=== PATIENT | female | born 1985 | race Caucasian/White ===

== ENCOUNTER → 2017-08-02 08:10 | Outpatient (CLI) | payer OTHER, SELFPAY ==
--- NOTE | 2017-08-02 08:12 | CT_ITS ---
CT abdomen pelvis wo con CLINICAL INDICATION: Abdominal pain with nausea ORDERING PHYSICIAN: AURE Brito PATIENT AGE: 32 years COMPARISON: None TECHNIQUE: Axial images obtained with sagittal and coronal reformats. PROCEDURE: Oral Contrast: None IV Contrast: None . FINDINGS: No acute finding in the lung bases. The liver, gallbladder, spleen, adrenal glands, and pancreas have an unremarkable unenhanced CT appearance. No renal calculi or hydronephrosis. No ureteral calculi. Urinary bladder has an unremarkable appearance. No intestinal obstruction or free air. Unremarkable appendix. There is mild amount retained colonic feces. Bilateral tubal ligation clips are present. No pelvic mass or focal inflammatory change apparent. No acute bony anomalies. There are some scattered small lymph nodes in the inguinal regions. There is some stranding of the subcutaneous fat in the left gluteal area nonspecific but could be due to prior injury. IMPRESSION: 1. No acute abdominal or pelvic findings. 2. Stranding of the subcutaneous fat in the left gluteal region which may be due to prior trauma.
== END ==
PROVIDERS: PCP Physician Assistant; Visit Provider Physician Assistant
DX: R10.11 Right upper quadrant pain (principal)
CPT/HCPCS: 74176

== ENCOUNTER → 2017-09-30 10:35 | Outpatient (CLI) | payer OTHER, SELFPAY ==
--- NOTE | 2017-09-30 10:38 | US_ITS ---
US thyroid HISTORY: ITS.REASON: THROID NODULE ORDERING PHYSICIAN: Edu Hastings MD PATIENT AGE: 32 years COMPARISON: 04/01/2017 FINDINGS: The right lobe is 3.4 x 1.2 x 1.2 cm. There is diffuse heterogeneous echogenicity of the right lobe with an ill-defined area of decreased echogenicity in the upper pole at 7 mm unchanged. The left lobe is 3.1 x 0.9 x 1 cm. There remains an 8 x 5 mm area of slight decreased echogenicity along the upper pole not significant changed. The isthmus is somewhat prominent at 6 mm. IMPRESSION: No change bilateral thyroid nodules
[2017-09-30 12:29] LABS: Free T4 (Free Thyroxine) 1.43 ng/dl (0.76-1.46); Thyroid Stimulating Hormone 2.44 uIU/ml (0.358-3.740)
== END ==
PROVIDERS: PCP Physician Assistant; Visit Provider Otolaryngology
DX: E04.1 Nontoxic single thyroid nodule (principal)
CPT/HCPCS: 36415; 76536; 84439; 84443

== ENCOUNTER → 2018-03-27 15:19 | Outpatient (CLI) | payer OTHER, SELFPAY ==
--- NOTE | 2018-03-27 15:20 | US_ITS ---
US thyroid HISTORY: Follow-up thyroid nodules ITS.REASON: thyroid nodule ORDERING PHYSICIAN: Edu Hastings MD PATIENT AGE: 32 years Comparison: 4 03/11 and 04/01/2017 FINDINGS: Right lobe is 3.8 x 1.4 x 1.3 cm. Solid 6 x 5 mm nodule upper pole best seen on the transverse images not significantly changed Hypoechoic nodule at 11 x 5 mm posterior to the lower pole consistent with parathyroid gland unchanged Left lobe is 2.9 x 1 x 1.1 cm. Heterogeneous echogenicity 8 x 6 mm isoechoic nodule upper pole unchanged The isthmus is slightly thickened at 5 mm. IMPRESSION: Overall no change from 04/01/2017 bilateral thyroid nodule with low level of suspicion for malignancy and no change in the probable parathyroid gland along the lower pole on the right
== END ==
PROVIDERS: PCP Physician Assistant; Visit Provider Otolaryngology
DX: E04.1 Nontoxic single thyroid nodule (principal); E04.9 Nontoxic goiter, unspecified
CPT/HCPCS: 76536

== ENCOUNTER → 2018-03-31 13:51 | Outpatient (CLI) | payer OTHER, SELFPAY ==
[2018-03-31 15:53] LABS: Free T4 (Free Thyroxine) 1.42 ng/dl (0.76-1.46)
[2018-04-01 07:38] LABS: Thyroid Peroxidase Antibodies 20 IU/mL (0-34)
[2018-04-02 07:30] LABS: Thyroid Stimulating Immunoglob <0.10 IU/L (0.00-0.55)
== END ==
PROVIDERS: PCP Physician Assistant; Visit Provider Otolaryngology
DX: E04.1 Nontoxic single thyroid nodule (principal); E04.9 Nontoxic goiter, unspecified
CPT/HCPCS: 36415; 84439; 84443; 84445; 86376

== ENCOUNTER 2018-04-30 13:14 | Outpatient (RCR) | payer OTHER, SELFPAY ==
--- NOTE | 2018-04-30 14:11 | HMH.PTOPEV ---
PT Outpatient Evaluation Rehab PT Outpatient Evaluation Start: 04/30/18 13:55 Freq: Status: Active Protocol: Document 04/30/18 13:56 NATALYTYREE (Rec: 04/30/18 14:10 BECKI [id number]) Electronically Signed By Hardeep Morel, PT 04/30/18 13:56 Outpatient Therapy Subjective History Subjective History This is the initial Physical Therapy evaluation for Kristie Vale. Pt is a 32 y/o female referred to PT for c/o L side hip and LE pain. Pt rpeorts insidious onset of S&S ~ february. Pt reports she began online school and spends several hours a day sitting. Pt reports this is when her pain starts. Pt also reports getting up and moving decreased pain Chief Complaint Pain Spasms Stiff Symptom Type Ache Throb Sharp Dull Numbness Shooting Symptoms Relieved By Activity Symptoms Aggravated By Sitting Prior Functional Limitations None Current Functional Limitations Driving Sitting Symptom Description Intermittent Level of pain today (0-10) 0 Pain scale - at its best (0-10) 0 Pain scale - at its worst (0-10) 7 Lumbopelvic Eval Posture Thoracic Spine Posture Standing Position Neutral Lumbar Spine Posture Standing Position Neutral Assistive device Assistive Devices None / NA Gait Observation General Gait Pattern Observation No Deviations/Normal Palapation tenderness bilateral thoracic spinal tenderness No lumbar spinal tenderness No paraspinal tenderness No buttock tenderness Yes: L piriformis TTP Lumbar/Sacral Palpation Findings Tenderness Lumbar/Sacral Palpation Overall Comment L PSIS, SIJ TTP Range of Motion Lumbar Spine Active Flexion Range of 80+ Motion (degrees) Lumbar Spine Active Extension Range of 25+ Motion (degrees) Left Lumbar Spine Lateral Flexion Active 30+ Range of Motion (degrees) Right Lumbar Spine Lateral Flexion 30+ Active Range of Motion (degrees) DTR Rt Patellar 2+ Lt Patellar 1+ Altered Sensation Left LE Dermatome Level L2 Comment decreased per subjective Special Tests Hip Bowstring
== END 2018-04-30 13:15 | disposition home or self-care (01) ==
LOC: PT 13:14
PROVIDERS: Visit Provider Emergency Medicine
DX: M25.552 Pain in left hip (principal)
CPT/HCPCS: 97163

== ENCOUNTER → 2018-08-27 15:03 | Outpatient (CLI) | payer OTHER, SELFPAY ==
[2018-08-30 10:15] LABS: QuantiFERON-TB Gold Plus Negative (Negative)
== END ==
PROVIDERS: Visit Provider Emergency Medicine
DX: Z11.1 Encounter for screening for respiratory tuberculosis (principal)
CPT/HCPCS: 36415; 86480

== ENCOUNTER → 2019-03-23 14:53 | Outpatient (CLI) | payer OTHER, SELFPAY ==
--- NOTE | 2019-03-23 14:54 | US_ITS ---
PROCEDURE: US THYROID CLINICAL INDICATION: Goiter COMPARISON: THY US thyroid from 03/27/2018 FINDINGS: Right lobe: 1.2 x 3.8 x 1.4 centimeters. Parenchyma is moderately heterogeneous. The previously described upper pole right lobe nodule is stable at 6.3 millimeters. The solid nodular focus posterior to the lower pole is stable measuring 1.1 centimeters. Left lobe: 1.0 x 2.8 x 1.0 centimeters and moderately heterogeneous. There is a left lobe lower pole hypoechoic solid nodule measuring 4.8 millimeters in with and 1.7 millimeters in height. Isthmus: 3.7 millimeters. Additional findings: IMPRESSION: Stable bilateral thyroid lobe nodules with heterogeneous thyroid tissue. The lower pole left thyroid lobe hypoechoic nodule was not described on the prior report. This would be a TR category 4 lesion and since under 1 centimeter would require 12 month follow-up. No suspicious nodule on this study. The posterior lower pole right thyroid lobe nodule is nonspecific and could be a pedunculated thyroid nodule versus parathyroid adenoma or lymph node. Dictated by: Fantasma Ruiz 03/23/2019 15:57 Electronically signed by Fantasma Ruiz in [place] 03/23/2019 15:57
[2019-03-23 17:46] LABS: Free T4 (Free Thyroxine) 1.33 ng/dl (0.76-1.46); Thyroid Stimulating Hormone 2.48 uIU/ml (0.358-3.740)
== END ==
PROVIDERS: PCP Physician Assistant; Visit Provider Otolaryngology
DX: E04.9 Nontoxic goiter, unspecified (principal); E06.9 Thyroiditis, unspecified; E03.9 Hypothyroidism, unspecified
CPT/HCPCS: 36415; 76536; 84439; 84443

== ENCOUNTER → 2019-08-13 11:33 | Outpatient (CLI) | payer MEDICAID, SELFPAY ==
[2019-08-13 12:22] LABS: Basophils # 0.1 K/mm3 (0-0.2); Basophils % 0.7 % (0.1-2.0); Eosinophils # 0.6 K/mm3 (0.0-0.4); Eosinophils % 6.2 % (0.1-12.0); Hemoglobin 14.9 g/dL (12.2-16.2); Lymphocytes # 2.6 K/mm3 (0.7-4.5); Lymphocytes % 26.8 % (10-50); Mean Corpuscular HGB Conc 32.4 g/dL (31.8-35.4); Mean Corpuscular Hemoglobin 28.5 pg (27.0-31.2); Mean Corpuscular Volume 87.9 fl (81-99); Mean Platelet Volume 9.9 fl (7.4-10.4); Monocytes # 0.3 K/mm3 (0.1-1.0); Monocytes % 3.1 % (1.7-9.3); Neutrophils # 6.2 K/mm3 (1.8-7.8); Neutrophils % 63.2 % (37.0-80.0); Platelet Count 257 K/mm3 (142-424); Red Blood Count 5.23 M/mm3 (4.20-5.40); Red Cell Distribution Width 13.9 % (11.5-17.5); White Blood Count 9.8 K/mm3 (4.8-10.8)
[2019-08-13 12:56] LABS: Chloride 100 mmol/L (98-107); Sodium 139 mmol/L (136-145)
[2019-08-13 12:57] LABS: Potassium 4.6 mmoL/L (3.5-5.1)
[2019-08-13 12:59] LABS: Alanine Aminotransferase 32 U/L (12-78); Alkaline Phosphatase 62 U/L (38-126); Amylase 35 U/L (30-110); Anion Gap 13.6 mEq/L (5-15); Aspartate Amino Transferase 35 U/L (14-36); Bilirubin,Total 0.9 mg/dl (0.2-1.3); Blood Urea Nitrogen 8 mg/dl (7-17); Calcium 10.2 mg/dl (8.4-10.2); Carbon Dioxide 30 mmol/L (22.0-30.0); Estimated Glomerular Filt Rate 95 ml/min (>60); GFR (African American) 115 ML/MIN (>60); Glucose 96 mg/dl (74-100); HDL Cholesterol 35 mg/dl (40-60); Lipase 63 U/L (23-300)
[2019-08-13 13:00] LABS: Albumin Level 4.5 g/dl (3.5-5.0); Albumin/Globulin Ratio 1.4 (1.1-1.8); Chol/HDL Ratio 7.1 (1-3.5); Cholesterol 248 mg/dl (140-200); Globulin 3.3 g/dL (1.3-3.2); Total Protein,Serum 7.8 g/dl (6.3-8.2); Triglycerides 335 mg/dl (30-150); VLDL Cholesterol 67 mg/dL (0-40)
[2019-08-13 13:11] LABS: Direct LDL Cholesterol 154.51 mg/dL (100-129)
[2019-08-13 13:17] LABS: T4 (Thyroxine) 14.8 ug/dl (5.53-11.0)
[2019-08-14 10:37] LABS: Vitamin D 25 Hydroxy 23.7 ng/mL (30.0-100.0)
[2019-08-14 23:43] LABS: H. pylori Breath Test Negative (Negative)
== END ==
PROVIDERS: Visit Provider Physician Assistant
DX: R10.11 Right upper quadrant pain (principal); E55.9 Vitamin D deficiency, unspecified
CPT/HCPCS: 36415; 80053; 80061; 82150; 82652; 83013; 83690; 84436; 84443; 85025

== ENCOUNTER → 2019-08-20 09:30 | Outpatient (CLI) | payer MEDICAID, SELFPAY ==
--- NOTE | 2019-08-20 09:30 | US_ITS ---
PROCEDURE: US ABDOMEN LIMITED CLINICAL INDICATION: ruq pain Right upper quadrant pain with nausea and bloating COMPARISON: RUQ US RUQ-(ABD LTD)1ORGAN/QUAD/FU from 03/28/2017 FINDINGS: PANCREAS: Unremarkable. No obvious mass or abnormal fluid collection. No ductal dilatation LIVER: No focal liver lesions demonstrated. Homogeneous echogenicity. No intrahepatic biliary ductal dilatation evident. There is appropriate direction of blood flow within a non dilated portal vein. There is some nonspecific increased echogenicity within the liver consistent with hepatic steatosis. RIGHT KIDNEY: Unremarkable. Normal size and echogenicity. No hydronephrosis GALLBLADDER: No gallstones, gallbladder wall thickening, pericholecystic fluid, or biliary dilatation. IMPRESSION: Fatty liver otherwise negative Dictated by: Darek Lane MD 08/20/2019 17:05 Electronically signed by Darek Lane MD in [place] 08/20/2019 17:05
== END ==
PROVIDERS: PCP Physician Assistant; Visit Provider Physician Assistant
DX: R10.11 Right upper quadrant pain (principal)
CPT/HCPCS: 76705

== ENCOUNTER → 2019-09-10 10:14 | Outpatient (CLI) | payer MEDICAID, SELFPAY ==
--- NOTE | 2019-09-10 10:15 | NM_ITS ---
PROCEDURE: NM HEPATOBILIARY W PHARM CLINICAL INDICATION: RUQ pain, nausea COMPARISON: No exams were available for comparison TECHNIQUE: DOSE: 8.68 mCi technetium Choletec and 2 mcg of CCK FINDINGS: Homogeneous activity is present within the hepatic parenchyma. Activity is present in the gallbladder by 10 minutes. Activity is present in the small bowel by 45 minutes. The gallbladder ejection fraction is calculated to be 28 percent. CCK-The patient did not report pain or other symptoms during CCK infusion. IMPRESSION: 1. No evidence of common or cystic duct obstruction. 2. Slightly low gallbladder ejection fraction at 28 percent with lower limits of normal being 35 percent Dictated by: Darek Lane MD 09/10/2019 14:38 Electronically signed by Darek Lane MD in [place] 09/10/2019 14:38
--- NOTE | 2019-09-10 10:38 | HMH.ITSHM ---
Current Home Medications as stated by this patient Kristie Perez or field representative/health education. []SABOXEN PROPRANOLOL LEVOTHYROXINE ATORVASTATIN ZOLOFT VITAMIN D
== END ==
PROVIDERS: PCP Physician Assistant; Visit Provider Physician Assistant
DX: R10.11 Right upper quadrant pain (principal)
CPT/HCPCS: 78227; A9537; J2805

== ENCOUNTER → 2019-10-26 10:19 | Outpatient (CLI) | payer MEDICAID, SELFPAY ==
[2019-10-26 10:40] LABS: Basophils # 0.1 K/mm3 (0-0.2); Basophils % 0.8 % (0.1-2.0); Eosinophils # 0.7 K/mm3 (0.0-0.4); Eosinophils % 7.3 % (0.1-12.0); Hemoglobin 13.8 g/dL (12.2-16.2); Lymphocytes # 2.8 K/mm3 (0.7-4.5); Lymphocytes % 28.6 % (10-50); Mean Corpuscular HGB Conc 33.8 g/dL (31.8-35.4); Mean Corpuscular Hemoglobin 28.8 pg (27.0-31.2); Mean Corpuscular Volume 85.2 fl (81-99); Mean Platelet Volume 9.9 fl (7.4-10.4); Monocytes # 0.3 K/mm3 (0.1-1.0); Monocytes % 3.5 % (1.7-9.3); Neutrophils # 5.9 K/mm3 (1.8-7.8); Neutrophils % 59.8 % (37.0-80.0); Platelet Count 227 K/mm3 (142-424); Red Blood Count 4.81 M/mm3 (4.20-5.40); Red Cell Distribution Width 13.4 % (11.5-17.5); White Blood Count 9.9 K/mm3 (4.8-10.8)
[2019-10-26 11:36] LABS: Alanine Aminotransferase 36 U/L (12-78); Albumin Level 4.3 g/dl (3.5-5.0); Albumin/Globulin Ratio 1.5 (1.1-1.8); Alkaline Phosphatase 59 U/L (38-126); Anion Gap 9.1 mEq/L (5-15); Aspartate Amino Transferase 36 U/L (14-36); Bilirubin,Total 0.9 mg/dl (0.2-1.3); Blood Urea Nitrogen 10 mg/dl (7-17); Calcium 9.4 mg/dl (8.4-10.2); Carbon Dioxide 29 mmol/L (22.0-30.0); Chloride 103 mmol/L (98-107); Estimated Glomerular Filt Rate 95 ml/min (>60); GFR (African American) 115 ML/MIN (>60); Globulin 2.8 g/dL (1.3-3.2); Glucose 106 mg/dl (74-100); Potassium 4.1 mmoL/L (3.5-5.1); Sodium 137 mmol/L (136-145); Total Protein,Serum 7.1 g/dl (6.3-8.2)
[2019-10-27 08:54] LABS: Covid-19 Nasal PCR Sendout Lex NOT DETECTED
--- NOTE | 2019-10-27 10:15 | PC.NURSE ---
0937-pt & S.Nimo ARITA notified of negative COVID 19 results.
== END ==
PROVIDERS: Visit Provider Surgery
DX: Z01.818 Encounter for other preprocedural examination (principal); K82.9 Disease of gallbladder, unspecified
CPT/HCPCS: 36415; 80053; 85025; U0003

== ENCOUNTER → 2019-10-27 13:21 | Outpatient (CLI) | payer MEDICAID, SELFPAY | PROVIDERS: Visit Provider Physician Assistant | DX: R30.9 Painful micturition, unspecified (principal) | CPT/HCPCS: 87086; 87088; 87186 ==

== ENCOUNTER 2019-10-28 10:24 | Day surgery (SDC) | payer MEDICAID, SELFPAY ==
--- NOTE | 2019-10-23 13:30 | SUR.PREOP ---
10/23/19 @ 7440--PHONE CALL MADE TO PATIENT. PATIENT UNDERSTANDS THAT LAB WORK AND COVID-19 TESTING NEEDS TO BE COMPLETED @ 0930 ON 10/26/19. PATIENT UNDERSTANDS IF LAB WORK AND COVID-19 TESTS ARE NOT COMPLETED BY 12PM ON THAT DATE, THE SURGERY SCHEDULED WILL BE CANCELLED AND RESCHEDULED FOR ANOTHER TIME.
[2019-10-27 09:31] VITALS: BMI 37.0
[2019-10-27 09:47] LABS: HCG Qualitative, Serum Negative (Negative)
[2019-10-28] VITALS (10 sets, daily range): BP systolic 110–139; BP diastolic 58–93; PULSE 57–81; RESP 12–18; TEMP 36.2–43; O2SAT 92–98
--- NOTE | 2019-10-28 10:03 | HMH.GSHP ---
HPI HPI: Patient is a 34-year-old female referred by Flores Coronel for gallbladder. 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 She has had some right upper quadrant pain for about 2 years. This has become progressively more severe and frequent. She has pain from the epigastrium through the right subcostal area into the back and shoulder region. She does have some constant right upper quadrant discomfort. She has had 2 instances where she has had very severe excruciating sharp shooting pain. She has some associated bloating, belching, and nausea as well as gassiness. She has had occasional exacerbations occurring about 30 minutes postprandially such as when she had eaten hamburger. She did undergo gallbladder ultrasound which was negative for gallstones. She had a HIDA scan which reveals an ejection fraction of 28%. She does state that she has a history of fatty liver . Of note, she is on Suboxone. [facility] History I have reviewed the patient's past medical history: Yes Medical History: Reports:: Depression, Hyperlipidemia, Hypertension *Have you ever received a pneumonia vaccine?: No *Have you received a flu vaccine this season?: No Other Medical History: Reports: Hypothyroidism Laterality Cases: Bilateral: Tonsillectomy Other Surgeries: Yes: 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 Amputation: No Fractures: No - *Social History Smoking Status: Current every day smoker Tobacco Type: cigarettes # Packs/Day (cigarettes): 1 #Yrs smoked (if former smoker): 15 Alcohol Intake: never Substance Use Type: denies use, opiates, crack/cocaine, heroin *Occupational Status:: unemployed, student *Travel in the last 8 weeks: None - Psychiatric History Pschychiatric History:: Reports:: Depression Family Hx:: Coronary Artery Disease, Hyperlipidemia, Hypertension 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 , 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 Review of Systems - Review of Systems Review of systems:: pertinent systems reviewed and negative unless documented below Meds Home Medications Medication Instructions Recorded Confirmed Type albuterol sulfate 90 mcg/actuation 2 puff INHALATION Q6H 07/02/17 10/28/19 History aerosol inhaler buprenorphine 8 mg-naloxone 2 mg 1.75 tab SUBLINGUAL QDAY each 07/02/17 10/28/19 History sublingual film triamcinolone acetonide 0.1 % 1 applic TOPICAL BID 07/02/17 10/28/19 History topical cream Atorvastatin Calcium [Atorvastatin 10 mg PO QHS 10/27/19 10/28/19 History 10mg Tab] Cholecalciferol (Vitamin D3) 1,000 unit PO DAILY 10/27/19 10/28/19 History [Vitamin D3 1,000 Unit Cap] Ergocalciferol (Vitamin D2) 50,000 unit PO QWEEK 10/27/19 10/28/19 History [Drisdol] Levothyroxine Sodium 125 mcg PO DAILY 10/27/19 10/28/19 History [Levothyroxine 125mcg (0.125mg) Tab] Propranolol HCl [Innopran Xl] 80 mg PO DAILY 10/27/19 10/28/19 History bupropion HCl 150 mg 24 hr tablet, 150 mg PO DAILY 10/27/19 10/27/19 History extended release cephalexin 500 mg capsule 500 mg PO TID 10 Days #30 cap 10/27/19 10/27/19 Rx Allergies Allergy/AdvReac Type Severity Reaction Status Date / Time No Known Allergies Allergy Verified 10/28/19 10:34 Exam I & O for Last 24 hours: Intake & Output 10/25/19 10/26/19 10/27/19 10/28/19 11:59 11:59 11:59 11:59 Weight 216 lb - *Routine HEENT Exam Head: Present: normocephalic Eye: Present: EOMI, PERRL ENT: Present: mucous membranes moist - *Routine Neck Exam Present: supple. Absent: lymphadenopathy - *Routine Respiratory Exam Present: CTA bilaterally - *Routine Cardiovascular Exam Present: RRR - *Routine Abdominal Exam Present: soft, normoactive bowel sounds, tenderness Comments: Mild RUQ tenderness. - *Routine Extremities Exam Absent: cyanosis, clubbing, edema - *Routine Skin Exam Present: warm. Absent: rash - *Routine Neurological Exam Present: alert, oriented X3 Assessment and Plan - Assessment and plan all Dx Assessment and Plan for all problems:: Certain
[2019-10-28 10:39] LABS: Urine Pregnancy, HCG Qual. Negative (Negative)
--- NOTE | 2019-10-28 12:16 | HMH.OPNOTE ---
Date of procedure: 10/28/19 Pre-op Diagnosis:: Gallbladder disease Post-op Diagnosis:: Same Procedure performed:: Laparoscopic cholecystectomy Surgeon:: Aris Nice MD INSPECTOR REPAIRER:: Pieter Douglas Anesthesia: GETA Estimated blood loss (mL): 20 Clinical Note:: Patient is a 34-year-old female referred by Flores Coronel for gallbladder. 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 She has had some right upper quadrant pain for about 2 years. This has become progressively more severe and frequent. She has pain from the epigastrium through the right subcostal area into the back and shoulder region. She does have some constant right upper quadrant discomfort. She has had 2 instances where she has had very severe excruciating sharp shooting pain. She has some associated bloating, belching, and nausea as well as gassiness. She has had occasional exacerbations occurring about 30 minutes postprandially such as when she had eaten hamburger. She did undergo gallbladder ultrasound which was negative for gallstones. She had a HIDA scan which reveals an ejection fraction of 28%. She does state that she has a history of fatty liver . Of note, she is on Suboxone. Operative findings:: He did have appreciable fatty infiltration of the liver diffusely. He had a distended gallbladder which, due to its distention, created somewhat of a corkscrew configuration near the infundibulum and neck of the gallbladder. Operative note:: Patient was taken to the operating room. She was given preoperative intravenous antibiotics. In the operating room she was placed in a supine position. General anesthesia was induced via endotracheal tube. Abdomen was prepped and draped in the standard surgical fashion. Subumbilical skin incision was made and dissection was carried down to the fascia. While performing abdominal wall lift Veress needle was inserted and CO2 pneumoperitoneum was achieved to 15 mmHg. 11 mm optical trocar was inserted at the umbilicus. Intraperitoneal contents were visualized. She was positioned in reverse Trendelenburg and left side down. A couple of 5 mm trochars were inserted in the right upper abdomen. 11 mm trocar was inserted in the epigastrium. She was noted to have some appreciable fatty infiltration of the liver. Gallbladder was identified and grasped and retracted anteriorly. Infundibulum/Mtz's pouch of the gallbladder was grasped and retracted anterior laterally. Blunt dissection was carried out at the neck of the gallbladder. The apparent cystic duct appeared to be displaced rather laterally. This was likely due to chronic distention of the gallbladder creating somewhat of a twisting-like corkscrew fashion near the neck and infundibulum of the gallbladder. Ultimately dissection was carried out clearly identifying the cystic duct and cystic artery. Cystic duct was multiply clipped and then divided. Cystic artery was coagulated with MANAV ultrasonic robotic alla and divided. Gallbladder was dissected free from the liver in a retrograde fashion using MANAV ultrasonic harmonic alla. Gallbladder was placed within an Endo Catch retrieval device and removed from the peritoneal cavity via the umbilical trocar site. Gallbladder fossa was inspected for hemostasis which was assured. Limited irrigation was carried out of the gallbladder fossa and perihepatic space. Trochars were removed as CO2 pneumoperitoneum was evacuated. Fascia at the umbilicus was closed with a couple of 0 Vicryl sutures. Local anesthetic was infiltrated. Skin incisions were closed with 4-0 Monocryl in a subcuticular fashion. Steri-Strips and dressings were applied. Condition: stable Disposition: PACU Specimens:: Gallbladder and contents Complications:: None immediately apparent
--- NOTE | 2019-10-28 12:24 | P.PN_ITS ---
[facility] Anesthesia Checklist - Structural Data Admitted From: Home Planned Operative Procedure/s: gary jyothi Consent for Planned Operative Procedure(s) Verified: Yes - Additional verifications Anesthesia Reactions: No Hx Blood Transfusions: No Blood Transfusion Reaction: No - Airway Assessment C-Spine Mobility Assessed: Yes TMJ Mobility Assessed: Yes Dentition: Good Dentition - Neurological Assessment Level of Consciousness: Awake, Alert, Appropriate - Anesthesia Plan Anesthesia Risk discussed: Yes Anesthesia Plan: Verified ASA Class: III Anesthesia Type: General [facility] History I have reviewed the patient's past medical history: Yes Medical History: Reports:: Depression, Hyperlipidemia, Hypertension Denies:: Cancer, Diabetes Mellitus Type 1, Diabetes Mellitus Type 2, Internal Pacemaker, MRSA, Seizures *Have you ever received a pneumonia vaccine?: No *Have you received a flu vaccine this season?: No Other Medical History: Reports: Hypothyroidism. Denies: Blood Transfusion Reaction Anesthesia experience/problems:: none Laterality Cases: Bilateral: Tonsillectomy Other Surgeries: Yes: 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. 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
--- NOTE | 2019-10-28 12:26 | HMH.ANESI ---
[facility] Anesthesia Record Part I Intake, IV Amount: 1,500 Estimated blood loss (mL): 0 Urine output (mL): 0 Blood Pressure: 127/93 SaO2: 92 Pulse Rate: 71 Respiratory Rate: 12 Temperature: 98.3 F Patient is:: Awake, Stable Stable to PACU at:: 12:20
--- NOTE | 2019-10-28 12:54 | PC.NURSE ---
1241-detailed report called to JUAN J England 3317-pt transported to post op via stretcher with vanesa rails up and left in care of JUAN J England with bed locked in lowest position, vss, pt stable
[2019-10-29 10:36] VITALS: BP 110/58; PULSE 70; TEMP 36.8
--- NOTE | 2019-10-29 10:36 | HMH.ANESII ---
[facility] Anesthesia Record Part II Discharge Time: 12:50 Destination: [facility] PACU nurse assessment reviewed?: Yes Patient Condition:: Good Anesthesia Complications:: None Swallowing reflex intact?: Yes Cyanosis?: No Blood Pressure: 110/58 Pulse Rate: 70 Temperature: 98.2 F Mental Status: Alert & Oriented Pain level:: 5 Nausea and/or vomitting:: None Intake, IV Amount: 1,500
== END 2019-10-28 13:21 | disposition home or self-care (01) ==
LOC: OR 10:25
PROVIDERS: PCP Physician Assistant; Visit Provider Surgery
PROC: 0FT44ZZ Resection of Gallbladder, Percutaneous Endoscopic Approach (ICD-10-PCS; CPT 47562; principal; 2019-10-28 11:30)
DX: K82.9 Disease of gallbladder, unspecified (principal); Z72.0 Tobacco use; I10 Essential (primary) hypertension; E03.9 Hypothyroidism, unspecified
CPT/HCPCS: 47562; 81025; 84703; 96374; J2405; J2710

== ENCOUNTER → 2019-11-04 16:09 | Outpatient (CLI) | payer MEDICAID, SELFPAY ==
[2019-11-04 16:33] LABS: Basophils # 0.1 K/mm3 (0-0.2); Basophils % 0.8 % (0.1-2.0); Eosinophils # 0.8 K/mm3 (0.0-0.4); Hematocrit 46.1 % (37.0-47.0); Hemoglobin 15.2 g/dL (12.2-16.2); Lymphocytes # 2.3 K/mm3 (0.7-4.5); Lymphocytes % 14.6 % (10-50); Mean Corpuscular Hemoglobin 28.5 pg (27.0-31.2); Mean Corpuscular Volume 86.4 fl (81-99); Mean Platelet Volume 9.4 fl (7.4-10.4); Monocytes # 0.4 K/mm3 (0.1-1.0); Monocytes % 2.4 % (1.7-9.3); Neutrophils # 12.3 K/mm3 (1.8-7.8); Neutrophils % 77.2 % (37.0-80.0); Platelet Count 305 K/mm3 (142-424); Red Blood Count 5.33 M/mm3 (4.20-5.40); White Blood Count 15.9 K/mm3 (4.8-10.8)
[2019-11-04 16:41] LABS: Hemoglobin A1C 5.3 % (4.0-6.0)
[2019-11-04 16:45] LABS: MANUAL DIFFERENTIAL MANUAL DIFFERENTIAL (MANUAL DIFF)
[2019-11-04 16:57] LABS: Monoscreen (Rapid) Negative (Negative)
[2019-11-04 18:06] LABS: Alanine Aminotransferase 57 U/L (12-78); Albumin Level 4.9 g/dl (3.5-5.0); Albumin/Globulin Ratio 1.5 (1.1-1.8); Alkaline Phosphatase 75 U/L (38-126); Aspartate Amino Transferase 47 U/L (14-36); Bilirubin,Total 1.5 mg/dl (0.2-1.3); Blood Urea Nitrogen 13 mg/dl (7-17); Calcium 10.5 mg/dl (8.4-10.2); Carbon Dioxide 31 mmol/L (22.0-30.0); Chloride 97 mmol/L (98-107); Cholesterol 205 mg/dl (140-200); Estimated Glomerular Filt Rate 71 ml/min (>60); GFR (African American) 86 ML/MIN (>60); Globulin 3.2 g/dL (1.3-3.2); Glucose 110 mg/dl (74-100); Sodium 135 mmol/L (136-145); Total Protein,Serum 8.1 g/dl (6.3-8.2); Triglycerides 279 mg/dl (30-150); VLDL Cholesterol 56 mg/dL (0-40)
[2019-11-04 18:07] LABS: Anion Gap 11.2 mEq/L (5-15); Chol/HDL Ratio 3.7 (1-3.5); HDL Cholesterol 55 mg/dl (40-60); Potassium 4.2 mmoL/L (3.5-5.1)
[2019-11-04 18:18] LABS: Direct LDL Cholesterol 124.23 mg/dL (100-129)
[2019-11-04 19:13] LABS: T4 (Thyroxine) 14.9 ug/dl (5.53-11.0)
[2019-11-04 19:27] LABS: Thyroid Stimulating Hormone 2.97 uIU/mL (0.465-4.68)
[2019-11-04 19:54] LABS: Lymphocytes % 19 % (10-50); Monocytes % 3 % (2-9); Neutrophils % 77 % (42-76); Total Cells Counted 100
[2019-11-04 19:55] LABS: Platelet Estimate Normal; RBC Morphology Normal
[2019-11-06 07:16] LABS: Iron 43 ug/dL (27-159); UIBC 330 ug/dL (131-425)
[2019-11-06 07:38] LABS: Iron Saturation 12 % (15-55); Vitamin D 25 Hydroxy 43.5 ng/mL (30.0-100.0)
== END ==
PROVIDERS: Visit Provider Nurse Practitioner Family
DX: R53.83 Other fatigue (principal); N39.0 Urinary tract infection, site not specified; R73.09 Other abnormal glucose; E66.9 Obesity, unspecified
CPT/HCPCS: 36415; 80053; 80061; 82652; 83036; 83540; 83550; 84436; 84443; 85007; 85025; 86318; 87086

== ENCOUNTER → 2020-01-14 14:36 | Outpatient (CLI) | payer MEDICAID, SELFPAY ==
--- NOTE | 2020-01-14 14:37 | US_ITS ---
PROCEDURE: US TRANSVAGINAL CLINICAL INDICATION: Polycystic ovaries/irregular periods COMPARISON: No exams were available for comparison FINDINGS: UTERUS: 7cm x 4cmx 4cm with a combined endometrial thickness of 6.1mm LEFT OVARY: [id number] with a volume of 12.1ml. RIGHT OVARY: [id number] with a volume of 9.8ml. There are multiple bilateral ovarian follicles with slightly prominent ovarian volumes consistent with polycystic ovaries. Tubular structure is also noted in the left adnexa and may be related to dilated fallopian tube. IMPRESSION: 1. Polycystic ovaries. 2. Tubular structure left adnexa consistent with hydrosalpinx Dictated by: Darek Lane MD 01/14/2020 16:51 Electronically signed by Darek Lane MD in [place] 01/14/2020 16:51
[2020-02-24 12:26] LABS: Estradiol 37.9; FSH 6.4; LH 6.5
== END ==
PROVIDERS: PCP Physician Assistant; Visit Provider Nurse Practitioner Obstetrics & Gynecology
DX: E28.2 Polycystic ovarian syndrome (principal); N92.6 Irregular menstruation, unspecified
CPT/HCPCS: 36415; 76830; 82670; 83001; 83002

== ENCOUNTER → 2020-01-14 15:11 | Outpatient (CLI) | payer MEDICAID, SELFPAY | PROVIDERS: Visit Provider Nurse Practitioner Obstetrics & Gynecology | DX: E28.2 Polycystic ovarian syndrome (principal) | CPT/HCPCS: 36415; 82670; 83001; 83002 ==

== ENCOUNTER → 2020-01-21 14:01 | Outpatient (CLI) | payer MEDICAID, SELFPAY ==
[2020-01-23 19:23] LABS: Measles Antibodies, IgG >300.0 AU/mL (Immune >16.4); Rubella Antibodies, IgG 3.68 index (Immune >0.99); Varicella Zoster IgG 3439 index (Immune >165)
[2020-01-25 14:39] LABS: Varicella-Zoster Ab, IgM <0.91 index (0.00-0.90)
[2020-01-26 09:16] LABS: QuantiFERON-TB Gold Plus Negative (Negative)
== END ==
PROVIDERS: Visit Provider Physician Assistant
DX: Z01.84 Encounter for antibody response examination (principal)
CPT/HCPCS: 36415; 86480; 86735; 86762; 86765; 86787

== ENCOUNTER → 2020-03-30 14:44 | Outpatient (CLI) | payer MEDICAID, SELFPAY ==
--- NOTE | 2020-03-30 14:53 | US_ITS ---
PROCEDURE: US THYROID CLINICAL INDICATION: goiter Fu thyroid nodules COMPARISON: US US THYROID from 03/23/2019 FINDINGS: Right lobe: 1.5cm x 3.8cm x 1.2cm Left lobe: 0.8cm x 3.0cm x 1.0cm Isthmus: Prominent at 5 mm. Additional findings: There is heterogeneous echogenicity of the right lobe of the thyroid gland with questionable nodule in the upper pole at 8 mm not significantly changed. In the lower pole there is a hypoechoic nodule along the posterior aspect of the thyroid gland at 9 mm and may be due to a prominent parathyroid gland unchanged. There is heterogeneous echogenicity the left lobe of the thyroid gland. IMPRESSION: Overall no significant change in the bilateral thyroid heterogeneous echogenicity with stable possible enlarged parathyroid gland on the right and stable 8 mm nodule in the upper pole on the right Dictated by: Darek Lane MD 03/31/2020 12:[address] MD in [place] 03/31/2020 12:06
[2020-03-30 16:25] LABS: Free T4 (Free Thyroxine) 1.63 ng/dl (0.78-2.19)
[2020-03-30 16:40] LABS: Thyroid Stimulating Hormone 2.54 uIU/mL (0.465-4.68)
== END ==
PROVIDERS: PCP Physician Assistant; Visit Provider Otolaryngology
DX: E03.9 Hypothyroidism, unspecified (principal); E04.9 Nontoxic goiter, unspecified; E06.9 Thyroiditis, unspecified
CPT/HCPCS: 36415; 76536; 84439; 84443

== ENCOUNTER → 2020-04-05 16:33 | Outpatient (CLI) | payer MEDICAID, SELFPAY ==
[2020-04-05 18:26] LABS: Intact Parathyroid Hormone 51.2 pg/mL (7.5-53.5)
[2020-04-07 17:58] LABS: Calcium, Ionized 5.4 mg/dL (4.5-5.6)
== END ==
PROVIDERS: Visit Provider Otolaryngology
DX: E03.9 Hypothyroidism, unspecified (principal); E04.9 Nontoxic goiter, unspecified
CPT/HCPCS: 36415; 82330; 83970

== ENCOUNTER → 2020-04-15 09:00 | Outpatient (CLI) | payer MEDICAID, SELFPAY ==
--- NOTE | 2020-04-15 09:00 | FL_ITS ---
PROCEDURE: FL BARIUM SWALLOW CLINICAL INDICATION: diff swallowing COMPARISON: No exams were available for comparison TECHNIQUE: In the upright position the patient was observed to swallow barium in both the AP and lateral view. The cervical esophagus was examined under fluoroscopy with images obtained. The patient was then placed prone in the right anterior oblique position and was observed to swallow barium with Valsalva technique . FLUOROSCOPY TIME: 55 seconds FINDINGS: There was no evidence of aspiration. There was normal peristalsis. No filling defects or mucosal abnormalities. No masses or strictures. No hiatal hernia. IMPRESSION: Negative barium swallow. Dictated by: Darek Lane MD 04/15/2020 17:[address] MD in [place] 04/15/2020 17:15
== END ==
PROVIDERS: PCP Physician Assistant; Visit Provider Otolaryngology
DX: R13.10 Dysphagia, unspecified (principal)
CPT/HCPCS: 74220

== ENCOUNTER → 2020-09-21 08:01 | Outpatient (CLI) | payer MEDICAID, SELFPAY ==
--- NOTE | 2020-09-21 08:01 | US_ITS ---
PROCEDURE: US LIVER CLINICAL INDICATION: RUQ Pain COMPARISON: No exams were available for comparison FINDINGS: Slightly limited study due to patient's body habitus. PANCREAS: The visualized pancreas is unremarkable. The tail is partially obscured. LIVER: There is diffuse fatty infiltration of the liver. No focal liver lesions are noted. The portal vein demonstrates appropriate directional flow. RIGHT KIDNEY: Unremarkable. Normal size and echogenicity. No hydronephrosis GALLBLADDER: The gallbladder is surgically or absent. The common bile duct measures 0.3 centimeters. No intrahepatic ductal dilation. IMPRESSION: Hepatic steatosis. No other acute abnormality is noted within the limitations of the study. Dictated by: Lyndsay De León 09/21/2020 10:44 Lyndsay De León in [place] 09/21/2020 10:44
== END ==
PROVIDERS: PCP Physician Assistant; Visit Provider Physician Assistant
DX: R10.11 Right upper quadrant pain (principal)
CPT/HCPCS: 76705

== ENCOUNTER → 2021-01-26 11:56 | Outpatient (CLI) | payer MEDICAID, SELFPAY ==
[2021-01-26 12:23] LABS: Basophils # 0.1 K/mm3 (0-0.2); Basophils % 0.9 % (0.1-2.0); Eosinophils # 0.9 K/mm3 (0.0-0.4); Eosinophils % 7.3 % (0.1-12.0); Hematocrit 43.9 % (37.0-47.0); Hemoglobin 13.9 g/dL (12.2-16.2); Lymphocytes # 2.6 K/mm3 (0.7-4.5); Lymphocytes % 22.2 % (10-50); Mean Corpuscular HGB Conc 31.7 g/dL (31.8-35.4); Mean Corpuscular Hemoglobin 27.4 pg (27.0-31.2); Mean Corpuscular Volume 86.4 fl (81-99); Mean Platelet Volume 9.9 fl (7.4-10.4); Monocytes # 0.4 K/mm3 (0.1-1.0); Monocytes % 3.5 % (1.7-9.3); Neutrophils # 7.9 K/mm3 (1.8-7.8); Neutrophils % 66.3 % (37.0-80.0); Platelet Count 254 K/mm3 (142-424); Red Blood Count 5.08 M/mm3 (4.20-5.40); Red Cell Distribution Width 13.8 % (11.5-17.5); White Blood Count 11.9 K/mm3 (4.8-10.8)
[2021-01-26 13:08] LABS: Chloride 101 mmol/L (98-107); Potassium 4.3 mmoL/L (3.5-5.1); Sodium 139 mmol/L (136-145)
[2021-01-26 13:11] LABS: Alanine Aminotransferase 53 U/L (12-78); Albumin Level 4.6 g/dl (3.5-5.0); Albumin/Globulin Ratio 1.5 (1.1-1.8); Alkaline Phosphatase 77 U/L (38-126); Anion Gap 14.3 mEq/L (5-15); Aspartate Amino Transferase 42 U/L (14-36); Bilirubin,Total 1.3 mg/dl (0.2-1.3); Blood Urea Nitrogen 9 mg/dl (7-17); Calcium 9.6 mg/dl (8.4-10.2); Carbon Dioxide 28 mmol/L (22.0-30.0); Cholesterol 160 mg/dl (140-200); Estimated Glomerular Filt Rate 95 ml/min (>60); GFR (African American) 115 ML/MIN (>60); Glucose 112 mg/dl (74-100); Total Protein,Serum 7.6 g/dl (6.3-8.2); Triglycerides 292 mg/dl (30-150); VLDL Cholesterol 58 mg/dL (0-40)
[2021-01-26 13:12] LABS: Chol/HDL Ratio 4.4 (1-3.5); HDL Cholesterol 36 mg/dl (40-60)
[2021-01-26 13:23] LABS: Direct LDL Cholesterol 84.02 mg/dL (100-129)
[2021-01-26 13:42] LABS: Thyroid Stimulating Hormone 3.91 uIU/mL (0.465-4.68)
[2021-01-26 15:05] LABS: 25-OH Vitamin D, Total 39.8 ng/mL (30-100)
[2021-01-29 07:41] LABS: QuantiFERON-TB Gold Plus Negative (Negative)
== END ==
PROVIDERS: Visit Provider Physician Assistant
DX: E03.9 Hypothyroidism, unspecified (principal); Z11.1 Encounter for screening for respiratory tuberculosis
CPT/HCPCS: 80053; 80061; 82306; 84443; 85025; 86480

== ENCOUNTER 2021-04-07 16:48 | Emergency (ER) | payer MEDICAID, SELFPAY ==
[2021-04-07 16:50] VITALS: BP 164/89; PULSE 83; RESP 18; TEMP 37.5; O2SAT 98; BMI 39.4
--- NOTE | 2021-04-07 17:06 | ECG_ITS ---
APPROVED REPORT Exam: Resting ECG HR:88 bpm ECG Measurements Heart Rate 88 AXES NC 140 P 43 QRSd 80 QRS 68 QT 372 T 20 QTc 450 Conclusion Normal sinus rhythm Normal ECG Electronically signed by : Jhony Hager MD 04/08/2021 08:56:47
--- NOTE | 2021-04-07 17:14 | XR_ITS ---
PROCEDURE INFORMATION: Exam: XR Chest Exam date and time: 04/07/21 05:14 PM Age: 35 years old Clinical indication: Cough TECHNIQUE: Imaging protocol: XR of the chest. Views: 1 view. COMPARISON: CR CXR CHEST(2 VIEWS-NOT PORTABLE) 05/16/16 12:08 AM FINDINGS: Lungs: Unremarkable. No consolidation. Pleural spaces: Unremarkable. No pleural effusion. No pneumothorax. Heart/Mediastinum: Unremarkable. No cardiomegaly. Bones/joints: Unremarkable. IMPRESSION: No acute findings.
[2021-04-07 17:26] LABS: Basophils # 0.2 K/mm3 (0-0.2); Basophils % 1.3 % (0.1-2.0); Eosinophils # 0.7 K/mm3 (0.0-0.4); Hematocrit 45.8 % (37.0-47.0); Hemoglobin 15.3 g/dL (12.2-16.2); Lymphocytes # 2.9 K/mm3 (0.7-4.5); Lymphocytes % 23.4 % (10-50); Mean Corpuscular HGB Conc 33.4 g/dL (31.8-35.4); Mean Corpuscular Hemoglobin 28.7 pg (27.0-31.2); Mean Corpuscular Volume 85.9 fl (81-99); Mean Platelet Volume 10.1 fl (7.4-10.4); Monocytes # 0.4 K/mm3 (0.1-1.0); Monocytes % 2.9 % (1.7-9.3); Neutrophils # 8.1 K/mm3 (1.8-7.8); Neutrophils % 66.3 % (37.0-80.0); Platelet Count 312 K/mm3 (142-424); Red Blood Count 5.33 M/mm3 (4.20-5.40); White Blood Count 12.2 K/mm3 (4.8-10.8)
[2021-04-07 17:32] LABS: Alanine Aminotransferase 48 U/L (12-78); Albumin Level 4.4 g/dl (3.5-5.0); Albumin/Globulin Ratio 1.3 (1.1-1.8); Alkaline Phosphatase 78 U/L (38-126); Anion Gap 12.2 mEq/L (5-15); Aspartate Amino Transferase 41 U/L (14-36); Bilirubin,Total 1.2 mg/dl (0.2-1.3); Blood Urea Nitrogen 5 mg/dl (7-17); Calcium 9.7 mg/dl (8.4-10.2); Carbon Dioxide 30 mmol/L (22.0-30.0); Chloride 103 mmol/L (98-107); Estimated Glomerular Filt Rate 95 ml/min (>60); GFR (African American) 115 ML/MIN (>60); Globulin 3.5 g/dL (1.3-3.2); Glucose 106 mg/dl (74-100); Lipase 44 U/L (23-300); Potassium 4.2 mmoL/L (3.5-5.1); Sodium 141 mmol/L (136-145); Total Protein,Serum 7.9 g/dl (6.3-8.2)
--- NOTE | 2021-04-07 17:40 | [facility]H.EDCP ---
ED Disposition Clinical Impression: Anxiety Chest pain Qualifiers: Chest pain type: unspecified Qualified Code(s): R07.9 - Chest pain, unspecified Disposition: Home, Self-Care Condition on Discharge: Good Instructions: DI for Atypical Chest Pain Referrals: Flores Coronel PA [Primary Care Provider] - - Critical Care Critical Care Time: No Attestation: On 04/07/21, the high probability of a clinically significant, sudden or life threatening deterioration of the following system(s) required my full and direct attention, intervention and personal management. The time I documented below is in addition to time spent performing reported procedures but includes the following listed in this critical care notation. Medical Decision Making - Medical Records Medical records reviewed: Yes: I reviewed the patient's medical records. - Chavo Inquiry Pt receiving controlled substance: No Vital Signs: 04/07/21 16:50 Temperature 99.5 F Temperature Source Oral Pulse Rate [Radial] 83 Respiratory Rate 18 Blood Pressure [Right Arm] 164/89 H Blood Pressure Mean [Right Arm] 114 Blood Pressure Position [Right Arm] Sitting 02 Sat by Pulse Oximetry 98 Oxygen Delivery Method Room Air - Lab Data Lab Results 04/07/21 17:09: WBC 12.2 H, RBC 5.33, Hgb 15.3, Hct 45.8, MCV 85.9, MCH 28.7, MCHC 33.4, RDW 14.0, Plt Count 312, MPV 10.1, Neut % (Auto) 66.3, Lymph % (Auto) 23.4, Swisher % (Auto) 2.9, Eos % (Auto) 6.0, Baso % (Auto) 1.3, Neut # (Auto) 8.1 H, Lymph # (Auto) 2.9, Swisher # (Auto) 0.4, Eos # (Auto) 0.7 H, Baso # (Auto) 0.2 04/07/21 17:09: Sodium 141, Potassium 4.2, Chloride 103, Carbon Dioxide 30, Anion Gap 12.2, BUN 5 L, Creatinine 0.70, Estimated GFR 95, Est GFR ( Amer) 115, Glucose 106 H, Calcium 9.7, Total Bilirubin 1.2, AST 41 H, ALT 48, Alkaline Phosphatase 78, Troponin I < 0.01, NT-Pro-B Natriuret Pep 63.8, Total Protein 7.9, Albumin 4.4, Globulin 3.5 H, Albumin/Globulin Ratio 1.3, Lipase 44 04/07/21 17:40: Urine Color Straw, Urine Appearance Clear, Urine pH 7.0, Ur Specific Sutton 1.010, Urine Protein Negative, Urine Glucose (UA) Negative, Urine Ketones Negative, Urine Blood Trace-i, Urine Nitrate Negative, Urine Bilirubin Negative, Urine Urobilinogen 0.2, Ur Leukocyte Esterase Negative, Urine RBC Occasional, Urine WBC None, Ur Squamous Epith Cells 5-10, Urine Bacteria None 04/07/21 17:40: Urine HCG, Qual Negative Result diagrams: 04/07/21 17:09 04/07/21 17:09 Orders (Tests/Meds): ORDERS Category Date Time Status Troponin I Q3H Lab 04/07/21 20:15 Ordered Troponin I Q3H Lab 04/07/21 23:15 Ordered - Radiology Data #1 Image(s): Chest Image Reviewed: Yes I reviewed the patient's radiology results, Yes I reviewed the patient's radiology image, Yes I have reviewed radiologist's interpretation - ECG Data Tracing #1 I reviewed this ECG and interpreted as documented below: ECG initial impression date: 04/07/21 ECG initial impression time: 17:43 ECG normal with no acute: arrhythmias, ischemia, conduction abnormalities, chamber hypertrophy Normal Sinus Rhythm: Yes - Reevaluation(s) Time: 18:41 Reevaluation #1: On reevaluation, the patient is feeling much better. Pain-free. Negative troponin. No significant EKG changes. Patient will follow up with PCP in 48 hours. Given strict return precautions. Verbalized understanding. - ADRIÁN Score for Non-Stemi Age of Patient: 30-39 years old Heart Rate: 70-89 bpm Systolic Blood Pressure: 160-199 mmHg Serum Creatinine: <0.40 mg/dl CHF Killip Class: I-No CHF Other Risk Factors: None Non-Stemi Risk Score: 28 Risk Stratification: 1-108 = Low Risk Medical Decision Narrative: 35-year-old female presenting with some subacute chest discomfort for the last 3 weeks. There is to be triggered by the patient's stress and anxiety. There is low risk for acute coronary syndrome based on heart score. Work-up initiated. Chest Pain HPI - General Ch
[2021-04-07 17:44] LABS: NT Pro Brain Natriuretic Pep. 63.8 pg/mL (0-125)
[2021-04-07 17:44] LABS: Microscopic, Urine URINE MICROSCOPIC (MICROSCOPIC)
[2021-04-07 17:49] LABS: Appearance,Urine CLEAR (Clear); Bilirubin,Urine Negative (Negative); Blood, Urine TRACE-I (Negative); Color,Urine STRAW (Yellow); Glucose,Urine (UA) Negative (Negative); Ketones,Urine Negative (Negative); Leukocyte Esterase,Urine Negative (Negative); Nitrate,Urine Negative (Negative); Protein,Urine Negative (Negative); Urobilinogen,Urine 0.2 EU/dl (0.2)
[2021-04-07 17:50] LABS: Urine Pregnancy, HCG Qual. Negative (Negative)
[2021-04-07 17:55] LABS: Troponin I < 0.01 ng/ml (0.00-0.034)
[2021-04-07 17:57] LABS: RBC,Urine Occasional #/hpf (0-3)
[2021-04-07 18:30] VITALS: BP 150/83; PULSE 82; RESP 18; O2SAT 95
[2021-04-07 19:11] VITALS: BP 125/74; PULSE 78; RESP 16; TEMP 36.6; O2SAT 98
== END 2021-04-07 19:13 | disposition home or self-care (01) ==
PROVIDERS: Emergency Provider Emergency Medicine; PCP Physician Assistant
DX: R07.9 Chest pain, unspecified (principal); F41.9 Anxiety disorder, unspecified; E78.5 Hyperlipidemia, unspecified; F17.210 Nicotine dependence, cigarettes, uncomplicated
CPT/HCPCS: 71045; 80053; 81001; 81025; 83690; 83880; 84484; 85025; 93005; 99283

== ENCOUNTER 2021-06-29 02:09 | Emergency (ER) | payer MEDICAID, SELFPAY ==
[2021-06-29 02:10] VITALS: BP 142/80; PULSE 83; RESP 20; TEMP 36.8; O2SAT 99; BMI 38.6
--- NOTE | 2021-06-29 03:35 | CT_ITS ---
PROCEDURE INFORMATION: Exam: CT Head Without Contrast Exam date and time: 06/29/2021 3:35 AM Age: 35 years old Clinical indication: Pain; Headache; Migraine; Additional info: New onset migraine TECHNIQUE: Imaging protocol: Computed tomography of the head without contrast. Radiation optimization: All CT scans at this facility use at least one of these dose optimization techniques: automated exposure control; mA and/or kV adjustment per patient size (includes targeted exams where dose is matched to clinical indication); or iterative reconstruction. COMPARISON: SINUS CT SINUS (MAX-FACIAL W/O CONT) 05/14/2016 2:27 PM FINDINGS: Brain: No loss of jefferson-white differentiation or evidence of acute ischemia. No mass effect or midline shift. No intracranial hemorrhage. Note is made of a partially empty sella. Cerebral ventricles: Within expected limits for age and brain volume status. No ventricular outflow obstruction. Paranasal sinuses: Mild mucosal thickening in the paranasal sinuses. Left maxillary sinus mucosal retention cyst or polyp. Chronic nasal septal deviation. Mastoid air cells: Visualized mastoid air cells are well aerated. Bones/joints: No depressed or calvarial fracture. Soft tissues: Unremarkable. IMPRESSION: 1. No evidence of acute intracranial abnormality. 2. Nonspecific partially empty appearance of the sella. Correlate for clinical evidence of idiopathic intracranial hypertension.
[2021-06-29 04:00] LABS: Basophils # 0.4 K/mm3 (0-0.2); Basophils % 2.9 % (0.1-2.0); Eosinophils # 0.9 K/mm3 (0.0-0.4); Hematocrit 43.8 % (37.0-47.0); Hemoglobin 13.9 g/dL (12.2-16.2); Lymphocytes # 3.1 K/mm3 (0.7-4.5); Lymphocytes % 25.9 % (10-50); Mean Corpuscular HGB Conc 31.8 g/dL (31.8-35.4); Mean Corpuscular Hemoglobin 28.4 pg (27.0-31.2); Mean Corpuscular Volume 89.2 fl (81-99); Mean Platelet Volume 10.4 fl (7.4-10.4); Monocytes # 0.4 K/mm3 (0.1-1.0); Monocytes % 2.9 % (1.7-9.3); Neutrophils # 7.4 K/mm3 (1.8-7.8); Neutrophils % 61.3 % (37.0-80.0); Platelet Count 241 K/mm3 (142-424); Red Blood Count 4.91 M/mm3 (4.20-5.40); Red Cell Distribution Width 14.2 % (11.5-17.5); White Blood Count 12.1 K/mm3 (4.8-10.8)
[2021-06-29 04:05] LABS: Chloride 100 mmol/L (98-107); Potassium 3.8 mmoL/L (3.5-5.1); Sodium 138 mmol/L (136-145)
[2021-06-29 04:08] LABS: Anion Gap 8.8 mEq/L (5-15); Blood Urea Nitrogen 9 mg/dl (7-17); Calcium 9.3 mg/dl (8.4-10.2); Carbon Dioxide 33 mmol/L (22.0-30.0); Creatinine Clearance Estimated 157 mL/min (50-200); Estimated Glomerular Filt Rate 81 ml/min (>60); GFR (African American) 98 ML/MIN (>60); Glucose 105 mg/dl (74-100)
--- NOTE | 2021-06-29 04:28 | HMH.EDHA ---
ED Disposition Clinical Impression: Headache Qualifiers: Headache type: unspecified Headache chronicity pattern: acute headache Intractability: not intractable Qualified Code(s): R51.9 - Headache, unspecified Disposition: Home, Self-Care Condition on Discharge: Good Instructions: DI for Headache Additional Instructions: see pcp and neuro for follow up Referrals: Flores Coronel PA [Primary Care Provider] - Diya Craig MD [Staff Physician] - - Critical Care Critical Care Time: No Attestation: On 06/29/21, the high probability of a clinically significant, sudden or life threatening deterioration of the following system(s) required my full and direct attention, intervention and personal management. The time I documented below is in addition to time spent performing reported procedures but includes the following listed in this critical care notation. Medical Decision Making - Medical Records Medical records reviewed: Yes: I reviewed the patient's medical records. - Chavo Inquiry Pt receiving controlled substance: No Vital Signs: 06/29/21 02:10 Temperature 98.2 F Temperature Source Oral Pulse Rate [Apical] 83 Respiratory Rate 20 Blood Pressure [Right Arm] 142/80 H Blood Pressure Mean [Right Arm] 100 Blood Pressure Source [Right Arm] Automatic Cuff Blood Pressure Position [Right Arm] Sitting 02 Sat by Pulse Oximetry 99 Oxygen Delivery Method Room Air - Lab Data Lab results reviewed: Yes: I reviewed the patient's lab results. Lab Results 06/29/21 03:20: WBC 12.1 H, RBC 4.91, Hgb 13.9, Hct 43.8, MCV 89.2, MCH 28.4, MCHC 31.8, RDW 14.2, Plt Count 241, MPV 10.4, Neut % (Auto) 61.3, Lymph % (Auto) 25.9, Fillmore % (Auto) 2.9, Eos % (Auto) 7.0, Baso % (Auto) 2.9 H, Neut # (Auto) 7.4, Lymph # (Auto) 3.1, Fillmore # (Auto) 0.4, Eos # (Auto) 0.9 H, Baso # (Auto) 0.4 H 06/29/21 03:20: Sodium 138, Potassium 3.8, Chloride 100, Carbon Dioxide 33 H, Anion Gap 8.8, BUN 9, Creatinine 0.80, Estimated Creat Clear 157, Estimated GFR 81, Est GFR ( Amer) 98, Glucose 105 H, Calcium 9.3 06/29/21 03:20: C-Reactive Protein 13.0 H Result diagrams: 06/29/21 03:20 06/29/21 03:20 Orders (Tests/Meds): ED MEDICATIONS Generic Name Dose Route Start Last Admin Trade Name Swati PRN Reason Stop Dose Admin Sodium Chloride 1,000 mls @ 999 mls/hr 06/29/21 03:45 06/29/21 03:38 Sod Chlor 0.9% 1000ml Bag IV 06/29/21 04:45 999 mls/hr .Q1H1M MANDI Administration ORDERS Category Date Time Status C-Reactive Protein Stat Lab 06/29/21 03:20 Results Erythrocyte Sedimentation Rate Stat Lab 06/29/21 03:20 Received HCG,Quantitative Stat Lab 06/29/21 03:20 Results Procalcitonin Stat Lab 06/29/21 03:20 Received - CT Data CT Scan: Head Time Received: 04:[address] Reviewed: Yes: I have viewed the radiologist's interpretation Preliminary Findings: Abnormal Medical Decision Narrative: acute headache - nonspecific etiology - stable xray and labs- will need to see neurology Headache HPI - General Chief Complaint: Headache Stated Complaint: Headache, ? High Blood pressure Time Seen by Provider: 06/29/21 03:00 Mode of Arrival: Ambulatory Source of Information: Patient, Medical Record Limitations: No Limitations Description of Symptoms (Recalled from ER Triage Doc. by RN): Patient states that for the prior three days she has had a headache that gets worse with movement and light . States that the pain became so severe tonight that she could not sleep. Denies dizziness or injury. Denies significant history of migraines. Does report occassional chills but denies fever, sore throat, cough or other symptoms - History of Present Illness HPI Narrative: has atraumatic gutierrez with nausea but no fever/rash - had recently stopped viibryd- no neuro sx MD Complaint: headache Onset (ago): day(s) Onset description: gradual Location: diffuse Severity: moderate Quality: different than previous headaches Context: occurre
[2021-06-29 04:32] LABS: Procalcitonin 0.078 ng/mL (0.0-2.0)
[2021-06-29 04:38] LABS: Erythrocyte Sedimentation Rate 83 mm/hr (0-20)
[2021-06-29 04:40] VITALS: BP 142/80; PULSE 83; RESP 20; TEMP 36.8; O2SAT 99
[2021-06-29 04:42] LABS: HCG,Quantitative < 2 mIU/ml (0-5.42)
[2021-06-29 04:50] LABS: Coronavirus 19, PCR Not Detected (NotDetected); Influenza A, PCR Not Detected (NotDetected); Influenza B, PCR Not Detected (NotDetected)
== END 2021-06-29 04:49 | disposition home or self-care (01) ==
PROVIDERS: Emergency Provider Emergency Medicine; PCP Physician Assistant
DX: R51.9 Headache, unspecified (principal); I10 Essential (primary) hypertension; E78.5 Hyperlipidemia, unspecified; F17.210 Nicotine dependence, cigarettes, uncomplicated
CPT/HCPCS: 70450; 80048; 84145; 84702; 85025; 85651; 86140; 96365; 96375; 99283; C9803; U0003; U0005

== ENCOUNTER → 2021-07-21 09:18 | Outpatient (CLI) | payer MEDICAID, SELFPAY ==
--- NOTE | 2021-07-21 09:18 | CA_ITS ---
APPROVED REPORT EXAM: Comprehensive 2D, Doppler, and color-flow Echocardiogram Bar Turner: Lizy Jennings CRT Ht: 5 ft 4 in Wt: 236lbs BSA: 2.10 BP: 164/96 mmHg Indications: Chest Pain, Syncope, Hypertension/HDD, smoker 2D Dimensions LVOT 1.99 cm (M/F) 1.5-2.5 LA Volume 40.80 mL LA Volume Index 19.43 mL/m2 (M/F) 16-34 M-Mode Dimensions RVDd 2.56 cm (0.9-2.6) LA Diam 2.94 cm (1.9-4.0) LVDd 4.37 cm (3.5-5.7) Ao Diam 3.26 cm (2.0-3.7) LVDs 2.44 cm (3.5-5.7) IVSd 1.25 cm (0.6-1.1) PWd 1.04 cm (0.6-1.1) EF (Teich) 75.70% FS 44.20% EDV (Teich) 86.30 mL TAPSE 2.09 (<1.7) ESV (Teich) 21.00 mL LV Diastology E Decel Time 167.00 (160-240 msec) E/A Ratio 0.8 MED E' 4.40 (< 7 cm/sec) MED A' 6.80 cm/s E'/MED E' Ratio 10.89 (>14) LAT E' 11.40 (<10 cm/sec) LAT A' 8.90 cm/s E/LAT E' Ratio 4.20 (>14) Aortic Valve AO Peak GR. 10.00 mmHg Mitral Valve MV E Max Chaka. 48.00 (40-130 cm/s) MV A Velocity 64.00 (40-130 cm/s) E/A Ratio 0.75 MV Decel. Time 167.00 (160-240 ms) MV PHT 49.00 ms Pulmonary Valve PV Peak Velocity 100.00 (50-150 cm/s) Tricuspid Valve TR P. Velocity 231.00 cm/s RAP Estimate 10.00 mmHg RVSP 31.40 mmHg Left Ventricle Left atrium is mildly enlarged, left ventricle is normal size, mild concentric left ventricular hypertrophy, visually estimated ejection fraction 55% with no regional wall motion abnormality, Doppler evidence of impaired LV relaxation, tissue Doppler is inconclusive for evaluation of the left atrial pressure. Right Ventricle Right atrium and right ventricle qualitatively mildly enlarged with normal contractility. Aortic Valve Aortic valve is grossly normal, there is no aortic stenosis or aortic insufficiency. Mitral Valve Mitral valve grossly normal, there is trace mitral regurgitation. Tricuspid Valve Tricuspid grossly normal, there is trace tricuspid regurgitation, tricuspid regurgitation jet velocity is inadequate for calculation of the right ventricular systolic pressure. Pulmonic Valve Pulmonic valve is poorly visualized. Great Vessels Aortic root is normal size. Inferior vena cava is poorly visualized. Pericardium No significant pericardial effusion noted. Conclusion 1. Mild biatrial alignment, normal left ventricular size, mild concentric left ventricular hypertrophy, visually estimated ejection fraction 55% with no regional wall motion abnormality, Doppler evidence of impaired LV relaxation seen. 2. Mildly enlarged right ventricle with normal contractility. 3. Trace mitral and tricuspid regurgitation. 4. No significant pericardial effusion noted 5. Inferior vena cava is poorly visualized. Electronically signed by : Jose Taylor MD 07/21/2021 13:28:51
--- NOTE | 2021-07-21 09:18 | CA_ITS ---
APPROVED REPORT Exam: Exercise Treadmill Technologist: Siri Beavers, Ht: 5 ft 4 in Wt: 235 lbs BSA: 2.10 m2 HR: 82 bpm BP: 137/64 mmHg Medical History Medical History: HTN, Hyperlipidemia, Smoking Medications: Levothyroxine,,,,, Vit D3,,,,, Suboxone,,,,, Ventolin,,,,, AtorvaASTATIN,,,,, LiNACLOTIDE,,,,, Vit D2,,,,, Vilazodone,,,,, Cardiac Risk Factors: HTN, Hyperlipidemia, FHX of CAD, Smoking Stress Test Details Test: Gurinder HR Resting HR: 98 bpm Max Heart Rate (APMHR): 184 bpm Max HR Achieved: 165 bpm Target HR (85% APMHR): 156 bpm % of APMHR: 90 Recovery HR: 112 bpm BP Resting BP: 114/64 mmHg Max BP: 178/70 mmHg Recovery BP: 178.0/70.0 mmHg ECG Resting ECG: Sinus rhythm nonspecific ST-T changes Clinical Exercise duration: 06:08 min Highest Stage Achieved: Exercise capacity: 7.0 METs Stress ECG Conclusion During gurinder protocol pt experinced SOA. Less than 1.[address] segment depression noted from the baseline EKG. The EKG portion of the exercise treadmill stress test is nondiagnostic due to baseline abnormal EKG. Electronically signed by : Jose Taylor MD 07/21/2021 13:14:20
== END ==
PROVIDERS: PCP Physician Assistant; Visit Provider Urology
DX: R07.9 Chest pain, unspecified (principal); R00.2 Palpitations; I10 Essential (primary) hypertension; E78.5 Hyperlipidemia, unspecified; F41.9 Anxiety disorder, unspecified
CPT/HCPCS: 93017; 93306

== ENCOUNTER → 2021-07-24 08:35 | Outpatient (CLI) | payer MEDICAID, SELFPAY ==
[2021-07-25 06:41] LABS: Covid-19 Nasal PCR Sendout Lex POSITIVE
== END ==
PROVIDERS: Visit Provider Nurse Practitioner
DX: U07.1 COVID-19 (principal)
CPT/HCPCS: C9803; U0004; U0005

== ENCOUNTER → 2021-07-31 15:25 | Outpatient (CLI) | payer MEDICAID, SELFPAY ==
[2021-07-31 17:17] LABS: Chloride 96 mmol/L (98-107); Potassium 3.9 mmoL/L (3.5-5.1); Sodium 136 mmol/L (136-145)
[2021-07-31 17:20] LABS: Anion Gap 11.9 mEq/L (5-15); Blood Urea Nitrogen 8 mg/dl (7-17); Calcium 9.9 mg/dl (8.4-10.2); Carbon Dioxide 32 mmol/L (22.0-30.0); Estimated Glomerular Filt Rate 81 ml/min (>60); GFR (African American) 98 ML/MIN (>60); Glucose 88 mg/dl (74-100)
== END ==
PROVIDERS: PCP Physician Assistant; Visit Provider Urology
DX: R07.9 Chest pain, unspecified (principal); I10 Essential (primary) hypertension; E78.5 Hyperlipidemia, unspecified; F41.9 Anxiety disorder, unspecified
CPT/HCPCS: 80048

== ENCOUNTER → 2021-08-10 13:54 | Outpatient (CLI) | payer MEDICAID, SELFPAY ==
--- NOTE | 2021-08-10 13:55 | MR_ITS ---
FINAL REPORT CLINICAL HISTORY: abnormal CT, severe headache, tinnutis, abn eye ex. eye exam that stated increase eye pressure. headache. prior ct 06-29-21 COMPARISON: CT dated June 29, 2021 FINDINGS: Multi planar MR imaging was obtained through the brain without contrast. The midline structures appear intact. There is no evidence of Chiari malformation. On T2 and flair axial images the brain parenchyma is homogeneous. On diffusion-weighted images there is no evidence of restricted diffusion. There is mucosal thickening in the left maxillary sinus. The seventh and eighth nerve root complexes are intact. IMPRESSION: No acute intracranial abnormality. Reviewed, Interpreted and Dictated by Keith Jean-Baptiste MD Transcribed by Pj Bueno Authenticated by Keith Jean-Baptiste MD on 08/17/2021 03:58:46 PM [facility]
--- NOTE | 2021-08-10 14:46 | CT_ITS ---
FINAL REPORT TECHNIQUE: Thin section axial CT with IV contrast supplemented with multiplanar reconstruction under CT angiogram protocol. 3-D reconstructions were performed. This study was performed with techniques to keep radiation doses as low as reasonably achievable (ALARA). Individualized dose reduction techniques using automated exposure control or adjustment of mA and/or kV according to the patient''s size were employed. CLINICAL HISTORY: eval for aneurysm, abn exam smoker FINDINGS: The distal vertebral, basilar and distal internal carotid arteries have an unremarkable appearance. No aneurysm is seen. Major intracranial vessels are patent without significant stenosis. IMPRESSION: No evidence of aneurysm or significant stenosis. Reviewed, Interpreted and Dictated by Aris Limon III, MD Transcribed by Pj Bueno Authenticated by Aris Limon III, MD on 08/10/2021 04:17:[address] [facility]
--- NOTE | 2021-08-10 15:16 | CT_ITS ---
FINAL REPORT CLINICAL HISTORY: evaluate for aneurysm FINDINGS: Axial images of the head were obtained without contrast. Coronal reformatted images were also obtained.This study was performed with techniques to keep radiation doses as low as reasonably achievable (ALARA). Individualized dose reduction techniques using automated exposure control or adjustment of mA and/or kV according to the patient's size were employed. There is no evidence of intracranial hemorrhage or mass. The ventricular size is within normal limits. There is no evidence of shift of the midline structures. No abnormal extra axial fluid collection is identified. No skull abnormality is seen on the bone window images. There is moderate mucosal thickening in the left maxillary sinus. IMPRESSION: No acute intracranial abnormality. Reviewed, Interpreted and Dictated by Aris Limon III, MD Transcribed by Pj Bueno Authenticated by Aris Limon III, MD on 08/10/2021 04:17:[address] [facility]
== END ==
PROVIDERS: PCP Physician Assistant; Visit Provider Nurse Practitioner Family
DX: G43.009 Migraine without aura, not intractable, without status migrainosus (principal); F19.11 Other psychoactive substance abuse, in remission; H93.13 Tinnitus, bilateral; Q14.2 Congenital malformation of optic disc; R93.0 Abnormal findings on diagnostic imaging of skull and head, not elsewhere classified; Z82.49 Family history of ischemic heart disease and other diseases of the circulatory system
CPT/HCPCS: 70450; 70496; 70551; Q9967

== ENCOUNTER → 2021-08-11 07:43 | Outpatient (CLI) | payer MEDICAID, SELFPAY ==
--- NOTE | 2021-08-11 07:43 | NM_ITS ---
APPROVED REPORT Exam: Nuclear Stress Test Indication: HTN, HYPERLIPIDEMIA, TOB USE, FM HX, C.P., PALPITATIONS, FATIGUE, ABN EKG Patient Location: Outpatient Stress Tech: Monse Chavez [place] Tech:Dayna Brown, ARRT RT (R)(N)(M) Ht: 5 ft 4 in Wt: 230 lbs Bra Size: 42C HR: 91 bpm BP: 127/74 mmHg BSA: 2.08 m2 BMI: 39.4 History: HTN, HYPERLIPIDEMIA, TOB USE, FM HX, C.P., PALPITATIONS, FATIGUE, ABN EKG Procedure: Patient exercised on Yordan protocol 7:11 minutes and sec, resting heart rate 91 bpm, resting blood pressure 127/74 mmHg, with exercise maximum heart rate achived was 158 bpm which is 90 % of the maximum predicted heart rate and blood pressure was 136/78 mmHg. Test was stopped due to FATIGUE. Patient denied any complaint of chest pain. Patient has Adequate exercise capacity, achieved 9.0 METs of workload on treadmill, the blood pressure response to exercise was Adequate. Electrocardiogram Resting electrocardiogram shows sinus rhythm, with exercise there is less than 1.[address] segment depression noted from the baseline EKG. The EKG portion of the exercise Myoview is negative for ischemia. Cardiac Stress and Resting SPECT Images: Cardiac Stress and Resting SPECT images were obtained using technetium 99m Myoview 31.8 mCi stress and 10.28 mCi at rest. Gated SPECT for analysis of segmental wall motion and calculation of the ejection fraction also done. Prone images were also obtained. Cardiac stress and rest SPECT images show uniform myocardial activity without segmental perfusion abnormality, computer derived ejection fraction is 65% with no regional wall motion abnormality, right ventricle is normal size and contractility. Conclusion: 1. The EKG portion of the exercise Myoview is negative for ischemia, patient has adequate exercise capacity achieved 9 METS of workload on treadmill, the blood pressure response to exercise was adequate, there was no exercise-induced chest discomfort. 2. No scintigraphic evidence of reversible ischemia seen, compared right ejection fraction is 65% with no regional wall motion abnormality, right ventricle is normal size and contractility. 3. Normal exercise Myoview study. Electronically signed by : Jose Taylor MD 08/11/2021 14:59:23
--- NOTE | 2021-08-11 10:03 | CA_ITS ---
APPROVED REPORT Exam: Exercise Treadmill Technologist: Monse Elena, Ht: 5 ft 4 in Wt: 231 lbs BSA: 2.08 m2 HR: 78 bpm BP: 111/56 mmHg Medical History Medications: Levothyroxine,,,,, Atorvastatin,,,,, HCTZ,,,,, Albuterol,,,,, Suboxone,,,,, LiNACLOTIDE,,,,, Viibryd,,,,, Vitamin D2, D3,,,,, Propranol ER,,,,, Stress Test Details Test: Manual Treadmill HR Resting HR: 91 bpm Max Heart Rate (APMHR): 183.094086 bpm Max HR Achieved: 165 bpm Target HR (85% APMHR): 155.929574 bpm % of APMHR: 90.16 Recovery HR: 96 bpm BP Resting BP: 127/74 mmHg Max BP: 142/51 mmHg Recovery BP: 128.0/51.0 mmHg ECG Resting ECG: NSR, NSSTTW Abnormalaties Inferiorly Clinical Reason for Termination: Dyspnea Exercise duration: 07:11 min Highest Stage Achieved: Exercise capacity: 9.0 METs Stress ECG Conclusion 7:11 Min Max HR: 165 %of PM: 90 Max BP: 142/51 METs: 9.0 Test stopped due to: SOA, Leg fatigue Symptoms: No CP Arrhythmias/Ectopy: No ST-T Changes: <1.5mm ST Segment changes Conclusion: Negative stress Test Summary RECOVERY 01:00 0.0 0.0 123 . . . Stop exercise at 07:11 Stage 1 01:00 10.0 1.7 116 . . . . Stage 1 02:00 10.0 1.7 122 . . . . Stage 1 03:00 10.0 1.7 121 . 122/ 88 . . Stage 2 01:00 12.0 2.5 132 . . . . Stage 2 02:00 12.0 2.5 142 . . . . Stage 2 03:00 12.0 2.5 144 . 136/ 78 . . Stage 3 . . . . . . . Protocol changed to Manual Treadmill Stage 3 01:00 7.5 3.0 158 . . . . Stage 3 01:11 6.5 2.4 155 . . . Stop exercise at 07:11 RECOVERY 01:00 0.0 0.0 123 . . . . RECOVERY 02:00 0.0 0.0 100 . . . . RECOVERY 03:00 0.0 0.0 93 . 142/ 51 . . RECOVERY 04:00 0.0 0.0 93 . 142/ 51 . . RECOVERY 05:00 0.0 0.0 100 . 128/ 51 . . RECOVERY 05:01 0.0 0.0 100 . 128/ 51 . . Electronically signed by : Jose Taylor MD 08/11/2021 14:56:38
== END ==
PROVIDERS: PCP Nurse Practitioner Family; Visit Provider Urology
DX: R07.9 Chest pain, unspecified (principal); I10 Essential (primary) hypertension; E78.5 Hyperlipidemia, unspecified
CPT/HCPCS: 78452; 93017; A9502

== ENCOUNTER → 2021-08-17 12:09 | Outpatient (CLI) | payer MEDICAID, SELFPAY ==
[2021-08-17 13:29] LABS: Alanine Aminotransferase 71 U/L (12-78); Albumin Level 4.4 g/dl (3.5-5.0); Albumin/Globulin Ratio 1.6 (1.1-1.8); Alkaline Phosphatase 72 U/L (38-126); Anion Gap 11.9 mEq/L (5-15); Aspartate Amino Transferase 65 U/L (14-36); Bilirubin,Total 1.4 mg/dl (0.2-1.3); Blood Urea Nitrogen 9 mg/dl (7-17); Calcium 9.3 mg/dl (8.4-10.2); Carbon Dioxide 30 mmol/L (22.0-30.0); Chloride 102 mmol/L (98-107); Estimated Glomerular Filt Rate 94 ml/min (>60); GFR (African American) 114 ML/MIN (>60); Globulin 2.8 g/dL (1.3-3.2); Glucose 108 mg/dl (74-100); Potassium 3.9 mmoL/L (3.5-5.1); Sodium 140 mmol/L (136-145); Total Protein,Serum 7.2 g/dl (6.3-8.2)
[2021-08-17 14:00] LABS: Thyroid Stimulating Hormone 2.84 uIU/mL (0.465-4.68)
[2021-08-17 14:35] LABS: Vitamin B12 520 pg/mL (239-931)
[2021-08-17 15:15] LABS: Folate > 20.00 ng/mL
== END ==
PROVIDERS: PCP Physician Assistant; Visit Provider Nurse Practitioner Family
DX: G43.009 Migraine without aura, not intractable, without status migrainosus (principal); Q14.2 Congenital malformation of optic disc; F19.11 Other psychoactive substance abuse, in remission; H93.13 Tinnitus, bilateral; R93.0 Abnormal findings on diagnostic imaging of skull and head, not elsewhere classified; Z82.49 Family history of ischemic heart disease and other diseases of the circulatory system; G47.30 Sleep apnea, unspecified; G47.00 Insomnia, unspecified; R53.83 Other fatigue; R06.83 Snoring
CPT/HCPCS: 36415; 80053; 82607; 82746; 84443; 95806

== ENCOUNTER → 2021-10-12 10:20 | Outpatient (CLI) | payer MEDICAID, SELFPAY ==
[2021-10-12 11:02] LABS: Basophils # 0.3 K/mm3 (0-0.2); Basophils % 3.4 % (0.1-2.0); Eosinophils # 0.6 K/mm3 (0.0-0.4); Hematocrit 46.6 % (37.0-47.0); Hemoglobin 14.9 g/dL (12.2-16.2); Lymphocytes # 2.3 K/mm3 (0.7-4.5); Lymphocytes % 25.2 % (10-50); Mean Corpuscular HGB Conc 31.9 g/dL (31.8-35.4); Mean Corpuscular Hemoglobin 29.3 pg (27.0-31.2); Mean Corpuscular Volume 91.8 fl (81-99); Mean Platelet Volume 10.8 fl (7.4-10.4); Monocytes # 0.3 K/mm3 (0.1-1.0); Monocytes % 3.3 % (1.7-9.3); Neutrophils # 5.5 K/mm3 (1.8-7.8); Neutrophils % 61.1 % (37.0-80.0); Platelet Count 250 K/mm3 (142-424); Red Blood Count 5.08 M/mm3 (4.20-5.40); Red Cell Distribution Width 14.7 % (11.5-17.5)
[2021-10-12 11:52] LABS: Chloride 109 mmol/L (98-107)
[2021-10-12 11:53] LABS: Potassium 4.2 mmoL/L (3.5-5.1); Sodium 140 mmol/L (136-145)
[2021-10-12 11:55] LABS: Blood Urea Nitrogen 7 mg/dl (7-17); Estimated Glomerular Filt Rate 81 ml/min (>60); GFR (African American) 98 ML/MIN (>60)
[2021-10-12 11:56] LABS: Alanine Aminotransferase 85 U/L (12-78); Albumin/Globulin Ratio 1.4 (1.1-1.8); Alkaline Phosphatase 79 U/L (38-126); Anion Gap 11.2 mEq/L (5-15); Aspartate Amino Transferase 79 U/L (14-36); Bilirubin,Total 1.2 mg/dl (0.2-1.3); Calcium 8.9 mg/dl (8.4-10.2); Carbon Dioxide 24 mmol/L (22.0-30.0); Globulin 2.9 g/dL (1.3-3.2); Glucose 106 mg/dl (74-100); Total Protein,Serum 6.9 g/dl (6.3-8.2)
[2021-10-12 12:03] LABS: C-Reactive Protein 16.6 mg/L (0-4)
[2021-10-12 12:24] LABS: Erythrocyte Sedimentation Rate 54 mm/hr (0-20)
[2021-10-12 12:41] LABS: Hemoglobin A1C 5.7 % (4.0-6.0)
== END ==
PROVIDERS: Visit Provider Nurse Practitioner Family
DX: D72.9 Disorder of white blood cells, unspecified (principal); R89.9 Unspecified abnormal finding in specimens from other organs, systems and tissues; R73.9 Hyperglycemia, unspecified
CPT/HCPCS: 36415; 80053; 83036; 85025; 85651; 86140

== ENCOUNTER → 2021-12-26 10:44 | Outpatient (CLI) | payer MEDICAID, SELFPAY ==
--- NOTE | 2021-12-26 10:49 | CT_ITS ---
FINAL REPORT TECHNIQUE: Axial images through the abdomen and pelvis were performed without contrast. This study was performed with techniques to keep radiation doses as low as reasonably achievable, (ALARA). Individualized dose reduction techniques using automated exposure control or adjustment of mA and/or kV according to the patient's size were employed. CLINICAL HISTORY: RUQ pain. FINDINGS: ABDOMEN: The lung bases are clear. The heart size is normal. There is fatty infiltration of the liver. The patient is status post cholecystectomy. The spleen is normal. No adrenal mass is identified. The aorta is normal in caliber. There is no significant free fluid or adenopathy. There is no nephrolithiasis. There is no hydronephrosis. PELVIS: The appendix is unremarkable. The urinary bladder is unremarkable. There is a small amount of pelvic free fluid, may be physiologic or reactive. There is no adenopathy. IMPRESSION: Fatty liver. Reviewed, Interpreted and Dictated by Aris Limon III, MD Transcribed by Judy Major Authenticated and . [facility]
== END ==
PROVIDERS: PCP Physician Assistant; Visit Provider Physician Assistant
DX: R10.11 Right upper quadrant pain (principal)
CPT/HCPCS: 74176

== ENCOUNTER → 2022-01-04 20:13 | Outpatient (CLI) | payer MEDICAID, SELFPAY | PROVIDERS: PCP Physician Assistant; Visit Provider Nurse Practitioner Family | DX: G47.33 Obstructive sleep apnea (adult) (pediatric) (principal); I10 Essential (primary) hypertension; R40.0 Somnolence; R06.83 Snoring | CPT/HCPCS: 95810 ==

== ENCOUNTER → 2022-08-10 21:34 | Outpatient (CLI) | payer MEDICAID, SELFPAY ==
[2022-08-10 17:38] LABS: Basophils # 0.1 K/mm3 (0-0.2); Basophils % 1.1 % (0.1-2.0); Eosinophils # 0.6 K/mm3 (0.0-0.4); Eosinophils % 5.2 % (0.1-12.0); Hematocrit 42.9 % (37.0-47.0); Hemoglobin 14.5 g/dL (12.2-16.2); Lymphocytes % 34.7 % (10-50); Mean Corpuscular HGB Conc 33.9 g/dL (31.8-35.4); Mean Corpuscular Hemoglobin 28.5 pg (27.0-31.2); Mean Platelet Volume 10.8 fl (7.4-10.4); Monocytes # 0.3 K/mm3 (0.1-1.0); Monocytes % 2.9 % (1.7-9.3); Neutrophils # 6.5 K/mm3 (1.8-7.8); Platelet Count 319 K/mm3 (142-424); Red Cell Distribution Width 14.6 % (11.5-17.5); White Blood Count 11.6 K/mm3 (4.8-10.8)
[2022-08-10 18:01] LABS: Alanine Aminotransferase 33 U/L (12-78); Albumin Level 4.5 g/dl (3.5-5.0); Albumin/Globulin Ratio 1.5 (1.1-1.8); Alkaline Phosphatase 75 U/L (38-126); Anion Gap 9.5 mEq/L (5-15); Aspartate Amino Transferase 33 U/L (14-36); Blood Urea Nitrogen 11 mg/dl (7-17); Calcium 9.5 mg/dl (8.4-10.2); Carbon Dioxide 32 mmol/L (22.0-30.0); Chloride 103 mmol/L (98-107); Chol/HDL Ratio 5.7 (1-3.5); Cholesterol 204 mg/dl (140-200); Estimated Glomerular Filt Rate 80 ml/min (>60); GFR (African American) 97 ML/MIN (>60); Globulin 3.1 g/dL (1.3-3.2); Glucose 97 mg/dl (74-100); HDL Cholesterol 36 mg/dl (40-60); Potassium 3.5 mmoL/L (3.5-5.1); Sodium 141 mmol/L (136-145); Total Protein,Serum 7.6 g/dl (6.3-8.2); Triglycerides 339 mg/dl (30-150); VLDL Cholesterol 68 mg/dL (0-40)
[2022-08-10 18:12] LABS: Direct LDL Cholesterol 111.79 mg/dL (100-129)
[2022-08-10 18:18] LABS: Free Thyroxine Index 3.7 ug/dL (5.93-13.13); T4 (Thyroxine) 14.1 ug/dl (5.53-11.0); Triiodothryronine (T3) Uptake 26 % (23.5-40.5)
[2022-08-10 18:19] LABS: 25-OH Vitamin D, Total 23.1 ng/mL (30-100)
[2022-08-10 18:32] LABS: Thyroid Stimulating Hormone 7.24 uIU/mL (0.465-4.68)
== END ==
PROVIDERS: PCP Student in an Organized Health Care Education/Training Program; Visit Provider Student in an Organized Health Care Education/Training Program
DX: R59.9 Enlarged lymph nodes, unspecified (principal); E55.9 Vitamin D deficiency, unspecified; E78.5 Hyperlipidemia, unspecified; E03.9 Hypothyroidism, unspecified; I10 Essential (primary) hypertension
CPT/HCPCS: 80053; 80061; 82306; 84436; 84443; 84479; 85025

== ENCOUNTER → 2022-09-12 13:19 | Outpatient (CLI) | payer MEDICAID, SELFPAY ==
--- NOTE | 2022-09-12 13:20 | US_ITS ---
FINAL REPORT CLINICAL HISTORY: lymphadenopathy FINDINGS: Sonographic images of the bilateral neck were obtained. There are multiple bilateral cervical nodules all favored to represent lymph nodes. Some have an obvious fatty maira. There is a bilobed nodule on the right measuring 2.7 x 0.5 cm. IMPRESSION: Mild to moderate bilateral cervical adenopathy. An infuse neck CT could better characterize if clinically desired. Reviewed, Interpreted and Dictated by Keith Jean-Bpatiste MD Transcribed by Judy Major Authenticated and [facility]
== END ==
PROVIDERS: PCP Student in an Organized Health Care Education/Training Program; Visit Provider Student in an Organized Health Care Education/Training Program
DX: R59.1 Generalized enlarged lymph nodes (principal)
CPT/HCPCS: 76536

== ENCOUNTER 2022-10-20 10:17 | Emergency (ER) | payer MEDICAID, SELFPAY ==
[2022-10-20 10:30] VITALS: BP 149/72; PULSE 101; RESP 18; TEMP 36.8; O2SAT 99; BMI 37.4
--- NOTE | 2022-10-20 10:51 | EXP.UTC ---
Discharge Plan Disposition Patient Disposition: Home, Self-Care Condition: Good Prescriptions Prescriptions: New aopanfcw-dojdyypkb-PT 3.5-10,000-1 mg/mL-unit/mL-% drops,suspension 4 drp otic (ear) TID 10 Days Qty: 10 0RF methylprednisolone [Medrol ([place])] 4 mg tablets,dose pack 4 mg PO DAILY Qty: 21 0RF Rx Instructions: as directed No Action multivitamin Tablet 1 tab PO DAILY atorvastatin 10 mg tablet 10 mg PO HS Qty: 90 3RF buprenorphine-naloxone 4-1 mg film 1 film sublingual DAILY omeprazole 20 mg capsule,delayed release(DR/EC) 20 mg PO DAILY levothyroxine 137 mcg tablet 137 mcg PO DAILY Qty: 30 2RF hydrochlorothiazide 12.5 mg tablet See Rx Instructions .ROUTE .COMPLEX Qty: 30 5RF Dose Instruction: TAKE ONE TABLET BY MOUTH ONCE A DAY Rx Instructions: TAKE ONE TABLET BY MOUTH ONCE A DAY propranolol 80 mg capsule,extended release 24hr See Rx Instructions .ROUTE .COMPLEX Qty: 30 0RF Dose Instruction: TAKE ONE CAPSULE BY MOUTH ONCE A DAY Rx Instructions: TAKE ONE CAPSULE BY MOUTH ONCE A DAY ergocalciferol (vitamin D2) 1,250 mcg (50,000 unit) capsule See Rx Instructions .ROUTE .COMPLEX Qty: 14 3RF Dose Instruction: TAKE ONE CAPSULE BY MOUTH EVERY WEEK Rx Instructions: TAKE ONE CAPSULE BY MOUTH EVERY WEEK cholecalciferol (vitamin D3) 25 mcg (1,000 unit) tablet See Rx Instructions .ROUTE .COMPLEX Qty: 90 3RF Dose Instruction: TAKE ONE TABLET BY MOUTH ONCE A DAY WITH FOOD Rx Instructions: TAKE ONE TABLET BY MOUTH ONCE A DAY WITH FOOD Referrals Follow up/Referrals: Flores Coronel PA [Primary Care Provider] - See instructions Activity Restrictions/Add. Instructions Additional Instructions/Restrictions: Start antibiotic as soon as possible and be sure to take as ordered for full length of time even though he should start feeling better in 24-48 hours. Tylenol or Motrin as needed for pain or fever Encourage fluids, water, Gatorade, Powerade, Pedialyte if /toddler/child Warm compresses often helps when placed over ear Return immediately for new or worsening symptoms no noticeable improvement in 48-72 hours and in 10-14 days to ensure the ears are return to baseline. Follow-up with primary care Clinical Impressions Clinical Impression: Otitis externa Instructions Patient Instructions: DI for Otitis Externa [facility] [place] General Stated complaint: right ear pain Mode of Arrival: Ambulatory Source of Information: Patient Limitations: No Limitations Time Seen by Provider: 10/20/22 10:51 Description of Symptoms (Recalled from Triage Doc. by RN): pt c/o R ear pain x4 days. HEENT Symptoms (Recalled from RN notes): Yes Resp Symptoms (Recalled from RN notes): No Skin Symptoms (Recalled from RN notes): No MS Symptoms (Recalled from RN notes): No Functional Status (Recalled from RN notes): wnl History of Present Illness Provider Complaint: 37 yr old female presents for rt ear pain for 4 days Related Data Home Medications Medication Instructions Recorded Confirmed multivitamin 1 tab PO DAILY 08/02/21 10/17/22 buprenorphine 4 mg-naloxone 1 mg 1 film sublingual DAILY 10/17/22 10/17/22 sublingual film omeprazole 20 mg capsule,delayed 20 mg PO DAILY 10/17/22 10/17/22 release Previous Rx's Medication Instructions Recorded atorvastatin 10 mg tablet 10 mg PO HS hld #90 tabs 12/06/21 hydrochlorothiazide 12.5 mg tablet See Rx Instructions .Route 05/22/22 .COMPLEX #30 tabs propranolol 80 mg capsule,24 See Rx Instructions .Route 09/24/22 hr,extended release .COMPLEX #30 caps cholecalciferol (vitamin D3) 25 See Rx Instructions .Route 10/12/22 mcg (1,000 unit) tablet .COMPLEX #90 tabs ergocalciferol (vitamin D2) 1,250 See Rx Instructions .Route 10/12/22 mcg (50,000 unit) capsule .COMPLEX #14 caps levothyroxine 137 mcg tablet 137 mcg PO D
[2022-10-20 11:04] VITALS: BP 149/72; PULSE 101; RESP 18; TEMP 36.8
== END 2022-10-20 11:05 | disposition home or self-care (01) ==
PROVIDERS: Emergency Provider Nurse Practitioner Family; PCP Physician Assistant
DX: H60.91 Unspecified otitis externa, right ear (principal); E03.9 Hypothyroidism, unspecified; I10 Essential (primary) hypertension; E78.5 Hyperlipidemia, unspecified; F17.210 Nicotine dependence, cigarettes, uncomplicated
CPT/HCPCS: 99212; 99214; G0463

== ENCOUNTER → 2022-11-01 14:52 | Outpatient (CLI) | payer MEDICAID, SELFPAY ==
--- NOTE | 2022-11-01 14:52 | US_ITS ---
FINAL REPORT TECHNIQUE: Real-time grayscale and color ultrasound of the thyroid was performed. CLINICAL HISTORY: lymph node COMPARISON: 09/12/2022 FINDINGS: Severely atrophic and heterogeneous thyroid. Extrathyroidal nodule posterior to the right thyroid gland measures 11 x 4 x 8 mm. When correlated with recent CT scan this is considered to represent exophytic thyroid nodule. IMPRESSION: Severe thyroid atrophy probably due to chronic thyroiditis. 11 mm nodule posterior right thyroid favor exophytic thyroid nodule, TR 4. Twelve month ultrasound follow-up recommended. Reviewed, Interpreted and Dictated by Vernell Sanchez MD Transcribed by Pretty Gannon Authenticated and [facility]
--- NOTE | 2022-11-01 15:31 | CT_ITS ---
FINAL REPORT TECHNIQUE: Thin section axial CT images with coronal and sagittal reformats were performed through the neck. This study was performed with techniques to keep radiation doses as low as reasonably achievable (ALARA). Individualized dose reduction techniques using automated exposure control or adjustment of mA and/or kV according to the patient''s size were employed. CLINICAL HISTORY: enlarged lymph node COMPARISON: None FINDINGS: Multiple nodules in the bilateral parotid glands. The largest is on the right measures up to 8 mm. Multiplicity favors lymph nodes. There are numerous scattered lymph nodes in the bilateral neck along the jugular chains. Largest on the right is a submandibular lymph node measuring 17 x 7 mm. The thyroid is atrophic. The larynx is normal. IMPRESSION: Mild scattered adenopathy is likely reactive. No dominant mass. Bilateral parotid nodules are likely intraparotid lymph nodes. Reviewed, Interpreted and Dictated by Vernell Sanchez MD Transcribed by Pretty Gannon Authenticated and [facility]
[2022-11-01 15:56] LABS: Intact Parathyroid Hormone 109.5 pg/mL (7.5-53.5)
[2022-11-01 16:15] LABS: Thyroid Stimulating Hormone 3.35 uIU/mL (0.465-4.68)
[2022-11-05 14:08] LABS: Calcium, Ionized 4.9 mg/dL (4.5-5.6)
== END ==
PROVIDERS: Nurse Practitioner; PCP Physician Assistant; Visit Provider Otolaryngology
DX: R59.0 Localized enlarged lymph nodes (principal)
CPT/HCPCS: 36415; 70490; 76536; 82330; 83970; 84439; 84443

== ENCOUNTER → 2023-01-16 15:47 | Outpatient (CLI) | payer MEDICAID, SELFPAY ==
[2023-01-16 16:43] LABS: Basophils # 0.1 K/mm3 (0-0.2); Basophils % 0.5 % (0.1-2.0); Eosinophils # 0.6 K/mm3 (0.0-0.4); Eosinophils % 6.1 % (0.1-12.0); Hematocrit 43.6 % (37.0-47.0); Hemoglobin 13.8 g/dL (12.2-16.2); Lymphocytes # 2.9 K/mm3 (0.7-4.5); Lymphocytes % 28.5 % (10-50); Mean Corpuscular HGB Conc 31.8 g/dL (31.8-35.4); Mean Corpuscular Hemoglobin 26.2 pg (27.0-31.2); Mean Corpuscular Volume 82.3 fl (81-99); Mean Platelet Volume 10.5 fl (7.4-10.4); Monocytes # 0.3 K/mm3 (0.1-1.0); Monocytes % 3.3 % (1.7-9.3); Neutrophils # 6.4 K/mm3 (1.8-7.8); Neutrophils % 61.6 % (37.0-80.0); Platelet Count 241 K/mm3 (142-424); Red Blood Count 5.29 M/mm3 (4.20-5.40); Red Cell Distribution Width 14.8 % (11.5-17.5); White Blood Count 10.4 K/mm3 (4.8-10.8)
[2023-01-16 17:05] LABS: Chloride 103 mmol/L (98-107); Potassium 4.4 mmoL/L (3.5-5.1); Sodium 138 mmol/L (136-145)
[2023-01-16 17:07] LABS: Blood Urea Nitrogen 10 mg/dl (7-17); Estimated Glomerular Filt Rate 94 ml/min (>60); GFR (African American) 113 ML/MIN (>60)
[2023-01-16 17:08] LABS: Alanine Aminotransferase 49 U/L (12-78); Albumin Level 4.1 g/dl (3.5-5.0); Alkaline Phosphatase 54 U/L (38-126); Anion Gap 13.4 mEq/L (5-15); Aspartate Amino Transferase 58 U/L (14-36); Bilirubin,Direct 0.5 mg/dl (0.0-0.4); Bilirubin,Total 1.5 mg/dl (0.2-1.3); Calcium 9.7 mg/dl (8.4-10.2); Carbon Dioxide 26 mmol/L (22.0-30.0); Cholesterol 171 mg/dl (140-200); Glucose 97 mg/dl (74-100); Total Protein,Serum 7.3 g/dl (6.3-8.2); Triglycerides 224 mg/dl (30-150); VLDL Cholesterol 45 mg/dL (0-40)
[2023-01-16 17:09] LABS: Chol/HDL Ratio 4.8 (1-3.5); HDL Cholesterol 36 mg/dl (40-60)
[2023-01-16 17:20] LABS: Direct LDL Cholesterol 97.82 mg/dL (100-129)
[2023-01-16 17:39] LABS: Thyroid Stimulating Hormone 2.91 uIU/mL (0.465-4.68)
== END ==
PROVIDERS: PCP Physician Assistant; Visit Provider Nurse Practitioner
DX: R06.00 Dyspnea, unspecified (principal); I11.9 Hypertensive heart disease without heart failure; E78.5 Hyperlipidemia, unspecified; I63.9 Cerebral infarction, unspecified; G47.33 Obstructive sleep apnea (adult) (pediatric); E11.9 Type 2 diabetes mellitus without complications
CPT/HCPCS: 36415; 80048; 80061; 80076; 84439; 84443; 85025

== ENCOUNTER 2023-05-10 03:00 | Emergency (ER) | payer MEDICAID, SELFPAY ==
[2023-05-10 03:02] VITALS: BP 154/82; PULSE 69; RESP 18; TEMP 36.9; O2SAT 97; BMI 37.8
--- NOTE | 2023-05-10 03:02 | PC.NURSE ---
Provider at bedside during triage.
[2023-05-10 03:07] VITALS: BP 154/82; PULSE 64; RESP 20; O2SAT 97
--- NOTE | 2023-05-10 03:15 | CT_ITS ---
PROCEDURE INFORMATION: Exam: CTA Neck With Contrast Exam date and time: 05/10/2023 3:27 AM Age: 37 years old Clinical indication: Stroke-like symptoms; Dizziness/giddiness; Right upper extremity numbness/paresthesia; Additional info: R numbness/tingling, lkn 0300 TECHNIQUE: Imaging protocol: Computed tomographic angiography of the neck with contrast. Exam focused on the cervical segments of the vasculature. 3D rendering (Not supervised by radiologist): MIP and/or 3D reconstructed images were created by the technologist. Radiation optimization: All CT scans at this facility use at least one of these dose optimization techniques: automated exposure control; mA and/or kV adjustment per patient size (includes targeted exams where dose is matched to clinical indication); or iterative reconstruction. Contrast material: ISOVUE; Contrast volume: 100 ml; Contrast route: INTRAVENOUS (IV); REPORTING DATA: Count of CT and Cardiac NM exams in prior 12 months: This patient has received [address] and 0 known cardiac nuclear medicine studies in the 12 months prior to the current study. COMPARISON: CT SOFT TISSUE NECK WO CON 11/01/2022 3:29 PM FINDINGS: Right common carotid artery: No significant stenosis. No dissection or occlusion. Right internal carotid artery: The extracranial segment is patent with no significant stenosis. No dissection or occlusion. Right external carotid artery: No occlusion or significant stenosis. Left common carotid artery: No significant stenosis. No dissection or occlusion. Left internal carotid artery: The extracranial segment is patent with no significant stenosis. No dissection or occlusion. Left external carotid artery: No occlusion or significant stenosis. Right vertebral artery: No significant stenosis. No dissection or occlusion. Left vertebral artery: No significant stenosis. No dissection or occlusion. Soft tissues: No significant soft tissue swelling. Bones/joints: No acute process. IMPRESSION: Negative neck CTA. No evidence of great vessel stenosis or occlusion. No evidence of dissection. REFERENCES: NASCET CRITERIA. The degree of stenosis in the cervical segment of the internal carotid artery is based on NASCET criteria. Normal is no stenosis. Mild is less than 50% stenosis. Moderate is 50-69% stenosis. Severe is 70% to 99% stenosis. Total occlusion is no detectable patent lumen.
--- NOTE | 2023-05-10 03:15 | CT_ITS ---
PROCEDURE INFORMATION: Exam: CTA Head With Contrast, Arteriography Exam date and time: 05/10/2023 3:27 AM Age: 37 years old Clinical indication: Stroke-like symptoms; Dizziness/giddiness; Right upper extremity numbness/paresthesia; Additional info: R numbness/tingling, lkn 0300 TECHNIQUE: Imaging protocol: Computed tomographic angiography of the head with contrast. Exam focused on the arteries. 3D rendering (Not supervised by radiologist): MIP and/or 3D reconstructed images were created by the technologist. Radiation optimization: All CT scans at this facility use at least one of these dose optimization techniques: automated exposure control; mA and/or kV adjustment per patient size (includes targeted exams where dose is matched to clinical indication); or iterative reconstruction. Contrast material: ISOVUE; Contrast volume: 100 ml; Contrast route: INTRAVENOUS (IV); REPORTING DATA: Count of CT and Cardiac NM exams in prior 12 months: This patient has received [address] and 0 known cardiac nuclear medicine studies in the 12 months prior to the current study. COMPARISON: CT ANGIO HEAD 08/10/2021 3:16 PM FINDINGS: ANTERIOR CIRCULATION: Right internal carotid artery: Intracranial segment is patent with no significant stenosis. No aneurysm. Right middle cerebral artery: No occlusion or significant stenosis. No aneurysm. Right anterior cerebral artery: No occlusion or significant stenosis. No aneurysm. Left internal carotid artery: Intracranial segment is patent with no significant stenosis. No aneurysm. Left middle cerebral artery: No occlusion or significant stenosis. No aneurysm. Left anterior cerebral artery: No occlusion or significant stenosis. No aneurysm. POSTERIOR CIRCULATION: Right vertebral artery: No occlusion or significant stenosis. No aneurysm. Left vertebral artery: No occlusion or significant stenosis. No aneurysm. Basilar artery: No occlusion or significant stenosis. No aneurysm. Right posterior cerebral artery: No occlusion or significant stenosis. No aneurysm. Left posterior cerebral artery: No occlusion or significant stenosis. No aneurysm. Brain: No hemorrhage. Unremarkable white matter. No mass effect. Cerebral ventricles: No ventriculomegaly. Bones/joints: Unremarkable. No acute fracture. Soft tissues: Unremarkable. IMPRESSION: Negative CTA Head. No evidence of intracranial large vessel stenosis or occlusion. No evidence of aneurysm or AVM.
--- NOTE | 2023-05-10 03:15 | CT_ITS ---
PROCEDURE INFORMATION: Exam: CT Head Without Contrast Exam date and time: 05/10/2023 3:27 AM Age: 37 years old Clinical indication: Stroke-like symptoms; Dizziness/giddiness; Right upper extremity numbness/paresthesia; Additional info: R numbness/tingling, lkn 0300 TECHNIQUE: Imaging protocol: Computed tomography of the head without contrast. Radiation optimization: All CT scans at this facility use at least one of these dose optimization techniques: automated exposure control; mA and/or kV adjustment per patient size (includes targeted exams where dose is matched to clinical indication); or iterative reconstruction. Other technique: STROKE PROTOCOL was implemented. REPORTING DATA: Count of CT and Cardiac NM exams in prior 12 months: This patient has received [address] and 0 known cardiac nuclear medicine studies in the 12 months prior to the current study. COMPARISON: CT ANGIO HEAD 05/10/2023 3:27 AM FINDINGS: Brain: No evidence of acute intracranial hemorrhage. No acute parenchymal edema. No mass or shift. Cerebral ventricles: No ventriculomegaly. Paranasal sinuses: Visualized sinuses are unremarkable. No fluid levels. Mastoid air cells: Unremarkable as visualized. No mastoid effusion. Bones/joints: No acute fracture. Soft tissues: Unremarkable. IMPRESSION: No acute intracranial process. ASSESSMENT: ASPECTS ([facility] Stroke Program Early CT Score) is 10.
--- NOTE | 2023-05-10 03:17 | HMH.EDGENADL ---
Discharge Plan Disposition Patient Disposition: Home, Self-Care Condition: Good Prescriptions Prescriptions: No Action atorvastatin 10 mg tablet 10 mg PO HS Qty: 90 3RF omeprazole 20 mg capsule,delayed release(DR/EC) 20 mg PO DAILY Qty: 30 5RF amoxicillin-pot clavulanate 875-125 mg tablet 1 tab PO BID 10 Days Qty: 20 0RF fmybhqiq-kojcochjc-CH 3.5-10,000-1 mg/mL-unit/mL-% drops,suspension 4 drp otic (ear) Q8H 10 Days Qty: 10 0RF buprenorphine-naloxone 4-1 mg film 1 film sublingual DAILY levothyroxine 137 mcg tablet 137 mcg PO DAILY Qty: 30 2RF ergocalciferol (vitamin D2) 1,250 mcg (50,000 unit) capsule See Rx Instructions .ROUTE .COMPLEX Qty: 14 3RF Dose Instruction: TAKE ONE CAPSULE BY MOUTH EVERY WEEK Rx Instructions: TAKE ONE CAPSULE BY MOUTH EVERY WEEK cholecalciferol (vitamin D3) 25 mcg (1,000 unit) tablet See Rx Instructions .ROUTE .COMPLEX Qty: 90 3RF Dose Instruction: TAKE ONE TABLET BY MOUTH ONCE A DAY WITH FOOD Rx Instructions: TAKE ONE TABLET BY MOUTH ONCE A DAY WITH FOOD hydrochlorothiazide 12.5 mg tablet See Rx Instructions .ROUTE .COMPLEX Qty: 90 1RF Dose Instruction: TAKE ONE TABLET BY MOUTH ONCE A DAY Rx Instructions: TAKE ONE TABLET BY MOUTH ONCE A DAY propranolol 80 mg capsule,extended release 24 hr 80 mg PO DAILY Qty: 30 5RF propranolol 80 mg tablet 80 mg PO ONCE Qty: 30 2RF Referrals Follow up/Referrals: Flores Coronel PA [Primary Care Provider] - See instructions Activity Restrictions/Add. Instructions Additional Instructions/Restrictions: You were evaluated in the emergency department today. At this time, you have slightly low potassium. Your thyroid hormone is also slightly elevated. I recommend following up with your primary care provider this week for reassessment, as your thyroid medication may need to be adjusted. Make sure that you are staying hydrated at home. Eat a well-balanced diet. Return to the emergency department for new or worsening symptoms. Clinical Impressions Clinical Impression: Elevated serum free T4 level, Anxiety, Headache, Paresthesias, Hypokalemia Instructions Patient Instructions: DI for Anxiety -- Adult, DI for Hypokalemia, DI for Headache, DI for Dizziness-Nonvertigo Discharge ED Provider: Michelle Chin General Adult HPI General Chief complaint: Dizziness Stated complaint: dizziness, numbness, back pain Time Seen by Provider: 05/10/23 03:15 History of Present Illness HPI narrative: This patient is a 37-year-old female with a history of paranoia, generalized anxiety disorder, depression, ARNULFO, obesity, hypertension, hyperlipidemia, hypothyroidism, currently on Suboxone, presenting to the emergency department for evaluation with concern for multiple complaints. Patient states that she is just feeling not right in her head. She admits that her anxiety is very high right now, and she states that she has not been to sleep tonight. Around 2:00 in the morning, she states that she noticed that she had a subjective decrease in sensation on the right side and felt funny in her head. She is not sure if it came on suddenly or gradually, she just states that she noticed that it was there. She also notes that she is having headache on the posterior aspect of her head and feels lightheaded. She denies history of headaches in the past. On review of systems, she notes that she is now having some right flank pain, and notes that it did burn a little bit when she went to the bathroom. She also notes that she is having some tightness in her chest and feels like it is hard to breathe. She denies any head trauma, fevers, chest pain, abdominal pain, nausea, vomiting, changes in bowel movements, unilateral weakness, difficulty walking, or other concerns. She was ambulatory into the emergency department. She denies any SI/HI/AVH. She also states that she feels safe at home. Tod
--- NOTE | 2023-05-10 03:19 | XR_ITS ---
PROCEDURE INFORMATION: Exam: XR Chest Exam date and time: 05/10/2023 3:40 AM Age: 37 years old Clinical indication: Shortness of breath; Additional info: SOA TECHNIQUE: Imaging protocol: Radiologic exam of the chest. Views: 1 view. COMPARISON: CR XR CHEST PORTABLE 04/07/2021 5:25 PM FINDINGS: Lungs: Unremarkable. No consolidation. Pleural spaces: Unremarkable. No pleural effusion. No pneumothorax. Heart/Mediastinum: Unremarkable. No cardiomegaly. Bones/joints: Unremarkable. IMPRESSION: No acute cardiopulmonary process.
[2023-05-10 03:32] LABS: Microscopic, Urine URINE MICROSCOPIC (MICROSCOPIC)
--- NOTE | 2023-05-10 03:40 | ECG_ITS ---
APPROVED REPORT Exam: Resting ECG HR:63 bpm ECG Measurements Heart Rate 63 AXES [place] 149 P 41 QRSd 94 QRS 73 QT 397 T 12 QTc 404 Conclusion SINUS RHYTHM NONSPECIFIC T-WAVE ABNORMALITY BORDERLINE ECG UNCONFIRMED REPORT Electronically signed by : Jhony Hager MD 05/10/2023 16:08:28
[2023-05-10 03:41] LABS: Chloride 98 mmol/L (98-107)
[2023-05-10 03:42] LABS: Basophils # 0.1 K/mm3 (0-0.2); Basophils % 0.8 % (0.1-2.0); Eosinophils # 0.3 K/mm3 (0.0-0.4); Eosinophils % 2.2 % (0.1-12.0); Hematocrit 42.9 % (37.0-47.0); Lymphocytes # 3.8 K/mm3 (0.7-4.5); Lymphocytes % 26.9 % (10-50); Mean Corpuscular HGB Conc 35.1 g/dL (31.8-35.4); Mean Corpuscular Hemoglobin 28.1 pg (27.0-31.2); Mean Corpuscular Volume 80.2 fl (81-99); Mean Platelet Volume 10.5 fl (7.4-10.4); Monocytes # 0.5 K/mm3 (0.1-1.0); Monocytes % 3.8 % (1.7-9.3); Neutrophils # 9.3 K/mm3 (1.8-7.8); Neutrophils % 66.2 % (37.0-80.0); Platelet Count 261 K/mm3 (142-424); Potassium 3.3 mmoL/L (3.5-5.1); Red Blood Count 5.34 M/mm3 (4.20-5.40); Red Cell Distribution Width 14.9 % (11.5-17.5); Sodium 141 mmol/L (136-145)
[2023-05-10 03:42] LABS: VBG Base Excess 4.1 mmol/L (-2.4-2.3); VBG HCO3 29.2 mmol/L (23-30); VBG PH 7.38 mmol/L (7.31-7.41); VBG PO2 39.4 mmol/L (28-40); VBG Total CO2 30.7 mmol/L (23-27)
[2023-05-10 03:44] LABS: Alanine Aminotransferase 46 U/L (12-78); Aspartate Amino Transferase 42 U/L (14-36); Blood Urea Nitrogen 10 mg/dl (7-17); Creatinine Clearance Estimated 134 mL/min (50-200); Estimated Glomerular Filt Rate 70 ml/min (>60); GFR (African American) 85 ML/MIN (>60)
[2023-05-10 03:45] LABS: VBG PCO2 50.6 mmol/L (35-51)
[2023-05-10 03:45] LABS: Albumin Level 4.9 g/dl (3.5-5.0); Albumin/Globulin Ratio 1.3 (1.1-1.8); Alkaline Phosphatase 69 U/L (38-126); Anion Gap 12.3 mEq/L (5-15); Bilirubin,Total 1.2 mg/dl (0.2-1.3); Calcium 9.4 mg/dl (8.4-10.2); Carbon Dioxide 34 mmol/L (22.0-30.0); Globulin 3.9 g/dL (1.3-3.2); Glucose 107 mg/dl (74-100); HCG Qualitative, Serum Negative (Negative); Total Protein,Serum 8.8 g/dl (6.3-8.2)
--- NOTE | 2023-05-10 03:45 | PC.NURSE ---
Reported VBG results to ER provider.
[2023-05-10 03:46] LABS: Appearance,Urine CLEAR (Clear); Bilirubin,Urine Negative (Negative); Blood, Urine TRACE-I (Negative); Color,Urine YELLOW (Yellow); Glucose,Urine (UA) Negative (Negative); Ketones,Urine Negative (Negative); Leukocyte Esterase,Urine Negative (Negative); Nitrate,Urine Negative (Negative); Protein,Urine Negative (Negative); Specific Gravity, Urine <= 1.005 (1.005-1.030); Urobilinogen,Urine 0.2 EU/dl (0.2)
[2023-05-10 03:47] LABS: Activated Partial Thrombo Time 29.6 seconds (22.8-30.6); INR 1.06 (0.9-1.1); Prothrombin Time 11.4 seconds (10.1-12.5)
--- NOTE | 2023-05-10 03:53 | PC.NURSE ---
call received from [facility]. negative ct results given to dr galloway.
[2023-05-10 03:57] LABS: Bacteria,Urine 1+ /lpf; RBC,Urine Occasional #/hpf (0-3); WBC,Urine Occasional #/hpf (0-3)
[2023-05-10 04:02] LABS: T4 (Thyroxine) 18.8 ug/dl (5.53-11.0)
[2023-05-10 04:16] LABS: Thyroid Stimulating Hormone 3.85 uIU/mL (0.465-4.68)
[2023-05-10 04:35] LABS: Troponin I < 0.01 ng/ml (0.00-0.034)
--- NOTE | 2023-05-10 04:48 | PC.NURSE ---
Patient disconnected from LR bolus at this time. Patient reports that it's increasing her anxiety being connected to the bolus. Notified provider.
[2023-05-10 05:15] LABS: NT Pro Brain Natriuretic Pep. 138 pg/mL (0-125)
[2023-05-10 06:07] VITALS: BP 136/74; PULSE 60; RESP 20; TEMP 36.6; O2SAT 97
--- NOTE | 2023-05-13 09:29 | PC.NURSE ---
urine culture results show less than 10,000 colony forming units of bacteria per milliliter of urine. MD Chin notified, contaminated and no further action needed at this time.
== END 2023-05-10 06:12 | disposition home or self-care (01) ==
PROVIDERS: Emergency Provider Emergency Medicine; PCP Physician Assistant
DX: R51.9 Headache, unspecified (principal); E87.6 Hypokalemia; R20.2 Paresthesia of skin; R79.89 Other specified abnormal findings of blood chemistry; F41.1 Generalized anxiety disorder; F32.A Depression, unspecified; E03.9 Hypothyroidism, unspecified; E78.5 Hyperlipidemia, unspecified; I10 Essential (primary) hypertension; E66.9 Obesity, unspecified; F17.210 Nicotine dependence, cigarettes, uncomplicated; F22 Delusional disorders
CPT/HCPCS: 70450; 70496; 70498; 71045; 80053; 81001; 82803; 83735; 83880; 84436; 84443; 84484; 84703; 85025; 85610; 85730; 87086; 93005; 96360; 99285; Q9967

== ENCOUNTER → 2023-05-14 15:04 | Outpatient (CLI) | payer MEDICAID, SELFPAY ==
--- NOTE | 2023-05-14 15:04 | US_ITS ---
FINAL REPORT CLINICAL HISTORY: hypothyroidism COMPARISON: 11/01/2022 FINDINGS: THYROID ULTRASOUND: The right lobe of the thyroid gland measures 3.6 x 1.4 x 0.9 cm in size. There is a 6 x 5 x 4 mm focus contiguous with the posterior aspect of the right thyroid gland, seen on the prior ultrasound of October 2022. At that time this mass measured 11 x 9 x 4 mm in size. No new masses or nodules are noted in the right lobe of the thyroid. The left lobe of the thyroid measures 3.4 x 1 x 1 cm in size. There is a nodule present in the left lobe, new since the prior ultrasound, which measures 8 x 5 x 4 mm in size, is hypoechoic and solid, a TI-RADS 4 category nodule. The isthmus measures 4 mm in thickness. IMPRESSION: The mass contiguous with the posterior aspect of the right lobe of the thyroid, felt to represent a posterior exophytic thyroid nodule, has decreased in size since the prior ultrasound of October 2022. On this examination it measures 6 x 5 x 4 mm in size, a TI-RADS category 4 nodule. At this size, no follow-up is recommended at this time. There is a new nodule in the left lobe of the thyroid gland as described, a TI-RADS category 4 nodule. Would consider follow-up ultrasound in 6 to 12 months. Reviewed, Interpreted and Dictated by Aris Limon III, MD Transcribed by Pati Riley Authenticated and [facility]
[2023-05-14 17:26] LABS: Free T4 (Free Thyroxine) 1.77 ng/dl (0.78-2.19)
== END ==
PROVIDERS: PCP Physician Assistant; Visit Provider Nurse Practitioner
DX: E03.9 Hypothyroidism, unspecified (principal)
CPT/HCPCS: 36415; 76536; 84439; 84443

== ENCOUNTER 2023-07-09 11:46 | Outpatient (CLI) | payer MEDICAID, SELFPAY ==
[2023-07-09 12:01] LABS: Basophils # 0.1 K/mm3 (0-0.2); Basophils % 0.6 % (0.1-2.0); Eosinophils # 0.7 K/mm3 (0.0-0.4); Hematocrit 44.8 % (37.0-47.0); Hemoglobin 14.1 g/dL (12.2-16.2); Lymphocytes # 3.3 K/mm3 (0.7-4.5); Lymphocytes % 30.4 % (10-50); Mean Corpuscular HGB Conc 31.6 g/dL (31.8-35.4); Mean Corpuscular Hemoglobin 26.2 pg (27.0-31.2); Mean Corpuscular Volume 82.9 fl (81-99); Mean Platelet Volume 10.2 fl (7.4-10.4); Monocytes # 0.4 K/mm3 (0.1-1.0); Monocytes % 3.6 % (1.7-9.3); Neutrophils # 6.4 K/mm3 (1.8-7.8); Neutrophils % 59.3 % (37.0-80.0); Platelet Count 247 K/mm3 (142-424); Red Cell Distribution Width 14.9 % (11.5-17.5); White Blood Count 10.9 K/mm3 (4.8-10.8)
[2023-07-09 12:17] LABS: Alanine Aminotransferase 28 U/L (12-78); Albumin Level 4.3 g/dl (3.5-5.0); Albumin/Globulin Ratio 1.4 (1.1-1.8); Alkaline Phosphatase 73 U/L (38-126); Aspartate Amino Transferase 26 U/L (14-36); Bilirubin,Total 0.7 mg/dl (0.2-1.3); Blood Urea Nitrogen 5 mg/dl (7-17); Calcium 9.3 mg/dl (8.4-10.2); Carbon Dioxide 27 mmol/L (22.0-30.0); Chloride 103 mmol/L (98-107); Chol/HDL Ratio 6.7 (1-3.5); Cholesterol 227 mg/dl (140-200); Estimated Glomerular Filt Rate 70 ml/min (>60); GFR (African American) 85 ML/MIN (>60); Glucose 96 mg/dl (74-100); HDL Cholesterol 34 mg/dl (40-60); Sodium 137 mmol/L (136-145); Total Protein,Serum 7.3 g/dl (6.3-8.2); Triglycerides 287 mg/dl (30-150); VLDL Cholesterol 57 mg/dL (0-40)
[2023-07-09 12:28] LABS: Direct LDL Cholesterol 134.41 mg/dL (100-129)
[2023-07-09 14:04] LABS: Thyroid Stimulating Hormone 3.27 uIU/mL (0.465-4.68)
[2023-07-09 14:54] LABS: Free Thyroxine Index 4.1 ug/dL (5.93-13.13); Triiodothryronine (T3) Uptake 29 % (23.5-40.5)
[2023-07-10 10:34] LABS: Thyroid Peroxidase Antibodies 13 IU/mL (0-34)
[2023-07-11 07:34] LABS: Thyroid Stimulating Immunoglob <0.10 IU/L (0.00-0.55)
== END 2023-07-09 23:59 ==
LOC: LAB.DROPOF 11:46
PROVIDERS: PCP Physician Assistant; Visit Provider Physician Assistant
DX: E03.9 Hypothyroidism, unspecified (principal); E66.9 Obesity, unspecified; Z68.36 Body mass index [BMI] 36.0-36.9, adult
CPT/HCPCS: 80053; 80061; 82306; 84436; 84443; 84445; 84479; 85025; 86376

== ENCOUNTER 2023-11-06 16:01 | Outpatient (CLI) | payer MEDICAID, SELFPAY ==
--- NOTE | 2023-11-06 16:02 | US_ITS ---
FINAL REPORT CLINICAL HISTORY: elevated t4 serum level and hypothyroidism COMPARISON: 05/14/2023 FINDINGS: Sonographic images of the thyroid gland were obtained. The right thyroid lobe measures 3.3 cm. in length. The left thyroid lobe measures 2.9 cm. in length. The thyroid isthmus measures 0.3 cm. The echogenicity is normal. There is a solid hypoechoic nodule in the right lobe of the thyroid which is either exophytic arising from the posterior aspect of the thyroid gland or may represent a parathyroid gland. On today's examination this nodule is larger than noted on the prior exam, measuring 13 x 6 x 9 mm in size (was previously 6 x 5 x 4 mm in size), a TI-RADS category 4 nodule. There is a nodule present in the isthmus of the thyroid which was not well-seen on the prior examination, which measures 11 x 10 x 5 mm in size, solid, hypoechoic, a TI-RADS category 4 nodule. The left thyroid nodule seen on the previous exam of April 2023 is not seen on today's exam. IMPRESSION: Unremarkable thyroid ultrasound. Reviewed, Interpreted and Dictated by Aris Limon III, MD Transcribed by Pati Riley Authenticated and [facility]
== END 2023-11-06 23:59 | disposition home or self-care (01) ==
LOC: RAD 16:02
PROVIDERS: PCP Physician Assistant; Visit Provider Nurse Practitioner
DX: E03.9 Hypothyroidism, unspecified (principal); R79.89 Other specified abnormal findings of blood chemistry
CPT/HCPCS: 76536

== ENCOUNTER 2023-11-21 15:47 | Outpatient (CLI) | payer MEDICAID, SELFPAY ==
[2023-11-21 18:17] LABS: Free T4 (Free Thyroxine) 1.52 ng/dl (0.78-2.19)
[2023-11-21 18:26] LABS: Thyroid Stimulating Hormone 3.13 uIU/mL (0.465-4.68)
== END 2023-11-21 23:59 | disposition home or self-care (01) ==
LOC: LAB 15:48
PROVIDERS: PCP Physician Assistant; Visit Provider Nurse Practitioner
DX: E03.9 Hypothyroidism, unspecified (principal)
CPT/HCPCS: 36415; 84439; 84443

== ENCOUNTER 2023-12-04 11:06 | Outpatient (CLI) | payer MEDICAID, SELFPAY ==
[2023-12-04 19:38] LABS: Basophils # 0.1 K/mm3 (0-0.2); Eosinophils # 0.2 K/mm3 (0.0-0.4); Eosinophils % 1.7 % (0.1-12.0); Hemoglobin 14.5 g/dL (12.2-16.2); Lymphocytes # 2.6 K/mm3 (0.7-4.5); Lymphocytes % 22.6 % (10-50); Mean Corpuscular HGB Conc 32.1 g/dL (31.8-35.4); Mean Corpuscular Hemoglobin 26.8 pg (27.0-31.2); Mean Corpuscular Volume 83.5 fl (81-99); Mean Platelet Volume 11.1 fl (7.4-10.4); Monocytes # 0.3 K/mm3 (0.1-1.0); Monocytes % 2.3 % (1.7-9.3); Neutrophils # 8.2 K/mm3 (1.8-7.8); Neutrophils % 72.5 % (37.0-80.0); Platelet Count 252 K/mm3 (142-424); Red Blood Count 5.39 M/mm3 (4.20-5.40); Red Cell Distribution Width 15.5 % (11.5-17.5); White Blood Count 11.3 K/mm3 (4.8-10.8)
[2023-12-04 19:58] LABS: Alanine Aminotransferase 32 U/L (12-78); Albumin Level 4.7 g/dl (3.5-5.0); Albumin/Globulin Ratio 1.4 (1.1-1.8); Alkaline Phosphatase 78 U/L (38-126); Anion Gap 16.3 mEq/L (5-15); Aspartate Amino Transferase 36 U/L (14-36); Bilirubin,Total 1.7 mg/dl (0.2-1.3); Blood Urea Nitrogen 9 mg/dl (7-17); Calcium 10.3 mg/dl (8.4-10.2); Carbon Dioxide 28 mmol/L (22.0-30.0); Chloride 101 mmol/L (98-107); Chol/HDL Ratio 4.4 (1-3.5); Cholesterol 182 mg/dl (140-200); Estimated Glomerular Filt Rate 70 ml/min (>60); GFR (African American) 84 ML/MIN (>60); Globulin 3.3 g/dL (1.3-3.2); Glucose 93 mg/dl (74-100); HDL Cholesterol 41 mg/dl (40-60); Potassium 4.3 mmoL/L (3.5-5.1); Sodium 141 mmol/L (136-145); Triglycerides 185 mg/dl (30-150); VLDL Cholesterol 37 mg/dL (0-40)
[2023-12-04 20:09] LABS: Direct LDL Cholesterol 102.24 mg/dL (100-129)
[2023-12-04 20:48] LABS: Vitamin B12 516 pg/mL (239-931)
== END 2023-12-04 23:59 | disposition home or self-care (01) ==
LOC: LAB.DROPOF 12-05 11:06
PROVIDERS: PCP Physician Assistant; Visit Provider Physician Assistant
DX: R53.83 Other fatigue (principal); R10.9 Unspecified abdominal pain; Z68.36 Body mass index [BMI] 36.0-36.9, adult; E66.9 Obesity, unspecified
CPT/HCPCS: 80050; 80053; 80061; 82607; 84443; 85025

== ENCOUNTER 2023-12-06 14:45 | Outpatient (CLI) | payer MEDICAID, SELFPAY ==
[2023-12-16 17:14] LABS: Dopamine, Ur, 24hr 300 ug/24 hr (0-510); Dopamine, Urine 125 ug/L (Undefined); Epinephrine, U, 24hr <7 ug/24 hr (0-20); Epinephrine, Urine <3 ug/L (Undefined); Norepinephrine, Ur 28 ug/L (Undefined); Norepinephrine,U,24h 67 ug/24 hr (0-135); VMA, Urine 1.9 mg/L (Undefined); VMA, Urine, 24hr 4.6 mg/24 hr (0.0-7.5)
== END 2023-12-06 23:59 | disposition home or self-care (01) ==
LOC: LAB.DROPOF 14:46
PROVIDERS: PCP Physician Assistant; Visit Provider Physician Assistant
DX: R61 Generalized hyperhidrosis (principal); R19.7 Diarrhea, unspecified
CPT/HCPCS: 82384; 84585

== ENCOUNTER 2023-12-12 13:27 | Outpatient (CLI) | payer MEDICAID, SELFPAY ==
[2023-12-12 14:43] LABS: Bilirubin,Indirect 1.3 mg/dL (0.0-0.9); Bilirubin,Total 1.3 mg/dl (0.2-1.3); Bilirubin,Unconjugated 1.5 mg/dL (0.0-1.1)
== END 2023-12-12 23:59 | disposition home or self-care (01) ==
LOC: LAB 13:28
PROVIDERS: PCP Physician Assistant; Visit Provider Physician Assistant
DX: R17 Unspecified jaundice (principal)
CPT/HCPCS: 36415; 82247; 82248

== ENCOUNTER 2023-12-17 08:19 | Outpatient (CLI) | payer MEDICAID, SELFPAY ==
--- NOTE | 2023-12-17 08:20 | US_ITS ---
FINAL REPORT CLINICAL HISTORY: elevated bilirubin COMPARISON: None FINDINGS: Sonographic images of the right upper quadrant were obtained. The pancreas is partially obscured. Fatty liver. Status post cholecystectomy. There is no evidence of biliary ductal dilatation.The common duct measures 5 mm. Limited images of the right kidney are unremarkable. IMPRESSION: Fatty liver. Reviewed, Interpreted and Dictated by Vernell Sanchez MD Transcribed by Pretty Gannon Authenticated and [facility]
== END 2023-12-17 23:59 | disposition home or self-care (01) ==
LOC: RAD 08:20
PROVIDERS: PCP Physician Assistant; Visit Provider Physician Assistant
DX: K76.0 Fatty (change of) liver, not elsewhere classified
CPT/HCPCS: 76705

== ENCOUNTER 2023-12-18 06:44 | Outpatient (CLI) | payer MEDICAID, SELFPAY ==
--- NOTE | 2023-12-18 06:48 | CT_ITS ---
FINAL REPORT TECHNIQUE: Noncontrast exam CLINICAL HISTORY: left flank pain COMPARISON: 12/26/2021 FINDINGS: Abdomen: Lung bases are clear. Liver, spleen, pancreas and adrenal glands have a normal CT appearance in their limited unenhanced state. The gallbladder is surgically absent. The kidneys show no stone disease or obstruction. No obvious renal mass is present. No ureteral stones are present. Pelvis: No distal ureteral stones are seen. Bladder is unremarkable. No fluid collection or adenopathy is seen. The appendix is normal in appearance. Tubal ligation clips are identified. IMPRESSION: No evidence of upper urinary tract stone disease or obstruction Reviewed, Interpreted and Dictated by Vernell Sanchez MD Transcribed by Pati Riley Authenticated and [facility]
[2023-12-19 13:02] LABS: HBsAg Screen Negative (Negative); HCV Ab Non Reactive (Non Reactive); Hep A Ab, IGM Negative (Negative); Hep B Core Ab, IgM Negative (Negative)
[2023-12-19 14:33] LABS: Ceruloplasmin 28.5 mg/dL (19.0-39.0)
== END 2023-12-18 23:59 | disposition home or self-care (01) ==
PROVIDERS: PCP Physician Assistant; Visit Provider Physician Assistant
DX: R10.9 Unspecified abdominal pain (principal); K76.0 Fatty (change of) liver, not elsewhere classified
CPT/HCPCS: 36415; 74176; 80074; 82390

== ENCOUNTER 2024-01-16 15:56 | Outpatient (CLI) | payer MEDICAID, SELFPAY | END 2024-01-16 23:59 | disposition home or self-care (01) | LOC: RT 15:57 | PROVIDERS: PCP Physician Assistant; Visit Provider Physician Assistant | DX: R00.2 Palpitations (principal) | CPT/HCPCS: 93225; 93227 ==

== ENCOUNTER 2024-01-20 15:09 | Outpatient (CLI) | payer MEDICAID, SELFPAY | END 2024-01-20 23:59 | disposition home or self-care (01) | PROVIDERS: PCP Physician Assistant; Visit Provider Physician Assistant | DX: R00.2 Palpitations (principal) | CPT/HCPCS: 93270 ==

== ENCOUNTER 2024-02-06 14:00 | Outpatient (CLI) | payer MEDICAID, SELFPAY ==
[2024-02-06 18:18] LABS: Adenovirus,PCR Not Detected (NotDetected); Bordetella Pertussis Not Detected (NotDetected); Chlamydophila Pneumoniae, PCR Not Detected (NotDetected); Coronavirus 19, PCR Not Detected (NotDetected); Coronavirus 229E Not Detected (NotDetected); Coronavirus NL63 Not Detected (NotDetected); Coronavirus OC43 Not Detected (NotDetected); Coronovirus HKU1,PCR Not Detected (NotDetected); Human Metapneumovirus Not Detected (NotDetected); Influenza A, PCR Not Detected (NotDetected); Influenza AH1, 2009 Not Detected (NotDetected); Influenza AH1, PCR Not Detected (NotDetected); Influenza AH3,PCR Not Detected (NotDetected); Influenza B, PCR Not Detected (NotDetected); Mycoplasma Pneumoniae, PCR Not Detected (NotDetected); Parainfluenza 1, PCR Not Detected (NotDetected); Parainfluenza 2, PCR Not Detected (NotDetected); Parainfluenza 3, PCR Not Detected (NotDetected); Parainfluenza 4, PCR Not Detected (NotDetected); Respiratory Syncytial Virus Not Detected (NotDetected)
[2024-02-07 01:11] LABS: Rhinovirus/Enterovirus Detected (NotDetected)
== END 2024-02-06 23:59 | disposition home or self-care (01) ==
LOC: LAB.DROPOF 02-08 18:46
PROVIDERS: PCP Family Medicine; Visit Provider Family Medicine
DX: J02.9 Acute pharyngitis, unspecified (principal)
CPT/HCPCS: 87070; 87581; 87632; 87635; 87798

== ENCOUNTER 2024-03-11 01:10 | Emergency (ER) | payer MEDICAID, SELFPAY ==
[2024-03-11 01:13] VITALS: BP 178/98; PULSE 117; RESP 20; TEMP 37.3; O2SAT 97; BMI 37.8
--- NOTE | 2024-03-11 01:18 | ED_ITS ---
Discharge Plan Disposition Patient Disposition: Home, Self-Care Prescriptions Prescriptions: No Action buprenorphine-naloxone 2-0.5 mg film sublingual DAILY dorzolamide-timolol 22.3-6.8 mg/mL drops 1 drp Eye-Both BID omeprazole 20 mg capsule,delayed release(DR/EC) 20 mg PO DAILY Qty: 30 5RF benzonatate 200 mg capsule 200 mg PO BID PRN (Reason: cough) Qty: 20 0RF levothyroxine 137 mcg tablet 137 mcg PO DAILY Qty: 90 2RF Rx Instructions: 137 mcg orally daily; atorvastatin 10 mg tablet 10 mg PO DAILY Qty: 90 3RF Referrals Follow up/Referrals: Vanna Alvarenga APRN [Primary Care Provider] - See instructions Activity Restrictions/Add. Instructions Additional Instructions/Restrictions: Please follow-up with your primary care provider. Please return to the emergency department if you develop any new or worsening symptoms or become concerned for your health. Clinical Impressions Clinical Impression: COVID-19, Fever Stand Alone Forms Stand Alone Forms: Work/School Release Print Language Print Language: [place] Discharge ED Provider: Mauricio Hoyos General Adult HPI General Chief complaint: PAIN Stated complaint: fever,soa,gutierrez,egd,dilated esophagus,colonoscopy03/10 Time Seen by Provider: 03/11/24 01:18 History of Present Illness HPI narrative: 38-year-old female presents for chest pain, fever, throat pain. She had a EGD with dilation and colonoscopy yesterday. Reports no abdominal pain. She reports that her chest pain is mild and has not changed significantly since the procedure. She reports some generalized aches as well. She reports that she had a temperature of 100.3 at home. Related Data Home Medications ?Medication ?Instructions ?Recorded ?Confirmed buprenorphine 2 mg-naloxone 0.5 mg sublingual DAILY 11/21/23 02/18/24 sublingual film dorzolamide 22.3 mg-timolol 6.8 1 drp Eye-Both BID 01/16/24 02/18/24 mg/mL eye drops Previous Rx's ?Medication ?Instructions ?Recorded levothyroxine 137 mcg tablet 137 mcg PO DAILY hypothyroidism 06/19/23 #90 tabs omeprazole 20 mg capsule,delayed 20 mg PO DAILY #30 caps 07/09/23 release atorvastatin 10 mg tablet 10 mg PO DAILY #90 tabs 07/12/23 benzonatate 200 mg capsule 200 mg PO BID PRN cough #20 caps 02/06/24 Allergies Allergy/AdvReac Type Severity Reaction Status Date / Time vybrid AdvReac Intermediate Uncoded 02/18/24 13:09 [facility] Disclaimer: The information contained in this section may have been updated after the patient was seen, as this information can be updated by other users. Medical History Eustachian tube obstruction Acute fungal otitis externa Enlarged lymph node in neck Vitamin D deficiency Hyperlipidemia Hypothyroidism Hypertension Right upper quadrant abdominal pain Anxiety Depression Surgical History Hx of cholecystectomy H/O tubal ligation Hx of tonsillectomy Family History Other Alcoholism Asthma Coronary artery disease Diabetes FHx: mental illness Heart attack Hyperlipidemia Hypertension Thyroid disorder Social History Smoking Status: Current every day smoker tobacco type: cigarettes packs per day: 1 second hand exposure: Yes alcohol intake: never substance use type: former substance user and opiates current occupational status: unemployed and student Travel in the last 8 weeks: None household members: spouse and children housing: other number of children: 2 caffeine: Yes ROS Obtained: Yes All systems reviewed & no additional complaints except as documented Physical Exam General General appearance: alert and in no apparent distress Head Head exam: atraumatic and normocephalic Eye Eye exam: Present normal appearance, PERRL and EOMI ENT ENT exam: Present normal oropharynx and normal external ear exam Neck Neck exam: Present normal inspection, full ROM and other (No crepitus) Chest Chest inspection: Present normal inspection and symmetric chest wall rise; Absent tenderness Respiratory Respiratory exam: Present normal lung sounds bilaterally; Absent respiratory di stress Cardiovascular Cardiovascular exam: Present regular rate and normal rhythm Abdominal Exam Abdominal exam: Present soft; Absent distention, tenderness or guarding Extremities Exam Extremities exam: Present normal inspection; Absent edema or joint swelling Back Exam Back exam: Present normal inspection; Absent tenderness Neurological Exam Neurological exam: Present alert and oriented X3; Absent motor sensory deficit Psychiatric Psychiatric exam: Present normal affect and normal mood Skin Skin exam: Present warm, dry and normal color Lymphatic Lymphatic Findings: no adenopathy Medical Decision Making Medical Records Medical records reviewed: Yes I reviewed the patient's medical records. Screening: Per USPSTF and CDC recommendations, given the prevalence of disease in our region, it is our hospital?s policy to screen for HIV and viral Hepatitis for all patients aged 18 and over and those with ongoing risk factors. Chavo Inquiry Pt receiving controlled substance: No Chavo was queried for this patient: No Vital Signs: 03/11/24 01:13 03/11/24 03:04 Temperature 99.1 F 98.7 F Temperature Source Oral Oral Pulse Rate 99 H Pulse Rate [Right Brachial] 117 H Respiratory Rate 20 20 Blood Pressure 139/77 Blood Pressure [Right Arm] 178/98 H Blood Pressure Mean [Right Arm] 124 Blood Pressure Source Automatic Cuff Blood Pressure Source [Right Arm] Automatic Cuff Blood Pressure Position Sitting Blood Pressure Position [Right Arm] Supine 02 Sat by Pulse Oximetry 97 Oxygen Delivery Method Room Air Room Air Lab Data Lab results reviewed: Yes I reviewed the patient's lab results. Lab Results 03/11/24 01:35: SARS-CoV-2 (PCR) Detected A, Influenza A Untype (PCR) Not detected, Influenza Type B (PCR) Not detected 03/11/24 02:49: Urine Color Yellow, Urine Appearance Clear, Urine pH 6.5, Ur Specific [place] 1.010, Urine Protein Negative, Urine Glucose (UA) Negative, Urine Ketones Negative, Urine Blood Trace-i, Urine Nitrate Negative, Urine Bilirubin Negative, Urine Urobilinogen 0.2, Ur Leukocyte Esterase Negative, Urine RBC 3-5, Urine WBC Occasional, Ur Squamous Epith Cells 3-5, Urine Bacteria Trace Orders (Tests/Meds): ED MEDICATIONS Discontinued Medications Generic Name Dose Route Start Last Admin Trade Name Freq PRN Reason Stop Dose Admin Acetaminophen 1,000 mg 03/11/24 01:19 03/11/24 01:25 Acetaminophen 1,000mg/100ml Vial IV 03/11/24 01:20 1,000 mg ONCE ONE Administration Iopamidol 75 ml 03/11/24 02:08 03/11/24 02:08 Iopamidol-370 (76%);100ml Bottle IV 03/11/24 02:09 75 ml ONCE ONE Administration Sodium Chloride 10 ml 03/11/24 02:08 03/11/24 02:08 Sodium Chloride 0.9% 10ml Syr (Rad Only) IV 04/10/24 02:07 10 ml NEEDED PRN Administration Maintain IV Site ORDERS Category Date Time Status CT chest w con Stat Cat Scan 03/11/24 01:19 Completed Rapid PCR Covid and Flu A/B Stat Lab 03/11/24 01:35 Completed UA [Urinalysis and Microscopic] Stat Lab 03/11/24 02:49 Completed Medical Decision Narrative: 8-year-old female with history of obesity, hypothyroidism, mood disorder presents with borderline fever and mild tachycardia and persistent chest aching after EGD yesterday. History was obtained via interactive discussion with patient. On arrival, patient is afebrile, mildly tachycardic, generally well- appearing., moving all extremities spontaneously. Full physical exam performed and significant for no significant physical exam abnormalities Differential includes but is not limited to viral syndrome, esophageal perforation, postoperative complication. Patient was given Tylenol and Toradol for symptomatic management and correction of underlying abnormalities. Workup initiated including CT chest with contrast and COVID swab. We attempted to obtain labs but were unsuccessful after multiple sticks despite working IVs. We elected to proceed with CT regardless. On re-evaluation, patient [remains afebrile, HD stable.] Reports improvement in symptoms. Laboratory workup independently interpreted by me and significant for positive COVID swab. Imaging independently interpreted by me and significant for CT scan without evidence of acute pathology, specifically shows no evidence of esophageal rupture hematoma etc.. See radiology read for full review of final results. Given patient history, exam and workup, patient's presentation most likely represents acute COVID infection. No evidence of postoperative complication from EGD. These findings were communicated with patient she was discharged in stable condition. Procedures Risk/Benefits of Procedure(s) Were Explained: Yes Critical Care Critical Care Time Critical Care Time: No
--- NOTE | 2024-03-11 01:19 | CT_ITS ---
PROCEDURE INFORMATION: Exam: CT Chest With Contrast; Diagnostic Exam date and time: 03/11/2024 2:05 AM Age: 38 years old Clinical indication: Fever; Additional info: Fever, cp, egd w/ dilation today TECHNIQUE: Imaging protocol: Diagnostic computed tomography of the chest with contrast. Radiation optimization: All CT scans at this facility use at least one of these dose optimization techniques: automated exposure control; mA and/or kV adjustment per patient size (includes targeted exams where dose is matched to clinical indication); or iterative reconstruction. Contrast material: ISOVUE; Contrast volume: 75 ml; Contrast route: IV; COMPARISON: CR XR CHEST PORTABLE 05/10/2023 3:40 AM FINDINGS: Lungs: Calcified granuloma left lower lobe. No consolidation. No mass. Pleural spaces: Unremarkable. No pneumothorax. No pleural effusion. Heart: Unremarkable. No cardiomegaly. No pericardial effusion. Lymph nodes: Unremarkable. No enlarged lymph nodes. Vasculature: Unremarkable. No aortic aneurysm. Liver: Hepatic steatosis is noted. Gallbladder and biliary ducts: The gallbladder is absent. There is no biliary ductal dilation. Bones/joints: Mild degenerative changes of the spine. No acute fracture. Soft tissues: Unremarkable. IMPRESSION: No acute findings.
[2024-03-11] MEDS: ACETAMINOPHEN 1,000MG/100ML VIAL 1000 MG IV (01:25)
[2024-03-11 01:44] LABS: Influenza A, PCR Not Detected (NotDetected); Influenza B, PCR Not Detected (NotDetected)
[2024-03-11] MEDS: SODIUM CHLORIDE 0.9% 10ML SYR (RAD ONLY) 10 ML IV (02:08)
[2024-03-11] MEDS: IOPAMIDOL-370 (76%);100ML BOTTLE 75 ML IV (02:08)
[2024-03-11 02:54] LABS: Coronavirus 19, PCR Detected (NotDetected)
[2024-03-11 02:56] LABS: Microscopic, Urine URINE MICROSCOPIC (MICROSCOPIC)
[2024-03-11 02:57] LABS: Appearance,Urine CLEAR (Clear); Bilirubin,Urine Negative (Negative); Blood, Urine TRACE-I (Negative); Color,Urine YELLOW (Yellow); Glucose,Urine (UA) Negative (Negative); Ketones,Urine Negative (Negative); Leukocyte Esterase,Urine Negative (Negative); Nitrate,Urine Negative (Negative); PH,Urine 6.5 (5.0-8.5); Protein,Urine Negative (Negative); Urobilinogen,Urine 0.2 EU/dl (0.2)
[2024-03-11 03:04] VITALS: BP 139/77; PULSE 99; RESP 20; TEMP 37.1; O2SAT 97
[2024-03-11 03:09] LABS: Bacteria,Urine Trace /lpf; WBC,Urine Occasional #/hpf (0-3)
== END 2024-03-11 03:12 | disposition home or self-care (01) ==
PROVIDERS: Emergency Provider Emergency Medicine; PCP Family Medicine
DX: U07.1 COVID-19 (principal); R50.9 Fever, unspecified; R07.0 Pain in throat
CPT/HCPCS: 71260; 81001; 87636; 96374; 99284; J0131; Q9967

== ENCOUNTER 2024-08-13 11:39 | Outpatient (CLI) | payer MEDICAID, SELFPAY ==
[2024-08-13 12:22] LABS: Albumin Level 4.5 g/dl (3.5-5.0); Chloride 102 mmol/L (98-107); Potassium 4.1 mmoL/L (3.5-5.1); Sodium 140 mmol/L (136-145)
[2024-08-13 12:24] LABS: Alanine Aminotransferase 26 U/L (12-78); Amylase 44 U/L (30-110); Anion Gap 11.1 mEq/L (5-15); Aspartate Amino Transferase 28 U/L (14-36); Blood Urea Nitrogen 11 mg/dl (7-17); Carbon Dioxide 31 mmol/L (22.0-30.0); Estimated Glomerular Filt Rate 69 ml/min (>60); GFR (African American) 84 ML/MIN (>60)
[2024-08-13 12:25] LABS: Albumin/Globulin Ratio 1.4 (1.1-1.8); Alkaline Phosphatase 68 U/L (38-126); Bilirubin,Total 1.7 mg/dl (0.2-1.3); Calcium 9.4 mg/dl (8.4-10.2); Globulin 3.2 g/dL (1.3-3.2); Glucose 98 mg/dl (74-100); Total Protein,Serum 7.7 g/dl (6.3-8.2)
[2024-08-13 12:30] LABS: C-Reactive Protein 10.3 mg/L (0-4)
[2024-08-13 12:44] LABS: Triiodothryronine (T3) Uptake 30 % (23.5-40.5)
[2024-08-13 12:45] LABS: Free Thyroxine Index 4.4 ug/dL (5.93-13.13); T4 (Thyroxine) 14.5 ug/dl (5.53-11.0)
[2024-08-13 12:58] LABS: Thyroid Stimulating Hormone 2.88 uIU/mL (0.465-4.68)
[2024-08-13 13:00] LABS: Hemoglobin A1C 5.3 % (4.0-6.0)
[2024-08-13 14:12] LABS: Basophils # 0.1 K/mm3 (0-0.2); Basophils % 0.9 % (0.1-2.0); Eosinophils # 0.6 K/mm3 (0.0-0.4); Eosinophils % 6.1 % (0.1-12.0); Hematocrit 42.6 % (37.0-47.0); Hemoglobin 13.6 g/dL (12.2-16.2); Lymphocytes # 2.6 K/mm3 (0.7-4.5); Lymphocytes % 27.1 % (10-50); Mean Corpuscular HGB Conc 31.9 g/dL (31.8-35.4); Mean Corpuscular Hemoglobin 25.5 pg (27.0-31.2); Mean Corpuscular Volume 79.9 fl (81-99); Mean Platelet Volume 12.9 fl (7.4-10.4); Monocytes # 0.3 K/mm3 (0.1-1.0); Monocytes % 3.4 % (1.7-9.3); Neutrophils % 62.2 % (37.0-80.0); Platelet Count 292 K/mm3 (142-424); Red Blood Count 5.33 M/mm3 (4.20-5.40); Red Cell Distribution Width 14.6 % (11.5-17.5); White Blood Count 9.7 K/mm3 (4.8-10.8)
[2024-08-13 14:40] LABS: Erythrocyte Sedimentation Rate 22 mm/hr (0-20)
[2024-08-13 20:14] LABS: Iron 66 ug/dL (37-170)
[2024-08-13 20:24] LABS: Total Iron Binding Capacity 495 ug/dL (265-497)
[2024-08-14 08:14] LABS: Estradiol 50.3 pg/mL (.); Progesterone 0.1 ng/mL (.); RA Latex Turbid. 10.7 IU/mL (<14.0)
[2024-08-14 13:14] LABS: Anti-Centromere B Antibodies <0.2 AI (0.0-0.9); Anti-DNA (DS) Ab Qn <1 IU/mL (0-9); Anti-Jo-1 <0.2 AI (0.0-0.9); Anti-Smith Antibody <0.2 AI (0.0-0.9); Antichromatin Antibodies <0.2 AI (0.0-0.9); Antiscleroderma-70 Antibodies <0.2 AI (0.0-0.9); RNP Antibodies 1.1 AI (0.0-0.9); Sjogren's Anti-SS-A <0.2 AI (0.0-0.9); Sjogren's Anti-SS-B <0.2 AI (0.0-0.9)
[2024-08-14 13:14] LABS: Anti-DNA (DS) Ab Qn <1 IU/mL (0-9)
[2024-08-17 17:31] LABS: Lupus Reflex Interpretation Comment: (.); PTT-LA 44.5 sec (0.0-43.5); PTT-LA Incub Mix 38.9 sec (0.0-40.5); PTT-LA Mix 39.8 sec (0.0-40.5); dRVVT 39.8 sec (0.0-47.0)
[2024-08-18 01:07] LABS: Estrogen 222 pg/mL (.)
[2024-08-18 14:27] LABS: F001-IgE Egg White <0.10 kU/L (Class 0); F002-IgE Milk 0.11 kU/L (Class 0/I); F003-IgE Codfish <0.10 kU/L (Class 0); F004-IgE Wheat <0.10 kU/L (Class 0); F010-IgE Sesame Seed <0.10 kU/L (Class 0); F013-IgE Peanut <0.10 kU/L (Class 0); F014-IgE Soybean <0.10 kU/L (Class 0); F024-IgE Shrimp <0.10 kU/L (Class 0); F256-IgE Walnut <0.10 kU/L (Class 0); F338-IgE Scallop <0.10 kU/L (Class 0)
== END 2024-08-13 23:59 | disposition home or self-care (01) ==
PROVIDERS: PCP Family Medicine; Visit Provider Family Medicine
DX: R45.86 Emotional lability (principal); N92.6 Irregular menstruation, unspecified; E03.9 Hypothyroidism, unspecified; R10.32 Left lower quadrant pain; R10.12 Left upper quadrant pain; R79.89 Other specified abnormal findings of blood chemistry; T78.1XXA Other adverse food reactions, not elsewhere classified, initial encounter; E78.5 Hyperlipidemia, unspecified; I10 Essential (primary) hypertension; R10.11 Right upper quadrant pain; F41.9 Anxiety disorder, unspecified; F33.1 Major depressive disorder, recurrent, moderate; R00.2 Palpitations; R71.8 Other abnormality of red blood cells; M25.50 Pain in unspecified joint
CPT/HCPCS: 36415; 80053; 82150; 82670; 82672; 83036; 83540; 83550; 84144; 84436; 84443; 84479; 85025; 85598; 85613; 85651; 85732; 86003; 86008; 86140; 86225; 86235; 86431

== ENCOUNTER 2024-08-19 12:16 | Outpatient (CLI) | payer MEDICAID, SELFPAY ==
--- NOTE | 2024-08-19 12:46 | ECG_ITS ---
APPROVED REPORT Exam: Resting ECG HR:67 bpm ECG Measurements Heart Rate 67 AXES VA 129 P 63 QRSd 93 QRS 90 QT 390 T 11 QTc 406 Conclusion SINUS RHYTHM NORMAL ECG UNCONFIRMED REPORT Electronically signed by : Jhony Hager MD 08/20/2024 08:48:51
== END 2024-08-19 23:59 | disposition home or self-care (01) ==
PROVIDERS: PCP Family Medicine; Visit Provider Family Medicine
DX: I49.3 Ventricular premature depolarization (principal)
CPT/HCPCS: 93005; 93225; 93227

== ENCOUNTER 2024-08-21 14:40 | Outpatient (CLI) | payer MEDICAID, SELFPAY | END 2024-08-21 23:59 | disposition home or self-care (01) | LOC: RT 14:41 | PROVIDERS: PCP Family Medicine; Visit Provider Family Medicine | DX: I49.3 Ventricular premature depolarization (principal) | CPT/HCPCS: 93270 ==

== ENCOUNTER 2024-09-02 11:20 | Outpatient (CLI) | payer MEDICAID, SELFPAY ==
[2024-09-02 12:17] LABS: INR 0.98 (0.9-1.1)
[2024-09-02 12:43] LABS: Albumin Level 4.4 g/dl (3.5-5.0)
[2024-09-02 12:46] LABS: Alanine Aminotransferase 23 U/L (12-78); Alkaline Phosphatase 65 U/L (38-126); Aspartate Amino Transferase 24 U/L (14-36); Bilirubin,Unconjugated 0.9 mg/dL (0.0-1.1)
[2024-09-02 13:04] LABS: Free T4 (Free Thyroxine) 0.96 ng/dl (0.78-2.19)
[2024-09-02 14:24] LABS: Thyroid Stimulating Hormone 7.36 uIU/mL (0.465-4.68)
[2024-09-03 08:48] LABS: Triiodothyronine (T3) Total 115 ng/dL (71-180)
[2024-09-05 00:08] LABS: ALT (SGPT) P5P 17 IU/L (0-40); AST (SGOT) P5P 18 IU/L (0-40); Alpha 2-Macroglobulins, Qn 226 mg/dL (110-276); Apolipoprotein A-1 142 mg/dL (116-209); Bilirubin, Total 0.3 mg/dL (0.0-1.2); Cholesterol, Total 184 mg/dL (100-199); Fibrosis Score 0.07 (0.00-0.21); GGT 12 IU/L (0-60); Glucose 109 mg/dL (70-99); Haptoglobin 211 mg/dL (33-278); Steatosis Score 0.38 (0.00-0.40); Triglycerides 224 mg/dL (0-149)
== END 2024-09-02 23:59 | disposition home or self-care (01) ==
LOC: LAB 11:22
PROVIDERS: Nurse Practitioner; Nurse Practitioner Acute Care; PCP Family Medicine; Visit Provider Family Medicine
DX: F33.1 Major depressive disorder, recurrent, moderate (principal)
CPT/HCPCS: 36415; 80076; 82172; 82247; 82465; 82947; 82977; 83010; 83883; 84439; 84443; 84450; 84460; 84478; 84480; 85610

== ENCOUNTER 2024-09-14 14:34 | Outpatient (CLI) | payer MEDICAID, SELFPAY ==
[2024-09-14 21:04] LABS: Free Thyroxine Index 3.4 ug/dL (5.93-13.13); T4 (Thyroxine) 12.2 ug/dl (5.53-11.0); Triiodothryronine (T3) Uptake 28 % (23.5-40.5)
== END 2024-09-14 23:59 | disposition home or self-care (01) ==
LOC: LAB.DROPOF 09-15 14:26
PROVIDERS: PCP Family Medicine; Visit Provider Family Medicine
DX: I10 Essential (primary) hypertension (principal); E03.9 Hypothyroidism, unspecified
CPT/HCPCS: 84436; 84443; 84479

== ENCOUNTER 2024-09-16 01:24 | Emergency (ER) | payer MEDICAID, SELFPAY ==
[2024-09-16 01:35] VITALS: BP 196/95; PULSE 104; RESP 18; TEMP 36.7; O2SAT 100; BMI 35.9
--- NOTE | 2024-09-16 01:36 | CT_ITS ---
PROCEDURE INFORMATION: Exam: CT Head Without And With Contrast Exam date and time: 09/16/2024 2:05 AM Age: 39 years old Clinical indication: Pain; Headache; Additional info: Headache in the back, fam HX aneurysm TECHNIQUE: Imaging protocol: Computed tomography of the head without and with contrast. Radiation optimization: All CT scans at this facility use at least one of these dose optimization techniques: automated exposure control; mA and/or kV adjustment per patient size (includes targeted exams where dose is matched to clinical indication); or iterative reconstruction. Contrast material: ISOVUE 300; Contrast volume: 100 ml; Contrast route: IV; COMPARISON: CT ANGIO HEAD 05/10/2023 3:27 AM FINDINGS: Brain: No hemorrhage. Unremarkable white matter. No mass effect. Cerebral ventricles: No ventriculomegaly. Paranasal sinuses: Visualized sinuses are unremarkable. No fluid levels. Mastoid air cells: Visualized mastoid air cells are well aerated. Bones: Unremarkable. No acute fracture. Soft tissues: Unremarkable. IMPRESSION: No acute intracranial findings identified.
--- NOTE | 2024-09-16 02:03 | HMH.EDGENADL ---
Discharge Plan Disposition Patient Disposition: Home, Self-Care Condition: Good Prescriptions Prescriptions: No Action buprenorphine-naloxone 2-0.5 mg film sublingual DAILY Ubrelvy 100 mg tablet 100 mg PO ONCE PRN (Reason: migraine headache) Qty: 10 11RF bisoprolol fumarate 5 mg tablet 5 mg PO DAILY Qty: 30 3RF Vyzulta 0.024 % drops 0.024 drp Eye-Both buspirone 5 mg tablet 5 mg PO BID Qty: 60 2RF omeprazole 20 mg capsule,delayed release(DR/EC) 20 mg PO DAILY Qty: 30 5RF magnesium glycinate 100 mg magnesium capsule 200 mg PO QHS hydroxyzine HCl 25 mg tablet 25 mg PO HS Qty: 30 0RF Rx Instructions: take 1-2 tabs for anxiety lisinopril 5 mg tablet 5 mg PO DAILY Qty: 30 2RF ferrous sulfate [FeroSul] 325 mg (65 mg iron) tablet 325 mg PO DAILY Qty: 30 5RF quetiapine [Seroquel] 25 mg tablet 25 mg PO DAILY Qty: 30 2RF levothyroxine [Synthroid] 137 mcg tablet 137 mcg PO DAILY Qty: 30 3RF Referrals Follow up/Referrals: Vanna Alvarenga APRN [Primary Care Provider] - See instructions Activity Restrictions/Add. Instructions Additional Instructions/Restrictions: You were evaluated in the ER and are believed to be appropriate for discharge at this time. Continue taking all home medications as previously prescribed. Follow-up closely with your primary care doctor. Also go to the scheduled MRI as directed. Drink plenty of fluids to stay hydrated and rest. Return to the ER with any new, worsening, or otherwise concerning symptoms. Clinical Impressions Clinical Impression: Anxiety, Headache, Panic attack Print Language Print Language: [place] Discharge ED Provider: Jorge Mark General Adult HPI General Chief complaint: Headache Stated complaint: presssure back of head, shakiness Time Seen by Provider: 09/16/24 01:36 Mode of Arrival: Ambulatory Source of Information: Patient Description of Symptoms (Recalled from ER Triage Doc. by RN): Pt complains of severe pressure in back of head and neck. Uncontrollable shaking. BP has been high at home. Feels pulsating in side of neck. History of Present Illness HPI narrative: 39-year-old female presents to the ER with complaints of posterior headache. The headache has been going on for over a week and she had intermittent headaches before that. She states she is also shaking and feeling pulsating in the back of her head and neck. She reports her brother of a brain bleed and he had had headaches before it happened so she is very anxious. She states that she thinks she got herself very worked up which has made everything worse. She states she has not taken any medications for her headache. She is not having nausea, vomiting, vision changes, numbness, tingling, weakness, or any other associated symptoms at this time. No other complaints or concerns. No recent illness. Review of records demonstrates patient saw her PCP 2 days ago for anxiety and headaches. She has taken Qulipta and Ubrelvy. Patient was started on hydroxyzine and PCP added lisinopril in the morning for patient reporting elevated blood pressures. PCP was going to order MRI/A for further evaluation. Related Data Home Medications ?Medication ?Instructions ?Recorded ?Confirmed buprenorphine 2 mg-naloxone 0.5 mg sublingual DAILY 11/21/23 09/14/24 sublingual film latanoprostene bunod 0.024 % eye 0.024 drp Eye-Both 08/19/24 09/14/24 drops (Vyzulta) magnesium glycinate 200 mg PO QHS 09/14/24 09/14/24 Previous Rx's ?Medication ?Instructions ?Recorded omeprazole 20 mg capsule,delayed 20 mg PO DAILY #30 caps 07/09/23 release bisoprolol fumarate 5 mg tablet 5 mg PO DAILY #30 tabs 08/13/24 buspirone 5 mg tablet 5 mg PO BID #60 tabs 08/19/24 ferrous sulfate 325 mg (65 mg 325 mg PO DAILY #30 tabs 08/19/24 iron) tablet (FeroSul) quetiapine 25 mg tablet (Seroquel) 25 mg PO DAILY #30 tabs 09/03/24 ubrogepant 100 mg tablet (Ubrelvy) 100 mg PO ONCE PRN migraine 09/07/24 headache #10 tabs Synthroid 137 mcg tablet 137 mcg PO DAILY #30 tabs 09/14/24 (levothyroxine) hydroxyzine HCl 25 mg tablet 25 mg PO HS anxiety #30 tabs 09/14/24 lisinopril 5 mg tablet 5 mg PO DAILY #30 tabs 09/14/24 Allergies Allergy/AdvReac Type Severity Reaction Status Date / Time vilazodone (From Viibryd) Allergy Mild Rash Verified 09/14/24 13:50 [facility] Disclaimer: The information contained in this section may have been updated after the patient was seen, as this information can be updated by other users. Medical History Right upper quadrant abdominal pain COVID-19 Fever Left upper quadrant abdominal pain Left lower quadrant abdominal pain Eustachian tube obstruction Acute fungal otitis externa Enlarged lymph node in neck Vitamin D deficiency Hyperlipidemia Hypothyroidism Hypertension Anxiety Depression Surgical History Hx of cholecystectomy H/O tubal ligation Hx of tonsillectomy Family History Other Alcoholism Asthma Coronary artery disease Diabetes FHx: mental illness Heart attack Hyperlipidemia Hypertension Thyroid disorder Social History Smoking Status: Never smoker second hand exposure: Yes alcohol intake: never substance use type: former substance user and opiates current occupational status: unemployed and student Travel in the last 8 weeks: None household members: spouse and children housing: other number of children: 2 caffeine: Yes Have you lived/traveled outside [place] in past 30 days?: No Contact w/someone who lives/traveled outside [place] past 30 days?: No Exposure to someone with infectious disease in past 14 days?: No Do you have a fever (greater than 100.4 F or 38 C)?: No Have you tested positive for COVID-19: No Exposed to someone with COVID-19 in past 14 days?: No Do you have a sore throat?: No Do you have a cough?: No Do you have any weakness?: No Do you have any diarrhea?: No Are you experiencing any unusual bleeding?: No Do you have any muscle aches/pain?: No Do you have any abdominal pain?: No Are you experiencing loss of taste or smell?: No Other Medical History Have you received the Flu Vaccine for this season: Yes Have you received the Pneumonia Vaccine: No ROS Obtained: Yes Systems reviewed as appropriate & no additional complaints except as documented Per HPI Physical Exam General General appearance: alert and anxious Comment: Tearful and anxious but not in extremis, nontoxic appearing Head Head exam: atraumatic and normocephalic Eye Eye exam: Present PERRL and EOMI ENT ENT exam: Present mucous membranes moist Neck Neck exam: Present normal inspection and full ROM Chest Chest inspection: Present symmetric chest wall rise Respiratory Respiratory exam: Present normal lung sounds bilaterally; Absent respiratory distress, wheezes or stridor Cardiovascular Cardiovascular exam: Present normal rhythm and tachycardia (Tachycardic and anxious on arrival but her heart rate spontaneously improved as she relaxed) Abdominal Exam Abdominal exam: Present soft; Absent distention or tenderness Extremities Exam Extremities exam: Present full ROM; Absent edema Neurological Exam Neurological exam: Present alert, oriented X3 and normal gait; Absent motor sensory deficit (NIH 0, full strength in all extremities, no sensory deficits) Psychiatric Psychiatric exam: Present anxious (And tearful); Absent homicidal ideation or suicidal ideation Skin Skin exam: Present warm and dry Medical Decision Making Medical Records Medical records reviewed: Yes I reviewed the patient's medical records. Screening: Per USPSTF and CDC recommendations, given the prevalence of disease in our region, it is our hospital?s policy to screen for HIV and viral Hepatitis for all patients aged 18 and over and those with ongoing risk factors. MR Comment: Per HPI Chavo Inquiry Pt receiving controlled substance: No Vital Signs: 09/16/24 01:35 09/16/24 02:19 09/16/24 02:27 Temperature 98.1 F 98.2 F Temperature Source Oral Oral Pulse Rate 71 70 Pulse Rate [Right Radial] 104 H Respiratory Rate 18 96 H 16 Blood Pressure 127/74 127/74 Blood Pressure [Right Arm] 196/95 H Blood Pressure Mean [Right Arm] 128 Blood Pressure Source [Right Arm] Automatic Cuff 02 Sat by Pulse Oximetry 100 98 Oxygen Delivery Method Room Air Room Air Room Air Lab Data Lab Results 09/16/24 01:59: WBC 10.9 H, RBC 5.41 H, Hgb 13.6, Hct 43.0, MCV 79.5 L, MCH 25.1 L, MCHC 31.6 L, RDW 15.7, Plt Count 295, MPV 12.2 H, Neut % (Auto) 48.2, Lymph % (Auto) 41.3, Alexander % (Auto) 4.0, Eos % (Auto) 5.3, Baso % (Auto) 0.9, Neut # (Auto) 5.3, Lymph # (Auto) 4.5, Alexander # (Auto) 0.4, Eos # (Auto) 0.6 H, Baso # (Auto) 0.1, Sodium 138, Potassium 3.8, Chloride 103, Carbon Dioxide 31 H, Anion Gap 7.8, BUN 11, Creatinine 0.90, Estimated Creat Clear 124, Estimated GFR 69, Est GFR ( Amer) 84, Glucose 116 H, Calcium 9.7, Total Bilirubin 1.1, AST 29, ALT 24, Alkaline Phosphatase 62, Total Protein 8.1, Albumin 4.8, Globulin 3.3 H, Albumin/Globulin Ratio 1.5, Serum HCG, Qual Negative 09/16/24 01:59 09/16/24 01:59 Orders (Tests/Meds): ORDERS Category Date Time Status CT head/brain wo/w con Stat Cat Scan 09/16/24 01:36 Completed CBC w/Auto Diff [Complete Blood Count Auto Diff] Stat Lab 09/16/24 01:59 Completed CMP [Comprehensive Metabolic Panel] Stat Lab 09/16/24 01:59 Completed HCG Qualitative, Serum Stat Lab 09/16/24 01:59 Completed Medical Decision Narrative: In summary, this 39-year-old female with comorbidities discussed in the HPI which may not be at goal therapy presents to the emergency department today with headache. On initial evaluation patient is anxious on arrival and was initially tachycardic but this spontaneously resolved as she relaxed and was reassured. She is hypertensive, afebrile, she reports discomfort in the posterior part of the head and has some discomfort to palpation of the trapezius muscles and paraspinal cervical muscles, atraumatic head, GCS 15, no neurologic deficits, remainder of exam benign. Differential diagnosis includes but is not limited to tension headache, migraine, other headache, viral syndrome, I considered the possibility of intracranial bleed though I have extremely low suspicion for this given patient does not describe her symptoms as thunderclap in onset and has no neurologic deficits associated. Based on these concerns, I ordered CT head, basic serum labs. Patient was taken immediately for head CT. I intended to order head CT without contrast only, however I unintentionally ordered head CT with and without contrast. This is still a valuable study for me as the contrast would enhance any intracranial lesions that could be causing mass effect such as mass, abscess. CT head personally interpreted does not demonstrate intracranial bleed, mass, midline shift, or other acute intracranial abnormality. See radiology read for final interpretation. Labs reviewed by me demonstrate mild leukocytosis with WBC 10.9, no anemia, normal platelets, CMP nonactionable, test negative. Upon returning from CT, patient reports she feels significantly better and her headache has almost resolved. She believes she had gotten herself so worked up that everything was worse and that she was having panic attack type symptoms. She is very relieved by my interpretation of the head CT. She would like to be discharged at this time. I had offered her treatment for her headache but she states she has Ubrelvy at home if her headache worsens. She is relieved to know if she does not have a brain bleed. At this time I believe she is appropriate for discharge and does not require further workup. She has close follow-up with her PCP as well as upcoming MRI for further intracranial evaluation. Patient was given instructions on symptomatic management, follow up instructions, and return precautions for the emergency department. Patient indicated understanding and was discharged in stable condition. Critical Care Critical Care Time Critical Care Time: No
[2024-09-16 02:06] LABS: Basophils # 0.1 K/mm3 (0-0.2); Basophils % 0.9 % (0.1-2.0); Eosinophils # 0.6 K/mm3 (0.0-0.4); Eosinophils % 5.3 % (0.1-12.0); Hemoglobin 13.6 g/dL (12.2-16.2); Lymphocytes # 4.5 K/mm3 (0.7-4.5); Lymphocytes % 41.3 % (10-50); Mean Corpuscular HGB Conc 31.6 g/dL (31.8-35.4); Mean Corpuscular Hemoglobin 25.1 pg (27.0-31.2); Mean Corpuscular Volume 79.5 fl (81-99); Mean Platelet Volume 12.2 fl (7.4-10.4); Monocytes # 0.4 K/mm3 (0.1-1.0); Neutrophils # 5.3 K/mm3 (1.8-7.8); Neutrophils % 48.2 % (37.0-80.0); Platelet Count 295 K/mm3 (142-424); Red Blood Count 5.41 M/mm3 (4.20-5.40); Red Cell Distribution Width 15.7 % (11.5-17.5); White Blood Count 10.9 K/mm3 (4.8-10.8)
[2024-09-16 02:19] VITALS: BP 127/74; PULSE 71; RESP 96; O2SAT 98
[2024-09-16 02:19] LABS: Albumin Level 4.8 g/dl (3.5-5.0); Chloride 103 mmol/L (98-107)
[2024-09-16 02:20] LABS: Potassium 3.8 mmoL/L (3.5-5.1); Sodium 138 mmol/L (136-145)
[2024-09-16 02:22] LABS: Alanine Aminotransferase 24 U/L (12-78); Anion Gap 7.8 mEq/L (5-15); Aspartate Amino Transferase 29 U/L (14-36); Blood Urea Nitrogen 11 mg/dl (7-17); Carbon Dioxide 31 mmol/L (22.0-30.0); Creatinine Clearance Estimated 124 mL/min (50-200); Estimated Glomerular Filt Rate 69 ml/min (>60); GFR (African American) 84 ML/MIN (>60); HCG Qualitative, Serum Negative (Negative)
[2024-09-16 02:23] LABS: Albumin/Globulin Ratio 1.5 (1.1-1.8); Alkaline Phosphatase 62 U/L (38-126); Bilirubin,Total 1.1 mg/dl (0.2-1.3); Calcium 9.7 mg/dl (8.4-10.2); Globulin 3.3 g/dL (1.3-3.2); Glucose 116 mg/dl (74-100); Total Protein,Serum 8.1 g/dl (6.3-8.2)
[2024-09-16 02:27] VITALS: BP 127/74; PULSE 70; RESP 16; TEMP 36.8; O2SAT 98
[2024-09-16] MEDS: SODIUM CHLORIDE 0.9% 10ML SYR (RAD ONLY) 10 ML IV (06:39)
[2024-09-16] MEDS: IOPAMIDOL-300 (61%) 100ML VIAL 100 ML IV (06:39)
== END 2024-09-16 02:34 | disposition home or self-care (01) ==
PROVIDERS: Emergency Provider Emergency Medicine; PCP Family Medicine
DX: F41.0 Panic disorder [episodic paroxysmal anxiety] (principal); R51.9 Headache, unspecified; R25.9 Unspecified abnormal involuntary movements; M54.2 Cervicalgia
CPT/HCPCS: 70470; 80053; 84703; 85025; 99285; Q9967

== ENCOUNTER 2024-09-24 12:50 | Outpatient (CLI) | payer MEDICAID, SELFPAY ==
[2024-09-24 13:32] LABS: Blood Urea Nitrogen 11 mg/dl (7-17); Estimated Glomerular Filt Rate 79 ml/min (>60); GFR (African American) 96 ML/MIN (>60)
[2024-09-24 13:47] LABS: Iron 56 ug/dL (37-170)
[2024-09-24 13:56] LABS: Total Iron Binding Capacity 480 ug/dL (265-497)
[2024-09-24 14:19] LABS: Thyroid Stimulating Hormone 3.27 uIU/mL (0.465-4.68)
[2024-09-24 14:23] LABS: Ferritin 6.17 ng/ml (6.24-137)
== END 2024-09-24 23:59 | disposition home or self-care (01) ==
LOC: LAB 12:51
PROVIDERS: PCP Family Medicine; Visit Provider Family Medicine
DX: R71.8 Other abnormality of red blood cells (principal); E61.1 Iron deficiency; E03.9 Hypothyroidism, unspecified
CPT/HCPCS: 36415; 82565; 82728; 83540; 83550; 84443; 84520

== ENCOUNTER 2024-09-25 07:51 | Outpatient (CLI) | payer MEDICAID, SELFPAY ==
--- NOTE | 2024-09-25 08:00 | MR_ITS ---
FINAL REPORT TECHNIQUE: Multiplanar MR without contrast CLINICAL HISTORY: worsening headache. occipital head pain. COMPARISON: 08/10/2019 FINDINGS: Diffusion sequences show no signal abnormality to indicate acute infarct. No mass, hemorrhage or edema is seen. Ventricles are normal. Major vascular flow voids are intact. IMPRESSION: Unremarkable MR of the brain without contrast Reviewed, Interpreted and Dictated by Vernell Sanchez MD Transcribed by Adriana Henriquez Authenticated and [facility]
--- NOTE | 2024-09-25 08:45 | MR_ITS ---
FINAL REPORT CLINICAL HISTORY: worsening headaches. occipital head pain. FINDINGS: MRA/MRV HEAD WITHOUT AND WITH CONTRAST Multiple projection images of the brain arterial vasculature were obtained without contrast. Raw data images were also reviewed. The internal carotid arteries are patent. The middle cerebral arteries and visualized proximal branches are patent. The anterior cerebral arteries are patent. The intracranial vertebral arteries are patent. The basilar artery is patent. The posterior cerebral arteries are patent. MRV was also performed. The superior sagittal, transverse, and sigmoid sinuses are patent. However, the right transverse and sigmoid sinuses are hypoplastic. IMPRESSION: Unremarkable. No aneurysm identified. Reviewed, Interpreted and Dictated by Vernell Sanchez MD Transcribed by Adriana Henriquez Authenticated and . [facility]
[2024-09-25] MEDS: SODIUM CHLORIDE 0.9% 10ML SYR (RAD ONLY) 10 ML IV (08:56)
[2024-09-25] MEDS: SODIUM CHLORIDE 0.9% 50ML BAG 20 ML IV (08:56)
[2024-09-25] MEDS: GADOTERIDOL INJ 20ML SYRINGE 19 ML IV (08:56)
== END 2024-09-25 23:59 | disposition home or self-care (01) ==
LOC: RAD 07:51
PROVIDERS: Visit Provider Family Medicine
DX: G43.009 Migraine without aura, not intractable, without status migrainosus (principal); R53.83 Other fatigue; Z82.49 Family history of ischemic heart disease and other diseases of the circulatory system
CPT/HCPCS: 70546; 70551; A9576

== ENCOUNTER 2024-11-02 13:07 | Emergency (ER) | payer MEDICAID, SELFPAY ==
[2024-11-02 13:34] VITALS: BP 0/0; PULSE 0; RESP 0; TEMP -17.7; TEMP 0
[2024-11-02 13:35] VITALS: BP 170/95; PULSE 100; RESP 0; O2SAT 0; O2SAT 98
--- OUTSIDE RECORDS SUMMARY | 2024-11-02 13:39 | XMS_ITS | Continuity of Care Document ---
Author Organization [facility] [place], [facility] the Address [address] [place] [address] Care Team Providers Care Acoustical Carpenter Name Role Phone JOVANNI SAMUEL Primary Care Provider [phone] Assessment Encounter Date Assessment Date Assessment LastModified by Organization Details LastModified Time 09/28/2024 09/28/2024 Follow up in 2 months. Not available 09/28/2024 20:56:07 Plan of Treatment Reminders Order Date Submit Date Provider Last Modified By Organization Details Last Modified Time Details Appointments Establish ed Visit 15 min 2024 01:00P Karen SPENCE NP Not available Not available Not available Lab alpha-1-a ntitrypsi n (aat), QN, serum 2024 025 [facility], [address], [address], [place], [address], 09/29/2024 16:25:57 hepatitis panel (A+B+C), acute, serum 2024 025 [facility], [address], [address], [place], [address], 09/29/2024 16:25:50 celiac disease serology panel, serum 2024 025 [place] [facility], [address], [address], [place], [address], 09/29/2024 16:25:54 autoimmun e hepatitis diagnosti c panel, serum 2024 025 [facility], [address], [address], [place], [address], 09/29/2024 16:25:52 iron + TIBC + ferritin, serum 2024 025 [facility], [address], [address], [place], [address], 09/29/2024 16:25:51 CBC 2024 025 [facility], [address], [address], [place], [address], 09/29/2024 16:25:55 cerulopla smin, serum 2024 025 [facility], [address], [address], [place], [address], 09/29/2024 16:25:56 Referral None recorded. Procedures None recorded. Surgeries None recorded. Imaging None recorded. Medication Orders Linzess 72 mcg capsule 2024 025 [facility], [address] [place] [address], [id number], 09/28/2024 14:21:53 Patient TargetsNo targets recorded. Patient InstructionsNo instructions recorded. Reason for Referral None Reported. Results Created Date Observation Date Name Description Value Unit Range Abnormal Flag Note LastModifiedBy Organization Detail LastModifiedTime 09/29/19 25 09/04/2024 CT, angio gram, chest , w/ contr ast No observ ation record ed. [email or web address] [facility] (Radiology) [address] , [place], [address], 10/02/2024 13:35:35 Result Notes None recorded. Procedures Surgical History Date Name Laterality Status Provider Name and Address Organization Details Recorded Time 10/27/19 22 Date of Last Pap Smear [facility] [place] 09/28/2024 14:36:04 06/24/19 20 Cholecystectomy completed Susan KNIGHT - [facility] [place] 09/28/2024 14:36:17 06/24/19 18 Tonsillectomy/Adeno idectomy completed Susan KNIGHT - [facility] [place] 09/28/2024 14:36:17 04/19/20 14 completed Susan KNIGHT - [facility] [place] 09/28/2024 14:36:04 06/24/19 12 Mass Spec Surgery completed Susan KNIGHT - [facility] [place] 09/28/2024 14:36:17 Imaging Results None recorded. Procedure Notes None recorded. Medical Equipment None Reported. Allergies Allergen ID Allergen Name Allergen Category Reaction Reaction Severity Criticality Documentation Date Start Date Code Code System Note Provider Name and Address Organization Details Recorded Time 580331 Viibryd medicatio n other moderate Not available 09/28/2024 98630 73 RxNorm Susan mcgraw, [place] [facility] [place] 14:35:17 Medications Name Sig Start Date Stop Date Status Note LastModified by Organization Details LastModified Time latanoprost 0.005 % eye drops 02/06 completed Not Available Not Available Not Available buspirone 5 mg tablet TAKE ONE TABLET BY MOUTH 2 TIMES A DAY active Not Available Not Available No t Available neomycin-po lymyxin-hyd rocort 3.5 mg/mL-10,00 0 unit/mL-1 % ear solution 02/06 completed Not Available Not Available Not Available oxcarbazepi ne 150 mg tablet TAKE 1 TABLET BY MOUTH EVERY DAY FOR 3 DAYS THEN INCREASE TO 1 TABLET TWICE DAILY active Not Available Not Available No t Available propranolol 80 mg tablet 02/06 completed Not Available Not Available Not Available cetirizine 10 mg tablet TAKE ONE TABLET BY MOUTH DAILY NEEDED FOR ALLERGYS active Not Available Not Available No t Available atorvastati n 10 mg tablet active Not Available Not Available Not Available azithromyci n 250 mg tablet 02/09 completed Not Available Not Available Not Available tizanidine 4 mg tablet 02/06 completed Not Available Not Available Not Available fluconazole 150 mg tablet active Not Available Not Available Not Available benzonatate 200 mg capsule 02/06 completed Not Available Not Available Not Available phenazopyri dine 200 mg tablet active Not Available Not Available Not Available ciprofloxac in 500 mg tablet active Not Available Not Available Not Available doxycycline monohydrate 100 mg tablet active Not Available Not Available Not Available lamotrigine 25 mg tablet active Not Available Not Available Not Available bisoprolol fumarate 5 mg tablet TAKE ONE TABLET BY MOUTH ONCE A DAY active Not Available Not Available No t Available propranolol ER 80 mg capsule,24 hr,extended release active Not Available Not Available Not Available clotrimazol e 1 % topical solution 02/06 completed Not Available Not Available Not Available omeprazole 20 mg capsule,del ayed release Take 1 capsule every day by oral route in the morning for 90 days. active Not Available Not Available No t Available dorzolamide 22.3 mg-timolol 6.8 mg/mL eye drops active Not Available Not Available No t Available furosemide 20 mg tablet 02/06 completed Not Available Not Available Not Available ergocalcife rol (vitamin D2) 1,250 mcg (50,000 unit) capsule 02/06 completed Not Available Not Available Not Available methylpredn isolone 4 mg tablets in a dose pack 02/06 completed Not Available Not Available Not Available fluticasone propionate 50 mcg/actuati on nasal spray,suspe nsion INSTILL 1 SPRAY INTO EACH NOSTRIL ONCE A DAY NEEDED FOR ALLERGY SYMPTOMS active Not Available Not Available No t Available amoxicillin 875 mg-potassiu m clavulanate 125 mg tablet 02/09 completed Not Available Not Available Not Available escitalopra m 10 mg tablet active Not Available Not Available Not Available escitalopra m 20 mg tablet 02/06 completed Not Available Not Available Not Available Synthroid 137 mcg tablet TAKE ONE TABLET BY MOUTH ONCE A DAY active Not Available Not Available No t Available bupropion HCl XL 150 mg 24 hr tablet, extended release 02/06 completed Not Available Not Available Not Available cholecalcif spencer (vitamin D3) 25 mcg (1,000 unit) tablet 02/06 completed Not Available Not Available Not Available hydrochloro thiazide 12.5 mg tablet 02/06 completed Not Available Not Available Not Available FeroSul 325 mg (65 mg iron) tablet active Not Available Not Available Not Available nebivolol 5 mg tablet 02/06 completed Not Available Not Available Not Available desvenlafax ine succinate ER 50 mg tablet,exte nded release 24 hr active Not Available Not Available Not Available GaviLyte-G 236 gram-22.74 gram-6.74 gram-5.86 gram oral solution 03/31 completed Not Available Not Available Not Available buprenorphi ne 2 mg-naloxone 0.5 mg sublingual film DISSOLVE 3/4 film UNDER THE TONGUE ONCE A DAY active Not Available Not Available No t Available Suprep Bowel Prep Kit 17.5 gram-3.13 gram-1.6 gram oral solution Take 6 ounces twice a day by oral route as directed for 1 day, for colonosco py prep. 03/31 completed Not Available Not Available Not Available Linzess 145 mcg capsule Take 1 capsule every day by oral route in the morning for 30 days. active Not Available Not Available No t Available buprenorphi ne 4 mg-naloxone 1 mg sublingual film DISSOLVE 1/4 FILM UNDER THE TONGUE EVERY DAY 02/06 completed Not Available Not Available Not Available Linzess 72 mcg capsule TAKE 1 CAPSULE BY MOUTH EVERY MORNING FOR CONSTIPAT ION active Not Available Not Available No t Available Vyzulta 0.024 % eye drops active Not Available Not Available Not Available Rocklatan 0.02 %-0.005 % eye drops active Not Available Not Available No t Available Ubrelvy 100 mg tablet active Not Available Not Available No t Available Vitals Date Recorded Body height Body mass index (BMI) Body weight Heart rate Heart rate Body temperature Oxygen saturation Oxygen saturation in Arterial blood by Pulse oximetry Systolic blood pressure Diastolic blood pressure Provider Name and Address Organization Details Last Updated DateTime 5 162.56 cm 36.3 kg/m2 49619.4 3 g 80 /min 74 /min 98.1 [degF] 97 % 97 % 147 mm[Hg] 62 mm[Hg] Olga Hammond [place] - [facility] [place] 5 13:50:09 Social History Question Answer Notes LastModified by Organizat ion Details LastModified Time Tobacco Smoking Status Current Every Day Smoker Susan Pires [facility], [place] - [facility] [place] 09/28/2024 14:36:14 Do You Have An Advance Directive? No Information not available 09/28/2024 Are You Blind Or Do You Have Difficulty Seeing? No Information not available 09/28/2024 What Was The Date Of Your Most Recent Tobacco Screening? 01/07/2024 Information not available 09/28/2024 Are You Passively Exposed To Smoke? Yes Information not available 09/28/2024 How Much Tobacco Do You Smoke? 1 PPD Information not available 09/28/2024 How Many Years Have You Smoked Tobacco? 20 Information not available 09/28/2024 Sex: Unknown Functional Status Question Answer Note LastModified by Organizat ion Details LastModified Time Do you use any illicit or recreational drugs? No Information not available 09/28/2024 What is your level of alcohol consumption? None Information not available 09/28/2024 Do you or have you ever used smokeless tobacco? Never used smokeless tobacco Information not available 09/28/2024 What is your exercise level? Occasional Information not available 09/28/2024 Mental Status Question Answer Note LastModified by Organizat ion Details LastModified Time Do you feel stressed (tense, restless, nervous, or anxious, or unable to sleep at night)? [id number] Information not available 09/28/2024 Family History Relationship Description Onset Age of this Age Resolved Age Notes LastModified by Organization Details LastModified Time Mother Chronic obstructive pulmonary disease pt. added direct ly (02/06) API-13 Not available 02/07/2024 13:42:39 Mother Disease of liver pt. added direct ly (02/06) API-13 Not available 02/07/2024 13:42:46 Mother Hypercholest erolemia pt. added direct ly (02/06) API-13 Not available 02/07/2024 13:43:31 Mother Hypertensive disorder pt. added direct ly (02/06) API-13 Not available 02/07/2024 13:43:42 Mother Disorder of thyroid gland pt. added direct ly (02/06) API-13 Not available 02/07/2024 13:44:29 Mother Substance abuse pt. added direct ly (02/06) API-13 Not available 02/07/2024 13:44:43 Father Disease of liver pt. added direct ly (02/06) API-13 Not available 02/07/2024 13:42:46 Father Myocardial infarction pt. added direct ly (02/06) API-13 Not available 02/07/2024 13:43:21 Father Hypercholest erolemia pt. added direct ly (02/06) API-13 Not available 02/07/2024 13:43:31 Father Hypertensive disorder pt. added direct ly (02/06) API-13 Not available 02/07/2024 13:43:42 Maternal Grandmother Disease of liver pt. added direct ly (02/06) API-13 Not available 02/07/2024 13:43:07 Maternal Grandmother Obesity pt. added direct ly (02/06) API-13 Not available 02/07/2024 13:44:03 Maternal Grandmother Disorder of thyroid gland pt. added direct ly (02/06) API-13 Not available 02/07/2024 13:44:29 Maternal Aunt Disease of liver pt. added direct ly (02/06) API-13 Not available 02/07/2024 13:43:07 Brother Hypertensive disorder pt. added direct ly (02/06) API-13 Not available 02/07/2024 13:43:42 Brother Cerebrovascu lar accident pt. added direct ly (02/06) API-13 Not available 02/07/2024 13:44:15 Brother Substance abuse pt. added direct ly (02/06) API-13 Not available 02/07/2024 13:44:43 Sister Substance abuse pt. added direct ly (02/06) API-13 Not available 02/07/2024 13:44:43 Medical History Condition Response Anxiety Disorder Y Obesity Y Vision or Eye Problems Y Eczema Y Thyroid Problems Y GI Problems Y Substance Abuse Y High Cholesterol Y Liver Disease Y Headaches Y Obstructive Sleep Apnea Y Hypertension Y Gynecological History Statement/Question Response Abnormal Pap N 04/19/2014 Flow Heavy Date of LMP 09/29/2023 Sexually Active? Y Menses Monthly N Duration of Flow (days) 5 Date of Last Pap Smear 10/26/2021 Current Control Method None Age at Menarche 11 Obstetrics History GPAL:G 0 P 0 0 0 0 Immunizations Vaccine Type Date Status Note Provider Nam e and Address Organization Details Recorded Time Influenza, MDCK, quadrivalent, PF 03/31/2021 completed Susan Ellington null, [place] - [facility] [place] 09/28/2024 14:35:28 MMR 01/21/1996 completed Susan Ellington null, [place] - [facility] [place] [facility] [place] 09/28/2024 14:35:28 COVID-19, mRNA, LNP-S, PF, 30 mcg/0.3 mL dose, delroy-sucrose 08/17/2021 completed Susan Ell[place] null, [place] - [facility] [place] 09/28/2024 14:35:28 COVID-19, mRNA, LNP-S, PF, 30 mcg/0.3 mL dose, delroy-sucrose 09/11/2021 completed Susan Ellington null, [place] - [facility] [place] 09/28/2024 14:35:28 Tdap 09/06/2005 completed Susan Ellington null, [place] - [facility] [place] [facility] [place] 09/28/2024 14:35:28 Tdap 12/18/2015 completed Susan Ellington null, [place] - [facility] [place] [facility] [place] 09/28/2024 14:35:28 Tdap 01/21/2020 completed Susan Ellington null, [place] - [facility] [place] 09/28/2024 14:35:28 polio, unspecified formulation 01/16/1990 completed Susan Ellington null, [facility] [place] 09/28/2024 14:35:28 Hep B, adult 09/08/2020 completed Susan Koromammsylvia Ellington null, [place] - [facility] [place] [facility] [place] 09/28/2024 14:35:28 Hep B, adult 01/21/2020 completed Susan Ellington null, [place] - [facility] [place] [facility] [place] 09/28/2024 14:35:28 Hep B, adult 03/07/2020 completed Susan Sellersett Chandana null, [place] - [facility] [place] [facility] [place] 09/28/2024 14:35:28 DTaP, unspecified formulation 01/16/1990 completed Susan Ellington null, [place] - [facility] [place] [facility] [place] 09/28/2024 14:35:28 Influenza, split virus, quadrivalent, PF 03/19/2020 completed Susan Ellington null, [place] - [facility] [place] [facility] [place] 09/28/2024 14:35:28 Influenza, split virus, quadrivalent, PF 05/15/2023 completed Susan Ellington null, [place] - [facility] [place] [facility] [place] 09/28/2024 14:35:28 Past Encounters Encounter ID Performer Location Encounter Start Date Encounter Closed Date Diagnosis/Indication Diagnosis SNOMED-CT Code Diagnosis ICD10 Code Diagnosis Note [id number] JOYA SPENCE NP [facility] [address] [address] 09/28/2024 13:41:26 09/28/2024 14:49:11 Chronic idiopathic constipation 63376870 K59.04 Decrease Linzess dose to 72 mcg. Advised to take this daily as prescribed . In addition to oral iron she can use a stool softener or Miralax PRN. Hepatosplenomegaly 77167 000 R16.2 Patient reported this finding on imaging at [facility].N YUNIOR fibrosure estimates FO, <5% steatosis, and no WEST. LFT, PT/INR normal.Amando l obtain additional labs for work up. [facility]. Gastroesop hageal reflux disease without esophagitis 941273442 K21.9 Continue PPI daily.Avoi d NSAIDs and alcohol. Gilbert's syndrome 37612 000 E80.4 Evidence of Gilbert's syndrome based on fractionat ed bilirubin findings and normal LFT.No specific therapy is required. Steatotic liver disease 649669004 K76.0 Denies alcohol use.FIB 4 estimated F0-F1.Weig ht loss with a hypocalori c diet alone or in conjunctio n with physical activity has been shown to improve steatosis. Total cholestero l is elevated. She is not currently taking the statin due to muscle cramps. Advised she discuss this with her PCP. Health Concerns Section Related Observation LastModified by Organization Detai ls LastModified Time None Recorded Concern Status LastModified by Organization Details LastModified Time None Recorded Payers Encounter Date Sequence Insurance Name Policy Number Policy Stephens Covered Member ID Stepehns Member ID Guarantor Name 09/28/2024 1 [facility] (MEDICAID REPLACEMENT - HMO) Kristie Perez [id number] Kristie Perez Notes Date Note Type Note Provider Name and Address Organization Details Recorded Time 09/28/2024 text/html PREVIOUS: Nikole Perez is a 38-year-old female here today for follow-up after procedures.An EGD and colonoscopy were performed on 03/10/[address] Pride for evaluation of dysphagia, chronic constipation, and abdominal pain. EGD findings were unremarkable, two polyps were found and removed in the colon. Biopsies revealed mild chronic gastritis and that the polyp was a tubular adenoma. Repeat colonoscopy recommended in 5 years. Today she reports improvement in constipation with Linzess 145 mcg. It does occasionally cause urgency, therefore she has been taking it every 2 days. Bloating has also improved. She has been watching her diet, avoiding sugar. Esophageal dilation was performed, dysphagia is improving. Food does still occasionally catch in her esophagus, but it is less frequent. We discussed further workup with barium swallow or manometry, she would like to wait on this. At times it does feels if she is having an esophageal spasm, often with hot or cold liquid. Carbonation also contributes. PREVIOUS: Kristie Perez is a 39-year-old female here today for follow-up.After our last visit in March 2024, she was seen at [facility] ED in April for dehydration. She reports CT scan was obtained which showed hepatosplenomegaly . I do not have access to the report, but will request records. She has a history of Gilbert's syndrome and this was concerning to her. She says there was an abnormality with her kidneys as well. She followed up with urology and says they cleared her. She states her ESR and CRP are elevated and her PCP has referred her to rheumatology. She sees them in January. She has continued Linzess 145 mcg, uses it as needed for constipation. Dysphagia symptoms still occur occasionally. Generalized abdominal pain has improved. CURRENT: Kristie Perez is a 39 yr old female here today for follow up.Today we discussed lab findings in depth. I did not receive her most recent CT from [facility]. I will request records again today. Most recent LFT normal. No exposure to hepatitis. No alcohol use. In regard to constipation, she is using Linzess 145 mcg as needed. She states she recently was prescribed oral iron which exacerbated constipation. She recently restarted Omeprazole for GERD. JOYA SPENCE, ASAF [id number] [facility], [place], [address], [facility] [place] [facility] [place] 09/28/2024 20:58:28 OBGyn Episode No OBEpisode recorded.
--- OUTSIDE RECORDS SUMMARY | 2024-11-02 13:40 | XMS_ITS | Data Portability ---
Author Organization [facility] Address [address] [address] [place] [address] Care Team Providers Care Staff Toxicologist Name Role Phone JOVANNI SAMUEL Primary Care Provider [phone] Assessment Encounter Date Assessment Date Assessment LastModified by Organization Details LastModified Time 05/20/2024 05/20/2024 I am going to treat this patient empirically for urinary tract infection, I will follow-up with her in 2 months, sooner if needed. At this time we will discuss whether additional diagnostics are clinically appropriate. Not available 05/20/2024 16:47:25 06/05/2024 06/05/2024 Given that the patient states her symptoms have worsened dramatically since our last visit, I am going to proceed with ordering a renal ultrasound of both kidneys. I told her to go to the emergency department for additional workup if her pain worsens or she has development of new symptoms. I prescribed her ciprofloxacin at her last visit, I chose this antibiotic because it is good coverage for a broad-spectrum of organisms that could be causing infection. Her UA is not suggestive of UTI today. I want to reassess her lab work to reassess for leukocytosis and to also see if her metabolic function has changed. She understands and is amenable to the plan. She is to see me back in 2 months, sooner if needed. [email or web address] Not available 06/05/2024 11:20:02 09/17/2024 09/17/2024 Continue current conservative measures of properly hydrating and regularly having bowel movements. No additional medical or procedural therapy indicated at this time. We will follow up in 6 months to reassess her symptom burden, sooner if needed. [email or web address] Not available 09/17/2024 15:36:06 Plan of Treatment Reminders Order Date Submit Date Provider Last Modified By Organization Details Last Modified Time Details Appointments NEW PATIENT 2024 01:00P M DINA BURGER MD Not available Not available Not available RECHECK 2024 01:30P M MARIELY BROWN MD Not available Not available Not available Lab urinalysi s panel, auto 2024 025 [email or web address] 4 [facility], [address] [place] [address] [address], [place], [address], 09/17/2024 15:36:14 urinalysi s panel, auto 2023 024 [email or web address] 4 [facility], [address], [address], [place], [address], 06/06/2024 00:04:18 BMP, serum or plasma 2023 024 [email or web address] 4 [facility], [address] [place] [address], [address], 06/06/2024 00:04:18 CBC w/ auto diff 2023 024 [email or web address] 4 [facility], [address] [place] [address], [address], 06/06/2024 00:04:18 urinalysi s panel, auto 2023 024 [email or web address] 4 [facility], [address], [address], [place], [address], 05/27/2024 13:16:43 culture, urine 2023 024 [email or web address] 4 [facility], [address] [place] [address], [phone], 05/27/2024 13:16:43 Referral None recorded. Procedures None recorded. Surgeries None recorded. Imaging US, retroperi toneum, limited 2023 024 [email or web address] 4 [facility], [address] [place], [address], 06/06/2024 00:04:18 Medication Orders Pyridium 200 mg tablet [address] [facility], [address] [place] [address], [id number], 09/17/2024 15:11:36 ciproflox acin 500 mg tablet [address] [facility], [address] [place] [address], [id number], 09/17/2024 15:11:38 fluconazo le 150 mg tablet [address] [facility], [address] [place] [address], [id number], 09/17/2024 15:11:37 Patient TargetsNo targets recorded. Patient InstructionsNo instructions recorded. Reason for Referral None Reported. Results Created Date Observation Date Name Description Value Unit Range Abnormal Flag Note LastModifiedBy Organization Detail LastModifiedTime 05/20/2005/22/2024 URINE CULTU RE urine culture COLON Y COUNT : 10,00 0 - 100,0 00 CFU/M L Three or more isola chuck; mixed uroge nital christiano . Not Available [facility] [address] [place], [address], 05/22/2024 10:59:15 05/20/2005/20/2024 urina lysis panel , auto Unknown Analyte Clean Catch Not Available [facility] [address] [facility] [address], [place], [address], 05/20/2024 13:22:23 05/20/20 24 05/20/2024 urina lysis panel , auto Unknown Analyte Yellow Not Available [facility] [address], [place], [address], 05/20/2024 13:22:23 05/20/20 24 05/20/2024 urina lysis panel , auto Unknown Analyte Clear Not Available [facility] [address], [place], [address], 05/20/2024 13:22:23 05/20/20 24 05/20/2024 urina lysis panel , auto Unknown Analyte 1.005 Not Available [facility] [address], [place], [address], 05/20/2024 13:22:23 05/20/20 24 05/20/2024 urina lysis panel , auto Unknown Analyte 1.003- 1.035 Not Available [facility] [address], [place], [address], 05/20/2024 13:22:23 05/20/20 24 05/20/2024 urina lysis panel , auto Unknown Analyte 6.0 Not Available [facility] [address], [place], [address], 05/20/2024 13:22:23 05/20/20 24 05/20/2024 urina lysis panel , auto Unknown Analyte 5.0-8. 0 Not Available [facility] [address], [place], [address], 05/20/2024 13:22:23 05/20/20 24 05/20/2024 urina lysis panel , auto Unknown Analyte Negati ve Not Available [facility] [address], [place], [address], 05/20/2024 13:22:23 05/20/20 24 05/20/2024 urina lysis panel , auto Unknown Analyte Negati ve Not Available [facility] [address], [place], [address], 05/20/2024 13:22:23 05/20/20 24 05/20/2024 urina lysis panel , auto Unknown Analyte Negati ve Not Available [facility] [address], [place], [address], 05/20/2024 13:22:23 05/20/20 24 05/20/2024 urina lysis panel , auto Unknown Analyte Negati ve Not Available [facility] [address], [place], [address], 05/20/2024 13:22:23 05/20/20 24 05/20/2024 urina lysis panel , auto Unknown Analyte Negati ve Not Available [facility] [address], [place], [address], 05/20/2024 13:22:23 05/20/2005/20/2024 urina lysis panel , auto Unknown Analyte Negati ve Not Available [facility] [address], [place], [address], 05/20/2024 13:22:23 05/20/20 24 05/20/2024 urina lysis panel , auto Unknown Analyte Normal Not Available [facility] [address], [place], [address], 05/20/2024 13:22:23 05/20/20 24 05/20/2024 urina lysis panel , auto Unknown Analyte Normal Not Available [facility] [address], [place], [address], 05/20/2024 13:22:23 05/20/20 24 05/20/2024 urina lysis panel , auto Unknown Analyte Negati ve Not Available [facility] [address], [place], [address], 05/20/2024 13:22:23 05/20/20 24 05/20/2024 urina lysis panel , auto Unknown Analyte Negati ve Not Available [facility] [address], [place], [address], 05/20/2024 13:22:23 05/20/20 24 05/20/2024 urina lysis panel , auto Unknown Analyte Normal Not Available [facility] [address], [place], [address], 05/20/2024 13:22:23 05/20/20 24 05/20/2024 urina lysis panel , auto Unknown Analyte Normal 1 mg/dl Not Available [facility] [address], [place], [address], 05/20/2024 13:22:23 05/20/20 24 05/20/2024 urina lysis panel , auto Unknown Analyte Negati ve Not Available [facility] [address], [place], [address], 05/20/2024 13:22:23 05/20/20 24 05/20/2024 urina lysis panel , auto Unknown Analyte Negati ve Not Available [facility] [address], [place], [address], 05/20/2024 13:22:23 05/20/20 24 05/20/2024 urina lysis panel , auto Unknown Analyte Trace Not Available [facility] [address], [place], [address], 05/20/2024 13:22:23 05/20/20 24 05/20/2024 urina lysis panel , auto Unknown Analyte Negati ve Not Available [facility] [address], [place], [address], 05/20/2024 13:22:23 06/05/20 24 06/05/2024 COMPL ETE BLOOD COUNT white blood cells 9.3 10*3/ uL 3.8-10 .8 normal Not Available [facility] [address] [place] [address], [address], 06/05/2024 14:41:56 06/05/20 24 06/05/2024 COMPL ETE BLOOD COUNT red blood cells 5.22 10*6/ uL 3.80-5 .20 high Not Available [facility] [address] [place] [address], [address], 06/05/2024 14:41:56 06/05/20 24 06/05/2024 COMPL ETE BLOOD COUNT hemoglobin 14.1 g/dL 12.0-1 6.0 normal Not Available [facility] [address] [place] [address], [address], 06/05/2024 14:41:56 06/05/20 24 06/05/2024 COMPL ETE BLOOD COUNT hematocrit 42.2 % 35.0-4 7.0 normal Not Available [facility] [address] [place] [address], [address], 06/05/2024 14:41:56 06/05/20 24 06/05/2024 COMPL ETE BLOOD COUNT MCV 81 fL 80-100 normal Not Available [facility] [address] [place] [address], [address], 06/05/2024 14:41:56 06/05/20 24 06/05/2024 COMPL ETE BLOOD COUNT MCH 27 pg 26-35 normal Not Available [facility] [address] [place] [address], [address], 06/05/2024 14:41:56 06/05/20 24 06/05/2024 COMPL ETE BLOOD COUNT MCHC 34 g/dL 32-36 normal Not Available [facility] [address] [place] [address], [address], 06/05/2024 14:41:56 06/05/20 24 06/05/2024 COMPL ETE BLOOD COUNT RDW 14.5 % 11.0-1 5.0 normal Not Available [facility] [address] [place] [address], [address], 06/05/2024 14:41:56 06/05/20 24 06/05/2024 COMPL ETE BLOOD COUNT MPV 10.8 fL 6.2-10 .5 high Not Available [facility] [address] [place] [address], [address], 06/05/2024 14:41:56 06/05/20 24 06/05/2024 COMPL ETE BLOOD COUNT platelet count 273 10*3/ uL 150-40 0 normal Not Available [facility] [address] [place] [address], [address], 06/05/2024 14:41:56 06/05/20 24 06/05/2024 COMPL ETE BLOOD COUNT neutrophil,a bsolute 6.1 10*3/ uL 1.6-8. 4 normal Not Available [facility] [address] [place] [address], [address], 06/05/2024 14:41:56 06/05/20 24 06/05/2024 COMPL ETE BLOOD COUNT lymphocyte,a bsolute 2.2 10*3/ uL 0.4-5. 1 normal Not Available [facility] [address] [place] [address], [address], 06/05/2024 14:41:56 06/05/20 24 06/05/2024 COMPL ETE BLOOD COUNT monocyte,abs olute 0.3 10*3/ uL 0.0-1. 2 normal Not Available [facility] [address] [place] [address], [address], 06/05/2024 14:41:56 06/05/20 24 06/05/2024 COMPL ETE BLOOD COUNT eosinophil,a bsolute 0.6 10*3/ uL 0.0-0. 8 normal Not Available [facility] [address] [place] [address], [address], 06/05/2024 14:41:56 06/05/20 24 06/05/2024 COMPL ETE BLOOD COUNT basophil,abs olute 0.1 10*3/ uL 0.0-0. 3 normal Not Available [facility] [address] [place] [address], [address], 06/05/2024 14:41:56 06/05/20 24 06/05/2024 COMPL ETE BLOOD COUNT % neutrophils 65.4 % 42.0-7 8.0 normal Not Available [facility] [address] [place] [address], [address], 06/05/2024 14:41:56 06/05/20 24 06/05/2024 COMPL ETE BLOOD COUNT % lymphocytes 24.2 % 11.0-4 7.0 normal Not Available [facility] [address] [place] [address], [address], 06/05/2024 14:41:56 06/05/20 24 06/05/2024 COMPL ETE BLOOD COUNT % monocytes 3.6 % 0.0-11 .0 normal Not Available [facility] [address] [place] [address], [address], 06/05/2024 14:41:56 06/05/20 24 06/05/2024 COMPL ETE BLOOD COUNT % eosinophils 6.0 % 0.0-7. 0 normal Not Available [facility] [address] [place] [address], [address], 06/05/2024 14:41:56 06/05/20 24 06/05/2024 COMPL ETE BLOOD COUNT % basophils 0.8 % 0.0-3. 0 normal Not Available [facility] [address] [place] [address], [address], 06/05/2024 14:41:56 06/05/20 24 06/05/2024 COMPL ETE BLOOD COUNT nucleated red cells 0.2 % 0.0-0. 9 normal Not Available [facility] [address] [place] [address], [address], 06/05/2024 14:41:56 06/05/20 24 06/05/2024 COMPL ETE BLOOD COUNT nucleated RBCs, absolute 0.02 10*3/ uL not estab. normal Not Available [facility] [address] [place] [address], [address], 06/05/2024 14:41:56 06/05/20 24 06/05/2024 BASIC METAB OLIC PANEL glucose 107 mg/dL 74-100 high Not Available [facility] [address] [place] [address], [address], 06/05/2024 16:06:22 06/05/20 24 06/05/2024 BASIC METAB OLIC PANEL blood urea nitrogen 13 mg/dL 6-20 normal Not Available [facility] [address] [place] [address], [address], 06/05/2024 16:06:22 06/05/20 24 06/05/2024 BASIC METAB OLIC PANEL creatinine 0.78 mg/dL 0.50-0 .95 normal Not Available [facility] [address] [place] [address], [address], 06/05/2024 16:06:22 06/05/20 24 06/05/2024 BASIC METAB OLIC PANEL BUN/creatini ne ratio 17 (calc ) 10-20 normal Not Available [facility] [address] [place] [address], [address], 06/05/2024 16:06:22 06/05/20 24 06/05/2024 BASIC METAB OLIC PANEL sodium 140 mmol/ L 136-14 5 normal Not Available [facility] [address] [place] [address], [address], 06/05/2024 16:06:22 06/05/20 24 06/05/2024 BASIC METAB OLIC PANEL potassium 4.2 mmol/ L 3.4-5. 0 normal Not Available [facility] [address] [place] [address], [address], 06/05/2024 16:06:22 06/05/20 24 06/05/2024 BASIC METAB OLIC PANEL chloride 102 mmol/ L 98-107 normal Not Available [facility] [address] [place] [address], [address], 06/05/2024 16:06:22 06/05/20 24 06/05/2024 BASIC METAB OLIC PANEL carbon dioxide 26 mmol/ L 22-31 normal Not Available [facility] [address] [place] [address], [address], 06/05/2024 16:06:22 06/05/20 24 06/05/2024 BASIC METAB OLIC PANEL anion gap 12 (calc ) 7-25 normal Not Available [facility] [address] [place] [address], [address], 06/05/2024 16:06:22 06/05/20 24 06/05/2024 BASIC METAB OLIC PANEL calcium 10.0 mg/dL 8.6-10 .2 normal Not Available [facility] [address] [place], [address], 06/05/2024 16:06:22 06/05/20 24 06/05/2024 BASIC METAB OLIC PANEL GFR 98 >= 60 normal NOT E New calcu latio n for GFR (CKD- EPI 2020) is formu lated witho ut race adjus tment facto rs at the [facility] menda tion of the Ronnie chowdhury [facility] . This calcu latio n has not been valid ated in pregn ant women . For pedia tric patie nts refer to https ://kaleigh quiles.dionicio russell/tommy caballero s/JORY QI/gf r_cal culat orPed Not Available [facility] [address] [place] [address], [address], 06/05/2024 16:06:22 06/05/20 24 06/05/2024 urina lysis panel , auto Unknown Analyte Clean Catch Not Available [facility] [address], [place], [address], 06/05/2024 10:33:26 06/05/20 24 06/05/2024 urina lysis panel , auto Unknown Analyte Yellow Not Available [facility] [address], [place], [address], 06/05/2024 10:33:26 06/05/20 24 06/05/2024 urina lysis panel , auto Unknown Analyte Clear Not Available [facility] [address], [place], [address], 06/05/2024 10:33:26 06/05/20 24 06/05/2024 urina lysis panel , auto Unknown Analyte 1.000 Not Available [facility] [address], [place], [address], 06/05/2024 10:33:26 06/05/20 24 06/05/2024 urina lysis panel , auto Unknown Analyte 1.003- 1.035 Not Available [facility] [address], [place], [address], 06/05/2024 10:33:26 06/05/20 24 06/05/2024 urina lysis panel , auto Unknown Analyte 6.0 Not Available [facility] [address], [place], [address], 06/05/2024 10:33:26 06/05/20 24 06/05/2024 urina lysis panel , auto Unknown Analyte 5.0-8. 0 Not Available [facility] [address], [place], [address], 06/05/2024 10:33:26 06/05/20 24 06/05/2024 urina lysis panel , auto Unknown Analyte Negati ve Not Available [facility] [address], [place], [address], 06/05/2024 10:33:26 06/05/20 24 06/05/2024 urina lysis panel , auto Unknown Analyte Negati ve Not Available [facility] [address], [place], [address], 06/05/2024 10:33:26 06/05/20 24 06/05/2024 urina lysis panel , auto Unknown Analyte Negati ve Not Available [facility] [address], [place], [address], 06/05/2024 10:33:26 06/05/20 24 06/05/2024 urina lysis panel , auto Unknown Analyte Negati ve Not Available [facility] [address], [place], [address], 06/05/2024 10:33:26 06/05/20 24 06/05/2024 urina lysis panel , auto Unknown Analyte Negati ve Not Available [facility] [address], [place], [address], 06/05/2024 10:33:26 06/05/20 24 06/05/2024 urina lysis panel , auto Unknown Analyte Negati ve Not Available [facility] [address], [place], [address], 06/05/2024 10:33:26 06/05/20 24 06/05/2024 urina lysis panel , auto Unknown Analyte Normal Not Available [facility] [address], [place], [address], 06/05/2024 10:33:26 06/05/20 24 06/05/2024 urina lysis panel , auto Unknown Analyte Normal Not Available Pending sale to [facility] [address], [place], [address], 06/05/2024 10:33:26 06/05/20 24 06/05/2024 urina lysis panel , auto Unknown Analyte Negati ve Not Available [facility] [address], [place], [address], 06/05/2024 10:33:26 06/05/20 24 06/05/2024 urina lysis panel , auto Unknown Analyte Negati ve Not Available [facility] [address], [place], [address], 06/05/2024 10:33:26 06/05/20 24 06/05/2024 urina lysis panel , auto Unknown Analyte Normal Not Available [facility] [address], [place], [address], 06/05/2024 10:33:26 06/05/20 24 06/05/2024 urina lysis panel , auto Unknown Analyte Normal 1 mg/dl Not Available [facility] [address], [place], [address], 06/05/2024 10:33:26 06/05/20 24 06/05/2024 urina lysis panel , auto Unknown Analyte Negati ve Not Available [facility] [address], [place], [address], 06/05/2024 10:33:26 06/05/20 24 06/05/2024 urina lysis panel , auto Unknown Analyte Negati ve Not Available [facility] [address] [facility], [place], [address], 06/05/2024 10:33:26 06/05/20 24 06/05/2024 urina lysis panel , auto Unknown Analyte Negati ve Not Available [facility] [address] [facility], [place], [address], 06/05/2024 10:33:26 06/05/20 24 06/05/2024 urina lysis panel , auto Unknown Analyte Negati ve Not Available [facility] [address] [facility], [place] [address], 06/05/2024 10:33:26 09/18/19 25 09/17/2024 urina lysis panel , auto Unknown Analyte Clean Catch Not Available [facility] With [address], [place], [address], 09/17/2024 14:57:01 09/18/19 25 09/17/2024 urina lysis panel , auto Unknown Analyte Yellow Not Available [facility] Extended [facility] With [address] [place], [place], [address], 09/17/2024 14:57:01 09/18/19 25 09/17/2024 urina lysis panel , auto Unknown Analyte Clear Not Available [facility] Extended [facility] With [address] [place], [place], [address], 09/17/2024 14:57:01 09/18/19 25 09/17/2024 urina lysis panel , auto Unknown Analyte 1.015 Not Available [facility] Extended [facility] With [address] [place], [address], 09/17/2024 14:57:01 09/18/19 25 09/17/2024 urina lysis panel , auto Unknown Analyte 1.003 - 1.030 Not Available [facility] With [address] [place], [address], 09/17/2024 14:57:01 09/18/19 25 09/17/2024 urina lysis panel , auto Unknown Analyte 5.0 Not Available [facility] With [address] [place], [address], 09/17/2024 14:57:01 09/18/19 25 09/17/2024 urina lysis panel , auto Unknown Analyte 5.0 - 8.0 Not Available [facility] [address] [place], [address], 09/17/2024 14:57:01 09/18/19 25 09/17/2024 urina lysis panel , auto Unknown Analyte Negati ve Not Available [facility] With [address] [place], [address], 09/17/2024 14:57:01 09/18/19 25 09/17/2024 urina lysis panel , auto Unknown Analyte Negati ve Not Available [facility] With [address] [place], [address], 09/17/2024 14:57:01 09/18/19 25 09/17/2024 urina lysis panel , auto Unknown Analyte Negati ve Not Available [facility] With [address] [place], [address], 09/17/2024 14:57:01 09/18/19 25 09/17/2024 urina lysis panel , auto Unknown Analyte Negati ve Not Available [facility] With [address] [place], [place], [address], 09/17/2024 14:57:01 09/18/19 25 09/17/2024 urina lysis panel , auto Unknown Analyte Negati ve Not Available [facility] With [address] [place], [address], 09/17/2024 14:57:01 09/18/19 25 09/17/2024 urina lysis panel , auto Unknown Analyte Negati ve Not Available [facility] With [address] [place], [address], 09/17/2024 14:57:01 09/18/19 25 09/17/2024 urina lysis panel , auto Unknown Analyte Normal Not Available [facility] With [address] [place], [address], 09/17/2024 14:57:01 09/18/19 25 09/17/2024 urina lysis panel , auto Unknown Analyte Normal Not Available [facility] With [address] [place], [address], 09/17/2024 14:57:01 09/18/19 25 09/17/2024 urina lysis panel , auto Unknown Analyte Negati ve Not Available [facility] With [address] [place], [address], 09/17/2024 14:57:01 09/18/19 25 09/17/2024 urina lysis panel , auto Unknown Analyte Negati ve Not Available [facility] With [address] [place], [address], 09/17/2024 14:57:01 09/18/19 25 09/17/2024 urina lysis panel , auto Unknown Analyte Normal Not Available [facility] With [address] [place], [address], 09/17/2024 14:57:01 09/18/19 25 09/17/2024 urina lysis panel , auto Unknown Analyte Normal Not Available [facility] With [address] [place], [address], 09/17/2024 14:57:01 09/18/19 25 09/17/2024 urina lysis panel , auto Unknown Analyte Negati ve Not Available [facility] With [address] [place], [address], 09/17/2024 14:57:01 09/18/19 25 09/17/2024 urina lysis panel , auto Unknown Analyte Negati ve Not Available [facility] With [address] [place], [place], [address], 09/17/2024 14:57:01 09/18/19 25 09/17/2024 urina lysis panel , auto Unknown Analyte 50 Tristan/uL Not Available [facility] With [address] [place], [address], 09/17/2024 14:57:01 09/18/19 25 09/17/2024 urina lysis panel , auto Unknown Analyte Negati ve Not Available [facility] With [address] [place], [address], 09/17/2024 14:57:01 05/20/20 24 05/16/2024 CT, abdom en + pelvi s, w/wo contr ast No observ ation record ed. [email or web address] [facility] (Radiology) [address] , [place], [address], 06/30/2024 12:07:58 06/05/20 24 06/05/2024 US, retro perit oneum , limit ed [address] [address] Patien t Name: CONCETTA PEREZ Patileela t : 985 Patien t 32 Orderi ng Provid er: MADISON North EXAM DATE: 2023 EXAM: US KIDNEY BILAT WO BLADDE R CLINIC AL INFORM ATION: Pain TECHNI QUE: Multip le sonogr aphic images of both kidney s were obtain ed. COMPAR LUIS MANUEL: None. FINDIN GS: RIGHT KIDNEY : Length = 10.1 cm. No hydron ephros is, mass or stone. LEFT KIDNEY : Length = 10.5 cm. No hydron ephros is, mass or stone. IMPRES ANNA: Normal sonogr am of both kidney s. Interp reted By: Adolfo Nielson MD Electr onical ly Signed By: Adolfo Nielson MD on 2023 1:54 PM [email or web address] [facility] Radiology [facility] [address] [place] [address], [address], 06/08/2024 10:26:48 Result Notes None recorded. Problems Name Problem SNOMED Code Status Onset Date Resolution Date Notes Provider Name and Address Organization Details Recorded Time Recurrent urinary tract infection 436408116 Active 025 MADISON LUCIA PA-C [address] [place], [address], [place] [facility] 5 15:36:08 Incomplete emptying of urinary bladder 237423523 Active 025 MADISON LUCIA PA-C [address] [place], [address], [place] [facility] 5 15:36:10 Problem Notes None recorded. Procedures Surgical History Date Name Laterality Status Provider Name and Address Organization Details Recorded Time 06/05/20 24 Post Void Residual; Ultrasound completed [facility] 06/05/2024 10:50:28 Cholecystectomy completed [facility] 05/20/2024 13:30:40 Tonsillectomy completed [facility] 05/20/2024 13:30:48 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 completed [facility] 05/20/2024 13:30:58 Imaging Results Imaging Date Name Status LastModified by Organiz ation Details LastModified Time 05/16/2024 CT, abdomen + pelvis, w/wo contrast [email or web address] (Radiology) [address] , [place], [address], 06/30/2024 12:07:58 06/05/2024 US, retroperitone um, limited completed [email or web address] [place] [address] Radiology [facility] [address] [place], [address], 06/08/2024 10:26:48 Procedure Notes None recorded. Medical Equipment None Reported. Allergies Allergen ID Allergen Name Allergen Category Reaction Reaction Severity Criticality Documentation Date Start Date Code Code System Note Provider Name and Address Organization Details Recorded Time 727749 Viibryd medicatio n Not available Not available Not available 05/20/2024 69854 [id number] RxNorm [facility] 13:29:02 Medications Name Sig Start Date Stop Date Status Note LastModified by Organization Details LastModified Time fluconazole 150 mg tablet Take on the first day of starting antibioti cs in the last day of the course of antibioti cs to prevent yeast infection . 09/17 completed Not Available Not Available Not Available Pyridium 200 mg tablet Take 1 tablet up to three times daily as needed for pain with urination 09/17 completed Not Available Not Available Not Available ciprofloxac in 500 mg tablet Take 1 tablet every 12 hours by oral route for 5 days. 09/17 completed Not Available Not Available Not Available magnesium active Not Available Not Cheli ilable Not Available levothyroxi ne active Not Available Not Available Not Available propranolol 09/17 completed Not Available Not Available Not Available lisinopril active Not Available Not Av ailable Not Available bisoprolol fumarate active Not Available Not Available Not Available Suboxone active Not Available Not Avai lable Not Available Bystolic active Not Available Not Avai lable Not Available [facility] 09/17 completed Not Available Not Available Not Available Vitals Date Recorded Body height Body mass index (BMI) Body weight Provider Name and Address Organization Details Last Updated DateTime 05/20/2024 162.56 cm 37.2 kg/m2 81004.54 g [facility] 05/20/2024 13:28:40 Date Recorded Body height Body mass index (BMI) Body weight Provider Name and Address Organization Details Last Updated DateTime 06/05/2024 162.56 cm 37.2 kg/m2 51811.54 g [facility] 06/05/2024 10:49:51 Date Recorded Body height Body mass index (BMI) Body weight Provider Name and Address Organization Details Last Updated DateTime 09/17/2024 162.56 cm 35.9 kg/m2 99269.81 g Ambar Gaspart [facility] 09/17/2024 14:51:00 Social History Question Answer Notes LastModified by Organizat ion Details LastModified Time Tobacco Smoking Status Current Every Day Smoker Not Available [facility] 05/20/2024 13:14:33 What Was The Date Of Your Most Recent Tobacco Screening? 09/17/2024 [email or web address] Information not available 09/17/2024 What Is Your Relationship Status? [email or web address] Information not available 05/20/2024 At What Age Did You Start Smoking Tobacco? 14 [email or web address] Information not available 05/20/2024 How Much Tobacco Do You Smoke? 1 PPD [email or web address] Information not available 05/20/2024 How Many Years Have You Smoked Tobacco? 25 [email or web address] Information not available 05/20/2024 Sex: Unknown Functional Status Question Answer Note LastModified by Organization D etails LastModified Time Do you or have you ever used any other forms of tobacco or nicotine? No [email or web address] Information not available 05/20/2024 What is your level of alcohol consumption? None [email or web address] Information not available 05/20/2024 Are you currently employed? Yes [email or web address] Information not available 05/20/2024 Mental Status None recorded. Family History Relationship Description Onset Age of this Age Resolved Age Notes LastModified by Organization Details LastModified Time Mother Recurrent urinary tract infection [email or web address] Not available 2023 13:14:33 Medical History Condition Response Anxiety Disorder Y Allergies/Hayfever N Thyroid Disease Y AIDS/HIV N Acid Reflux (GERD) Y Glaucoma Y Depression Y Sleep Apnea Y High Cholesterol Y Thyroid Disorder Y Liver Disease Y Gynecological History Statement/Question Response # of Pregnancies 3 Current Control Method none Abnormal Periods Y # of Births 2 Could you be now? N Obstetrics History GPAL:G 0 P 0 0 0 0 Past Encounters Encounter ID Performer Location Encounter Start Date Encounter Closed Date Diagnosis/Indication Diagnosis SNOMED-CT Code Diagnosis ICD10 Code Diagnosis Note [id number] MAK AIKEN [facility], [facility] [address] [place] [address] 05/20/2024 12:58:28 05/20/2024 14:08:35 Acute urinary tract infection 047937902 N39.0 [id number] [facility]K AIKEN [facility] [address] [facility] [address] [address] 06/05/2024 10:17:13 06/05/2024 11:08:18 Flank pain 079641574 R10.9 Dysuria 19257004 R30.0 Recurrent urinary tract infection 806438827 N39.0 Incomplete emptying of urinary bladder 062362998 R39.14 [id number] MADISON LUCIA PA-C CUA [facility] [address] [place] [address],[address] [place] [address] 09/17/2024 14:08:18 09/18/2024 04:27:22 Recurrent urinary tract infection 920337274 N39.0 Incomplete emptying of urinary bladder 210162267 R39.14 Health Concerns Section Related Observation LastModified by Organization Detai ls LastModified Time None Recorded Concern Status LastModified by Organization Details LastModified Time None Recorded Advance Directives Directive None Recorded Payers Insurance Date Sequence Insurance Name Policy Number Policy Stephens Covered Member ID Stephens Member ID Guarantor Name 11/02/2024 1 [facility] (MEDICAID REPLACEMENT - HMO) Kristie Denton Ewalt [id number] Kristie Denton Ewalt 06/08/[address] [facility] CLAIMS OFFICE Kristie Perez [id number] Kristie Denton Ewedmundot Notes Date Note Type Note Provider Name and Address Organization Details Recorded Time 05/20/2024 text/html Patient is a pleasant 38-year-old female who presents today for my initial evaluation of bilateral flank pain. She reports that her pain initially started on 05/16/2024 for which she was seen at the [facility] emergency department.At her visit to the ER she complained of the bilateral flank pain (L>R), urinary frequency and urgency, dark urine, and dysuria. She has history of recurrent urinary tract infection presumably due to not drinking enough water.At the ER her urinalysis was remarkable for small blood and protein. No culture was performed on the urine. CT with and without contrast of the abdomen and pelvis was only remarkable for hepatosplenomegaly. Her lab work was remarkable for elevated blood glucose and mild leukocytosis (13.9 x 10 ^3). She denies history of urolithiasis. MADISON LUCIA PA-C [address] [place] [address], [address], [facility] 05/20/2024 16:48:14 06/05/2024 text/html Patient is a pleasant 38-year-old female who presents today for worsening bilateral flank pain. She reports that her pain initially started on 05/16/2024 for which she was seen at the [facility] emergency department. At her visit to the ER she complained of the bilateral flank pain (L>R), urinary frequency and urgency, dark urine, and dysuria. She has history of recurrent urinary tract infection presumably due to not drinking enough water. At the ER her urinalysis was remarkable for small blood and protein. No culture was performed on the urine. CT with and without contrast of the abdomen and pelvis was only remarkable for hepatosplenomegaly. Her lab work was remarkable for elevated blood glucose and mild leukocytosis (13.9 x 10 ^3).She denies history of urolithiasis. Since her last appointment on 05/20/2024 she said that her symptoms improved for several days after drinking a lot of water. Recently, within the last week, her symptoms are back and worse than before. She is continuing to endorse bilateral flank pain that she describes as sharp. She also endorses experiencing suprapubic pressure. She is having regular bowel movements. She feels like she is incompletely emptying her bladder which is consistent with her in office PVR of 197mL. MADISON LUCIA PA-C [address] [place], [address], [facility] 06/05/2024 11:20:55 09/17/2024 text/html Patient is a pleasant 38-year-old female who presents today for follow up of bilateral flank pain and urinary retention. She has history of recurrent urinary tract infection presumably due to not drinking enough water. 05/16/2024 she was seen at [facility] ER for bilateral flank pain (L>R), urinary frequency and urgency, dark urine, and dysuria.At the ER her urinalysis was remarkable for small blood and protein. No culture was performed on the urine. CT with and without contrast of the abdomen and pelvis was only remarkable for hepatosplenomegaly. Her lab work was remarkable for elevated blood glucose and mild leukocytosis (13.9 x 10 ^3). She denies history of urolithiasis. Since her last appointment on 05/20/2024 she said that her symptoms improved for several days after drinking a lot of water. In office PVR of 197 mL at our last appointment.US 06/05/2024 Normal without hydronephrosis of either kidney Today patient denies any urinary or constitutional symptoms. She states she has been actively addressing her poor hydration and this has resolved her symptoms of flank pain. She denies recent UTI. She has also been able to more completely empty her bladder since being able to better control her chronic constipation. Urinalysis unremarkable today. MADISON LUCIA PA-C [address] [place], [address], [facility] 09/17/2024 15:36:50 OBGyn Episode No OBEpisode recorded.
--- NOTE | 2024-11-02 23:38 | HMH.EDGENADL ---
Discharge Plan Disposition Patient Disposition: Eloped Chief Complaint: Skin/Abscess/Foreign Body Prescriptions Prescriptions: No Action buprenorphine-naloxone 2-0.5 mg film sublingual DAILY Ubrelvy 100 mg tablet 100 mg PO ONCE PRN (Reason: migraine headache) Qty: 10 11RF Vyzulta 0.024 % drops 0.024 drp Eye-Both Linzess 72 mcg capsule PO Patient Comments: TAKE 1 CAPSULE BY MOUTH EVERY MORNING FOR CONSTIPATION buspirone 10 mg tablet 10 mg PO TID Qty: 90 2RF magnesium glycinate 100 mg magnesium capsule 300 mg PO QHS lisinopril 5 mg tablet 2.5 mg PO DAILY Qty: 30 2RF cetirizine [All Day Allergy (cetirizine)] 10 mg tablet 10 mg PO DAILY PRN (Reason: allergy symptoms) Qty: 30 1RF fluticasone propionate [Flonase Allergy Relief] 50 mcg/actuation spray,suspension 1 spray intranasal DAILY PRN (Reason: allergy symptoms) Qty: 16 1RF Rx Instructions: administer into each nostril bisoprolol fumarate 5 mg tablet 2.5 mg PO DAILY levothyroxine [Synthroid] 137 mcg tablet 137 mcg PO DAILY Qty: 30 3RF bupropion HCl [Wellbutrin XL] 150 mg tablet extended release 24 hr 150 mg PO DAILY Qty: 30 2RF Clinical Impressions Clinical Impression: Eloped from emergency department Print Language Print Language: Georgian Discharge ED Provider: Bryan Funez Adult HPI General Chief complaint: Skin/Abscess/Foreign Body Stated complaint: Tick Head R shoulder Mode of Arrival: Ambulatory Source of Information: Patient Description of Symptoms (Recalled from ER Triage Doc. by RN): ELOPED History of Present Illness HPI narrative: Patient eloped from the emergency department prior to my evaluation. No history able to be obtained. Related Data Home Medications ?Medication ?Instructions ?Recorded ?Confirmed buprenorphine 2 mg-naloxone 0.5 mg sublingual DAILY 11/21/23 10/28/24 sublingual film latanoprostene bunod 0.024 % eye 0.024 drp Eye-Both 08/19/24 10/28/24 drops (Vyzulta) linaclotide 72 mcg capsule mcg PO 10/12/24 10/28/24 (Linzess) bisoprolol fumarate 5 mg tablet 2.5 mg PO DAILY 10/28/24 10/28/24 magnesium glycinate 300 mg PO QHS 10/28/24 10/28/24 Previous Rx's ?Medication ?Instructions ?Recorded ubrogepant 100 mg tablet (Ubrelvy) 100 mg PO ONCE PRN migraine 09/07/24 headache #10 tabs Synthroid 137 mcg tablet 137 mcg PO DAILY #30 tabs 09/14/24 (levothyroxine) buspirone 10 mg tablet 10 mg PO TID #90 tabs 09/29/24 cetirizine 10 mg tablet (All Day 10 mg PO DAILY PRN allergy 10/01/24 Allergy (cetirizine)) symptoms #30 tabs fluticasone propionate 50 1 spray intranasal DAILY PRN 10/01/24 mcg/actuation nasal allergy symptoms #16 grams spray,suspension (Flonase Allergy Relief) lisinopril 5 mg tablet 2.5 mg (1/2 x 5 mg) PO DAILY #30 10/01/24 tabs bupropion HCl 150 mg 24 hr tablet, 150 mg PO DAILY #30 tabs 10/30/24 extended release (Wellbutrin XL) Allergies Allergy/AdvReac Type Severity Reaction Status Date / Time vilazodone (From Viibryd) Allergy Mild Rash Verified 10/28/24 13:17 [facility] Disclaimer: The information contained in this section may have been updated after the patient was seen, as this information can be updated by other users. Medical History Deviated nasal septum Chronic sinusitis Anxiety Anxiety Worsening headaches Family history of brain aneurysm Hypotension Eustachian tube dysfunction Right upper quadrant abdominal pain COVID-19 Fever Left upper quadrant abdominal pain Left lower quadrant abdominal pain Eustachian tube obstruction Acute fungal otitis externa Enlarged lymph node in neck Vitamin D deficiency Hyperlipidemia Hypothyroidism Hypertension Depression Surgical History Hx of cholecystectomy H/O tubal ligation Hx of tonsillectomy Family History Other Alcoholism Asthma Coronary artery disease Diabetes FHx: mental illness Heart attack Hyperlipidemia Hypertension Thyroid disorder Social History Smoking Status: Never smoker second hand exposure: Yes alcohol intake: never substance use type: former substance user and opiates current occupational status: unemployed and student Travel in the last 8 weeks?: None household members: spouse and children housing: other number of children: 2 caffeine: Yes Other Medical History Have you received the Flu Vaccine for this season: Yes Have you received the Pneumonia Vaccine: No Medical Decision Making Medical Records Screening: Per USPSTF and CDC recommendations, given the prevalence of disease in our region, it is our hospital?s policy to screen for HIV and viral Hepatitis for all patients aged 18 and over and those with ongoing risk factors. Vital Signs: 11/02/24 13:34 11/02/24 13:35 11/02/24 13:35 Temperature 0 F L Pulse Rate 0 L 100 H Respiratory Rate 0 L 0 L Blood Pressure 0/0 L 170/95 H Blood Pressure Source Automatic Cuff Blood Pressure Position Sitting 02 Sat by Pulse Oximetry 0 L 98 Oxygen Delivery Method Room Air
== END 2024-11-02 13:35 | disposition left against medical advice (07) ==
LOC: ER 13:38
PROVIDERS: Emergency Provider Student in an Organized Health Care Education/Training Program; PCP Family Medicine
DX: Z53.21 Procedure and treatment not carried out due to patient leaving prior to being seen by health care provider (principal)
CPT/HCPCS: 99211

== ENCOUNTER 2024-12-11 13:47 | Outpatient (CLI) | payer MEDICAID, SELFPAY ==
--- OUTSIDE RECORDS SUMMARY | 2024-12-11 13:49 | XMS_ITS | Continuity of Care Document ---
Author Organization ANTONIA CANDACE [facility] [place], [facility] Address [address] [place] [address] Assessment Encounter Date Assessment Date Assessment LastModified by Organization Details LastModified Time 12/08/2024 12/08/2024 Follow up in 3-4 months. Not available 12/08/2024 16:44:17 Plan of Treatment Reminders Order Date Submit Date Provider Last Modified By Organization Details Last Modified Time Details Appointments Establish ed Visit 15 min 2024 02:30P Karen SPENCE NP Not available Not available Not available Lab None recorded. Referral None recorded. Procedures None recorded. Surgeries None recorded. Imaging None recorded. Medication Orders omeprazol e 20 mg capsule,d elayed release 2024 025 [facility], [address] [place] [address], [id number], 12/08/2024 15:59:18 Patient TargetsNo targets recorded. Patient InstructionsNo instructions recorded. Reason for Referral None Reported. Procedures Surgical History Date Name Laterality Status Provider Name and Address Organization Details Recorded Time 10/27/19 22 Date of Last Pap Smear completed Susan MARIA [facility] [place] 09/28/2024 14:36:04 06/24/19 20 Cholecystectomy completed Susan MARIA [facility] [place] 09/28/2024 14:36:17 06/24/19 18 Tonsillectomy/Adeno [facility] [place] 09/28/2024 14:36:17 04/19/20 14 completed Susan Ellington [place] - [facility] [place] 09/28/2024 14:36:04 06/24/19 12 Lease Buyer Surgery completed Susan KNIGHT - [facility]NT [facility] [place] 09/28/2024 14:36:17 Imaging Results None recorded. Procedure Notes None recorded. Medical Equipment None Reported. Allergies Allergen ID Allergen Name Allergen Category Reaction Reaction Severity Criticality Documentation Date Start Date Code Code System Note Provider Name and Address Organization Details Recorded Time [id number] Viibryd medicatio n other moderate Not available 09/28/2024 [id number] RxNorm Susan Ellington null, [place] - [facility]NT [facility] [place] 14:35:17 Medications Name Sig Start Date Stop [...] active Not Available Not Available Not Available estradiol 0.05 mg/24 hr semiweekly transdermal patch APPLY 1 PATCH TO THE SKIP 2 TIMES a WEEK REMOVE OLD PATCH BEFORE APPLYING NEW PATCH active Not Available Not Available No t Available ciprofloxac in 500 mg tablet active Not Available Not Available Not Available doxycycline monohydrate 100 mg tablet active Not Available Not Available Not Available lamotrigine 25 mg tablet active Not Available Not Available Not Available bisoprolol fumarate 5 mg tablet TAKE ONE TABLET BY MOUTH ONCE A DAY active Not Available Not Available No t Available naproxen sodium 550 mg tablet TAKE 1 TABLET BY MOUTH ONCE A DAY active Not Available Not Available No t Available buspirone 10 mg tablet TAKE 1 TABLET BY MOUTH 3 TIMES A DAY active Not Available Not Available No t Available propranolol ER 80 mg capsule,24 hr,extended release active Not Available Not Available Not Available clotrimazol e 1 % topical solution 02/06 completed Not Available Not Available Not Available omeprazole 20 mg capsule,del ayed release Take 1 capsule every day by oral route in the morning for 90 days, for acid reflux. 2024 active Not Available Not Available Not Avai lable dorzolamide 22.3 mg-timolol 6.8 mg/mL eye drops INSTILL 1 DROP INTO BOTH EYES 2 TIMES A DAY active Not Available Not Available No t Available lisinopril 5 mg tablet TAKE ONE TABLET BY [...] Not Available Not Available No t Available progesteron e micronized 100 mg capsule TAKE 1 CAPSULE BY MOUTH ONCE A DAY active Not [...] 150 mg 24 hr tablet, extended release TAKE 1 TABLET BY MOUTH ONCE A DAY active Not Available Not Available No t Available cholecalcif spencer (vitamin D3) 25 mcg [...] active Not Available Not Available Not Available magnesium glycinate at bedtime active Not Available Not Available No t Available GaviLyte-G 236 gram-22.74 gram-6.74 gram-5.86 gram oral solution 03/31 completed Not Available Not Available Not Available buprenorphi ne 2 mg-naloxone 0.5 mg sublingual film DISSOLVE 1/4 film UNDER THE TONGUE ONCE A DAY [...] route in the morning for 30 days. 12/08 completed Not Available Not Available Not Available buprenorphi ne 4 mg-naloxone 1 mg sublingual film DISSOLVE 1/4 FILM UNDER THE TONGUE EVERY DAY 02/06 completed Not Available Not Available Not Available Linzess 72 mcg capsule TAKE 1 CAPSULE BY MOUTH EVERY MORNING FOR CONSTIPAT ION active Not Available Not Available No t Available Vyzulta 0.024 % eye drops INSTILL 1 DROP INTO BOTH EYES AT BEDTIME active Not Available Not Available No t Available Rocklatan 0.02 %-0.005 % eye drops active Not Available Not Available No t Available Ubrelvy 100 mg tablet TAKE ONE TABLET BY MOUTH ONCE AT ONSET OF MIGRAINE active Not Available Not Available No t Available Qulipta 60 mg tablet TAKE ONE TABLET BY MOUTH ONCE A DAY for migraine active Not Available Not Available No t Available Vitals Date Recorded Body height Body mass index (BMI) Body weight Body temperature Oxygen saturation Oxygen saturation in Arterial blood by Pulse oximetry Heart rate Systolic blood pressure Diastolic blood pressure Provider Name and Address Organization Details Last Updated DateTime 162.56 cm 35.6 kg/m2 12959.4 2 g 98.6 [degF] 97 % 97 % 85 /min 130 mm[Hg] 85 mm[Hg] Aisha Hood [facility] [place] 14:50:52 Social History Question Answer Notes LastModified by [employer] ion Details LastModified Time Tobacco Smoking Status Current Every Day Smoker Susan Ellington [facility], [facility] [place] 09/28/2024 14:36:14 Do You Have An Advance [...] Functional Status Question Answer Note LastModified by [employer] Details LastModified Time Do you use any illicit or recreational drugs? No Information not available 09/28/2024 What is your level of alcohol consumption? None Information not available 09/28/2024 Do you or have you ever used smokeless tobacco? Never used smokeless tobacco Information not available 09/28/2024 What is your exercise level? Occasional Information not available 09/28/2024 Mental Status Question Answer Note LastModified by Identify[employer] ion Details LastModified Time Do you feel stressed (tense, restless, nervous, or anxious, or unable to sleep at night)? [id number] Information not available 09/28/2024 Family History Relationship [...] quadrivalent, PF 03/31/2021 completed Susan Ellington null, [place] [facility] [place] 09/28/2024 14:35:28 MMR 01/21/1996 completed Susan [place] [facility] [facility] [place] 09/28/2024 14:35:28 COVID-19, mRNA, LNP-S, PF, 30 mcg/0.3 mL dose, delroy-sucrose 08/17/2021 completed Susan Ellington null, [place] - [facility] [place] 09/28/2024 14:35:28 COVID-19, mRNA, LNP-S, PF, 30 mcg/0.3 mL dose, delroy-sucrose 09/11/2021 completed Susan [place] null[place] [facility] [facility] [place] 09/28/2024 14:35:28 Tdap 09/06/2005 completed Susan Ellington null, [place] - [facility] - [place] [facility] [place] 09/28/2024 14:35:28 Tdap 12/18/2015 completed Susan Ellington null, [place] - [facility]NT - [place] [facility] [place] 09/28/2024 14:35:28 Tdap 01/21/2020 completed Susan Ellington null, [place] - [facility] 09/28/2024 14:35:28 polio, unspecified formulation 01/16/1990 completed Susan Ellington null, [place] - [facility] - [place] [facility] [place] 09/28/2024 14:35:28 Hep B, adult 09/08/2020 completed Susan Ellington null, [place] [facility] [place] 09/28/2024 14:35:28 Hep B, adult 01/21/2020 completed Susan Ellington null, [place] - [facility] [place] 09/28/2024 14:35:28 Hep B, adult 03/07/2020 completed Susan Ellington null, ANTONIA - [facility] - [place] [facility] [place] 09/28/2024 14:35:28 DTaP, unspecified formulation 01/16/1990 completed Susan Ellington null, AN[place]IA - [facility] - [place] [facility] 09/28/2024 14:35:28 Influenza, split virus, quadrivalent, PF 03/19/2020 completed Susan Ellington null, [place] - [facility] [place] 09/28/2024 14:35:28 Influenza, split virus, quadrivalent, PF 05/15/2023 completed Susan Ellington null, [place] - [facility] [place] 09/28/2024 14:35:28 Past Encounters Encounter ID Performer Location Encounter Start Date Encounter Closed Date Diagnosis/Indication Diagnosis SNOMED-CT Code Diagnosis ICD10 Code Diagnosis Note [id number] JYOA SPENCE NP [facility] [address] [address] 12/08/2024 14:42:53 12/08/2024 15:30:11 Gastroesophageal reflux disease without esophagitis 561472138 K21.9 Continue PPI daily.Avoi d NSAIDs and alcohol. Chronic id iopathic constipation 98383849 K59.04 Continue Magnesium nightly.Co ntinue dietary changes, increase water intake. Hepatosplenomegaly 89812 000 R16.2 Patient reported this finding on imaging at [facility] 03/2024.NA SH fibrosure estimates FO, <5% steatosis, and no WEST. 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 Gilbert's syndrome 88574 000 E80.4 Evidence of Gilbert's syndrome based on fractionat ed bilirubin findings and normal LFT.No specific therapy is required. Steatotic liver disease 845161409 K76.0 Denies alcohol use.FIB 4 estimated F0-F1.Weig [...] Member ID Stephens Member ID Guarantor Name 12/08/2024 1 [facility] (MEDICAID REPLACEMENT - HMO) Kristie Perez [id number] Kristie Perez Notes Date Note Type Note Provider Name and Address Organization Details Recorded Time 12/08/2024 text/html PREVIOUS: Nikole Perez is a 39 yr old female here today for follow up.Today we discussed lab findings in depth. I did not receive her most recent CT from [facility]. I will request records again today. Most recent LFT normal. No exposure to hepatitis. No alcohol use. In regard to constipation, she is using Linzess 145 mcg as needed. She states she recently was prescribed oral iron which exacerbated constipation. She recently restarted Omeprazole for GERD. CURRENT: Kristie Perez is a 39 year old female here today for follow up.Since our last visit, she's had intermittent abdominal discomfort and headaches. She is using Linzess as needed, but generally has been having BMs without it. She has also been taking magnesium glycinate at bedtime. She's eating a healthier diet and increasing water intake. She is not regularly taking the iron supplement. Her PCP is rechecking iron panel and CBC. She will see Rheum in January. She has been working on her overall mental health and has made some progress in stress level since our last visit. JOYA SPENCE, ASAF [id number], [place], [address], [facility] [place] [facility] [place] 12/08/2024 16:45:37 OBGyn Episode No OBEpisode recorded.
--- OUTSIDE RECORDS SUMMARY | 2024-12-11 13:50 | XMS_ITS | Data Portability ---
Author Organization [facility] & CANDACE Stephens ADMIN Address [address] [place] [id number] Assessment Encounter Date Assessment Date Assessment LastModified by Organization Details LastModified Time 08/21/2024 08/21/2024 Follow up as planned in September. [email or web address] Not available 08/21/2024 14:35:47 09/28/2024 09/28/2024 Follow up in 2 months. [email or web address] Not available 09/28/2024 20:56:07 12/08/2024 12/08/2024 Follow up in 3-4 months. [email or web address] Not available 12/08/2024 16:44:17 Plan of Treatment Reminders Order Date Submit Date Provider Last Modified By Organization Details Last Modified Time Details Appointments Establish ed Visit 15 min 2024 02:30P Karen SPENCE NP Not available Not available Not available Lab alpha-1-a ntitrypsi n (aat), QN, serum 2024 025 [place] [facility], [address], [address], [place], [address], 09/29/2024 16:25:57 hepatitis panel (A+B+C), acute, serum 2024 025 [place] [facility], [address], [address], [place], [address], 09/29/2024 16:25:50 celiac disease serology panel, serum 2024 025 [place] [facility], [address], [address], [place], [address], 09/29/2024 16:25:54 autoimmun e hepatitis diagnosti c panel, serum 2024 025 [place] [facility], [address], [address], [place], [address], 09/29/2024 16:25:52 iron + TIBC + ferritin, serum 2024 025 [place] [facility], [address], [address], [place], [address], 09/29/2024 16:25:51 CBC 2024 025 [place] [facility], [address], [address], [place], [address], 09/29/2024 16:25:55 cerulopla smin, serum 2024 025 [place] [facility], [address], [address], [place], [address], 09/29/2024 16:25:56 nonalcoho lic steatohep atitis + fibrosis panel, serum or plasma 2024 025 [email or web address] 4 [facility], [address], [address], [place], [address], 09/04/2024 11:56:24 hepatic function panel, serum 2024 025 [email or web address] 4 [facility], [address], [address], [place], [address], 09/04/2024 11:56:24 PT panel, coagulati on, platelet poor plasma 2024 025 [email or web address] 4 [facility], [address], [address], [place], [address], 09/04/2024 11:56:24 Referral None recorded. Procedures None recorded. Surgeries None recorded. Imaging None recorded. Medication Orders omeprazol e 20 mg capsule,d elayed release 2024 025 [email or web address] [facility], [address] [place] [address], ANTONIA Short, [id number], 12/08/2024 15:59:18 Linzess 72 mcg capsule 2024 025 [facility], [address] [place] [address], ANTONIA Short, [id number], 09/28/2024 14:21:53 omeprazol e 20 mg capsule,d elayed release 2023 024 [facility], [address] [place] [address], ANTONIA Short, [id number], 03/31/2024 14:16:25 Linzess 145 mcg capsule 2023 025 [facility], [address] [place] [address], ANTONIA Short, [id number], 12/08/2024 15:35:01 Patient TargetsNo targets recorded. Patient Instructions Encounter Date Encounter Id Patient Instructions Last Modified By Organization Details Last Modified Time 02/10/2024 [id number] Follow up 2-3 weeks after scopes. [email or web address] Not available 02/11/2024 12:54:49 03/31/2024 [id number] Follow up in 6 months or sooner if needed. [email or web address] Not available 03/31/2024 16:01:02 Reason for Referral None Reported. Results Created Date Observation Date Name Description Value Unit Range Abnormal Flag Note LastModifiedBy Organization Detail LastModifiedTime 09/29/1909/28/2024 HAV, HBV, HCV interpretati on COMMEN T HBV Serol ogy Inter preta tion Chart ----- ----- ----- ----- ----- ----- ----- ----- ----- ----- ----- ----- ----- -- Inter preta tion HBsAg anti- HBs anti- HBc anti- HBc IgM ----- ----- ----- ----- ----- ----- ----- ----- ----- ----- ----- ----- ----- -- Colvin - Kathleen te prese nt: + Kathleen te absen t: - Test not indic ated: TNI ----- ----- ----- ----- ----- ----- ----- ----- ----- ----- ----- ----- ----- -- Susce ptibl e (neve r infec di and no evide nce - - - TNI of vacci natio n) ----- ----- ----- ----- ----- ----- ----- ----- ----- ----- ----- ----- ----- -- Immun e due to natdee al resol brant infec tion - + + TNI ----- ----- ----- ----- ----- ----- ----- ----- ----- ----- ----- ----- ----- -- Immun e due to vacci natio n - + - TNI ----- ----- ----- ----- ----- ----- ----- ----- ----- ----- ----- ----- ----- -- Acute Infec tion + - + + ----- ----- ----- ----- ----- ----- ----- ----- ----- ----- ----- ----- ----- -- Chron ic infec tion + - + - ----- ----- ----- ----- ----- ----- ----- ----- ----- ----- ----- ----- ----- -- Inter preta tion uncle ar* - - + +/- ----- ----- ----- ----- ----- ----- ----- ----- ----- ----- ----- ----- ----- -- *Mult iple possi bilit ies: resol brant infec tion (most commo n); false - posit miguel anti- HBc ([facility] [place]); low- level chron ic infec tion ; resol ving acute infec tion. Not Available [facility] ([facility]) [address], [place], [address], 09/29/2024 16:25:50 09/29/19 25 09/29/2024 HAV, HBV, HCV hep A Ab, total NEGATI VE negati ve Comme nt: The HAV total antib wen assay detec ts both IgG and IgM but does not diffe renti ate betwe en them. A negat miguel resul t sugge sts susce ptibi lity to infec tion. A posit miguel resul t could be due to vacci natio n, previ ously resol brant infec tion or activ e infec tion. Testi ng for HAV IgM shoul d be perfo rmed if activ e HAV infec tion is suspe cted. [facility] offer s profi les that will autom atica lly refle x posit miguel HAV total antib wen resul ts to IgM (e.g. , panel #[id number] HAV Antib wen w/ Rfx). Not Available [facility] ([facility]) [address], [place], [address], 09/29/2024 16:25:50 09/29/19 25 09/29/2024 HAV, HBV, HCV HBsAg screen NEGATI VE negati ve Not Available [facility] ([facility]) [address], [place], [address], 09/29/2024 16:25:50 09/29/19 25 09/29/2024 HAV, HBV, HCV hep B surface Ab, qual NON REACTI VE Non React miguel: Not immun e to HBV infec tion. Equiv ocal: Unabl e to deter mine if anti- HBs is prese nt at level s consi stent with immun ity. React miguel: Anti- HBs claude ntrat ion detec di at great er than 10 mIU/m L. Indiv idual is consi dered to be immun e to infec tion with HBV. Not Available [facility] ([facility]) [address], [place], [address], 09/29/2024 16:25:50 09/29/19 25 09/29/2024 HAV, HBV, HCV hep B core Ab, tot NEGATI VE negati ve Not Available [facility] ([facility]) [address], [place], [address], 09/29/2024 16:25:50 09/29/19 25 09/29/2024 HAV, HBV, HCV rfx to hbc IgM COMMEN T Refle x crite yeison was not met. Not Available [facility] ([facility]) [address], [place], [address], 09/29/2024 16:25:50 09/29/19 25 09/29/2024 HAV, HBV, HCV HCV Ab NON REACTI VE non reacti ve Not Available [facility] ([facility]) [address] [place], [address], 09/29/2024 16:25:50 09/29/19 25 09/29/2024 HAV, HBV, HCV interpretati on: COMMEN T Not infec di with HCV unles s early or acute infec tion is suspe cted (whic h may be delay ed in an immun ocomp romis ed indiv idual ), or other evide nce exist s to indic ate HCV infec tion. Not Available [facility] ([facility]) [address], [place], [address], 09/29/2024 16:25:50 09/29/19 25 09/29/2024 FE+TI BC+FE R iron bind.cap.(TI BC) 513 ug/dL 250-45 0 above high normal Not Available [facility] ([facility]) [address] [place], [address], 09/29/2024 16:25:51 09/29/19 25 09/29/2024 FE+TI BC+FE R UIBC 487 ug/dL 131-42 5 above high normal Not Available [facility] ([facility]) [address] [place], [address], 09/29/2024 16:25:51 09/29/19 25 09/29/2024 FE+TI BC+FE R iron 26 ug/dL 27-159 below low normal Not Available [facility] ([facility]) [address] [place], [address], 09/29/2024 16:25:51 09/29/19 25 09/29/2024 FE+TI BC+FE R iron saturation 5 % 15-55 alert low Not Available [facility] ([facility]) [address] [place], [address], 09/29/2024 16:25:51 09/29/19 25 09/29/2024 FE+TI BC+FE R ferritin 13 NG/mL 15-150 below low normal Not Available [facility] ([facility]) [address] [place], [address], 09/29/2024 16:25:51 09/29/1909/29/2024 ADRIÁN+A MA+ MA+LK M AB ADRIÁN direct POSITI VE negati ve abnormal Not Available [facility] ([facility]) [address], [place], [address], 09/29/2024 16:25:52 09/29/19 25 09/29/2024 ADRIÁN+A MA+ MA+LK M AB actin (smooth muscle) antibody 5 units 0-19 Negat miguel 0 - 19 Weak posit miguel 20 - 30 Moder ate to stron g posit miguel >30 Actin Antib odies are found in 52-85 % of patie nts with autoi mmune hepat itis or chron ic activ e hepat itis and in 22% of patie nts with prima ry bilia ry cirrh osis. Not Available [facility] ([facility]) [address], [place], [address], 09/29/2024 16:25:52 09/29/19 25 09/29/2024 ADRIÁN+A MA+ MA+LK M AB mitochondria l (M2) antibody <20.0 units 0.0-20 .0 Negat miguel 0.0 - 20.0 Equiv ocal 20.1 - 24.9 Posit miguel >24.9 Mitoc hondr ial (M2) Antib odies are found in 90-96 % of patie nts with prima ry bilia ry cirrh osis. Not Available [facility] ([facility]) [address] [place], [address], 09/29/2024 16:25:52 09/29/1909/29/2024 ADRIÁN+A MA+ MA+LK M AB liver-kidney microsomal Ab <1.0 units 0.0-20 .0 Negat miguel 0.0 - 20.0 Equiv ocal 20.1 - 24.9 Posit miguel >24.9 LKM type 1 antib odies are detec di in patie nts with autoi mmune hepat itis type 2 and in up to 8% of patie nts with chron ic HCV infec tion. Not Available [facility] ([facility]) [address], [place], [address], 09/29/2024 16:25:52 09/29/19 25 09/29/2024 PRINCESS C DISEA SE PANEL endomysial antibody IgA NEGATI VE negati ve Not Available [facility] ([facility]) [address], [place], [address], 09/29/2024 16:25:54 09/29/19 25 09/29/2024 PRINCESS C DISEA SE PANEL T-transgluta minase (ttg) IgA <2 U/mL 0-3 Negat miguel 0 - 3 Weak Posit miguel 4 - 10 Posit miguel >10 Tissu e Trans gluta addy e (tTG) has been ident ified as the endom ysial antig en. Studi es have demon str- ated that endom ysial IgA antib odies have over 99% speci ficit y for glute n sensi tive enter opath y. Not Available [facility] ([facility]) [address], [place], [address], 09/29/2024 16:25:54 09/29/19 25 09/29/2024 PRINCESS C DISEA SE PANEL immunoglobul in A, qn, serum 415 mg/dL 87-352 above high normal Not Available [facility] ([facility]) [address] [place], [address], 09/29/2024 16:25:54 09/29/19 25 09/29/2024 CBC, PLATE LET, NO DIFFE RENTI AL WBC 14.9 x10e3 /uL 3.4-10 .8 above high normal Not Available [facility] ([facility]) [address] [place], [address], 09/29/2024 16:25:55 09/29/19 25 09/29/2024 CBC, PLATE LET, NO DIFFE RENTI AL RBC 5.22 x10e6 /uL 3.77-5 .28 normal Not Available [facility] ([facility]) [address] [place], [address], 09/29/2024 16:25:55 09/29/19 25 09/29/2024 CBC, PLATE LET, NO DIFFE RENTI AL hemoglobin 12.9 g/dL 11.1-1 5.9 normal Not Available [facility] ([facility]) [address] [place], [address], 09/29/2024 16:25:55 09/29/19 25 09/29/2024 CBC, PLATE LET, NO DIFFE RENTI AL hematocrit 41.4 % 34.0-4 6.6 normal Not Available [facility] ([facility]) [address] [place], [address], 09/29/2024 16:25:55 09/29/19 25 09/29/2024 CBC, PLATE LET, NO DIFFE RENTI AL MCV 79 fL 79-97 normal Not Available [facility] ([facility]) [address] [place], [address], 09/29/2024 16:25:55 09/29/19 25 09/29/2024 CBC, PLATE LET, NO DIFFE RENTI AL MCH 24.7 pg 26.6-3 3.0 below low normal Not Available [facility] ([facility]) [address] [place], [address], 09/29/2024 16:25:55 09/29/1909/29/2024 CBC, PLATE LET, NO DIFFE RENTI AL MCHC 31.2 g/dL 31.5-3 5.7 below low normal Not Available [facility] ([facility]) [address] [place], [address], 09/29/2024 16:25:55 09/29/19 25 09/29/2024 CBC, PLATE LET, NO DIFFE RENTI AL RDW 15.7 % 11.7-1 5.4 above high normal Not Available [facility] ([facility]) [address], [place], [address], 09/29/2024 16:25:55 09/29/19 25 09/29/2024 CBC, PLATE LET, NO DIFFE RENTI AL platelets 302 x10e3 /uL 150-45 0 normal Not Available [facility] ([facility]) [address], [place], [address], 09/29/2024 16:25:55 09/29/19 25 09/29/2024 CBC, PLATE LET, NO DIFFE RENTI AL NRBC STABILIZER OPERATOR Not Available [facility] ([facility]) [address], [place], [address], 09/29/2024 16:25:55 09/29/19 25 09/29/2024 CERUL OPLAS MIN ceruloplasmi n 33.8 mg/dL 19.0-3 9.0 Not Available [facility] ([facility]) [address], [place], [address], 09/29/2024 16:25:56 09/29/19 25 09/29/2024 ALPHA -1-AN TITRY PSIN, SERUM [id number] trypsin, serum 177 mg/dL 100-18 8 normal Not Available [facility] ([facility]) [address], [place], [address], 09/29/2024 16:25:57 09/29/19 25 09/04/2024 CT, angio gram, chest , w/ contr ast No observ ation record ed. [facility] (Radiology) [address], [place], [address], 10/02/2024 13:35:35 Result Notes None recorded. Procedures Surgical History Date Name Laterality Status Provider Name and Address Organization Details Recorded Time 10/27/19 22 Date of Last Pap [facility]ear [facility] [place] 09/28/2024 14:36:04 06/24/19 20 Cholecystectomy completed Susan KNIGHT [facility] & [place] 09/28/2024 14:36:17 06/24/19 18 Tonsillectomy/Adeno idectomy completed Susan KNIGHT [facility] & [place] 09/28/2024 14:36:17 04/19/20 14 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 Procedure Notes None recorded. Medical Equipment None Reported. Allergies Allergen ID Allergen Name Allergen Category Reaction Reaction Severity Criticality Documentation Date Start Date Code Code System Note Provider Name and Address Organization Details Recorded Time [id number] Viibryd medicatio n other moderate Not available 09/28/2024 [id number] RxNorm Susan Ellington [facility], [facility] & [place] 14:35:17 Medications Name Sig Start Date Stop [...] mass index (BMI) Body weight Body temperature Heart rate Heart rate Oxygen saturation Oxygen saturation in Arterial blood by Pulse oximetry Systolic blood pressure Diastolic blood pressure Provider Name and Address Organization Details Last Updated DateTime 5 162.56 cm 37 kg/m2 12760.8 7 g 97.9 [degF] 84 /min 82 /min 98 % 98 % 148 mm[Hg] 87 mm[Hg] [facility] & [place] 5 11:17:34 Date Recorded Body height Body mass index (BMI) Body weight Heart rate Heart rate Body temperature Oxygen saturation Oxygen saturation in Arterial blood by Pulse oximetry Systolic blood pressure Diastolic blood pressure Provider Name and Address Organization Details Last Updated DateTime 5 162.56 cm 36.3 kg/m2 57387.4 3 g 80 /min 74 /min 98.1 [degF] 97 % 97 % 147 mm[Hg] 62 mm[Hg] [facility] & [place] 5 13:50:09 Date Recorded Body height Body mass index (BMI) Body weight Body temperature Oxygen saturation Oxygen saturation in Arterial blood by Pulse oximetry Heart rate Systolic blood pressure Diastolic blood pressure Provider Name and Address Organization Details Last Updated DateTime 5 162.56 cm 35.6 kg/m2 39697.4 2 g 98.6 [degF] 97 % 97 % 85 /min 130 mm[Hg] 85 mm[Hg] [facility] [place] 5 14:50:52 Date Recorded Body weight Body mass index (BMI) Body height Body temperature Oxygen saturation Oxygen saturation in Arterial blood by Pulse oximetry Heart rate Heart rate Systolic blood pressure Diastolic blood pressure Provider Name and Address Organization Details Last Updated DateTime 4 765404. 27 g 38 kg/m2 162.56 cm 98.2 [degF] 97 % 97 % 92 /min 82 /min 141 mm[Hg] 106 mm[Hg] [facility] [place] 13:25:02 Date Recorded Body height Body mass index (BMI) Body weight Body temperature Oxygen saturation Oxygen saturation in Arterial blood by Pulse oximetry Heart rate Heart rate Systolic blood pressure Diastolic blood pressure Provider Name and Address Organization Details Last Updated DateTime 4 162.56 cm 37.5 kg/m2 71049.6 5 g 97.9 [degF] 98 % 98 % 79 /min 71 /min 162 mm[Hg] 92 mm[Hg] [facility] & [place] 13:40:14 Social History Question Answer Notes LastModified by [facility] Details LastModified Time Tobacco Smoking Status Current Every Day Smoker Susan Koromammett [facility] & [place] 09/28/2024 14:36:14 Do You Have An Advance [...] Functional Status Question Answer Note LastModified by [employer] Details LastModified Time Do you use [...] anxious, or unable to sleep at night)? [id number] Information not available 09/28/2024 Family History Relationship [...] available 02/07/2024 13:44:43 Medical History Condition Response Thyroid Problems Y GI Problems Y Obstructive Sleep Apnea Y Anxiety Disorder Y Obesity Y Vision or Eye Problems Y Eczema Y Substance Abuse Y High Cholesterol Y Liver Disease Y Headaches Y Hypertension Y Gynecological History Statement/Question Response [...] quadrivalent, PF 03/31/2021 completed Susan Ellington null, [place] [facility] [place] & [place] 09/28/2024 14:35:28 MMR 01/21/1996 completed Susan Ell[place] null[place] [facility] [place] & [place] 09/28/2024 14:35:28 COVID-19, mRNA, LNP-S, PF, 30 mcg/0.3 mL dose, delroy-sucrose 08/17/2021 completed Susan [place] [facility] [place] 09/28/2024 14:35:28 COVID-19, mRNA, LNP-S, PF, 30 mcg/0.3 mL dose, delroy-sucrose 09/11/2021 completed Susan Ell[place] null[place] [facility] [place] & [place] 09/28/2024 14:35:28 Tdap 09/06/2005 completed [place] Ell[place] [facility] [place] 09/28/2024 14:35:28 Tdap 12/18/2015 completed [place] [facility] [place] 09/28/2024 14:35:28 Tdap 01/21/2020 completed [place] [facility] [place] 09/28/2024 14:35:28 polio, unspecified formulation 01/16/1990 completed [place] [facility] [place] 09/28/2024 14:35:28 Hep B, adult 09/08/2020 completed [place] [facility] [place] 09/28/2024 14:35:28 Hep B, adult 01/21/2020 completed [place] [facility] [place] 09/28/2024 14:35:28 Hep B, adult 03/07/2020 completed [place] [facility] [place] 09/28/2024 14:35:28 DTaP, unspecified formulation 01/16/1990 completed [place] [facility] [place] 09/28/2024 14:35:28 Influenza, split virus, quadrivalent, PF 03/19/2020 completed [place] [facility] [place] 09/28/2024 14:35:28 Influenza, split virus, quadrivalent, PF 05/15/2023 completed [place] null[place] [facility] [place] 09/28/2024 14:35:28 Past Encounters Encounter ID Performer Location Encounter Start Date Encounter Closed Date Diagnosis/Indication Diagnosis SNOMED-CT Code Diagnosis ICD10 Code Diagnosis Note [id number] JOYA SPENCE NP [facility] [address] [place] [address] 02/10/2024 13:16:42 02/10/2024 14:24:34 Chronic idiopathic constipation 86978111 K59.04 Recommend Linzess as prescribed for management of constipati on.Colonos copy recommende d for evaluation of CIC, family history colon polyps, blood and mucous per rectum, abdominal pain and bloating. Abdominal pain 71071814 R10.9 Abdominal bloating 00866 9008 R14.0 Dysphagia 49795297 R13.1 0 EGD recommende d for evaluation of dysphagia, possible dilation. Evaluate abdominal pain and bloating as well. Gilbert's syndrome 63782 000 E80.4 Suspect Gilbert's syndrome based on fractionat ed bilirubin findings and normal LFT.Writte n education provided.N o specific therapy is required. Steatotic liver disease 190108335 K76.0 FIB 4 estimates F0-F1.Weig ht loss with a hypocalori c diet alone or in conjunctio n with physical activity has been shown to improve steatosis. Declined dietitian referral. [id number] JOYA SPENCE NP [facility] [address] [place] [address] 03/31/2024 13:26:18 03/31/2024 14:31:16 Gastroesophageal reflux disease without esophagitis 654550672 K21.9 Mild, chronic gastritis found on recent EGD.Contin ue omeprazole as prescribed . Avoid NSAIDs and alcohol. Chronic id iopathic constipation 50787447 K59.04 Continue Linzess as prescribed . Abdominal pain and bloating have improved. Abdominal pain 71923311 R10.9 Abdominal bloating 68419 9008 R14.0 Discussed breath test to rule out CSID. She has had improvemen t in bloating with the use of Linzess and dietary modificati on. We will wait on further testing and reassess at follow up. Dysphagia 51986608 R13.1 0 Some improvemen t with dilation. Discussed barium swallow vs manometry. She does not feel further work up is necessary at this time and will contact me if symptoms worsen. Gilbert's syndrome 83839 000 E80.4 Suspect Gilbert's syndrome based on fractionat ed bilirubin findings and normal LFT.Writte n education provided.N o specific therapy is required. Steatotic liver disease K76.0 FIB 4 estimates F0-F1.Weig ht loss with a hypocalori c diet alone or in conjunctio n with physical activity has been shown to improve steatosis. Declined dietitian referral. [id number] JOYA SPENCE NP [facility] [address] [place] [address] 08/21/2024 11:09:00 08/21/2024 12:22:29 Gastroesophageal reflux disease without esophagitis 199913107 K21.9 Mild, chronic gastritis found on EGD.She uses PPI prn. Avoid NSAIDs and alcohol. Chronic id iopathic constipation 14141175 K59.04 Continue Linzess as prescribed . Abdominal pain and bloating have improved. Abdominal pain 33877998 R10.9 Improving. Dysphagia 25817709 R13.1 0 Some improvemen t with dilation. Discussed barium swallow vs manometry. She does not feel further work up is necessary and will contact me if symptoms worsen. Gilbert's syndrome 93212 000 E80.4 Evidence of Gilbert's syndrome based on fractionat ed bilirubin findings and normal LFT.Writte n education provided.N o specific therapy is required. Steatotic liver disease K76.0 Denies alcohol use.FIB 4 estimated F0-F1.Weig ht loss with a hypocalori c diet alone or in conjunctio n with physical activity has been shown to improve steatosis. Updated labs recommende d. She would like to have labs drawn at [facility] when fasting. Orders printed and provided. [id number] JOYA SPENCE NP [facility] [address] [place] [address] 09/28/2024 13:41:26 09/28/2024 14:49:11 Chronic idiopathic constipation 43622715 K59.04 Decrease Linzess dose to 72 mcg. Advised to take this daily as prescribed . In addition to oral iron she can use a stool softener or Miralax PRN. Hepatosplenomegaly 58729 000 R16.2 Patient reported this finding on imaging at [facility].N YUNIOR fibrosure estimates FO, <5% steatosis, and no WEST. LFT, PT/INR normal.Amando l obtain additional labs for work up. [facility]. Gastroesop hageal reflux disease without esophagitis 201936606 K21.9 Continue PPI daily.Avoi d NSAIDs and alcohol. Gilbert's syndrome 88374 000 E80.4 Evidence of Gilbert's syndrome based on fractionat ed bilirubin findings and normal LFT.No specific therapy is required. Steatotic liver disease K76.0 Denies alcohol use.FIB 4 estimated F0-F1.Weig ht loss with a hypocalori c diet alone or in conjunctio n with physical activity has been shown to improve steatosis. Total cholestero l is elevated. She is not currently taking the statin due to muscle cramps. Advised she discuss this with her PCP. [id number] JOYA SPENCE NP [facility] [address] [address] 12/08/2024 14:42:53 12/08/2024 15:30:11 Gastroesophageal reflux disease without esophagitis [id number] K21.9 Continue PPI daily.Avoi d NSAIDs and alcohol. Chronic id iopathic constipation [id number] K59.04 Continue Magnesium nightly.Co ntinue dietary changes, increase water intake. Hepatosplenomegaly [phone] R16.2 Patient reported this finding on imaging at [facility] 03/2024.NA SH fibrosure estimates FO, <5% steatosis, and no WEST. LFT, PT/INR normal.Con nutrition helper repeat imaging and labs at follow up. Gilbert's syndrome [phone] E80.4 Evidence of Gilbert's syndrome based on fractionat ed bilirubin findings and normal LFT.No specific therapy is required. Steatotic liver disease [id number] K76.0 Denies alcohol use.FIB 4 estimated F0-F1.Weig [...] LastModified Time None Recorded Advance Directives Directive N: Payers Insurance Date Sequence Insurance Name Policy Number Policy Stephens Covered Member ID Stephens Member ID Guarantor Name 03/19/2024 1 [employer] (POS) Kristie Perez [id number] Kristie Ewalluis 03/19/2024 1 [employer] [place]MED[place]AC[place] - [place] Kristie Ewalt [id number] Kristie Ewalt 12/06/2024 1 [employer] [place] Kristie A Ewalt [id number] Kristie Ewalluis Notes Date Note Type Note Provider Name and Address Organization Details Recorded Time 02/10/2024 text/html Kristie Perez is a 38 yr old female here today by referral for fatty liver disease.Abdominal US completed 12/17/23 for evaluation of elevated bilirubin. Findings of fatty liver, otherwise normal. Fatty liver disease is not a new finding for her. She does express that it is concerning because her grandmother from liver cancer. Lab results from 12/04/2023 revealed AST 36, ALT 32, ALP 78, total bilirubin 1.7. Fractionated bilirubin on 12/12/2023 revealed normal direct, elevated indirect, elevated unconjugated, and normal total. She has noticed slight yellowing of her sclera in the past, and has been told she's had bilirubin in her urine. Her main complaint today is chronic abdominal pain and bloating. This has been ongoing since she had her daughter 8 years ago. She has identified certain foods that trigger pain, including eating out at restaurants. Pain did improve with weight loss, however it has recurred as she is now gaining weight. Earlier this year she was experiencing nausea and was vomiting bile. This has subsided. History of cholecystectomy 4 years ago. She complains of intermittent dysphagia with soft foods. She is taking Suboxone and reports constipation. Her bowels are moving daily, volume is small, stool is formed. She has noticed occasional bright red blood and mucus on toilet paper. She was on Linzess many years ago. Her father has a history of precancerous polyps. JOYA SPENCE, ASAF [address], [place], [address], [place] [facility] 02/11/2024 12:55:04 03/31/2024 text/html Jaleesa Perez is a 38-year-old female here today [...] hot or cold liquid. Carbonation also contributes. JOYA SPENCE, ASAF [address] [facility], [place], [address], [facility] 03/31/2024 16:01:18 08/21/2024 text/html PREVIOUS: Nikole Perez is a 38-year-old [...] hot or cold liquid. Carbonation also contributes. CURRENT: Kristie Perez is a 39-year-old female here today for follow-up.After our last visit in March 2024, she was seen at [facility] ED in April for dehydration. She reports CT scan was obtained which showed hepatosplenomegaly. I do not have access to the [...] occur occasionally. Generalized abdominal pain has improved. JOYA SPENCE, ASAF [address] , [place], [address], [facility] [place] & [place] 08/21/2024 14:35:57 09/28/2024 text/html PREVIOUS: Nikole Perez is a [...] in March 2024, she was seen at [facility] ED in April for dehydration. She reports CT scan was obtained which showed hepatosplenomegaly. I do not have access to the [...] not receive her most recent CT from [facility]. I will request records again today. Most recent LFT normal. No exposure to hepatitis. No alcohol use. In regard to constipation, she is using Linzess 145 mcg as needed. She states she recently was prescribed oral iron which exacerbated constipation. She recently restarted Omeprazole for GERD. JOYA SPENCE NP [address], [place], [address], [facility] & [place] 09/28/2024 20:58:28 12/08/2024 text/html PREVIOUS: Nikole Perez is a 39 yr old female here today for follow up.Today we discussed lab findings in depth. I did not receive her most recent CT from [facility]. I will request records again [...] stress level since our last visit. JOYA SPENCE NP [address], [place], [address], [facility] & [place] 12/08/2024 16:45:37 OBGyn Episode No OBEpisode recorded.
--- OUTSIDE RECORDS SUMMARY | 2024-12-11 13:50 | XMS_ITS | Data Portability ---
Author Organization [facility] Address [address] [facility] [facility] [address] [place] [address] Care Team Providers Care Analyst Business Analysis Name Role Phone JOVANNI SAMUEL Primary Care Provider [phone] Assessment Encounter Date Assessment Date Assessment LastModified by Organization Details LastModified Time 05/20/2024 05/20/2024 I am going to treat this patient empirically for urinary tract infection, I will follow-up with her in 2 months, sooner if needed. At this time we will discuss whether additional diagnostics are clinically appropriate. [email or web address] Not available 05/20/2024 16:47:25 06/05/2024 06/05/2024 Given [...] back in 2 months, sooner if needed. [email or web address] Not available 06/05/2024 11:20:02 09/17/2024 09/17/2024 Continue current conservative measures of properly hydrating and regularly having bowel movements. No additional medical or procedural therapy indicated at this time. We will follow up in 6 months to reassess her symptom burden, sooner if needed. [email or web address] Not available 09/17/2024 15:36:06 Plan of Treatment Reminders Order Date Submit Date Provider Last Modified By Organization Details Last Modified Time Details Appointments RECHECK 2024 01:30P Karen BROWN MD Not available Not available Not available Lab urinalysi s panel, auto 2024 025 [email or web address] 4 [facility], [address] [place] [address] [address], [place], [address], 09/17/2024 15:36:14 urinalysi s panel, auto 2023 024 [email or web address] 4 [facility], [address], [address], [place], [address], 06/06/2024 00:04:18 BMP, serum or plasma 2023 024 4 [facility], [address] [place] [address], [phone], 06/06/2024 00:04:18 CBC w/ auto diff 2023 024 [email or web address] 4 [facility], [address] [place] [address], [phone], 06/06/2024 00:04:18 urinalysi s panel, auto 2023 024 [email or web address] 4 [facility], [address], [address], [place], [address], 05/27/2024 13:16:43 culture, urine 2023 024 [email or web address] 4 [facility], [address] [place] [address], [address], 05/27/2024 13:16:43 Referral None recorded. Procedures None recorded. Surgeries None recorded. Imaging US, retroperi toneum, limited 2023 024 [email or web address] 4 [facility], [address] [place], [address], 06/06/2024 00:04:18 Medication Orders Pyridium 200 mg tablet 2023 025 [facility], [address] [place] [address], [id number], 09/17/2024 15:11:36 ciproflox acin 500 mg tablet 2023 025 [facility], [address] [place] [address], [id number], 09/17/2024 15:11:38 fluconazo le 150 mg tablet 2023 025 [facility], [address] [place] [address], [id number], 09/17/2024 15:11:37 Patient TargetsNo targets recorded. Patient InstructionsNo instructions recorded. Reason for Referral None Reported. Results Created Date Observation Date Name Description Value Unit Range Abnormal Flag Note LastModifiedBy Organization Detail LastModifiedTime 05/20/2005/22/2024 URINE CULTU RE urine culture COLON Y COUNT : 10,00 0 - 100,0 00 CFU/M L Three or more isola chuck; mixed uroge nital christiano . Not Available [facility] [address] [place], [address], 05/22/2024 10:59:15 05/20/2005/20/2024 urina lysis panel , auto Unknown Analyte Clean Catch Not Available [facility] [address] [facility] [address], [place], [address], 05/20/2024 13:22:23 05/20/2005/20/2024 urina lysis panel , auto Unknown Analyte Yellow Not Available [facility] [address], [place], [address], 05/20/2024 13:22:23 05/20/20 24 05/20/2024 urina lysis panel , auto Unknown Analyte Clear Not Available [facility] [address], [place], [address], 05/20/2024 13:22:23 05/20/2005/20/2024 urina lysis panel , auto Unknown Analyte 1.005 Not Available [facility] [address], [place], [address], 05/20/2024 13:22:23 05/20/20 24 05/20/2024 urina lysis panel , auto Unknown Analyte 1.003- 1.035 Not Available [facility] [address], [place], [address], 05/20/2024 13:22:23 05/20/20 24 05/20/2024 urina lysis panel , auto Unknown Analyte 6.0 Not Available [facility] [address], [place], [address], 05/20/2024 13:22:23 05/20/20 24 05/20/2024 urina lysis panel , auto Unknown Analyte 5.0-8. 0 Not Available [facility] [address], [place], [address], 05/20/2024 13:22:23 05/20/20 24 05/20/2024 urina lysis panel , auto Unknown Analyte Negati ve Not Available [facility] [address], [place], [address], 05/20/2024 13:22:23 05/20/20 24 05/20/2024 urina lysis panel , auto Unknown Analyte Negati ve Not Available [facility] [address], [place], [address], 05/20/2024 13:22:23 05/20/2005/20/2024 urina lysis panel , auto Unknown Analyte Negati ve Not Available [facility] [address], [place], [address], 05/20/2024 13:22:23 05/20/20 24 05/20/2024 urina lysis panel , auto Unknown Analyte Negati ve Not Available [facility] [address], [place], [address], 05/20/2024 13:22:23 05/20/20 24 05/20/2024 urina lysis panel , auto Unknown Analyte Negati ve Not Available [facility] [address], [place], [address], 05/20/2024 13:22:23 05/20/20 24 05/20/2024 urina lysis panel , auto Unknown Analyte Negati ve Not Available [facility] [address], [place], [address], 05/20/2024 13:22:23 05/20/20 24 05/20/2024 urina lysis panel , auto Unknown Analyte Normal Not Available [facility] [address], [place], [address], 05/20/2024 13:22:23 05/20/20 24 05/20/2024 urina lysis panel , auto Unknown Analyte Normal Not Available [facility] [address], [place], [address], 05/20/2024 13:22:23 05/20/20 24 05/20/2024 urina lysis panel , auto Unknown Analyte Negati ve Not Available [facility] [address], [place], [address], 05/20/2024 13:22:23 05/20/20 24 05/20/2024 urina lysis panel , auto Unknown Analyte Negati ve Not Available [facility] [address], [place], [address], 05/20/2024 13:22:23 05/20/20 24 05/20/2024 urina lysis panel , auto Unknown Analyte Normal Not Available [facility] [address], [place], [address], 05/20/2024 13:22:23 05/20/20 24 05/20/2024 urina lysis panel , auto Unknown Analyte Normal 1 mg/dl Not Available [facility] [address], [place], [address], 05/20/2024 13:22:23 05/20/20 24 05/20/2024 urina lysis panel , auto Unknown Analyte Negati ve Not Available [facility] [address], [place], [address], 05/20/2024 13:22:23 05/20/20 24 05/20/2024 urina lysis panel , auto Unknown Analyte Negati ve Not Available [facility] [address], [place], [address], 05/20/2024 13:22:23 05/20/20 24 05/20/2024 urina lysis panel , auto Unknown Analyte Trace Not Available [facility] [address], [place], [address], 05/20/2024 13:22:23 05/20/20 24 05/20/2024 urina lysis panel , auto Unknown Analyte Negati ve Not Available [facility] [address], [place], [address], 05/20/2024 13:22:23 06/05/20 24 06/05/2024 COMPL ETE BLOOD COUNT white blood cells 9.3 10*3/ uL 3.8-10 .8 normal Not Available [facility] [address] [place] [address], [address], 06/05/2024 14:41:56 06/05/20 24 06/05/2024 COMPL ETE BLOOD COUNT red blood cells 5.22 10*6/ uL 3.80-5 .20 high Not Available [facility] [address] [place], [address], 06/05/2024 14:41:56 06/05/20 24 06/05/2024 COMPL ETE BLOOD COUNT hemoglobin 14.1 g/dL 12.0-1 6.0 normal Not Available [facility] [address] [place], [address], 06/05/2024 14:41:56 06/05/20 24 06/05/2024 COMPL ETE BLOOD COUNT hematocrit 42.2 % 35.0-4 7.0 normal Not Available [facility] [address] [place] [address], [address], 06/05/2024 14:41:56 06/05/20 24 06/05/2024 COMPL ETE BLOOD COUNT MCV 81 fL 80-100 normal Not Available [facility] [address] [place] [address], [address], 06/05/2024 14:41:56 06/05/20 24 06/05/2024 COMPL ETE BLOOD COUNT MCH 27 pg 26-35 normal Not Available [facility] [address] [place] [address], [address], 06/05/2024 14:41:56 06/05/20 24 06/05/2024 COMPL ETE BLOOD COUNT MCHC 34 g/dL 32-36 normal Not Available [facility] [address] [place] [address], [address], 06/05/2024 14:41:56 06/05/20 24 06/05/2024 COMPL ETE BLOOD COUNT RDW 14.5 % 11.0-1 5.0 normal Not Available [facility] [address] [place] [address], [address], 06/05/2024 14:41:56 06/05/20 24 06/05/2024 COMPL ETE BLOOD COUNT MPV 10.8 fL 6.2-10 .5 high Not Available [facility] [address] [place] [address], [address], 06/05/2024 14:41:56 06/05/20 24 06/05/2024 COMPL ETE BLOOD COUNT platelet count 273 10*3/ uL 150-40 0 normal Not Available [facility] [address] [place] [address], [address], 06/05/2024 14:41:56 06/05/20 24 06/05/2024 COMPL ETE BLOOD COUNT neutrophil,a bsolute 6.1 10*3/ uL 1.6-8. 4 normal Not Available [facility] [address] [place] [address], [address], 06/05/2024 14:41:56 06/05/20 24 06/05/2024 COMPL ETE BLOOD COUNT lymphocyte,a bsolute 2.2 10*3/ uL 0.4-5. 1 normal Not Available [facility] [address] [place] [address], [address], 06/05/2024 14:41:56 06/05/20 24 06/05/2024 COMPL ETE BLOOD COUNT monocyte,abs olute 0.3 10*3/ uL 0.0-1. 2 normal Not Available [facility] [address] [place] [address], [address], 06/05/2024 14:41:56 06/05/20 24 06/05/2024 COMPL ETE BLOOD COUNT eosinophil,a bsolute 0.6 10*3/ uL 0.0-0. 8 normal Not Available [facility] [address] [place] [address], [address], 06/05/2024 14:41:56 06/05/20 24 06/05/2024 COMPL ETE BLOOD COUNT basophil,abs olute 0.1 10*3/ uL 0.0-0. 3 normal Not Available [facility] [address] [place] [address], [address], 06/05/2024 14:41:56 06/05/20 24 06/05/2024 COMPL ETE BLOOD COUNT % neutrophils 65.4 % 42.0-7 8.0 normal Not Available [facility] [address] [place] [address], [address], 06/05/2024 14:41:56 06/05/20 24 06/05/2024 COMPL ETE BLOOD COUNT % lymphocytes 24.2 % 11.0-4 7.0 normal Not Available [facility] [address] [place] [address], [address], 06/05/2024 14:41:56 06/05/20 24 06/05/2024 COMPL ETE BLOOD COUNT % monocytes 3.6 % 0.0-11 .0 normal Not Available [facility] [address] [place] [address], [address], 06/05/2024 14:41:56 06/05/20 24 06/05/2024 COMPL ETE BLOOD COUNT % eosinophils 6.0 % 0.0-7. 0 normal Not Available [facility] [address] [place] [address], [address], 06/05/2024 14:41:56 06/05/20 24 06/05/2024 COMPL ETE BLOOD COUNT % basophils 0.8 % 0.0-3. 0 normal Not Available [facility] [address] [place] [address], [address], 06/05/2024 14:41:56 06/05/20 24 06/05/2024 COMPL ETE BLOOD COUNT nucleated red cells 0.2 % 0.0-0. 9 normal Not Available [facility] [address] [place] [address], [address], 06/05/2024 14:41:56 06/05/20 24 06/05/2024 COMPL ETE BLOOD COUNT nucleated RBCs, absolute 0.02 10*3/ uL not estab. normal Not Available [facility] [address] [place] [address], [address], 06/05/2024 14:41:56 06/05/20 24 06/05/2024 BASIC METAB OLIC PANEL glucose 107 mg/dL 74-100 high Not Available [facility] [address] [place] [address], [address], 06/05/2024 16:06:22 06/05/20 24 06/05/2024 BASIC METAB OLIC PANEL blood urea nitrogen 13 mg/dL 6-20 normal Not Available [facility] [address] [place] [address], [address], 06/05/2024 16:06:22 06/05/20 24 06/05/2024 BASIC METAB OLIC PANEL creatinine 0.78 mg/dL 0.50-0 .95 normal Not Available [facility] [address] [place] [address], [address], 06/05/2024 16:06:22 06/05/20 24 06/05/2024 BASIC METAB OLIC PANEL BUN/creatini ne ratio 17 (calc ) 10-20 normal Not Available [facility] [address] [place] [address], [address], 06/05/2024 16:06:22 06/05/20 24 06/05/2024 BASIC METAB OLIC PANEL sodium 140 mmol/ L 136-14 5 normal Not Available [facility] [address] [place] [address], [address], 06/05/2024 16:06:22 06/05/20 24 06/05/2024 BASIC METAB OLIC PANEL potassium 4.2 mmol/ L 3.4-5. 0 normal Not Available [facility] [address] [place] [address], [address], 06/05/2024 16:06:22 06/05/20 24 06/05/2024 BASIC METAB OLIC PANEL chloride 102 mmol/ L 98-107 normal Not Available [facility] [address] [place] [address], [address], 06/05/2024 16:06:22 06/05/20 24 06/05/2024 BASIC METAB OLIC PANEL carbon dioxide 26 mmol/ L 22-31 normal Not Available [facility] [address] [place] [address], [address], 06/05/2024 16:06:22 06/05/20 24 06/05/2024 BASIC METAB OLIC PANEL anion gap 12 (calc ) 7-25 normal Not Available [facility] [address] [place] [address], [address], 06/05/2024 16:06:22 06/05/20 24 06/05/2024 BASIC METAB OLIC PANEL calcium 10.0 mg/dL 8.6-10 .2 normal Not Available [facility] [address] [place], [address], 06/05/2024 16:06:22 06/05/20 24 06/05/2024 BASIC METAB OLIC PANEL GFR 98 >= 60 normal NOT E New calcu latio n for GFR (CKD- EPI 2020) is formu lated witho ut race adjus [facility] facto rs at [facility] t[facility] of the [facility] atnivia and [facility] ty of Nephr ology . This calcu latio n has not been valid ated in pregn ant women . For pedia tric patie nts refer to [email or web address] :[email or web address] [email or web address] [email or web address] rg/pr josiess ional s/KDO QI/gf r_cal culat orPed Not Available [facility] [address] [place] [address], [address], 06/05/2024 16:06:22 06/05/20 24 06/05/2024 urina lysis panel , auto Unknown Analyte Clean Catch Not Available [facility] [address], [place], [address], 06/05/2024 10:33:26 06/05/20 24 06/05/2024 urina lysis panel , auto Unknown Analyte Yellow Not Available [facility] [address] [place] [address] [address], [place], [address], 06/05/2024 10:33:26 06/05/20 24 06/05/2024 urina lysis panel , auto Unknown Analyte Clear Not Available [facility] [address], [place], [address], 06/05/2024 10:33:26 06/05/20 24 06/05/2024 urina lysis panel , auto Unknown Analyte 1.000 Not Available [facility] [address], [place], [address], 06/05/2024 10:33:26 06/05/20 24 06/05/2024 urina lysis panel , auto Unknown Analyte 1.003- 1.035 Not Available [facility] [address], [place], [address], 06/05/2024 10:33:26 06/05/20 24 06/05/2024 urina lysis panel , auto Unknown Analyte 6.0 Not Available [facility] [address], [place], [address], 06/05/2024 10:33:26 06/05/20 24 06/05/2024 urina lysis panel , auto Unknown Analyte 5.0-8. 0 Not Available [facility] [address], [place], [address], 06/05/2024 10:33:26 06/05/20 24 06/05/2024 urina lysis panel , auto Unknown Analyte Negati ve Not Available [facility] [address], [place], [address], 06/05/2024 10:33:26 06/05/20 24 06/05/2024 urina lysis panel , auto Unknown Analyte Negati ve Not Available [facility] [address], [place], [address], 06/05/2024 10:33:26 06/05/20 24 06/05/2024 urina lysis panel , auto Unknown Analyte Negati ve Not Available [facility] [address], [place], [address], 06/05/2024 10:33:26 06/05/20 24 06/05/2024 urina lysis panel , auto Unknown Analyte Negati ve Not Available [facility] [address], [place], [address], 06/05/2024 10:33:26 06/05/20 24 06/05/2024 urina lysis panel , auto Unknown Analyte Negati ve Not Available [facility] [address], [place], [address], 06/05/2024 10:33:26 06/05/20 24 06/05/2024 urina lysis panel , auto Unknown Analyte Negati ve Not Available [facility] [address], [place], [address], 06/05/2024 10:33:26 06/05/20 24 06/05/2024 urina lysis panel , auto Unknown Analyte Normal Not Available [facility] [address], [place], [address], 06/05/2024 10:33:26 06/05/20 24 06/05/2024 urina lysis panel , auto Unknown Analyte Normal Not Available [facility] [address], [place], [address], 06/05/2024 10:33:26 06/05/20 24 06/05/2024 urina lysis panel , auto Unknown Analyte Negati ve Not Available [facility] [address], [place], [address], 06/05/2024 10:33:26 06/05/20 24 06/05/2024 urina lysis panel , auto Unknown Analyte Negati ve Not Available [facility] [address], [place], [address], 06/05/2024 10:33:26 06/05/20 24 06/05/2024 urina lysis panel , auto Unknown Analyte Normal Not Available [facility] [address], [place], [address], 06/05/2024 10:33:26 06/05/20 24 06/05/2024 urina lysis panel , auto Unknown Analyte Normal 1 mg/dl Not Available [facility] [address], [place], [address], 06/05/2024 10:33:26 06/05/20 24 06/05/2024 urina lysis panel , auto Unknown Analyte Negati ve Not Available [facility] [address], [place], [address], 06/05/2024 10:33:26 06/05/20 24 06/05/2024 urina lysis panel , auto Unknown Analyte Negati ve Not Available [facility] [address], [place], [address], 06/05/2024 10:33:26 06/05/20 24 06/05/2024 urina lysis panel , auto Unknown Analyte Negati ve Not Available [facility] [address], [place], [address], 06/05/2024 10:33:26 06/05/20 24 06/05/2024 urina lysis panel , auto Unknown Analyte Negati ve Not Available [facility] [address], [place], [address], 06/05/2024 10:33:26 09/18/19 25 09/17/2024 urina lysis panel , auto Unknown Analyte Clean Catch Not Available [facility] [place] [facility] [address], [place], [address], 09/17/2024 14:57:01 09/18/19 25 09/17/2024 urina lysis panel , auto Unknown Analyte Yellow Not Available [facility] With [address] [place], [address], 09/17/2024 14:57:01 09/18/19 25 09/17/2024 urina lysis panel , auto Unknown Analyte Clear Not Available [facility] [place] [facility] [address], [place], [address], 09/17/2024 14:57:01 09/18/19 25 09/17/2024 urina lysis panel , auto Unknown Analyte 1.015 Not Available [facility] With [address] [place], [address], 09/17/2024 14:57:01 09/18/19 25 09/17/2024 urina lysis panel , auto Unknown Analyte 1.003 - 1.030 Not Available [facility] With [address], [place], [address], 09/17/2024 14:57:01 09/18/19 25 09/17/2024 urina lysis panel , auto Unknown Analyte 5.0 Not Available [facility] With [address], [place], [address], 09/17/2024 14:57:01 09/18/19 25 09/17/2024 urina lysis panel , auto Unknown Analyte 5.0 - 8.0 Not Available [facility] With [address] [place], [address], 09/17/2024 14:57:01 09/18/19 25 09/17/2024 urina lysis panel , auto Unknown Analyte Negati ve Not Available [facility] With [address], [place], [address], 09/17/2024 14:57:01 09/18/19 25 09/17/2024 urina lysis panel , auto Unknown Analyte Negati ve Not Available [facility] With [address], [place], [address], 09/17/2024 14:57:01 09/18/19 25 09/17/2024 urina lysis panel , auto Unknown Analyte Negati ve Not Available [facility] With [address], [place], [address], 09/17/2024 14:57:01 09/18/19 25 09/17/2024 urina lysis panel , auto Unknown Analyte Negati ve Not Available [facility] With [address] [place], [address], 09/17/2024 14:57:01 09/18/19 25 09/17/2024 urina lysis panel , auto Unknown Analyte Negati ve Not Available [facility] With [address] [place], [address], 09/17/2024 14:57:01 09/18/19 25 09/17/2024 urina lysis panel , auto Unknown Analyte Negati ve Not Available [facility] With [address] [place], [address], 09/17/2024 14:57:01 09/18/19 25 09/17/2024 urina lysis panel , auto Unknown Analyte Normal Not Available [facility] With [address] [place], [address], 09/17/2024 14:57:01 09/18/19 25 09/17/2024 urina lysis panel , auto Unknown Analyte Normal Not Available [facility] With [address] [place], [address], 09/17/2024 14:57:01 09/18/19 25 09/17/2024 urina lysis panel , auto Unknown Analyte Negati ve Not Available [facility] Extended [facility] With [address] [place], [address], 09/17/2024 14:57:01 09/18/19 25 09/17/2024 urina lysis panel , auto Unknown Analyte Negati ve Not Available [facility] With [address] [place], [address], 09/17/2024 14:57:01 09/18/19 25 09/17/2024 urina lysis panel , auto Unknown Analyte Normal Not Available [facility] With [address], [place], [address], 09/17/2024 14:57:01 09/18/19 25 09/17/2024 urina lysis panel , auto Unknown Analyte Normal Not Available [facility] With [address], [place], [address], 09/17/2024 14:57:01 09/18/19 25 09/17/2024 urina lysis panel , auto Unknown Analyte Negati ve Not Available [facility] With [address] [place], [address], 09/17/2024 14:57:01 09/18/19 25 09/17/2024 urina lysis panel , auto Unknown Analyte Negati ve Not Available [facility] With [address], [place], [address], 09/17/2024 14:57:01 09/18/19 25 09/17/2024 urina lysis panel , auto Unknown Analyte 50 Tristan/uL Not Available [facility] With [address], [place], [address], 09/17/2024 14:57:01 09/18/19 25 09/17/2024 urina lysis panel , auto Unknown Analyte Negati ve Not Available [facility] Extended [facility] With [address], [place], [address], 09/17/2024 14:57:01 05/20/20 24 05/16/2024 CT, abdom en + pelvi s, w/wo contr ast No observ ation record ed. [email or web address] [facility] (Radiology) [address], [place], [address], 06/30/2024 12:07:58 06/05/20 24 06/05/2024 US, retro perit oneum , limit ed [place] [address] [address] [place] Name: CONCETTA smith : [phone] Orderi ng Provid er: MADISON [...] Nielson MD Electr onical ly Signed By: dAolfo Nielson MD on 2023 1:54 PM [email or web address] [facility] [address] [place] [address], [address], 06/08/2024 10:26:48 Result Notes None recorded. Problems Name Problem SNOMED Code Status Onset Date Resolution Date Notes Provider Name and Address Organization Details Recorded Time Recurrent urinary tract infection 890557475 Active 025 MADISON LUCIA PA-C [facility] [place], [address], [facility] 5 15:36:08 Incomplete emptying of urinary bladder 793763524 Active 025 MADISON LUCIA PA-C [facility] [place], [address], [facility] 5 15:36:10 Problem Notes None recorded. Procedures Surgical History Date Name Laterality Status Provider Name and Address Organization Details Recorded Time 06/05/20 24 Post Void Residual; Ultrasound completed Elena Vargas [facility] 06/05/2024 10:50:28 [facility] 13:30:40 Tonsillectomy completed Elena [facility] 05/20/2024 13:30:48 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24 13:30:58 Imaging Results None recorded. Procedure Notes None recorded. Medical Equipment None Reported. Allergies Allergen ID Allergen Name Allergen Category Reaction Reaction Severity Criticality Documentation Date Start Date Code Code System Note Provider Name and Address Organization Details Recorded Time 016514 Viibryd medicatio n Not available Not available Not available 05/20/2024 93163 [id number] [facility] 13:29:02 Medications Name Sig Start Date Stop Date Status Note LastModified by Organization Details LastModified Time buspirone 5 mg tablet TAKE ONE TABLET BY MOUTH 2 TIMES A DAY active Not Available Not Available No t Available oxcarbazepi ne 150 mg tablet TAKE 1 TABLET BY MOUTH EVERY DAY FOR 3 DAYS THEN INCREASE TO 1 TABLET TWICE DAILY active Not Available Not Available No t Available cetirizine 10 mg tablet TAKE ONE TABLET BY MOUTH DAILY NEEDED FOR ALLERGYS active Not Available Not Available No t Available fluconazole 150 mg tablet Take on the [...] completed Not Available Not Available Not Available bisoprolol fumarate 5 mg tablet TAKE ONE TABLET BY MOUTH ONCE A DAY active Not Available Not Available No t Available buspirone 10 mg tablet TAKE 1 TABLET BY MOUTH THREE TIMES DAILY active Not Available Not Available No t Available dorzolamide 22.3 mg-timolol 6.8 mg/mL eye drops INSTILL 1 DROP INTO BOTH EYES 2 TIMES A DAY active Not Available Not Available No t Available lisinopril 5 mg tablet TAKE ONE TABLET BY MOUTH ONCE A DAY active Not Available Not Available No t Available fluticasone propionate 50 mcg/actuati on nasal spray,suspe nsion INSTILL 1 SPRAY INTO EACH NOSTRIL ONCE A DAY NEEDED FOR ALLERGY SYMPTOMS active Not Available Not Available No t Available Synthroid 137 mcg tablet TAKE ONE TABLET BY MOUTH ONCE A DAY active Not Available Not Available No t Available magnesium active Not Available Not Cheli [...] Not Available Not Avai lable Not Available buprenorphi ne 2 mg-naloxone 0.5 mg sublingual film DISSOLVE 3/4 film UNDER THE TONGUE ONCE A DAY active Not Available Not Available No t Available Linzess 72 mcg capsule TAKE 1 CAPSULE BY MOUTH EVERY MORNING FOR CONSTIPAT ION active Not Available Not Available No t Available Vyzulta 0.024 % eye drops INSTILL 1 DROP INTO BOTH EYES AT BEDTIME active Not Available Not Available No t Available Rocklatan 09/17 completed Not Available Not Available Not Available Ubrelvy 100 mg tablet TAKE ONE TABLET BY MOUTH ONCE AT ONSET OF MIGRAINE active Not Available Not Available No t Available Vitals Date Recorded Body height Body mass index (BMI) Body weight Provider Name and Address Organization Details Last Updated DateTime 09/17/2024 162.56 cm 35.9 kg/m2 77730.81 g Albalamandeep Tino [facility] 09/17/2024 14:51:00 Date Recorded Body height Body mass index (BMI) Body weight Provider Name and Address Organization Details Last Updated DateTime 05/20/2024 162.56 cm 37.2 kg/m2 54153.54 g [facility] 05/20/2024 13:28:40 Date Recorded Body height Body mass index (BMI) Body weight Provider Name and Address Organization Details Last Updated DateTime 06/05/2024 162.56 cm 37.2 kg/m2 72876.54 g [facility] 06/05/2024 10:49:51 Social History Question Answer Notes LastModified by Organizat ion Details LastModified Time Tobacco Smoking Status Current Every Day Smoker Not Available [employer] 05/20/2024 13:14:33 What Was The Date Of [...] SNOMED-CT Code Diagnosis ICD10 Code Diagnosis Note [id number] MAK AIKEN CUA, [facility] [address] [place] [address] 05/20/2024 12:58:28 05/20/2024 14:08:35 Acute urinary tract infection 110412448 N39.0 [id number] MAK AIKEN CUA, [facility] [address] [place] [address] 06/05/2024 10:17:13 06/05/2024 11:08:18 Flank pain 713495861 R10.9 Dysuria 98331183 R30.0 Recurrent urinary tract infection 884659108 N39.0 Incomplete emptying of urinary bladder 493683921 R39.14 [id number] MAK AIKEN CUA [facility] [address] [place] [address],[place] [address] 09/17/2024 14:08:18 09/18/2024 04:27:22 Recurrent urinary tract infection 014659884 N39.0 Incomplete emptying of urinary bladder 435226334 R39.14 Health Concerns Section Related Observation LastModified by Organization Detai ls LastModified Time None Recorded Concern Status LastModified by Organization Details LastModified Time None Recorded Advance Directives Directive None Recorded Payers Insurance Date Sequence Insurance Name Policy Number Policy Stephens Covered Member ID Stephens Member ID Guarantor Name 11/02/2024 1 [facility] (MEDICAID REPLACEMENT - HMO) Kristie A Ewalt [id number] Kristie A Ewalt 06/08/2024 1 [employer] Kristie A Ewalt [id number] Kristie A Ewalt Notes Date Note Type Note Provider Name and Address Organization Details Recorded Time 05/20/2024 text/html Patient is a pleasant 38-year-old female who presents today for my initial evaluation of bilateral flank pain. She reports that her pain initially started on 05/16/2024 for which she was seen at the [facility] emergency department.At her visit to the [...] denies history of urolithiasis. MADISON LUCIA PA-C [facility] [place], [address], [facility] 05/20/2024 16:48:14 06/05/2024 text/html Patient is a pleasant 38-year-old female who presents today for worsening bilateral flank pain. She reports that her pain initially started on 05/16/2024 for which she was seen at the [facility] emergency department. At her visit to [...] office PVR of 197mL. MADISON LUCIA PA-C [facility] [place], [address], [facility] 06/05/2024 11:20:55 09/17/2024 text/html Patient is a pleasant 38-year-old female who presents today for follow up of bilateral flank pain and urinary retention. She has history of recurrent urinary tract infection presumably due to not drinking enough water. 05/16/2024 she was seen at [facility] ER for bilateral flank pain (L>R), [...] Urinalysis unremarkable today. MADISON LUCIA PA-C [address] [place], [address], [place] [facility] 09/17/2024 15:36:50 OBGyn Episode No OBEpisode recorded.
--- NOTE | 2024-12-11 14:15 | CT_ITS ---
FINAL REPORT TECHNIQUE: Thin section axial images were obtained through the paranasal sinuses without contrast. Reconstruction images were obtained from the axial data. Exam was performed using dose reduction techniques such as automated exposure control, adjustment of the mA and kV according to patient size, and use of iterative reconstruction technique. CLINICAL HISTORY: chronic sinusitis COMPARISON: 11/01/2022 FINDINGS: There is a small mucous retention cyst or polyp in the floor of the left maxillary sinus. The paranasal sinuses are otherwise clear. No air-fluid levels are identified. The maxillary infundibulum are patent bilaterally. There is left nasal septal deviation. The mastoids are clear. There is no acute osseous abnormality. Remaining soft tissues are unremarkable. IMPRESSION: Mucous retention cyst or polyp in the floor of the left maxillary sinus. Reviewed, Interpreted and Dictated by Kassy Nguyen MD Transcribed by Judy Major Authenticated and [facility]
== END 2024-12-11 23:59 | disposition home or self-care (01) ==
LOC: RAD 13:48
PROVIDERS: PCP Family Medicine; Visit Provider Nurse Practitioner
DX: R93.0 Abnormal findings on diagnostic imaging of skull and head, not elsewhere classified (principal); J32.9 Chronic sinusitis, unspecified
CPT/HCPCS: 70486

== ENCOUNTER 2024-12-24 15:59 | Outpatient (CLI) | payer MEDICAID, SELFPAY ==
--- NOTE | 2024-12-24 16:00 | MM_ITS ---
PROCEDURE INFORMATION: Exam: MG Bilateral Screening 3D Mammography Exam date and time: 12/24/2024 4:01 PM Age: 39 years old Clinical indication: Screening exam. TECHNIQUE: Imaging protocol: Bilateral Screening tomosynthesis and 2D mammography including computer-aided detection (CAD) when performed. COMPARISON: 1. MG DMDXUL DIG MAMM-DX UNI-LT 02/02/2016 2:52 PM 2. US - BL US BREAST-LT COMPLETE W/AXILLA 02/02/2016 3:28 PM FINDINGS: MAMMOGRAPHY: Breast composition: There are scattered areas of fibroglandular density. Mass: 0.6 cm questioned mass subareolar right breast. Impression questioned subcentimeter right breast mass.Recommend right breast diagnostic mammogram including spot compression views of the right breast in the CC and MLO projections, a full 90 degree lateral view, and right breast ultrasound for further evaluation. Architectural distortion: None. Calcifications: No suspicious calcifications. Asymmetric density: None. Skin thickening: None. Axillary adenopathy: None. IMPRESSION: No mammographic evidence of malignancy. Annual screening is recommended unless otherwise clinically indicated. ASSESSMENT: BI-RADS Category 0: Incomplete- Need Additional Imaging Evaluation.
--- OUTSIDE RECORDS SUMMARY | 2024-12-24 16:02 | XMS_ITS | Data Portability ---
Author Organization [facility] & CANDACE Stephens ADMIN Address [address] [place] [id number] Assessment Encounter Date Assessment Date Assessment LastModified by Organization Details LastModified Time 08/21/2024 08/21/2024 Follow up as planned in September. Not available 08/21/2024 14:35:47 09/28/2024 09/28/2024 Follow up in 2 months. [email or web address] Not available 09/28/2024 20:56:07 12/08/2024 12/08/2024 Follow up in 3-4 months. [email or web address] Not available 12/08/2024 16:44:17 Plan of Treatment Reminders Order Date Submit Date Provider Last Modified By Organization Details Last Modified Time Details Appointments Establish ed Visit 15 min 2024 02:30P Karen SPENCE NP Not available Not available Not available Lab alpha-1-a ntitrypsi n (aat), QN, serum 2024 025 [place] [facility], [address], [address], [place], [address], 09/29/2024 16:25:57 hepatitis panel (A+B+C), acute, serum 2024 025 [place] [facility], [address], [address], [place], [address], 09/29/2024 16:25:50 celiac disease serology panel, serum 2024 025 [place] [facility], [address], [address], [place], [address], 09/29/2024 16:25:54 autoimmun e hepatitis diagnosti c panel, serum 2024 025 [place] [facility], [address], [address], [place], [address], 09/29/2024 16:25:52 iron + TIBC + ferritin, serum 2024 025 [place] [facility], [address], [address], [place], [address], 09/29/2024 16:25:51 CBC 2024 025 [place] [facility], [address], [address], [place], [address], 09/29/2024 16:25:55 cerulopla smin, serum 2024 025 [place] [facility], [address], [address], [place], [address], 09/29/2024 16:25:56 nonalcoho lic steatohep atitis + fibrosis panel, serum or plasma 2024 025 [email or web address] 4 [facility], [address], [address], [place], [address], 09/04/2024 11:56:24 hepatic function panel, serum 2024 025 [email or web address] 4 [facility], [address], [address], [place], [address], 09/04/2024 11:56:24 PT panel, coagulati on, platelet poor plasma 2024 025 [email or web address] 4 [facility], [address], [address], [place], [address], 09/04/2024 11:56:24 Referral None recorded. Procedures None recorded. Surgeries None recorded. Imaging None recorded. Medication Orders omeprazol e 20 mg capsule,d elayed release 2024 025 [email or web address] [facility], [address] [place] [address] Mary Anne, ANTONIA Short, [id number], 12/08/2024 15:59:18 Linzess 72 mcg capsule 2024 025 [facility], [address] [place] [address] [place], [id number], 09/28/2024 14:21:53 omeprazol e 20 mg capsule,d elayed release 2023 024 [facility], [address] [place] [address] Mary Anne, ANTONIA Short, [id number], 03/31/2024 14:16:25 Linzess 145 mcg capsule 2023 025 [facility], [address] [place] [address] [place], [id number], 12/08/2024 15:35:01 Patient TargetsNo targets recorded. Patient Instructions Encounter Date Encounter Id Patient Instructions Last Modified By Organization Details Last Modified Time 02/10/2024 [id number] Follow up 2-3 weeks after scopes. [email or web address] Not available 02/11/2024 12:54:49 03/31/2024 [id number] Follow up in 6 months or sooner if needed. [email or web address] Not available 03/31/2024 16:01:02 Reason for Referral [...] ----- ----- -- Immun e due to natur al resol brant infec tion - + [...] n); false - posit miguel anti- HBc ([facility] eptib le); low- level chron ic infec tion ; resol ving acute infec tion. Not Available [facility] ([facility]) [address] [facility], [place], [address], 09/29/2024 16:25:50 09/29/19 25 09/29/2024 HAV, HBV, [...] resul ts to IgM (e.g. , panel #[id number] HAV Antib wen w/ Rfx). Not Available [facility] ([facility]) [address] [place], [address], 09/29/2024 16:25:50 09/29/19 25 09/29/2024 HAV, HBV, HCV HBsAg screen NEGATI VE negati ve Not Available [facility] ([facility]) [address] [facility], [place], [address], 09/29/2024 16:25:50 09/29/19 25 09/29/2024 HAV, HBV, [...] infec tion with HBV. Not Available [facility] ([facility]) [address] [facility], [place], [address], 09/29/2024 16:25:50 09/29/19 25 09/29/2024 HAV, HBV, HCV hep B core Ab, tot NEGATI VE negati ve Not Available [facility] ([facility]) [address] [place], [address], 09/29/2024 16:25:50 09/29/19 25 09/29/2024 HAV, HBV, HCV rfx to hbc IgM COMMEN T Refle x crite yeison was not met. Not Available [facility] ([facility]) [address] [place], [address], 09/29/2024 16:25:50 09/29/19 25 09/29/2024 HAV, HBV, HCV HCV Ab NON REACTI VE non reacti ve Not Available [facility] ([facility]) [address] [place], [address], 09/29/2024 16:25:50 09/29/19 25 09/29/2024 HAV, HBV, HCV interpretati on: COMMEN T Not infec di with HCV unles s early or acute infec tion is suspe cted (whic h may be delay ed in an immun ocomp romis ed indiv idual ), or other evide nce exist s to indic ate HCV infec tion. Not Available [facility] ([facility]) [address] [place], [address], 09/29/2024 16:25:50 09/29/19 25 09/29/2024 FE+TI BC+FE R iron bind.cap.(TI BC) 513 ug/dL 250-45 0 above high normal Not Available [facility] ([facility]) [address] [place], [address], 09/29/2024 16:25:51 09/29/19 25 09/29/2024 FE+TI BC+FE R UIBC 487 ug/dL 131-42 5 above high normal Not Available [facility] ([facility]) [address] [place], [address], 09/29/2024 16:25:51 09/29/19 25 09/29/2024 FE+TI BC+FE R iron 26 ug/dL 27-159 below low normal Not Available [facility] ([facility]) [address] [place], [address], 09/29/2024 16:25:51 09/29/19 25 09/29/2024 FE+TI BC+FE R iron saturation 5 % 15-55 alert low Not Available [facility] ([facility]) [address] [place], [address], 09/29/2024 16:25:51 09/29/19 25 09/29/2024 FE+TI BC+FE R ferritin 13 NG/mL 15-150 below low normal Not Available [facility] ([facility]) [address] [place], [address], 09/29/2024 16:25:51 09/29/1909/29/2024 ADRIÁN+A MA+ MA+LK M AB ADRIÁN direct POSITI VE negati ve abnormal Not Available [facility] ([facility]) [address] [place], [address], 09/29/2024 16:25:52 09/29/19 25 09/29/2024 ADRIÁN+A MA+ [...] bilia ry cirrh osis. Not Available [facility] ([facility]) [address] [facility], [place], [address], 09/29/2024 16:25:52 09/29/1909/29/2024 ADRIÁN+A MA+ MA+LK M AB mitochondria l (M2) antibody <20.0 units 0.0-20 .0 Negat miguel 0.0 - 20.0 Equiv ocal 20.1 - 24.9 Posit miguel >24.9 Mitoc hondr ial (M2) Antib odies are found in 90-96 % of patie nts with prima ry bilia ry cirrh osis. Not Available [facility] ([facility]) [address] [place], [address], 09/29/2024 16:25:52 09/29/1909/29/2024 ADRIÁN+A MA+ MA+LK M AB liver-kidney microsomal Ab <1.0 units 0.0-20 .0 Negat miguel 0.0 - 20.0 Equiv ocal 20.1 - 24.9 Posit miguel >24.9 LKM type 1 antib odies are detec di in patie nts with autoi mmune hepat itis type 2 and in up to 8% of patie nts with chron ic HCV infec tion. Not Available [facility] ([facility]) [address] [place], [address], 09/29/2024 16:25:52 09/29/19 25 09/29/2024 PRINCESS C DISEA SE PANEL endomysial antibody IgA NEGATI VE negati ve Not Available [facility] ([facility]) [address] [facility], [place], [address], 09/29/2024 16:25:54 09/29/19 25 09/29/2024 PRINCESS C [...] tive enter opath y. Not Available [facility] ([facility]) [address] [facility], [place], [address], 09/29/2024 16:25:54 09/29/19 25 09/29/2024 PRINCESS C DISEA SE PANEL immunoglobul in A, qn, serum 415 mg/dL 87-352 above high normal Not Available [facility] ([facility]) [address] [place], [address], 09/29/2024 16:25:54 09/29/1909/29/2024 CBC, PLATE LET, NO DIFFE RENTI AL WBC 14.9 x10e3 /uL 3.4-10 .8 above high normal Not Available [facility] ([facility]) [address] [place], [address], 09/29/2024 16:25:55 09/29/19 25 09/29/2024 CBC, PLATE LET, NO DIFFE RENTI AL RBC 5.22 x10e6 /uL 3.77-5 .28 normal Not Available [facility] ([facility]) [address] [place], [address], 09/29/2024 16:25:55 09/29/19 25 09/29/2024 CBC, PLATE LET, NO DIFFE RENTI AL hemoglobin 12.9 g/dL 11.1-1 5.9 normal Not Available [facility] ([facility]) [address] [place], [address], 09/29/2024 16:25:55 09/29/19 25 09/29/2024 CBC, PLATE LET, NO DIFFE RENTI AL hematocrit 41.4 % 34.0-4 6.6 normal Not Available [facility] ([facility]) [address] [place], [address], 09/29/2024 16:25:55 09/29/19 25 09/29/2024 CBC, PLATE LET, NO DIFFE RENTI AL MCV 79 fL 79-97 normal Not Available [facility] ([facility]) [address] [place], [address], 09/29/2024 16:25:55 09/29/19 25 09/29/2024 CBC, PLATE LET, NO DIFFE RENTI AL MCH 24.7 pg 26.6-3 3.0 below low normal Not Available [facility] ([facility]) [address] [place], [address], 09/29/2024 16:25:55 09/29/19 25 09/29/2024 CBC, PLATE LET, NO DIFFE RENTI AL MCHC 31.2 g/dL 31.5-3 5.7 below low normal Not Available [facility] ([facility]) [address] [place], [address], 09/29/2024 16:25:55 09/29/19 25 09/29/2024 CBC, PLATE LET, NO DIFFE RENTI AL RDW 15.7 % 11.7-1 5.4 above high normal Not Available [facility] ([facility]) [address] [facility], [place], [address], 09/29/2024 16:25:55 09/29/19 25 09/29/2024 CBC, PLATE LET, NO DIFFE RENTI AL platelets 302 x10e3 /uL 150-45 0 normal Not Available [facility] ([facility]) [address] [facility], [place], [address], 09/29/2024 16:25:55 09/29/19 25 09/29/2024 CBC, PLATE LET, NO DIFFE RENTI AL NRBC REPAIRER CONTROLLER TESTER Not Available [facility] ([facility]) [address] [facility], [place], [address], 09/29/2024 16:25:55 09/29/19 25 09/29/2024 CERUL OPLAS MIN ceruloplasmi n 33.8 mg/dL 19.0-3 9.0 Not Available [facility] ([facility]) [address] [facility], [place], [address], 09/29/2024 16:25:56 09/29/19 25 09/29/2024 ALPHA -1-AN TITRY PSIN, SERUM [id number] trypsin, serum 177 mg/dL 100-18 8 normal Not Available [facility] ([facility]) [address] [facility], [place], [address], 09/29/2024 16:25:57 09/29/19 25 09/04/2024 CT, angio gram, chest , w/ contr ast No observ ation record ed. [email or web address] [facility] (Radiology) [address] , [place], [address], 10/02/2024 13:35:35 Result Notes None recorded. Procedures Surgical History Date Name Laterality Status Provider Name and Address Organization Details Recorded Time 10/27/19 22 Date of Last Pap [facility]ear [facility] [place] 09/28/2024 14:36:04 06/24/19 20 Cholecystectomy completed [facility] [facility] [place] 09/28/2024 14:36:17 06/24/19 18 Tonsillectomy/Adeno idectomy completed [facility] [place] 09/28/2024 14:36:17 04/19/20 [address] [facility] [place] 09/28/2024 14:36:04 06/24/19 12 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 Procedure Notes None recorded. Medical Equipment None Reported. Allergies Allergen ID Allergen Name Allergen Category Reaction Reaction Severity Criticality Documentation Date Start Date Code Code System Note Provider Name and Address Organization Details Recorded Time 386299 Viibryd medicatio n other moderate Not available 09/28/2024 78494 [id number] RxNorm Susan mcgraw ANTONIA [facility] & [place] 14:35:17 Medications Name Sig Start Date Stop [...] Available omeprazole 20 mg capsule,del ayed release TAKE 1 CAPSULE BY MOUTH EVERY MORNING FOR ACID REFLUX active Not Available Not Available No t [...] in Arterial blood by Pulse oximetry Systolic And Diastolic Provider Name and Address Organization Details Last Updated DateTime 5 162.56 cm 37 kg/m2 04748.8 7 g 97.9 [degF] 84 /min 82 /min 98 % 98 % 148/87 mm[Hg] [facility] & [place] 5 11:17:34 Date Recorded Body height Body mass index (BMI) Body weight Heart rate Heart rate Body temperature Oxygen saturation Oxygen saturation in Arterial blood by Pulse oximetry Systolic And Diastolic Provider Name and Address Organization Details Last Updated DateTime 5 162.56 cm 36.3 kg/m2 55749.4 3 g 80 /min 74 /min 98.1 [degF] 97 % 97 % 147/62 mm[Hg] [facility] & [place] 5 13:50:09 Date Recorded Body height Body mass index (BMI) Body weight Body temperature Oxygen saturation Oxygen saturation in Arterial blood by Pulse oximetry Heart rate Systolic And Diastolic Provider Name and Address Organization Details Last Updated DateTime 5 162.56 cm 35.6 kg/m2 54093.4 2 g 98.6 [degF] 97 % 97 % 85 /min 130/85 mm[Hg] [facility] & [place] 5 14:50:52 Date Recorded Body weight Body mass index (BMI) Body height Body temperature Oxygen saturation Oxygen saturation in Arterial blood by Pulse oximetry Heart rate Heart rate Systolic And Diastolic Provider Name and Address Organization Details Last Updated DateTime 4 504931. 27 g 38 kg/m2 162.56 cm 98.2 [degF] 97 % 97 % 92 /min 82 /min 141/106 mm[Hg] [facility] [place] 13:25:02 Date Recorded Body height Body mass index (BMI) Body weight Body temperature Oxygen saturation Oxygen saturation in Arterial blood by Pulse oximetry Heart rate Heart rate Systolic And Diastolic Provider Name and Address Organization Details Last Updated DateTime 162.56 cm 37.5 kg/m2 27317.6 5 g 97.9 [degF] 98 % 98 % 79 /min 71 /min 162/92 mm[Hg] [facility] [place] 4 13:40:14 Social History Question Answer Notes LastModified by Organizat ion Details LastModified Time Tobacco Smoking Status Current Every Day Smoker Susan Pires [facility] & [place] 09/28/2024 14:36:14 Do You Have An Advance [...] anxious, or unable to sleep at night)? [id number] Information not available 09/28/2024 Family History Relationship [...] Liver Disease Y Headaches Y Hypertension Y Obstructive Sleep Apnea Y Gynecological History Statement/Question Response Abnormal Pap [...] completed Susan Ellington null, [place] - [facility] & [place] 09/28/2024 14:35:28 MMR 01/21/1996 completed Susan Ellington null, [place] - [facility] [place] & [place] 09/28/2024 14:35:28 COVID-19, mRNA, LNP-S, PF, 30 mcg/0.3 mL dose, delroy-sucrose 08/17/2021 completed Susan Ell[place] null, [place] [facility] & [place] 09/28/2024 14:35:28 COVID-19, mRNA, LNP-S, PF, 30 mcg/0.3 mL dose, delroy-sucrose 09/11/2021 completed Susan Ellington null, [place] - [facility] [place] & [place] 09/28/2024 14:35:28 Tdap 09/06/2005 completed Susan Ellington null, ANTONIA - [facility] & [place] 09/28/2024 14:35:28 Tdap 12/18/2015 completed Susan Ellington null, [place] - [facility] & [place] 09/28/2024 14:35:28 Tdap 01/21/2020 completed Susan Ellington null, [place] - [facility] - [facility] & [place] 09/28/2024 14:35:28 polio, unspecified formulation 01/16/1990 completed Susan Ellington null, ANTONIA - [facility] - [place] & [place] 09/28/2024 14:35:28 Hep B, adult 09/08/2020 completed Susan Ellington null, ANTONIA - [facility] [place] & [place] 09/28/2024 14:35:28 Hep B, adult 01/21/2020 completed Susan Ellington null, ANTONIA - [facility] & [place] 09/28/2024 14:35:28 Hep B, adult 03/07/2020 completed Susan Ellington null, ANTONIA - [facility] - [place] & [place] 09/28/2024 14:35:28 DTaP, unspecified formulation 01/16/1990 completed Susan Ellington null, ANTONIA - [facility] - [facility] & [place] 09/28/2024 14:35:28 Influenza, split virus, quadrivalent, PF 03/19/2020 completed Susan Ellington null, ANTONIA - [facility] [place] & [place] 09/28/2024 14:35:28 Influenza, split virus, quadrivalent, PF 05/15/2023 completed Susan Ellington null, ANTONIA - [facility] - [place] & [place] 09/28/2024 14:35:28 Past Encounters Encounter ID Performer Location Encounter Start Date Encounter Closed Date Diagnosis/Indication Diagnosis SNOMED-CT Code Diagnosis ICD10 Code Diagnosis Note [id number] JOYA SPENCE NP [facility] [address] [place] [address] 02/10/2024 13:16:42 02/10/2024 14:24:34 Chronic idiopathic constipation 80133803 K59.04 Recommend Linzess as prescribed for management of constipati on.Colonos copy recommende d for evaluation of CIC, family history colon polyps, blood and mucous per rectum, abdominal pain and bloating. Abdominal pain 39040678 R10.9 Abdominal bloating 94920 9008 R14.0 Dysphagia 89145066 R13.1 0 EGD recommende d for evaluation of dysphagia, possible dilation. Evaluate abdominal pain and bloating as well. Gilbert's syndrome 55704 000 E80.4 Suspect Gilbert's syndrome based on fractionat ed bilirubin findings and normal LFT.Writte n education provided.N o specific therapy is required. Steatotic liver disease 200866671 K76.0 FIB 4 estimates F0-F1.Weig ht loss with a hypocalori c diet alone or in conjunctio n with physical activity has been shown to improve steatosis. Declined dietitian referral. [id number] JOYA SPENCE NP [facility] [address] [address] 03/31/2024 13:26:18 03/31/2024 14:31:16 Gastroesophageal reflux disease without esophagitis 337319877 K21.9 Mild, chronic gastritis found on recent EGD.Contin ue omeprazole as prescribed . Avoid NSAIDs and alcohol. Chronic id iopathic constipation 80670055 K59.04 Continue Linzess as prescribed . Abdominal pain and bloating have improved. Abdominal pain 02209167 R10.9 Abdominal bloating 07764 9008 R14.0 Discussed breath test to rule out CSID. She has had improvemen t in bloating with the use of Linzess and dietary modificati on. We will wait on further testing and reassess at follow up. Dysphagia 10477337 R13.1 0 Some improvemen t with dilation. Discussed barium swallow vs manometry. She does not feel further work up is necessary at this time and will contact me if symptoms worsen. Gilbert's syndrome 00697 000 E80.4 Suspect Gilbert's syndrome based on fractionat ed bilirubin findings and normal LFT.Writte n education provided.N o specific therapy is required. Steatotic liver disease K76.0 FIB 4 estimates F0-F1.Weig ht loss with a hypocalori c diet alone or in conjunctio n with physical activity has been shown to improve steatosis. Declined dietitian referral. [id number] JOYA SPENCE NP [facility] [address] [address] 08/21/2024 11:09:00 08/21/2024 12:22:29 Gastroesophageal reflux disease without esophagitis 571890614 K21.9 Mild, chronic gastritis found on EGD.She uses PPI prn. Avoid NSAIDs and alcohol. Chronic id iopathic constipation 71052602 K59.04 Continue Linzess as prescribed . Abdominal pain and bloating have improved. Abdominal pain 73539799 R10.9 Improving. Dysphagia 58938453 R13.1 0 Some improvemen t with dilation. Discussed barium swallow vs manometry. She does not feel further work up is necessary and will contact me if symptoms worsen. Gilbert's syndrome 79219 000 E80.4 Evidence of Gilbert's syndrome based [...] would like to have labs drawn at [facility] when fasting. Orders printed and provided. [id number] JOYA SPENCE NP [facility] [address] [address] 09/28/2024 13:41:26 09/28/2024 14:49:11 Chronic idiopathic constipation 72478691 K59.04 Decrease Linzess dose to 72 mcg. Advised to take this daily as prescribed . In addition to oral iron she can use a stool softener or Miralax PRN. Hepatosplenomegaly 21786 000 R16.2 Patient reported this finding on imaging at [facility].N YUNIOR fibrosure estimates FO, <5% steatosis, and no WEST. LFT, PT/INR normal.Amando l obtain additional labs for work up. Consider repeat imaging in approximat leilani 6 months. Gastroesop hageal reflux disease without esophagitis 617230760 K21.9 Continue PPI daily.Avoi d NSAIDs and alcohol. Gilbert's syndrome 14924 000 E80.4 Evidence of Gilbert's syndrome based [...] Advised she discuss this with her PCP. [id number] JOYA SPENCE NP [facility] [address] [address] 12/08/2024 14:42:53 12/08/2024 15:30:11 Gastroesophageal reflux disease without esophagitis 337514056 K21.9 Continue PPI daily.Avoi d NSAIDs and alcohol. Chronic id iopathic constipation 24579048 K59.04 Continue Magnesium nightly.Co ntinue dietary changes, increase water intake. Hepatosplenomegaly 45182 000 R16.2 Patient reported this finding on imaging at [facility] 03/2024.NA SH fibrosure estimates FO, <5% steatosis, and no WEST. LFT, PT/INR normal.Con communications specialist repeat imaging and labs at follow up. Gilbert's syndrome 67669 000 E80.4 Evidence of Gilbert's syndrome based on fractionat ed bilirubin findings and normal LFT.No specific therapy is required. Steatotic liver disease 090644437 K76.0 Denies alcohol use.FIB 4 estimated F0-F1.Weig [...] Guarantor Name 03/19/2024 1 [employer] (POS) Kristie Finet [id number] Kristie Ewalt 03/19/2024 1 [employer] - [place] (MEDICAID REPLACEMENT - HMO) Kristie Ewedmundot [id number] Kristie Ewalt 12/06/2024 1 [employer] [place] (MEDICAID RE[place]AC[place] - [place]) Kristie Perez [id number] Kristie Perez Notes Date Note Type Note [...] history of precancerous polyps. JOYA SPENCE, ASAF [address], [place], [address], [facility] - [facility] - [place] & [place] 02/11/2024 12:55:04 03/31/2024 text/html Jaleesa Perez is [...] liquid. Carbonation also contributes. JOYA SPENCE, ASAF [address] [facility], [place], [address], [facility] - [facility] & [place] 03/31/2024 16:01:18 08/21/2024 text/html PREVIOUS: Nikole Perez [...] in March 2024, she was seen at [facility] ED in April for dehydration. She [...] abdominal pain has improved. JOYA SPENCE, ASAF [address], [place], [address], [place] - [facility] - [place] & [place] 08/21/2024 14:35:57 09/28/2024 text/html PREVIOUS: Nikole Perez [...] in March 2024, she was seen at [facility] ED in April for dehydration. She [...] not receive her most recent CT from [facility]. I will request records again today. Most recent LFT normal. No exposure to hepatitis. No alcohol use. In regard to constipation, she is using Linzess 145 mcg as needed. She states she recently was prescribed oral iron which exacerbated constipation. She recently restarted Omeprazole for GERD. JOYA SPENCE NP [address], [place], [address], [facility] & [place] 09/28/2024 20:58:28 12/08/2024 text/html PREVIOUS: Nikole Perez is a 39 yr old female here today for follow up.Today we discussed lab findings in depth. I did not receive her most recent CT from [facility]. I will request records again today. Most [...] visit. JOYA SPENCE NP [address], [place], [address], [facility] & [place] 12/08/2024 16:45:37 OBGyn Episode No OBEpisode recorded.
--- OUTSIDE RECORDS SUMMARY | 2024-12-24 16:02 | XMS_ITS | Data Portability ---
Author Organization [facility] NATH[facility] CLOS[facility] Address [address] [facility] [address] [place] [address] Care Team Providers Care Grader Operator Name Role Phone JOVANNI SAMUEL Primary Care Provider [phone] Assessment Encounter Date Assessment Date Assessment LastModified by Organization Details LastModified Time 05/20/2024 05/20/2024 I am going to treat this patient empirically for urinary tract infection, I will follow-up with her in 2 months, sooner if needed. At this time we will discuss whether additional diagnostics are clinically appropriate. [email or web address] Not available 05/20/2024 16:47:25 06/05/2024 06/05/2024 Given [...] back in 2 months, sooner if needed. [email or web address] Not available 06/05/2024 11:20:02 09/17/2024 09/17/2024 Continue current conservative measures of properly hydrating and regularly having bowel movements. No additional medical or procedural therapy indicated at this time. We will follow up in 6 months to reassess her symptom burden, sooner if needed. [email or web address] Not available 09/17/2024 15:36:06 Plan of Treatment Reminders Order Date Submit Date Provider Last Modified By Organization Details Last Modified Time Details Appointments RECHECK 2024 01:30P Karen BROWN MD Not available Not available Not available Lab urinalysi s panel, auto 2024 025 [email or web address] 4 [facility], [address] [place] [address] [address], [place], [address], 09/17/2024 15:36:14 urinalysi s panel, auto 2023 024 [email or web address] 4 [facility], [address], [address], [place], [address], 06/06/2024 00:04:18 BMP, serum or plasma 2023 024 [email or web address] 4 [facility], [address] [place] [address], [address], 06/06/2024 00:04:18 CBC w/ auto diff 2023 024 [email or web address] 4 [facility], [address] [place] [address], [address], 06/06/2024 00:04:18 urinalysi s panel, auto 2023 024 [email or web address] 4 [facility], [address], [address], [place], [address], 05/27/2024 13:16:43 culture, urine 2023 024 [email or web address] 4 [facility], [address] [place] [address], [address], 05/27/2024 13:16:43 Referral None recorded. Procedures None recorded. Surgeries None recorded. Imaging US, retroperi toneum, limited 2023 024 [email or web address] 4 [facility], [address] [place], [address], 06/06/2024 00:04:18 Medication Orders Pyridium 200 mg tablet 2023 025 [facility], [address] [place] [address], [id number], 09/17/2024 15:11:36 ciproflox acin 500 mg tablet 2023 025 [facility], [address] [place] [address], [id number], 09/17/2024 15:11:38 fluconazo le 150 mg tablet 2023 025 [facility], [address] [place] [address], [id number], 09/17/2024 15:11:37 Patient TargetsNo targets recorded. Patient InstructionsNo instructions recorded. Reason for Referral None Reported. Results Created Date Observation Date Name Description Value Unit Range Abnormal Flag Note LastModifiedBy Organization Detail LastModifiedTime 05/20/2005/22/2024 URINE CULTU RE urine culture COLON Y COUNT : 10,00 0 - 100,0 00 CFU/M L Three or more isola chuck; mixed uroge nital christiano . Not Available [facility] [address] [place], [address], 05/22/2024 10:59:15 05/20/2005/20/2024 urina lysis panel , auto Unknown Analyte Clean Catch Not Available [facility] [address], [place], [address], 05/20/2024 13:22:23 05/20/20 24 05/20/2024 urina lysis panel , auto Unknown Analyte Yellow Not Available [facility] [address], [place], [address], 05/20/2024 13:22:23 05/20/20 24 05/20/2024 urina lysis panel , auto Unknown Analyte Clear Not Available [facility] [address], [place], [address], 05/20/2024 13:22:23 05/20/20 24 05/20/2024 urina lysis panel , auto Unknown Analyte 1.005 Not Available [facility] [address], [place], [address], 05/20/2024 13:22:23 05/20/20 24 05/20/2024 urina lysis panel , auto Unknown Analyte 1.003- 1.035 Not Available [facility] [address], [place], [address], 05/20/2024 13:22:23 05/20/20 24 05/20/2024 urina lysis panel , auto Unknown Analyte 6.0 Not Available [facility] [address], [place], [address], 05/20/2024 13:22:23 05/20/20 24 05/20/2024 urina lysis panel , auto Unknown Analyte 5.0-8. 0 Not Available [facility] [address], [place], [address], 05/20/2024 13:22:23 05/20/20 24 05/20/2024 urina lysis panel , auto Unknown Analyte Negati ve Not Available [facility] [address], [place], [address], 05/20/2024 13:22:23 05/20/20 24 05/20/2024 urina lysis panel , auto Unknown Analyte Negati ve Not Available [facility] [address], [place], [address], 05/20/2024 13:22:23 05/20/2005/20/2024 urina lysis panel , auto Unknown Analyte Negati ve Not Available [facility] [address], [place], [address], 05/20/2024 13:22:23 05/20/20 24 05/20/2024 urina lysis panel , auto Unknown Analyte Negati ve Not Available [facility] [address], [place], [address], 05/20/2024 13:22:23 05/20/20 24 05/20/2024 urina lysis panel , auto Unknown Analyte Negati ve Not Available [facility] [address], [place], [address], 05/20/2024 13:22:23 05/20/20 24 05/20/2024 urina lysis panel , auto Unknown Analyte Negati ve Not Available [facility] [address], [place], [address], 05/20/2024 13:22:23 05/20/20 24 05/20/2024 urina lysis panel , auto Unknown Analyte Normal Not Available [facility] [address], [place], [address], 05/20/2024 13:22:23 05/20/20 24 05/20/2024 urina lysis panel , auto Unknown Analyte Normal Not Available [facility] [address], [place], [address], 05/20/2024 13:22:23 05/20/20 24 05/20/2024 urina lysis panel , auto Unknown Analyte Negati ve Not Available [facility] [address], [place], [address], 05/20/2024 13:22:23 05/20/20 24 05/20/2024 urina lysis panel , auto Unknown Analyte Negati ve Not Available [facility] [address], [place], [address], 05/20/2024 13:22:23 05/20/20 24 05/20/2024 urina lysis panel , auto Unknown Analyte Normal Not Available [facility] [address], [place], [address], 05/20/2024 13:22:23 05/20/20 24 05/20/2024 urina lysis panel , auto Unknown Analyte Normal 1 mg/dl Not Available [facility] [address], [place], [address], 05/20/2024 13:22:23 05/20/20 24 05/20/2024 urina lysis panel , auto Unknown Analyte Negati ve Not Available [facility] [address], [place], [address], 05/20/2024 13:22:23 05/20/20 24 05/20/2024 urina lysis panel , auto Unknown Analyte Negati ve Not Available [facility] [address], [place], [address], 05/20/2024 13:22:23 05/20/20 24 05/20/2024 urina lysis panel , auto Unknown Analyte Trace Not Available [facility] [address], [place], [address], 05/20/2024 13:22:23 05/20/20 24 05/20/2024 urina lysis panel , auto Unknown Analyte Negati ve Not Available [facility] [address], [place], [address], 05/20/2024 13:22:23 06/05/20 24 06/05/2024 COMPL ETE BLOOD COUNT white blood cells 9.3 10*3/ uL 3.8-10 .8 normal Not Available [facility] [address] [place] [address], [address], 06/05/2024 14:41:56 06/05/20 24 06/05/2024 COMPL ETE BLOOD COUNT red blood cells 5.22 10*6/ uL 3.80-5 .20 high Not Available [facility] [address] [place] [address], [address], 06/05/2024 14:41:56 06/05/20 24 06/05/2024 COMPL ETE BLOOD COUNT hemoglobin 14.1 g/dL 12.0-1 6.0 normal Not Available [facility] [address] [place] [address], [address], 06/05/2024 14:41:56 06/05/20 24 06/05/2024 COMPL ETE BLOOD COUNT hematocrit 42.2 % 35.0-4 7.0 normal Not Available [facility] [address] [place] [address], [address], 06/05/2024 14:41:56 06/05/20 24 06/05/2024 COMPL ETE BLOOD COUNT MCV 81 fL 80-100 normal Not Available [facility] [address] [place] [address], [address], 06/05/2024 14:41:56 06/05/20 24 06/05/2024 COMPL ETE BLOOD COUNT MCH 27 pg 26-35 normal Not Available [facility] [address] [place] [address], [address], 06/05/2024 14:41:56 06/05/20 24 06/05/2024 COMPL ETE BLOOD COUNT MCHC 34 g/dL 32-36 normal Not Available [facility] [address] [place] [address], [address], 06/05/2024 14:41:56 06/05/20 24 06/05/2024 COMPL ETE BLOOD COUNT RDW 14.5 % 11.0-1 5.0 normal Not Available [facility] [address] [place] [address], [address], 06/05/2024 14:41:56 06/05/20 24 06/05/2024 COMPL ETE BLOOD COUNT MPV 10.8 fL 6.2-10 .5 high Not Available [facility] [address] [place] [address], [address], 06/05/2024 14:41:56 06/05/20 24 06/05/2024 COMPL ETE BLOOD COUNT platelet count 273 10*3/ uL 150-40 0 normal Not Available [facility] [address] [place] [address], [address], 06/05/2024 14:41:56 06/05/20 24 06/05/2024 COMPL ETE BLOOD COUNT neutrophil,a bsolute 6.1 10*3/ uL 1.6-8. 4 normal Not Available [facility] [address] [place] [address], [address], 06/05/2024 14:41:56 06/05/20 24 06/05/2024 COMPL ETE BLOOD COUNT lymphocyte,a bsolute 2.2 10*3/ uL 0.4-5. 1 normal Not Available [facility] [address] [place] [address], [address], 06/05/2024 14:41:56 06/05/20 24 06/05/2024 COMPL ETE BLOOD COUNT monocyte,abs olute 0.3 10*3/ uL 0.0-1. 2 normal Not Available [facility] [address] [place] [address], [address], 06/05/2024 14:41:56 06/05/20 24 06/05/2024 COMPL ETE BLOOD COUNT eosinophil,a bsolute 0.6 10*3/ uL 0.0-0. 8 normal Not Available [facility] [address] [place] [address], [address], 06/05/2024 14:41:56 06/05/20 24 06/05/2024 COMPL ETE BLOOD COUNT basophil,abs olute 0.1 10*3/ uL 0.0-0. 3 normal Not Available [facility] [address] [place] [address], [address], 06/05/2024 14:41:56 06/05/20 24 06/05/2024 COMPL ETE BLOOD COUNT % neutrophils 65.4 % 42.0-7 8.0 normal Not Available [facility] [address] [place] [address], [address], 06/05/2024 14:41:56 06/05/20 24 06/05/2024 COMPL ETE BLOOD COUNT % lymphocytes 24.2 % 11.0-4 7.0 normal Not Available [facility] [address] [place] [address], [address], 06/05/2024 14:41:56 06/05/20 24 06/05/2024 COMPL ETE BLOOD COUNT % monocytes 3.6 % 0.0-11 .0 normal Not Available [facility] [address] [place] [address], [address], 06/05/2024 14:41:56 06/05/20 24 06/05/2024 COMPL ETE BLOOD COUNT % eosinophils 6.0 % 0.0-7. 0 normal Not Available [facility] [address] [place] [address], [address], 06/05/2024 14:41:56 06/05/20 24 06/05/2024 COMPL ETE BLOOD COUNT % basophils 0.8 % 0.0-3. 0 normal Not Available [facility] [address] [place] [address], [address], 06/05/2024 14:41:56 06/05/20 24 06/05/2024 COMPL ETE BLOOD COUNT nucleated red cells 0.2 % 0.0-0. 9 normal Not Available [facility] [address] [place] [address], [address], 06/05/2024 14:41:56 06/05/20 24 06/05/2024 COMPL ETE BLOOD COUNT nucleated RBCs, absolute 0.02 10*3/ uL not estab. normal Not Available [facility] [address] [place] [address], [address], 06/05/2024 14:41:56 06/05/20 24 06/05/2024 BASIC METAB OLIC PANEL glucose 107 mg/dL 74-100 high Not Available [facility] [address] [place] [address], [address], 06/05/2024 16:06:22 06/05/20 24 06/05/2024 BASIC METAB OLIC PANEL blood urea nitrogen 13 mg/dL 6-20 normal Not Available [facility] [address] [place] [address], [address], 06/05/2024 16:06:22 06/05/20 24 06/05/2024 BASIC METAB OLIC PANEL creatinine 0.78 mg/dL 0.50-0 .95 normal Not Available [facility] [address] [place] [address], [address], 06/05/2024 16:06:22 06/05/20 24 06/05/2024 BASIC METAB OLIC PANEL BUN/creatini ne ratio 17 (calc ) 10-20 normal Not Available [facility] [address] [place] [address], [address], 06/05/2024 16:06:22 06/05/20 24 06/05/2024 BASIC METAB OLIC PANEL sodium 140 mmol/ L 136-14 5 normal Not Available [facility] [address] [place] [address], [address], 06/05/2024 16:06:22 06/05/20 24 06/05/2024 BASIC METAB OLIC PANEL potassium 4.2 mmol/ L 3.4-5. 0 normal Not Available [facility] [address] [place] [address], [address], 06/05/2024 16:06:22 06/05/20 24 06/05/2024 BASIC METAB OLIC PANEL chloride 102 mmol/ L 98-107 normal Not Available [facility] [address] [place] [address], [address], 06/05/2024 16:06:22 06/05/20 24 06/05/2024 BASIC METAB OLIC PANEL carbon dioxide 26 mmol/ L 22-31 normal Not Available [facility] [address] [place] [address], [address], 06/05/2024 16:06:22 06/05/20 24 06/05/2024 BASIC METAB OLIC PANEL anion gap 12 (calc ) 7-25 normal Not Available [facility] [address] [place] [address], [address], 06/05/2024 16:06:22 06/05/20 24 06/05/2024 BASIC METAB OLIC PANEL calcium 10.0 mg/dL 8.6-10 .2 normal Not Available [facility] [address] [place], [address], 06/05/2024 16:06:22 06/05/20 24 06/05/2024 BASIC METAB OLIC PANEL GFR 98 >= 60 normal NOT E New calcu latio n for GFR (CKD- EPI 2020) is formu lated witho ut race adjus tment facto rs at the [facility] menda tion of the [facility] Jaswant atnivia and [facility] of Nephr ology . This calcu latio n has not been valid ated in pregn ant women . For pedia tric patie nts refer to https ://kaleigh quiles.dionicio russell/tommy caballero s/KALEYO QI/gf r_cal culat orPed Not Available [facility] [address] [place] [address], [address], 06/05/2024 16:06:22 06/05/20 24 06/05/2024 urina lysis panel , auto Unknown Analyte Clean Catch Not Available [facility] [address], [place], [address], 06/05/2024 10:33:26 06/05/20 24 06/05/2024 urina lysis panel , auto Unknown Analyte Yellow Not Available [facility] [address], [place], [address], 06/05/2024 10:33:26 06/05/20 24 06/05/2024 urina lysis panel , auto Unknown Analyte Clear Not Available [facility] [address], [place], [address], 06/05/2024 10:33:26 06/05/20 24 06/05/2024 urina lysis panel , auto Unknown Analyte 1.000 Not Available [facility] [address], [place], [address], 06/05/2024 10:33:26 06/05/20 24 06/05/2024 urina lysis panel , auto Unknown Analyte 1.003- 1.035 Not Available [facility] [address], [place], [address], 06/05/2024 10:33:26 06/05/20 24 06/05/2024 urina lysis panel , auto Unknown Analyte 6.0 Not Available [facility] [address], [place], [address], 06/05/2024 10:33:26 06/05/20 24 06/05/2024 urina lysis panel , auto Unknown Analyte 5.0-8. 0 Not Available [facility] [address], [place], [address], 06/05/2024 10:33:26 06/05/20 24 06/05/2024 urina lysis panel , auto Unknown Analyte Negati ve Not Available [facility] [address], [place], [address], 06/05/2024 10:33:26 06/05/20 24 06/05/2024 urina lysis panel , auto Unknown Analyte Negati ve Not Available [facility] [address], [place], [address], 06/05/2024 10:33:26 06/05/20 24 06/05/2024 urina lysis panel , auto Unknown Analyte Negati ve Not Available [facility] [address], [place], [address], 06/05/2024 10:33:26 06/05/20 24 06/05/2024 urina lysis panel , auto Unknown Analyte Negati ve Not Available [facility] [address], [place], [address], 06/05/2024 10:33:26 06/05/20 24 06/05/2024 urina lysis panel , auto Unknown Analyte Negati ve Not Available [facility] [address], [place], [address], 06/05/2024 10:33:26 06/05/20 24 06/05/2024 urina lysis panel , auto Unknown Analyte Negati ve Not Available [facility] [address], [place], [address], 06/05/2024 10:33:26 06/05/20 24 06/05/2024 urina lysis panel , auto Unknown Analyte Normal Not Available [facility] [address], [place], [address], 06/05/2024 10:33:26 06/05/20 24 06/05/2024 urina lysis panel , auto Unknown Analyte Normal Not Available [facility] [address], [place], [address], 06/05/2024 10:33:26 06/05/20 24 06/05/2024 urina lysis panel , auto Unknown Analyte Negati ve Not Available [facility] [address], [place], [address], 06/05/2024 10:33:26 06/05/20 24 06/05/2024 urina lysis panel , auto Unknown Analyte Negati ve Not Available [facility] [address], [place], [address], 06/05/2024 10:33:26 06/05/20 24 06/05/2024 urina lysis panel , auto Unknown Analyte Normal Not Available [facility] [address], [place], [address], 06/05/2024 10:33:26 06/05/20 24 06/05/2024 urina lysis panel , auto Unknown Analyte Normal 1 mg/dl Not Available [facility] [address], [place], [address], 06/05/2024 10:33:26 06/05/20 24 06/05/2024 urina lysis panel , auto Unknown Analyte Negati ve Not Available [facility] [address], [place], [address], 06/05/2024 10:33:26 06/05/20 24 06/05/2024 urina lysis panel , auto Unknown Analyte Negati ve Not Available [facility] [address], [place], [address], 06/05/2024 10:33:26 06/05/20 24 06/05/2024 urina lysis panel , auto Unknown Analyte Negati ve Not Available [facility] [address], [place], [address], 06/05/2024 10:33:26 06/05/20 24 06/05/2024 urina lysis panel , auto Unknown Analyte Negati ve Not Available [facility] [address], [place], [address], 06/05/2024 10:33:26 09/18/19 25 09/17/2024 urina lysis panel , auto Unknown Analyte Clean Catch Not Available [facility] [place] [facility] [address], [place], [address], 09/17/2024 14:57:01 09/18/19 25 09/17/2024 urina lysis panel , auto Unknown Analyte Yellow Not Available Counts include 234 beds at the [facility] With [address] [place], [address], 09/17/2024 14:57:01 09/18/19 25 09/17/2024 urina lysis panel , auto Unknown Analyte Clear Not Available [facility] [address] [place], [place], [address], 09/17/2024 14:57:01 09/18/19 25 09/17/2024 urina lysis panel , auto Unknown Analyte 1.015 Not Available Formerly [facility] Extended Services With [address] [place], [place], [address], 09/17/2024 14:57:01 09/18/19 25 09/17/2024 urina lysis panel , auto Unknown Analyte 1.003 - 1.030 Not Available [facility] Extended Services With [address] [place], [place], [address], 09/17/2024 14:57:01 09/18/19 25 09/17/2024 urina lysis panel , auto Unknown Analyte 5.0 Not Available Counts include 234 beds at the [facility] Extended Services With [address] [place], [address], 09/17/2024 14:57:01 09/18/19 25 09/17/2024 urina lysis panel , auto Unknown Analyte 5.0 - 8.0 Not Available [facility] Extended Services With [address] [place], [address], 09/17/2024 14:57:01 09/18/19 25 09/17/2024 urina lysis panel , auto Unknown Analyte Negati ve Not Available [facility] Extended Services With [address] [place], [place], [address], 09/17/2024 14:57:01 09/18/19 25 09/17/2024 urina lysis panel , auto Unknown Analyte Negati ve Not Available [facility] Extended Services With [address] [place], [address], 09/17/2024 14:57:01 09/18/19 25 09/17/2024 urina lysis panel , auto Unknown Analyte Negati ve Not Available [facility] Extended Services With [address] [place], [address], 09/17/2024 14:57:01 09/18/19 25 09/17/2024 urina lysis panel , auto Unknown Analyte Negati ve Not Available [facility] Extended Services With [address] [place], [address], 09/17/2024 14:57:01 09/18/19 25 09/17/2024 urina lysis panel , auto Unknown Analyte Negati ve Not Available [facility] Extended Services With [address] [place], [address], 09/17/2024 14:57:01 09/18/19 25 09/17/2024 urina lysis panel , auto Unknown Analyte Negati ve Not Available [facility] Extended Services With [address] [place], [address], 09/17/2024 14:57:01 09/18/19 25 09/17/2024 urina lysis panel , auto Unknown Analyte Normal Not Available Counts include 234 beds at the [facility] Extended Services With [address] [place], [address], 09/17/2024 14:57:01 09/18/19 25 09/17/2024 urina lysis panel , auto Unknown Analyte Normal Not Available Counts include 234 beds at the [facility] Extended Services With [address] [place], [address], 09/17/2024 14:57:01 09/18/19 25 09/17/2024 urina lysis panel , auto Unknown Analyte Negati ve Not Available [facility] Extended Services With [address] [place], [address], 09/17/2024 14:57:01 09/18/19 25 09/17/2024 urina lysis panel , auto Unknown Analyte Negati ve Not Available [facility] Extended Services With [address] [place], [address], 09/17/2024 14:57:01 09/18/19 25 09/17/2024 urina lysis panel , auto Unknown Analyte Normal Not Available Counts include 234 beds at the [facility] Extended Services With [address] [place], [place], [address], 09/17/2024 14:57:01 09/18/19 25 09/17/2024 urina lysis panel , auto Unknown Analyte Normal Not Available Counts include 234 beds at the [facility] Extended Services With [address] [place], [place], [address], 09/17/2024 14:57:01 09/18/19 25 09/17/2024 urina lysis panel , auto Unknown Analyte Negati ve Not Available [facility] Extended Services With [address] [place], [address], 09/17/2024 14:57:01 09/18/19 25 09/17/2024 urina lysis panel , auto Unknown Analyte Negati ve Not Available [facility] Extended Services With [address] [place], [place], [address], 09/17/2024 14:57:01 09/18/19 25 09/17/2024 urina lysis panel , auto Unknown Analyte 50 Tristan/uL Not Available [facility] Extended Services With [address] [place], [place], [address], 09/17/2024 14:57:01 09/18/19 25 09/17/2024 urina lysis panel , auto Unknown Analyte Negati ve Not Available [facility] Extended Services With [address] [place], [place], [address], 09/17/2024 14:57:01 05/20/20 24 05/16/2024 CT, abdom en + pelvi s, w/wo contr ast No observ ation record ed. [email or web address] [facility] (Radiology) [address] , [place], [address], 06/30/2024 12:07:58 06/05/20 24 06/05/2024 US, retro perit oneum , limit ed [facility] [address] [place] [address] Patileela t Name: CONCETTA Denton EWOLENA smith : 9[address] Pat[address]ela t 32 Orderi ng Provid er: MADISON BRYANOL S EXAM DATE: 2023 EXAM: US KIDNEY BILAT [...] Adolfo Nielson MD on 2023 1:54 PM [email or web address] [facility] Radiology [facility] [address] [place] [address], [address], 06/08/2024 10:26:48 Result Notes None recorded. Problems Name Problem SNOMED Code Status Onset Date Resolution Date Notes Provider Name and Address Organization Details Recorded Time Recurrent urinary tract infection 779974543 Active 025 MADISON LUCIA PA-C [address] [place], [address], [facility] 5 15:36:08 Incomplete emptying of urinary bladder 221125492 Active 025 MADISON LUCIA PA-C [address] [place] [address], [address], [facility] 5 15:36:10 Problem Notes None recorded. Procedures Surgical History Date Name Laterality Status Provider Name and Address Organization Details Recorded Time 06/05/20 24 Post Void Residual; Ultrasound completed [facility] 06/05/2024 10:50:28 Cholecystectomy completed [facility] 05/20/2024 13:30:40 Tonsillectomy completed [facility] 05/20/2024 13:30:48 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 completed [facility] 05/20/2024 13:30:58 Imaging Results None recorded. Procedure Notes None recorded. Medical Equipment None Reported. Allergies Allergen ID Allergen Name Allergen Category Reaction Reaction Severity Criticality Documentation Date Start Date Code Code System Note Provider Name and Address Organization Details Recorded Time 032790 Viibryd medicatio n Not available Not available Not available 05/20/2024 89259 73 [facility]Norm [facility] 13:29:02 Medications Name Sig Start Date Stop [...] Updated DateTime 09/17/2024 162.56 cm 35.9 kg/m2 39062.81 g Albalamandeep Tino [facility] 09/17/2024 14:51:00 Date Recorded Body height Body mass index (BMI) Body weight Provider Name and Address Organization Details Last Updated DateTime 05/20/2024 162.56 cm 37.2 kg/m2 70236.54 g [facility] 05/20/2024 13:28:40 Date Recorded Body height Body mass index (BMI) Body weight Provider Name and Address Organization Details Last Updated DateTime 06/05/2024 162.56 cm 37.2 kg/m2 20040.54 g [facility] 06/05/2024 10:49:51 Social History Question Answer Notes [...] available 2023 13:14:33 Medical History Condition Response Depression Y Anxiety Disorder Y Acid Reflux (GERD) Y AIDS/HIV N Thyroid Disorder Y Thyroid Disease Y Glaucoma Y High Cholesterol Y Liver Disease Y Allergies/Hayfever N Sleep Apnea Y Gynecological History Statement/Question Response # of Pregnancies 3 Current Control Method none Abnormal Periods Y # of Births 2 Could you be now? N Obstetrics History GPAL:G 0 P 0 0 0 0 Past Encounters Encounter ID Performer Location Encounter Start Date Encounter Closed Date Diagnosis/Indication Diagnosis SNOMED-CT Code Diagnosis ICD10 Code Diagnosis Note [id number] MAK AIKEN CUA, [facility] [address] [place] [address] 05/20/2024 12:58:28 05/20/2024 14:08:35 Acute urinary tract infection 242501419 N39.0 [id number] MAK AIKEN CUA, [facility] [address] [place] [address] 06/05/2024 10:17:13 06/05/2024 11:08:18 Flank pain 585864533 R10.9 Dysuria 06496950 R30.0 Recurrent urinary tract infection 516562532 N39.0 Incomplete emptying of urinary bladder 943386566 R39.14 [id number] MADISON LUCIA PA-C [facility] [address] [place] [address],[place] [address] 09/17/2024 14:08:18 09/18/2024 04:27:22 Recurrent urinary tract infection 445104263 N39.0 Incomplete emptying of urinary bladder 819913044 R39.14 Health Concerns Section Related Observation LastModified by Organization Detai ls LastModified Time None Recorded Concern Status LastModified by Organization Details LastModified Time None Recorded Advance Directives Directive None Recorded Payers Insurance Date Sequence Insurance Name Policy Number Policy Stephens Covered Member ID Stephens Member ID Guarantor Name 11/02/2024 1 [employer] [place] (MEDICAID REPLACEMENT - HMO) Kristie A Ewalt [id number] Kristie A Ewalt 06/08/2024 1 [employer] Kristie A Ewalt [id number] Kristie A Ewalt Notes Date Note Type Note Provider Name and Address Organization Details Recorded Time 05/20/2024 text/html Patient is a pleasant 38-year-old female who presents today for my initial evaluation of bilateral flank pain. She reports that her pain initially started on 05/16/2024 for which she was seen at the [facility] emergency department.At her visit to the [...] denies history of urolithiasis. MADISON LUCIA PA-C [facility] [place], [address], [facility] 05/20/2024 16:48:14 06/05/2024 text/html Patient is a pleasant 38-year-old female who presents today for worsening bilateral flank pain. She reports that her pain initially started on 05/16/2024 for which she was seen at the [facility] emergency department. At her visit to [...] office PVR of 197mL. MADISON LUCIA PA-C [facility] [place], [address], [facility] 06/05/2024 11:20:55 09/17/2024 text/html Patient is a pleasant 38-year-old female who presents today for follow up of bilateral flank pain and urinary retention. She has history of recurrent urinary tract infection presumably due to not drinking enough water. 05/16/2024 she was seen at [facility] ER for bilateral flank pain (L>R), [...] Urinalysis unremarkable today. MADISON LUCIA PA-C [address] [place], [address], [place] [facility] 09/17/2024 15:36:50 OBGyn Episode No OBEpisode recorded.
--- OUTSIDE RECORDS SUMMARY | 2024-12-24 16:02 | XMS_ITS | Continuity of Care Document ---
Author Organization [facility] [place], [facility] Address [address] [facility] [address] [place] [address] Assessment Encounter Date Assessment Date Assessment LastModified by Organization Details LastModified Time 12/08/2024 12/08/2024 Follow up in 3-4 months. [email or web address] Not available 12/08/2024 16:44:17 Plan of Treatment [...] 20 mg capsule,d elayed release 2024 025 [email or web address] [facility], [address] [place] [address], [id number], 12/08/2024 15:59:18 Patient TargetsNo targets recorded. Patient InstructionsNo instructions recorded. Reason for Referral None Reported. Procedures Surgical History Date Name Laterality Status Provider Name and Address Organization Details Recorded Time 10/27/19 22 Date of Last Pap Smear completed Susan KNIGHT [facility] [place] 09/28/2024 14:36:04 06/24/19 20 Cholecystectomy completed Susan KNIGHT CANDACE [facility] [place] 09/28/2024 14:36:17 06/24/19 18 Tonsillectomy/Adeno idectomy completed Susan KNIGHT [facility] [place] 09/28/2024 14:36:17 04/19/20 14 completed Susan KNIGHT - LPDENNY [facility] [place] 09/28/2024 14:36:04 06/24/19 12 Extractor And Wringer Operator [facility] [place] 09/28/2024 14:36:17 Imaging Results None recorded. Procedure Notes None recorded. Medical Equipment None Reported. Allergies Allergen ID Allergen Name Allergen Category Reaction Reaction Severity Criticality Documentation Date Start Date Code Code System Note Provider Name and Address Organization Details Recorded Time 929259 Viibryd medicatio n other moderate Not available 09/28/2024 98905 73 RxNorm Susan mcgraw, ANTONIA [facility] [place] 14:35:17 Medications Name Sig Start Date Stop [...] Last Updated DateTime 162.56 cm 35.6 kg/m2 47612.4 2 g 98.6 [degF] 97 % 97 % 85 /min 130/85 mm[Hg] Aisha Hood [facility] [place] 14:50:52 Social History Question Answer Notes LastModified by [employer] Details LastModified Time Tobacco Smoking Status Current Every Day Smoker Susan mcgraw, [facility] [place] 09/28/2024 14:36:14 Do You Have An Advance [...] Functional Status Question Answer Note LastModified by Grid[employer] Details LastModified Time Do you use any illicit or recreational drugs? No Information not available 09/28/2024 What is your level of alcohol consumption? None Information not available 09/28/2024 Do you or have you ever used smokeless tobacco? Never used smokeless tobacco Information not available 09/28/2024 What is your exercise level? Occasional Information not available 09/28/2024 Mental Status Question Answer Note LastModified by Grid[employer] Details LastModified Time Do you feel stressed (tense, restless, nervous, or anxious, or unable to sleep at night)? [id number] Information not available 09/28/2024 Family History Relationship [...] Susan Ellington null, [place] - [facility] [place] [facility] [place] 09/28/2024 14:35:28 MMR 01/21/1996 completed Susan Ellington null, [place] [facility] [place] [facility] [place] 09/28/2024 14:35:28 COVID-19, mRNA, LNP-S, PF, 30 mcg/0.3 mL dose, delroy-sucrose 08/17/2021 completed Susan Ellington null, [place] [facility] [place] [facility] [place] 09/28/2024 14:35:28 COVID-19, mRNA, LNP-S, PF, 30 mcg/0.3 mL dose, delroy-sucrose 09/11/2021 completed Susan Ellington null[place] [facility] [place] [facility] [place] 09/28/2024 14:35:28 Tdap 09/06/2005 completed Susan Ellington null, [place] [facility] [place] 09/28/2024 14:35:28 Tdap 12/18/2015 completed Susan Ellington null[place] [facility] 09/28/2024 14:35:28 Tdap 01/21/2020 completed Susan Ellington null[place] [facility] [place] 09/28/2024 14:35:28 polio, unspecified formulation 01/16/1990 completed Susan Ell[place] null[place] [facility] [place] 09/28/2024 14:35:28 Hep B, adult 09/08/2020 completed Susan Ell[place] null[place] [facility] [place] 09/28/2024 14:35:28 Hep B, adult 01/21/2020 completed Susan Ellington null, ANTONIA - [facility] - [facility] [place] 09/28/2024 14:35:28 Hep B, adult 03/07/2020 completed Susan Ellington null, ANTONIA - [facility] [place] 09/28/2024 14:35:28 DTaP, unspecified formulation 01/16/1990 completed Susan Ellington null, ANTONIA - [facility] - [facility] & Kat 09/28/2024 14:35:28 Influenza, split virus, quadrivalent, PF 03/19/2020 completed Susan Ellington null, ANTONIA - [facility] & [place] 09/28/2024 14:35:28 Influenza, split virus, quadrivalent, PF 05/15/2023 completed Susan Ellington null, ANTONIA - [facility] [place] 09/28/2024 14:35:28 Past Encounters Encounter ID Performer Location Encounter Start Date Encounter Closed Date Diagnosis/Indication Diagnosis SNOMED-CT Code Diagnosis ICD10 Code Diagnosis Note [id number] JOYA SPENCE NP [facility] [address] [address] 12/08/2024 14:42:53 12/08/2024 15:30:11 Gastroesophageal reflux disease without esophagitis 836645882 K21.9 Continue PPI daily.Avoi d NSAIDs and alcohol. Chronic id iopathic constipation 24493751 K59.04 Continue Magnesium nightly.Co ntinue dietary changes, increase water intake. Hepatosplenomegaly 32392 000 R16.2 Patient reported this finding on imaging at [facility] 03/2024.NA SH fibrosure estimates FO, <5% steatosis, and no WEST. LFT, PT/INR normal.Con manager public repeat imaging and labs at follow up. Gilbert's syndrome 42673 000 E80.4 Evidence of Gilbert's syndrome based on fractionat ed bilirubin findings and normal LFT.No specific therapy is required. Steatotic liver disease 265368556 K76.0 Denies alcohol use.FIB 4 estimated F0-F1.Weig [...] Stephens Member ID Guarantor Name 12/08/2024 1 [facility] (MEDICAID REPLACEMENT - HMO) Kristie Perez [id number] Kristie Perez Notes Date Note Type Note Provider Name and Address Organization Details Recorded Time 12/08/2024 text/html PREVIOUS: Nikole Perez is a 39 yr old female here today for follow up.Today we discussed lab findings in depth. I did not receive her most recent CT from [facility]. I will request records again today. Most [...] since our last visit. JOYA SPENCE, ASAF [address], [place], [address], [facility] [place] [facility] [place] 12/08/2024 16:45:37 OBGyn Episode No OBEpisode recorded.
== END 2024-12-24 23:59 | disposition home or self-care (01) ==
LOC: RAD 16:00
PROVIDERS: PCP Family Medicine; Visit Provider Obstetrics & Gynecology
DX: Z12.31 Encounter for screening mammogram for malignant neoplasm of breast (principal); N63.41 Unspecified lump in right breast, subareolar; R92.323 Mammographic fibroglandular density, bilateral breasts
CPT/HCPCS: 77063; 77067

== ENCOUNTER 2025-01-18 15:00 | Outpatient (CLI) | payer MEDICAID, SELFPAY ==
--- NOTE | 2025-01-18 14:45 | US_ITS ---
PROCEDURE INFORMATION: Exam: US Right Breast Limited MG Right Diagnostic Breast Tomosynthesis Exam date and time: 01/18/2025 3:03 PM Age: 39 years old Clinical indication: Callback from screening for a right breast finding. TECHNIQUE: Imaging protocol: Limited ultrasound of right breast with image documentation, including axilla when performed. Exam focused on the search and evaluation for mass. Right Diagnostic tomosynthesis and 2D mammography including computer-aided detection (CAD) when performed. Unilateral or bilateral exam. COMPARISON: MG MM DIG SCREENING MAMM BI W/CAD 12/24/2024 4:01 PM FINDINGS: MAMMOGRAPHY: Breast composition: There are scattered areas of fibroglandular density. Breast mammogram findings: A circumscribed rounded mass is seen in the retroareolar aspect of the right breast, slightly lateral to the nipple measuring 0.6 cm. There is no distortion, nipple retraction, or skin thickening. No suspicious calcifications. ULTRASOUND: Breast ultrasound findings: Ultrasound of the right breast is performed. In the retroareolar 9 o'clock axis of the right breast there is a complicated cyst that measures 0.6 x 0.6 x 0.6 cm that correlates to the mammogram finding. This is considered probably benign. There is no other suspicious mass, shadowing, or distortion. IMPRESSION: The finding in the right breast is most consistent with a complicated cyst in the retroareolar 9 o'clock axis that is seen on ultrasound. A six-month follow-up right breast mammogram and ultrasound are recommended for close surveillance. ASSESSMENT: BI-RADS Category 3: Probably benign.
--- OUTSIDE RECORDS SUMMARY | 2025-01-18 15:02 | XMS_ITS | Clinical Summary ---
Author Organization 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 Name Role Phone Unavailable Primary Care Provider Unavailabl e Social History Tobacco Use Types Packs/Day Years Used Date Smoking Tobacco: Never Assessed Comments Unknown Sex and Gender Information Value Date Recorded Sex Assigned at Not on file Legal Sex Female 4:15 PM EDT Gender Identity Not on file Sexual Orientation Not on file Plan of Treatment Upcoming Encounters Date Type Department Care Team (Late st Contact Info) Description 01/19/2025 1:00 PM EDT Office Visit [facility] [address] [address] Kat Figueroa PA-C [address] [address] Health Maintenance Due Date Last Done Comments ANNUAL PHYSICAL 1984 Annual Gynecologic Pelvic an d Breast Exam 1984 HEPATITIS C SCREENING 1984 TDAP/TD VACCINES (1 - Tdap) 2003 PAP SMEAR 2005 COVID-19 Vaccine (2023-2 5 season) 2024 MAMMOGRAM 2024 INFLUENZA VACCINE 03/24/2025 Pneumococcal Vaccine 0-49 Aged Out No longer eligible based on patient's age to complete this topic Insurance [employer] [place]ID [place]
--- OUTSIDE RECORDS SUMMARY | 2025-01-18 15:02 | XMS_ITS | Data Portability ---
Author Organization ANTONIA NATHAN [facility] Address [address] [facility] [facility] [place] [address] Care Team Providers Care Nursing Unit Manager Name Role Phone JOVANNI SAMUEL Primary Care Provider Assessment Encounter Date Assessment Date Assessment LastModified [...] back in 2 months, sooner if needed. Not available 06/05/2024 11:20:02 09/17/2024 09/17/2024 Continue current conservative measures of properly hydrating and regularly having bowel movements. No additional medical or procedural therapy indicated at this time. We will follow up in 6 months to reassess her symptom burden, sooner if needed. [email or web address] Not available 09/17/2024 15:36:06 Plan of Treatment Reminders Order Date Submit Date Provider Last Modified By Organization Details Last Modified Time Details Appointments RECHECK 2024 01:30P Karen BROWN MD Not available Not available Not available Lab urinalysi s panel, auto 2024 025 4 [facility], [address] [place] [address] [address], [place], [address], 09/17/2024 15:36:14 urinalysi s panel, auto 2023 024 [email or web address] 4 [facility], [address], [address], [place], [address], 06/06/2024 00:04:18 BMP, serum or plasma 2023 024 [email or web address] 4 [facility], [address] [place] [address], [address], 06/06/2024 00:04:18 CBC w/ auto diff 2023 024 [email or web address] 4 [facility], [address] [place] [address], [address], 06/06/2024 00:04:18 urinalysi s panel, auto 2023 024 [id number] 4 [facility], [address], [address], [place], [address], 05/27/2024 13:16:43 culture, urine 2023 024 [email or web address] 4 [facility], [address] [place] [address], [address], 05/27/2024 13:16:43 Referral None recorded. Procedures None recorded. Surgeries None recorded. Imaging US, retroperi toneum, limited 2023 024 [email or web address] 4 [facility], [address] [place], [address], 06/06/2024 00:04:18 Medication Orders Pyridium 200 mg tablet 2023 025 [facility], [address] [place] [address], [id number], 09/17/2024 15:11:36 ciproflox acin 500 mg tablet 2023 025 [facility], [address] [place] [address], [id number], 09/17/2024 15:11:38 fluconazo le 150 mg tablet 2023 025 [facility], [address] [place] [address], [id number], 09/17/2024 15:11:37 Patient TargetsNo targets recorded. Patient InstructionsNo instructions recorded. Reason for Referral None Reported. Results Created Date Observation Date Name Description Value Unit Range Abnormal Flag Note LastModifiedBy Organization Detail LastModifiedTime 05/20/2005/22/2024 URINE CULTU RE urine culture COLON Y COUNT : 10,00 0 - 100,0 00 CFU/M L Three or more isola chuck; mixed uroge nital christiano . Not Available [facility] [address] [place], [address], 05/22/2024 10:59:15 05/20/2005/20/2024 urina lysis panel , auto Unknown Analyte Clean Catch Not Available [facility] [address] [facility] [address], [place], [address], 05/20/2024 13:22:23 05/20/20 24 05/20/2024 urina lysis panel , auto Unknown Analyte Yellow Not Available [facility] [address], [place], [address], 05/20/2024 13:22:23 05/20/20 24 05/20/2024 urina lysis panel , auto Unknown Analyte Clear Not Available [facility] [address], [place], [address], 05/20/2024 13:22:23 05/20/20 24 05/20/2024 urina lysis panel , auto Unknown Analyte 1.005 Not Available [facility] [address], [place], [address], 05/20/2024 13:22:23 05/20/20 24 05/20/2024 urina lysis panel , auto Unknown Analyte 1.003- 1.035 Not Available [facility] [address], [place], [address], 05/20/2024 13:22:23 05/20/20 24 05/20/2024 urina lysis panel , auto Unknown Analyte 6.0 Not Available [facility] [address], [place], [address], 05/20/2024 13:22:23 05/20/20 24 05/20/2024 urina lysis panel , auto Unknown Analyte 5.0-8. 0 Not Available [facility] [address], [place], [address], 05/20/2024 13:22:23 05/20/20 24 05/20/2024 urina lysis panel , auto Unknown Analyte Negati ve Not Available [facility] [address], [place], [address], 05/20/2024 13:22:23 05/20/20 24 05/20/2024 urina lysis panel , auto Unknown Analyte Negati ve Not Available [facility] [address], [place], [address], 05/20/2024 13:22:23 05/20/2005/20/2024 urina lysis panel , auto Unknown Analyte Negati ve Not Available [facility] [address], [place], [address], 05/20/2024 13:22:23 05/20/20 24 05/20/2024 urina lysis panel , auto Unknown Analyte Negati ve Not Available [facility] [address], [place], [address], 05/20/2024 13:22:23 05/20/20 24 05/20/2024 urina lysis panel , auto Unknown Analyte Negati ve Not Available [facility] [address], [place], [address], 05/20/2024 13:22:23 05/20/20 24 05/20/2024 urina lysis panel , auto Unknown Analyte Negati ve Not Available [facility] [address], [place], [address], 05/20/2024 13:22:23 05/20/20 24 05/20/2024 urina lysis panel , auto Unknown Analyte Normal Not Available [facility] [address], [place], [address], 05/20/2024 13:22:23 05/20/20 24 05/20/2024 urina lysis panel , auto Unknown Analyte Normal Not Available [facility] [address], [place], [address], 05/20/2024 13:22:23 05/20/20 24 05/20/2024 urina lysis panel , auto Unknown Analyte Negati ve Not Available [facility] [address], [place], [address], 05/20/2024 13:22:23 05/20/20 24 05/20/2024 urina lysis panel , auto Unknown Analyte Negati ve Not Available [facility] [address], [place], [address], 05/20/2024 13:22:23 05/20/20 24 05/20/2024 urina lysis panel , auto Unknown Analyte Normal Not Available [facility] [address], [place], [address], 05/20/2024 13:22:23 05/20/20 24 05/20/2024 urina lysis panel , auto Unknown Analyte Normal 1 mg/dl Not Available [facility] [address], [place], [address], 05/20/2024 13:22:23 05/20/20 24 05/20/2024 urina lysis panel , auto Unknown Analyte Negati ve Not Available [facility] [address], [place], [address], 05/20/2024 13:22:23 05/20/20 24 05/20/2024 urina lysis panel , auto Unknown Analyte Negati ve Not Available [facility] [address], [place], [address], 05/20/2024 13:22:23 05/20/20 24 05/20/2024 urina lysis panel , auto Unknown Analyte Trace Not Available [facility] [address], [place], [address], 05/20/2024 13:22:23 05/20/20 24 05/20/2024 urina lysis panel , auto Unknown Analyte Negati ve Not Available [facility] [address], [place], [address], 05/20/2024 13:22:23 06/05/20 24 06/05/2024 COMPL ETE BLOOD COUNT white blood cells 9.3 10*3/ uL 3.8-10 .8 normal Not Available [facility] [address] [place] [address], [address], 06/05/2024 14:41:56 06/05/20 24 06/05/2024 COMPL ETE BLOOD COUNT red blood cells 5.22 10*6/ uL 3.80-5 .20 high Not Available [facility] [address] [place] [address], [address], 06/05/2024 14:41:56 06/05/20 24 06/05/2024 COMPL ETE BLOOD COUNT hemoglobin 14.1 g/dL 12.0-1 6.0 normal Not Available [facility] [address] [place] [address], [address], 06/05/2024 14:41:56 06/05/20 24 06/05/2024 COMPL ETE BLOOD COUNT hematocrit 42.2 % 35.0-4 7.0 normal Not Available [facility] [address] [place] [address], [address], 06/05/2024 14:41:56 06/05/20 24 06/05/2024 COMPL ETE BLOOD COUNT MCV 81 fL 80-100 normal Not Available [facility] [address] [place] [address], [address], 06/05/2024 14:41:56 06/05/20 24 06/05/2024 COMPL ETE BLOOD COUNT MCH 27 pg 26-35 normal Not Available [facility] [address] [place] [address], [address], 06/05/2024 14:41:56 06/05/20 24 06/05/2024 COMPL ETE BLOOD COUNT MCHC 34 g/dL 32-36 normal Not Available [facility] [address] [place] [address], [address], 06/05/2024 14:41:56 06/05/20 24 06/05/2024 COMPL ETE BLOOD COUNT RDW 14.5 % 11.0-1 5.0 normal Not Available [facility] [address] [place] [address], [address], 06/05/2024 14:41:56 06/05/20 24 06/05/2024 COMPL ETE BLOOD COUNT MPV 10.8 fL 6.2-10 .5 high Not Available [facility] [address] [place] [address], [address], 06/05/2024 14:41:56 06/05/20 24 06/05/2024 COMPL ETE BLOOD COUNT platelet count 273 10*3/ uL 150-40 0 normal Not Available [facility] [address] [place] [address], [address], 06/05/2024 14:41:56 06/05/20 24 06/05/2024 COMPL ETE BLOOD COUNT neutrophil,a bsolute 6.1 10*3/ uL 1.6-8. 4 normal Not Available [facility] [address] [place] [address], [address], 06/05/2024 14:41:56 06/05/20 24 06/05/2024 COMPL ETE BLOOD COUNT lymphocyte,a bsolute 2.2 10*3/ uL 0.4-5. 1 normal Not Available [facility] [address] [place] [address], [address], 06/05/2024 14:41:56 06/05/20 24 06/05/2024 COMPL ETE BLOOD COUNT monocyte,abs olute 0.3 10*3/ uL 0.0-1. 2 normal Not Available [facility] [address] [place] [address], [address], 06/05/2024 14:41:56 06/05/20 24 06/05/2024 COMPL ETE BLOOD COUNT eosinophil,a bsolute 0.6 10*3/ uL 0.0-0. 8 normal Not Available [facility] [address] [place] [address], [address], 06/05/2024 14:41:56 06/05/20 24 06/05/2024 COMPL ETE BLOOD COUNT basophil,abs olute 0.1 10*3/ uL 0.0-0. 3 normal Not Available [facility] [address] [place] [address], [address], 06/05/2024 14:41:56 06/05/20 24 06/05/2024 COMPL ETE BLOOD COUNT % neutrophils 65.4 % 42.0-7 8.0 normal Not Available [facility] [address] [place] [address], [address], 06/05/2024 14:41:56 06/05/20 24 06/05/2024 COMPL ETE BLOOD COUNT % lymphocytes 24.2 % 11.0-4 7.0 normal Not Available [facility] [address] [place] [address], [address], 06/05/2024 14:41:56 06/05/20 24 06/05/2024 COMPL ETE BLOOD COUNT % monocytes 3.6 % 0.0-11 .0 normal Not Available [facility] [address] [place] [address], [address], 06/05/2024 14:41:56 06/05/20 24 06/05/2024 COMPL ETE BLOOD COUNT % eosinophils 6.0 % 0.0-7. 0 normal Not Available [facility] [address] [place] [address], [address], 06/05/2024 14:41:56 06/05/20 24 06/05/2024 COMPL ETE BLOOD COUNT % basophils 0.8 % 0.0-3. 0 normal Not Available [facility] [address] [place] [address], [address], 06/05/2024 14:41:56 06/05/20 24 06/05/2024 COMPL ETE BLOOD COUNT nucleated red cells 0.2 % 0.0-0. 9 normal Not Available [facility] [address] [place] [address], [address], 06/05/2024 14:41:56 06/05/20 24 06/05/2024 COMPL ETE BLOOD COUNT nucleated RBCs, absolute 0.02 10*3/ uL not estab. normal Not Available [facility] [address] [place] [address], [address], 06/05/2024 14:41:56 06/05/20 24 06/05/2024 BASIC METAB OLIC PANEL glucose 107 mg/dL 74-100 high Not Available [facility] [address] [place] [address], [address], 06/05/2024 16:06:22 06/05/20 24 06/05/2024 BASIC METAB OLIC PANEL blood urea nitrogen 13 mg/dL 6-20 normal Not Available [facility] [address] [place] [address], [address], 06/05/2024 16:06:22 06/05/20 24 06/05/2024 BASIC METAB OLIC PANEL creatinine 0.78 mg/dL 0.50-0 .95 normal Not Available [facility] [address] [place] [address], [address], 06/05/2024 16:06:22 06/05/20 24 06/05/2024 BASIC METAB OLIC PANEL BUN/creatini ne ratio 17 (calc ) 10-20 normal Not Available [facility] [address] [place] [address], [address], 06/05/2024 16:06:22 06/05/20 24 06/05/2024 BASIC METAB OLIC PANEL sodium 140 mmol/ L 136-14 5 normal Not Available [facility] [address] [place] [address], [address], 06/05/2024 16:06:22 06/05/20 24 06/05/2024 BASIC METAB OLIC PANEL potassium 4.2 mmol/ L 3.4-5. 0 normal Not Available [facility] [address] [place] [address], [address], 06/05/2024 16:06:22 06/05/20 24 06/05/2024 BASIC METAB OLIC PANEL chloride 102 mmol/ L 98-107 normal Not Available [facility] [address] [place] [address], [address], 06/05/2024 16:06:22 06/05/20 24 06/05/2024 BASIC METAB OLIC PANEL carbon dioxide 26 mmol/ L 22-31 normal Not Available [facility] [address] [place] [address], [address], 06/05/2024 16:06:22 06/05/20 24 06/05/2024 BASIC METAB OLIC PANEL anion gap 12 (calc ) 7-25 normal Not Available [facility] [address] [place] [address], [address], 06/05/2024 16:06:22 06/05/20 24 06/05/2024 BASIC METAB OLIC PANEL calcium 10.0 mg/dL 8.6-10 .2 normal Not Available [facility] [address] [place], [address], 06/05/2024 16:06:22 06/05/20 24 06/05/2024 BASIC METAB OLIC PANEL GFR 98 >= 60 normal NOT E New calcu latio n for GFR (CKD- EPI 2020) is formu lated witho ut race adjus tment facto rs at the [facility] menda tion of the Ronnie Babin y Jaswant atnivia and [facility] Marse ty of Nephr ology . This calcu latio n has not been valid ated in pregn ant women . For pedia tric patie nts refer to https ://kaleigh quiles.dionicio russell/tommy caballero s/KALEYO QI/gf r_cal culat orPed Not Available [facility] [address] [place] [address], [address], 06/05/2024 16:06:22 06/05/20 24 06/05/2024 urina lysis panel , auto Unknown Analyte Clean Catch Not Available [facility] [address], [place], [address], 06/05/2024 10:33:26 06/05/20 24 06/05/2024 urina lysis panel , auto Unknown Analyte Yellow Not Available [facility] [address], [place], [address], 06/05/2024 10:33:26 06/05/20 24 06/05/2024 urina lysis panel , auto Unknown Analyte Clear Not Available [facility] [address], [place], [address], 06/05/2024 10:33:26 06/05/20 24 06/05/2024 urina lysis panel , auto Unknown Analyte 1.000 Not Available [facility] [address], [place], [address], 06/05/2024 10:33:26 06/05/20 24 06/05/2024 urina lysis panel , auto Unknown Analyte 1.003- 1.035 Not Available [facility] [address], [place], [address], 06/05/2024 10:33:26 06/05/20 24 06/05/2024 urina lysis panel , auto Unknown Analyte 6.0 Not Available [facility] [address], [place], [address], 06/05/2024 10:33:26 06/05/20 24 06/05/2024 urina lysis panel , auto Unknown Analyte 5.0-8. 0 Not Available [facility] [address], [place], [address], 06/05/2024 10:33:26 06/05/20 24 06/05/2024 urina lysis panel , auto Unknown Analyte Negati ve Not Available [facility] [address], [place], [address], 06/05/2024 10:33:26 06/05/20 24 06/05/2024 urina lysis panel , auto Unknown Analyte Negati ve Not Available [facility] [address], [place], [address], 06/05/2024 10:33:26 06/05/20 24 06/05/2024 urina lysis panel , auto Unknown Analyte Negati ve Not Available [facility] [address], [place], [address], 06/05/2024 10:33:26 06/05/20 24 06/05/2024 urina lysis panel , auto Unknown Analyte Negati ve Not Available [facility] [address], [place], [address], 06/05/2024 10:33:26 06/05/20 24 06/05/2024 urina lysis panel , auto Unknown Analyte Negati ve Not Available [facility] [address], [place], [address], 06/05/2024 10:33:26 06/05/20 24 06/05/2024 urina lysis panel , auto Unknown Analyte Negati ve Not Available [facility] [address], [place], [address], 06/05/2024 10:33:26 06/05/20 24 06/05/2024 urina lysis panel , auto Unknown Analyte Normal Not Available [facility] [address], [place], [address], 06/05/2024 10:33:26 06/05/20 24 06/05/2024 urina lysis panel , auto Unknown Analyte Normal Not Available [facility] [address], [place], [address], 06/05/2024 10:33:26 06/05/20 24 06/05/2024 urina lysis panel , auto Unknown Analyte Negati ve Not Available [facility] [address], [place], [address], 06/05/2024 10:33:26 06/05/20 24 06/05/2024 urina lysis panel , auto Unknown Analyte Negati ve Not Available [facility] [address], [place], [address], 06/05/2024 10:33:26 06/05/20 24 06/05/2024 urina lysis panel , auto Unknown Analyte Normal Not Available [facility] [address], [place], [address], 06/05/2024 10:33:26 06/05/20 24 06/05/2024 urina lysis panel , auto Unknown Analyte Normal 1 mg/dl Not Available [facility] [address], [place], [address], 06/05/2024 10:33:26 06/05/20 24 06/05/2024 urina lysis panel , auto Unknown Analyte Negati ve Not Available [facility] [address], [place], [address], 06/05/2024 10:33:26 06/05/20 24 06/05/2024 urina lysis panel , auto Unknown Analyte Negati ve Not Available [facility] [address], [place], [address], 06/05/2024 10:33:26 06/05/20 24 06/05/2024 urina lysis panel , auto Unknown Analyte Negati ve Not Available [facility] [address], [place], [address], 06/05/2024 10:33:26 06/05/20 24 06/05/2024 urina lysis panel , auto Unknown Analyte Negati ve Not Available [facility] [address], [place], [address], 06/05/2024 10:33:26 09/18/19 25 09/17/2024 urina lysis panel , auto Unknown Analyte Clean Catch Not Available [facility] [address], [place], [address], 09/17/2024 14:57:01 09/18/19 25 09/17/2024 urina lysis panel , auto Unknown Analyte Yellow Not Available [facility] [address] [place], [address], 09/17/2024 14:57:01 09/18/19 25 09/17/2024 urina lysis panel , auto Unknown Analyte Clear Not Available [facility] [address], [place], [address], 09/17/2024 14:57:01 09/18/19 25 09/17/2024 urina lysis panel , auto Unknown Analyte 1.015 Not Available [facility] [address], [place], [address], 09/17/2024 14:57:01 09/18/19 25 09/17/2024 urina lysis panel , auto Unknown Analyte 1.003 - 1.030 Not Available [facility] With [address], [place], [address], 09/17/2024 14:57:01 09/18/19 25 09/17/2024 urina lysis panel , auto Unknown Analyte 5.0 Not Available [facility] [address] [place], [address], 09/17/2024 14:57:01 09/18/19 25 09/17/2024 urina lysis panel , auto Unknown Analyte 5.0 - 8.0 Not Available [facility] With [address] [place], [address], 09/17/2024 14:57:01 09/18/19 25 09/17/2024 urina lysis panel , auto Unknown Analyte Negati ve Not Available [facility] With [address], [place], [address], 09/17/2024 14:57:01 09/18/19 25 09/17/2024 urina lysis panel , auto Unknown Analyte Negati ve Not Available [facility] With [address] [place], [address], 09/17/2024 14:57:01 09/18/19 25 09/17/2024 urina lysis panel , auto Unknown Analyte Negati ve Not Available [facility] With [address] [place], [address], 09/17/2024 14:57:01 09/18/19 25 09/17/2024 urina lysis panel , auto Unknown Analyte Negati ve Not Available [facility] With [address] [place], [address], 09/17/2024 14:57:01 09/18/19 25 09/17/2024 urina lysis panel , auto Unknown Analyte Negati ve Not Available [facility] With [address] [place], [address], 09/17/2024 14:57:01 09/18/19 25 09/17/2024 urina lysis panel , auto Unknown Analyte Negati ve Not Available [facility] [address] [place], [address], 09/17/2024 14:57:01 09/18/19 25 09/17/2024 urina lysis panel , auto Unknown Analyte Normal Not Available [facility] [address] [place], [address], 09/17/2024 14:57:01 09/18/19 25 09/17/2024 urina lysis panel , auto Unknown Analyte Normal Not Available [facility] [address] [place], [address], 09/17/2024 14:57:01 09/18/19 25 09/17/2024 urina lysis panel , auto Unknown Analyte Negati ve Not Available [facility] [address] [place], [address], 09/17/2024 14:57:01 09/18/19 25 09/17/2024 urina lysis panel , auto Unknown Analyte Negati ve Not Available [facility] [address] [place], [address], 09/17/2024 14:57:01 09/18/19 25 09/17/2024 urina lysis panel , auto Unknown Analyte Normal Not Available [facility] [address] [place], [place], [address], 09/17/2024 14:57:01 09/18/19 25 09/17/2024 urina lysis panel , auto Unknown Analyte Normal Not Available [facility] [address] [place], [place], [address], 09/17/2024 14:57:01 09/18/19 25 09/17/2024 urina lysis panel , auto Unknown Analyte Negati ve Not Available [facility] [address] [place], [address], 09/17/2024 14:57:01 09/18/19 25 09/17/2024 urina lysis panel , auto Unknown Analyte Negati ve Not Available [facility] [address] [place], [place], [address], 09/17/2024 14:57:01 09/18/19 25 09/17/2024 urina lysis panel , auto Unknown Analyte 50 Tristan/uL Not Available [facility] [address] [place], [place], [address], 09/17/2024 14:57:01 09/18/19 25 09/17/2024 urina lysis panel , auto Unknown Analyte Negati ve Not Available [facility] [address] [place], [place], [address], 09/17/2024 14:57:01 05/20/20 24 05/16/2024 CT, abdom en + pelvi s, w/wo contr ast No observ ation record ed. [email or web address] [facility] (Radiology) [address] , [place], [address], 06/30/2024 12:07:58 06/05/20 24 06/05/2024 US, retro perit oneum , limit ed [facility] [address] [place] [address] Patileela t Name: CONCETTA Denton EWOLENA smith [...] Adolfo Nielson MD on 2023 1:54 PM [email or web address] [facility] [address] [place] [address], [address], 06/08/2024 10:26:48 Result Notes None recorded. Problems Name Problem SNOMED Code Status Onset Date Resolution Date Notes Provider Name and Address Organization Details Recorded Time Recurrent urinary tract infection 720575120 Active 025 MADISON LUCIA PA-C [address] [place], [address], [facility] 5 15:36:08 Incomplete emptying of urinary bladder 620583541 Active 025 MADISON LUCIA PA-C [address] [place] [address], [address], [facility] 5 15:36:10 Problem Notes None recorded. Procedures Surgical History Date Name Laterality Status Provider Name and Address Organization Details Recorded Time 06/05/20 24 Post Void Residual; Ultrasound completed [facility] 06/05/2024 10:50:28 Cholecystectomy completed [facility] 05/20/2024 13:30:40 Tonsillectomy completed [facility] 05/20/2024 13:30:48 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 completed [facility] 05/20/2024 13:30:58 Imaging Results None recorded. Procedure Notes None recorded. Medical Equipment None Reported. Allergies Allergen ID Allergen Name Allergen Category Reaction Reaction Severity Criticality Documentation Date Start Date Code Code System Note Provider Name and Address Organization Details Recorded Time 592513 Viibryd medicatio n Not available Not available Not available 05/20/2024 52997 73 [facility] 13:29[facility]02 Medications Name Sig Start Date Stop [...] Updated DateTime 09/17/2024 162.56 cm 35.9 kg/m2 62434.81 g Albalamandeep Tino [facility] 09/17/2024 14:51:00 Date Recorded Body height Body mass index (BMI) Body weight Provider Name and Address Organization Details Last Updated DateTime 05/20/2024 162.56 cm 37.2 kg/m2 77593.54 g [facility] 05/20/2024 13:28:40 Date Recorded Body height Body mass index (BMI) Body weight Provider Name and Address Organization Details Last Updated DateTime 06/05/2024 162.56 cm 37.2 kg/m2 74945.54 g [facility] 06/05/2024 10:49:51 Social History Question Answer [...] SNOMED-CT Code Diagnosis ICD10 Code Diagnosis Note [id number] MAK AIKEN CUA, [facility] [address] [place] [address] 05/20/2024 12:58:28 05/20/2024 14:08:35 Acute urinary tract infection 514180761 N39.0 [id number] MAK AIKEN CUA, [facility] [address] [place] [address] 06/05/2024 10:17:13 06/05/2024 11:08:18 Flank pain 561902017 R10.9 Dysuria 08758616 R30.0 Recurrent urinary tract infection 419936456 N39.0 Incomplete emptying of urinary bladder 962764797 R39.14 [id number] MAK AIKEN CUA [facility] [address] [place] [address] ,[address] [place] [address] 09/17/2024 14:08:18 09/18/2024 04:27:22 Recurrent urinary tract infection 469541188 N39.0 Incomplete emptying of urinary bladder 115855650 R39.14 Health Concerns Section Related Observation LastModified by Organization Detai ls LastModified Time None Recorded Concern Status LastModified by Organization Details LastModified Time None Recorded Advance Directives Directive None Recorded Payers Insurance Date Sequence Insurance Name Policy Number Policy Stephens Covered Member ID Stephens Member ID Guarantor Name 11/02/2024 1 [employer] [place] (MEDICAID [place]PLACEMENT - HMO) Kristie A Ewalt [id number] Kristie A Ewalt 06/08/2024 1 [employer] Kristie A Ewalt [id number] Kristie A Ewalt OBGyn Episode No OBEpisode recorded.
--- OUTSIDE RECORDS SUMMARY | 2025-01-18 15:03 | XMS_ITS | Continuity of Care Document ---
[facility] [place], [facility] Address [address] [facility] [address] [place] [address] Assessment Encounter Date Assessment Date Assessment LastModified by Organization Details LastModified Time 12/08/2024 12/08/2024 Follow up in 3-4 months. [email or web address] Not available 12/08/2024 16:44:17 Plan of Treatment [...] 20 mg capsule,d elayed release 2024 025 [email or web address] [facility], [address] [place] [address], [id number], 12/08/2024 15:59:18 Patient TargetsNo targets recorded. Patient InstructionsNo instructions recorded. Reason for Referral None Reported. Procedures Surgical History Date Name Laterality Status Provider Name and Address Organization Details Recorded Time 10/27/19 22 Date of Last Pap Smear completed Susan KNIGHT [facility] & [place] 09/28/2024 14:36:04 06/24/19 20 Cholecystectomy completed Susan KNIGHT CANDACE [facility] [place] 09/28/2024 14:36:17 06/24/19 18 Tonsillectomy/Adeno idectomy completed Susan KNIGHT [facility] & [place] 09/28/2024 14:36:17 04/19/20 14 completed Susan KNIGHT - LPDENNY [facility] [place] 09/28/2024 14:36:04 06/24/19 12 Candy Dipper Surgery [facility] [place] 09/28/2024 14:36:17 Imaging Results None recorded. Procedure Notes None recorded. Medical Equipment None Reported. Allergies Allergen ID Allergen Name Allergen Category Reaction Reaction Severity Criticality Documentation Date Start Date Code Code System Note Provider Name and Address Organization Details Recorded Time 838530 Viibryd medicatio n other moderate Not available 09/28/2024 62521 73 RxNorm Susan mcgraw, ANTONIA [facility] & [place] 14:35:17 Medications Name Sig Start Date Stop [...] Last Updated DateTime 162.56 cm 35.6 kg/m2 46025.4 2 g 98.6 [degF] 97 % 97 % 85 /min 130/85 mm[Hg] Aisha Hood [facility] & [place] 14:50:52 Social History Question Answer Notes LastModified by Goji Details LastModified Time Tobacco Smoking Status Current Every Day Smoker Susan mcgraw, [facility] & [place] 09/28/2024 14:36:14 Do You Have An Advance [...] Functional Status Question Answer Note LastModified by Goji Details LastModified Time Do you use any illicit or recreational drugs? No Information not available 09/28/2024 What is your level of alcohol consumption? None Information not available 09/28/2024 Do you or have you ever used smokeless tobacco? Never used smokeless tobacco Information not available 09/28/2024 What is your exercise level? Occasional Information not available 09/28/2024 Mental Status Question Answer Note LastModified by Goji Details LastModified Time Do you feel stressed (tense, restless, nervous, or anxious, or unable to sleep at night)? [id number] Information not available 09/28/2024 Family History Relationship [...] null, [place] [facility] [place] [facility] [place] 09/28/2024 14:35:28 MMR 01/21/1996 completed Susan Ellington null, [place] [facility] [place] 09/28/2024 14:35:28 COVID-19, mRNA, LNP-S, PF, 30 mcg/0.3 mL dose, delroy-sucrose 08/17/2021 completed Susan Ellington null, [place] [facility] [place] [facility] [place] 09/28/2024 14:35:28 COVID-19, mRNA, LNP-S, PF, 30 mcg/0.3 mL dose, delroy-sucrose 09/11/2021 completed Susan Ellington null, [place] [facility] [place] 09/28/2024 14:35:28 Tdap 09/06/2005 completed Susan Ellington null, [place] [facility] [place] 09/28/2024 14:35:28 Tdap 12/18/2015 completed Susan Ellington null, [place] [facility] & [place] 09/28/2024 14:35:28 Tdap 01/21/2020 completed Susan Ellington null, [place] [facility] [place] 09/28/2024 14:35:28 polio, unspecified formulation 01/16/1990 completed Susan Ellington null, [place] [facility] [place] 09/28/2024 14:35:28 Hep B, adult 09/08/2020 completed Susan Ellington null, [place] [facility] [place] 09/28/2024 14:35:28 Hep B, adult 01/21/2020 completed Susan Ellington null, ANTONIA - [facility] [place] 09/28/2024 14:35:28 Hep B, adult 03/07/2020 completed Susan Ellington null, ANTONIA - [facility] & [place] 09/28/2024 14:35:28 DTaP, unspecified formulation 01/16/1990 completed Susan Ellington null, ANTONIA - [facility] - [facility] & [place] 09/28/2024 14:35:28 Influenza, split virus, quadrivalent, PF 03/19/2020 completed Susan Ellington null, ANTONIA - [facility] [place] 09/28/2024 14:35:28 Influenza, split virus, quadrivalent, PF 05/15/2023 completed Susan Ellington null, ANTONIA - [facility] & [place] 09/28/2024 14:35:28 Past Encounters Encounter ID Performer Location Encounter Start Date Encounter Closed Date Diagnosis/Indication Diagnosis SNOMED-CT Code Diagnosis ICD10 Code Diagnosis Note [id number] JOYA SPENCE NP [facility] [address] [address] 12/08/2024 14:42:53 12/08/2024 15:30:11 Gastroesophageal reflux disease without esophagitis 848362696 K21.9 Continue PPI daily.Avoi d NSAIDs and alcohol. Chronic id iopathic constipation 28796297 K59.04 Continue Magnesium nightly.Co ntinue dietary changes, increase water intake. Hepatosplenomegaly 74254 000 R16.2 Patient reported this finding on imaging at [facility] 03/2024.NA SH fibrosure estimates FO, <5% steatosis, and no WEST. LFT, PT/INR normal.Con fish icer repeat imaging and labs at follow up. Gilbert's syndrome 45416 000 E80.4 Evidence of Gilbert's syndrome based on fractionat ed bilirubin findings and normal LFT.No specific therapy is required. Steatotic liver disease 539668114 K76.0 Denies alcohol use.FIB 4 estimated F0-F1.Weig [...] Stephens Member ID Guarantor Name 12/08/2024 1 [facility] (MEDICAID REPLACEMENT - HMO) Kristie A Ewalt [id number] Kristie Ewalt OBGyn Episode No OBEpisode recorded.
--- OUTSIDE RECORDS SUMMARY | 2025-01-18 15:03 | XMS_ITS | Data Portability ---
Author Organization ANTONIA [facility], EDWIN SHAWDENNY [facility] & CANDACE Stephens ADMIN Address [address] [place] [id number] Assessment Encounter Date Assessment Date Assessment LastModified by Organization Details LastModified Time 08/21/2024 08/21/2024 Follow up as planned in September. Not available 08/21/2024 14:35:47 09/28/2024 09/28/2024 Follow up in 2 months. Not available 09/28/2024 20:56:07 12/08/2024 12/08/2024 Follow up in 3-4 months. Not available 12/08/2024 16:44:17 Plan of Treatment Reminders Order Date Submit Date Provider Last Modified By Organization Details Last Modified Time Details Appointments Establish ed Visit 15 min 2024 02:30P Karen SPENCE NP Not available Not available Not available Lab alpha-1-a ntitrypsi n (aat), QN, serum 2024 025 [place] [facility], [address], [address], [place], [address], 09/29/2024 16:25:57 hepatitis panel (A+B+C), acute, serum 2024 025 [place] [facility], [address], [address], [place], [address], 09/29/2024 16:25:50 celiac disease serology panel, serum 2024 025 [place] [facility], [address], [address], [place], [address], 09/29/2024 16:25:54 autoimmun e hepatitis diagnosti c panel, serum 2024 025 [place] [facility], [address], [address], [place], [address], 09/29/2024 16:25:52 iron + TIBC + ferritin, serum 2024 025 [place] [facility], [address], [address], [place], [address], 09/29/2024 16:25:51 CBC 2024 025 [place] [facility], [address], [address], [place], [address], 09/29/2024 16:25:55 cerulopla smin, serum 2024 025 [place] [facility], [address], [address], [place], [address], 09/29/2024 16:25:56 nonalcoho lic steatohep atitis + fibrosis panel, serum or plasma 2024 025 [email or web address] 4 [facility], [address], [address], [place], [address], 09/04/2024 11:56:24 hepatic function panel, serum 2024 025 [email or web address] 4 [facility], [address], [address], [place], [address], 09/04/2024 11:56:24 PT panel, coagulati on, platelet poor plasma 2024 025 [email or web address] 4 [facility], [address], [address], [place], [address], 09/04/2024 11:56:24 Referral None recorded. Procedures None recorded. Surgeries None recorded. Imaging None recorded. Medication Orders omeprazol e 20 mg capsule,d elayed release 2024 025 [email or web address] [facility], [address] [place] [address] Mary Anne, ANTONIA Short, [id number], 12/08/2024 15:59:18 Linzess 72 mcg capsule 2024 025 [facility], [address] [place] [address] [place], [id number], 09/28/2024 14:21:53 omeprazol e 20 mg capsule,d elayed release 2023 024 [facility], [address] [place] [address] Mary Anne, ANTONIA Short, [id number], 03/31/2024 14:16:25 Linzess 145 mcg capsule 2023 025 [facility], [address] [place] [address] [place], [id number], 12/08/2024 15:35:01 Patient TargetsNo targets recorded. Patient Instructions Encounter Date Encounter Id Patient Instructions Last Modified By Organization Details Last Modified Time 02/10/2024 [id number] Follow up 2-3 weeks after scopes. [email or web address] Not available 02/11/2024 12:54:49 03/31/2024 [id number] Follow up in 6 months or sooner if needed. Not available 03/31/2024 16:01:02 Reason for Referral [...] n); false - posit miguel anti- HBc ([facility] eptib le); low- level chron ic infec tion ; resol ving acute infec tion. Not Available [facility]) [address], [place], [address], 09/29/2024 16:25:50 09/29/19 25 09/29/2024 HAV, HBV, [...] resul ts to IgM (e.g. , panel #[id number] HAV Antib wen w/ Rfx). Not Available [facility] ([facility]) [address] [place], [address], 09/29/2024 16:25:50 09/29/19 25 09/29/2024 HAV, HBV, HCV HBsAg screen NEGATI VE negati ve Not Available [facility] ([facility]) [address] [facility], [place], [address], 09/29/2024 16:25:50 09/29/19 25 09/29/2024 HAV, HBV, [...] infec tion with HBV. Not Available [facility] ([facility]) [address], [place], [address], 09/29/2024 16:25:50 09/29/19 25 09/29/2024 HAV, HBV, HCV hep B core Ab, tot NEGATI VE negati ve Not Available [facility] ([facility]) [address] [place], [address], 09/29/2024 16:25:50 09/29/19 25 09/29/2024 HAV, HBV, HCV rfx to hbc IgM COMMEN T Refle x crite yeison was not met. Not Available [facility] ([facility]) [address] [place], [address], 09/29/2024 16:25:50 09/29/19 25 09/29/2024 HAV, HBV, HCV HCV Ab NON REACTI VE non reacti ve Not Available [facility] ([facility]) [address] [place], [address], 09/29/2024 16:25:50 09/29/19 25 09/29/2024 HAV, HBV, HCV interpretati on: COMMEN T Not infec di with HCV unles s early or acute infec tion is suspe cted (whic h may be delay ed in an immun ocomp romis ed indiv idual ), or other evide nce exist s to indic ate HCV infec tion. Not Available [facility] ([facility]) [address] [place], [address], 09/29/2024 16:25:50 09/29/19 25 09/29/2024 FE+TI BC+FE R iron bind.cap.(TI BC) 513 ug/dL 250-45 0 above high normal Not Available [facility] ([facility]) [address] [place], [address], 09/29/2024 16:25:51 09/29/19 25 09/29/2024 FE+TI BC+FE R UIBC 487 ug/dL 131-42 5 above high normal Not Available [facility] ([facility]) [address] [place], [address], 09/29/2024 16:25:51 09/29/19 25 09/29/2024 FE+TI BC+FE R iron 26 ug/dL 27-159 below low normal Not Available [facility] ([facility]) [address] [place], [address], 09/29/2024 16:25:51 09/29/19 25 09/29/2024 FE+TI BC+FE R iron saturation 5 % 15-55 alert low Not Available [facility] ([facility]) [address] [place], [address], 09/29/2024 16:25:51 09/29/19 25 09/29/2024 FE+TI BC+FE R ferritin 13 NG/mL 15-150 below low normal Not Available [facility] ([facility]) [address] [place], [address], 09/29/2024 16:25:51 09/29/1909/29/2024 ADRIÁN+A MA+ MA+LK M AB ADRIÁN direct POSITI VE negati ve abnormal Not Available [facility] ([facility]) [address] [place], [address], 09/29/2024 16:25:52 09/29/19 25 09/29/2024 ADRIÁN+A MA+ [...] bilia ry cirrh osis. Not Available [facility] ([facility]) [address], [place], [address], 09/29/2024 16:25:52 09/29/1909/29/2024 ADRIÁN+A MA+ MA+LK M AB mitochondria l (M2) antibody <20.0 units 0.0-20 .0 Negat miguel 0.0 - 20.0 Equiv ocal 20.1 - 24.9 Posit miguel >24.9 Mitoc hondr ial (M2) Antib odies are found in 90-96 % of patie nts with prima ry bilia ry cirrh osis. Not Available [facility] ([facility]) [address] [place], [address], 09/29/2024 16:25:52 09/29/1909/29/2024 ADRIÁN+A MA+ MA+LK M AB liver-kidney microsomal Ab <1.0 units 0.0-20 .0 Negat miguel 0.0 - 20.0 Equiv ocal 20.1 - 24.9 Posit miguel >24.9 LKM type 1 antib odies are detec di in patie nts with autoi mmune hepat itis type 2 and in up to 8% of patie nts with chron ic HCV infec tion. Not Available [facility] ([facility]) [address] [place], [address], 09/29/2024 16:25:52 09/29/19 25 09/29/2024 PRINCESS C DISEA SE PANEL endomysial antibody IgA NEGATI VE negati ve Not Available [facility] ([facility]) [address] [facility], [place], [address], 09/29/2024 16:25:54 09/29/19 25 09/29/2024 PRINCESS C [...] tive enter opath y. Not Available [facility] ([facility]) [address] [facility], [place], [address], 09/29/2024 16:25:54 09/29/19 25 09/29/2024 PRINCESS C DISEA SE PANEL immunoglobul in A, qn, serum 415 mg/dL 87-352 above high normal Not Available [facility] ([facility]) [address] [place], [address], 09/29/2024 16:25:54 09/29/1909/29/2024 CBC, PLATE LET, NO DIFFE RENTI AL WBC 14.9 x10e3 /uL 3.4-10 .8 above high normal Not Available [facility] ([facility]) [address] [place], [address], 09/29/2024 16:25:55 09/29/19 25 09/29/2024 CBC, PLATE LET, NO DIFFE RENTI AL RBC 5.22 x10e6 /uL 3.77-5 .28 normal Not Available [facility] ([facility]) [address] [place], [address], 09/29/2024 16:25:55 09/29/19 25 09/29/2024 CBC, PLATE LET, NO DIFFE RENTI AL hemoglobin 12.9 g/dL 11.1-1 5.9 normal Not Available [facility] ([facility]) [address] [place], [address], 09/29/2024 16:25:55 09/29/19 25 09/29/2024 CBC, PLATE LET, NO DIFFE RENTI AL hematocrit 41.4 % 34.0-4 6.6 normal Not Available [facility] ([facility]) [address] [place], [address], 09/29/2024 16:25:55 09/29/19 25 09/29/2024 CBC, PLATE LET, NO DIFFE RENTI AL MCV 79 fL 79-97 normal Not Available [facility] ([facility]) [address] [place], [address], 09/29/2024 16:25:55 09/29/19 25 09/29/2024 CBC, PLATE LET, NO DIFFE RENTI AL MCH 24.7 pg 26.6-3 3.0 below low normal Not Available [facility] ([facility]) [address] [place], [address], 09/29/2024 16:25:55 09/29/19 25 09/29/2024 CBC, PLATE LET, NO DIFFE RENTI AL MCHC 31.2 g/dL 31.5-3 5.7 below low normal Not Available [facility] ([facility]) [address] [place], [address], 09/29/2024 16:25:55 09/29/19 25 09/29/2024 CBC, PLATE LET, NO DIFFE RENTI AL RDW 15.7 % 11.7-1 5.4 above high normal Not Available [facility] ([facility]) [address] [facility], [place], [address], 09/29/2024 16:25:55 09/29/19 25 09/29/2024 CBC, PLATE LET, NO DIFFE RENTI AL platelets 302 x10e3 /uL 150-45 0 normal Not Available [facility] ([facility]) [address] [facility], [place], [address], 09/29/2024 16:25:55 09/29/19 25 09/29/2024 CBC, PLATE LET, NO DIFFE RENTI AL NRBC [employer] MANAGER Not Available [facility] ([facility]) [address] [facility], [place], [address], 09/29/2024 16:25:55 09/29/19 25 09/29/2024 CERUL OPLAS MIN ceruloplasmi n 33.8 mg/dL 19.0-3 9.0 Not Available [facility] ([facility]) [address] [facility], [place], [address], 09/29/2024 16:25:56 09/29/19 25 09/29/2024 ALPHA -1-AN TITRY PSIN, SERUM uszcg-6-hhjm trypsin, serum 177 mg/dL 100-18 8 normal Not Available [facility] ([facility]) [address] [facility], [place], [address], 09/29/2024 16:25:57 09/29/19 25 09/04/2024 CT, angio gram, chest , w/ contr ast No observ ation record ed. [email or web address] [facility] ([facility]) [address] , [place], [address], 10/02/2024 13:35:35 Result Notes None recorded. Procedures Surgical History Date Name Laterality Status Provider Name and Address Organization Details Recorded Time 10/27/19 22 Date of Last [facility] [place] 09/28/2024 14:36:04 06/24/19 20 [facility]ole[facility] [place] 09/28/2024 14:36:17 06/24/19 18 Tonsillectomy/Adeno idectomy completed [facility] [place] 09/28/2024 14:36:17 04/19/20 14 completed [facility] [place] 09/28/2024 14:36:04 06/24/19 12 Tare Man Surgery [facility] [place] 09/28/2024 14:36:17 Imaging Results None recorded. Procedure Notes None recorded. Medical Equipment None Reported. Allergies Allergen ID Allergen Name Allergen Category Reaction Reaction Severity Criticality Documentation Date Start Date Code Code System Note Provider Name and Address Organization Details Recorded Time 063719 Viibryd medicatio n other moderate Not available 09/28/2024 35174 73 RxNorm Susan mcgraw ANTONIA [facility] & [place] 14:35:17 Medications Name Sig Start Date [...] Updated DateTime 5 162.56 cm 37 kg/m2 31368.8 7 g 97.9 [degF] 84 /min 82 /min 98 % 98 % 148/87 mm[Hg] [facility] & [place] 5 11:17:34 Date Recorded Body height Body mass index (BMI) Body weight Heart rate Heart rate Body temperature Oxygen saturation Oxygen saturation in Arterial blood by Pulse oximetry Systolic And Diastolic Provider Name and Address Organization Details Last Updated DateTime 5 162.56 cm 36.3 kg/m2 17375.4 3 g 80 /min 74 /min 98.1 [degF] 97 % 97 % 147/62 mm[Hg] [facility] & [place] 5 13:50:09 Date Recorded Body height Body mass index (BMI) Body weight Body temperature Oxygen saturation Oxygen saturation in Arterial blood by Pulse oximetry Heart rate Systolic And Diastolic Provider Name and Address Organization Details Last Updated DateTime 5 162.56 cm 35.6 kg/m2 08011.4 2 g 98.6 [degF] 97 % 97 % 85 /min 130/85 mm[Hg] [facility] & [place] 5 14:50:52 Date Recorded Body weight Body mass index (BMI) Body height Body temperature Oxygen saturation Oxygen saturation in Arterial blood by Pulse oximetry Heart rate Heart rate Systolic And Diastolic Provider Name and Address Organization Details Last Updated DateTime 4 109225. 27 g 38 kg/m2 162.56 cm 98.2 [degF] 97 % 97 % 92 /min 82 /min 141/106 mm[Hg] [facility] [place] 13:25:02 Date Recorded Body height Body mass index (BMI) Body weight Body temperature Oxygen saturation Oxygen saturation in Arterial blood by Pulse oximetry Heart rate Heart rate Systolic And Diastolic Provider Name and Address Organization Details Last Updated DateTime 162.56 cm 37.5 kg/m2 92618.6 5 g 97.9 [degF] 98 % 98 % 79 /min 71 /min 162/92 mm[Hg] [facility] [place] 4 13:40:14 Social History Question Answer Notes LastModified by Organizat ion Details LastModified Time Tobacco Smoking Status Current Every Day Smoker Susan Pires [facility] & [place] 09/28/2024 14:36:14 Do You Have An [...] anxious, or unable to sleep at night)? [id number] Information not available 09/28/2024 Family History Relationship [...] available 02/07/2024 13:44:43 Medical History Condition Response Obstructive Sleep Apnea Y Anxiety Disorder Y Obesity Y Vision or Eye Problems Y High Cholesterol Y Liver Disease Y Headaches Y Thyroid Problems Y GI Problems Y Eczema Y Substance Abuse Y Hypertension Y Gynecological History Statement/Question Response [...] completed Susan Ellington null, [place] - [facility] & [place] 09/28/2024 14:35:28 MMR 01/21/1996 completed Susan Ell[place] null, [place] - [facility] [place] & [place] 09/28/2024 14:35:28 COVID-19, mRNA, LNP-S, PF, 30 mcg/0.3 mL dose, delroy-sucrose 08/17/2021 completed Susan [place] null, [place] [facility] & [place] 09/28/2024 14:35:28 COVID-19, mRNA, LNP-S, PF, 30 mcg/0.3 mL dose, delroy-sucrose 09/11/2021 completed Susan Ell[place] null, [place] [facility] - [place] & [place] 09/28/2024 14:35:28 Tdap 09/06/2005 completed Susan Ellington null, ANTONIA - [facility] & [place] 09/28/2024 14:35:28 Tdap 12/18/2015 completed Susan Ell[place] null, [place] - [facility] & [place] 09/28/2024 14:35:28 Tdap 01/21/2020 completed Susan Ell[place] null, [place] - [facility] - [facility] & [place] 09/28/2024 14:35:28 polio, unspecified formulation 01/16/1990 completed Susan Ellington null, ANTONIA - [facility] - [place] & [place] 09/28/2024 14:35:28 Hep B, adult 09/08/2020 completed Susan Ellington null, ANTONIA - [facility] - [place] & [place] 09/28/2024 14:35:28 Hep B, adult 01/21/2020 completed Susan Ellington null, ANTONIA - [facility] & [place] 09/28/2024 14:35:28 Hep B, adult 03/07/2020 completed Susan Ellington null, ANTONIA - [facility] - [place] & [place] 09/28/2024 14:35:28 DTaP, unspecified formulation 01/16/1990 completed Susan Ellington null, ANTONIA - [facility] - [facility] & [place] 09/28/2024 14:35:28 Influenza, split virus, quadrivalent, PF 03/19/2020 completed Susan Ellington null, ANTONIA - [facility] - [place] & [place] 09/28/2024 14:35:28 Influenza, split virus, quadrivalent, PF 05/15/2023 completed Susan Ellington null, ANTONIA - [facility] - [place] & [place] 09/28/2024 14:35:28 Past Encounters Encounter ID Performer Location Encounter Start Date Encounter Closed Date Diagnosis/Indication Diagnosis SNOMED-CT Code Diagnosis ICD10 Code Diagnosis Note [id number] JOYA SPENCE NP [facility] [address] [place] [address] 02/10/2024 13:16:42 02/10/2024 14:24:34 Chronic idiopathic constipation 75340733 K59.04 Recommend Linzess as prescribed for management of constipati on.Colonos copy recommende d for evaluation of CIC, family history colon polyps, blood and mucous per rectum, abdominal pain and bloating. Abdominal pain 46793610 R10.9 Abdominal bloating 04185 9008 R14.0 Dysphagia 59251940 R13.1 0 EGD recommende d for evaluation of dysphagia, possible dilation. Evaluate abdominal pain and bloating as well. Gilbert's syndrome 53905 000 E80.4 Suspect Gilbert's syndrome based on fractionat ed bilirubin findings and normal LFT.Writte n education provided.N o specific therapy is required. Steatotic liver disease 772875452 K76.0 FIB 4 estimates F0-F1.Weig ht loss with a hypocalori c diet alone or in conjunctio n with physical activity has been shown to improve steatosis. Declined dietitian referral. [id number] JOYA SPENCE NP [facility] [address] [address] 03/31/2024 13:26:18 03/31/2024 14:31:16 Gastroesophageal reflux disease without esophagitis 437528016 K21.9 Mild, chronic gastritis found on recent EGD.Contin ue omeprazole as prescribed . Avoid NSAIDs and alcohol. Chronic id iopathic constipation 99449882 K59.04 Continue Linzess as prescribed . Abdominal pain and bloating have improved. Abdominal pain 40064522 R10.9 Abdominal bloating 18199 9008 R14.0 Discussed breath test to rule out CSID. She has had improvemen t in bloating with the use of Linzess and dietary modificati on. We will wait on further testing and reassess at follow up. Dysphagia 88866350 R13.1 0 Some improvemen t with dilation. Discussed barium swallow vs manometry. She does not feel further work up is necessary at this time and will contact me if symptoms worsen. Gilbert's syndrome 11936 000 E80.4 Suspect Gilbert's syndrome based on fractionat ed bilirubin findings and normal LFT.Writte n education provided.N o specific therapy is required. Steatotic liver disease K76.0 FIB 4 estimates F0-F1.Weig ht loss with a hypocalori c diet alone or in conjunctio n with physical activity has been shown to improve steatosis. Declined dietitian referral. [id number] JOYA SPENCE NP [facility] [address] [address] 08/21/2024 11:09:00 08/21/2024 12:22:29 Gastroesophageal reflux disease without esophagitis 712153533 K21.9 Mild, chronic gastritis found on EGD.She uses PPI prn. Avoid NSAIDs and alcohol. Chronic id iopathic constipation 84506760 K59.04 Continue Linzess as prescribed . Abdominal pain and bloating have improved. Abdominal pain 61734613 R10.9 Improving. Dysphagia 54776588 R13.1 0 Some improvemen t with dilation. Discussed barium swallow vs manometry. She does not feel further work up is necessary and will contact me if symptoms worsen. Gilbert's syndrome 65169 000 E80.4 Evidence of Gilbert's syndrome based [...] would like to have labs drawn at [facility] when fasting. Orders printed and provided. [id number] JOYA SPENCE NP [facility] [address] [address] 09/28/2024 13:41:26 09/28/2024 14:49:11 Chronic idiopathic constipation 30086608 K59.04 Decrease Linzess dose to 72 mcg. Advised to take this daily as prescribed . In addition to oral iron she can use a stool softener or Miralax PRN. Hepatosplenomegaly 18663 000 R16.2 Patient reported this finding on imaging at [facility].N YUNIOR fibrosure estimates FO, <5% steatosis, and no WETS. LFT, PT/INR normal.Amando l obtain additional labs for work up. Consider repeat imaging in approximat leilani 6 months. Gastroesop hageal reflux disease without esophagitis 356118551 K21.9 Continue PPI daily.Avoi d NSAIDs and alcohol. Gilbert's syndrome 35976 000 E80.4 Evidence of Gilbert's syndrome based [...] Advised she discuss this with her PCP. [id number] JOYA SPENCE NP [facility] [address] [address] 12/08/2024 14:42:53 12/08/2024 15:30:11 Gastroesophageal reflux disease without esophagitis 565379029 K21.9 Continue PPI daily.Avoi d NSAIDs and alcohol. Chronic id iopathic constipation 94410931 K59.04 Continue Magnesium nightly.Co ntinue dietary changes, increase water intake. Hepatosplenomegaly 44372 000 R16.2 Patient reported this finding on imaging at [facility] 03/2024.NA SH fibrosure estimates FO, <5% steatosis, and no WEST. 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 Gilbert's syndrome 26367 000 E80.4 Evidence of Gilbert's syndrome based on fractionat ed bilirubin findings and normal LFT.No specific therapy is required. Steatotic liver disease 598725141 K76.0 Denies alcohol use.FIB 4 estimated F0-F1.Weig [...] Guarantor Name 03/19/2024 1 [employer] (POS) Kristie Ewalt [id number] Kristie Ewalt 03/19/2024 1 [employer] - [place] (MEDICAID REPLACEMENT - HMO) Kristie Ewalt [id number] Kristie Ewalt 12/06/2024 1 [employer] - [place] (MEDICAID REPLACEMENT - HMO) Kristie A Ewalt [id number] Kristie Ewalt OBGyn Episode No OBEpisode recorded.
== END 2025-01-18 23:59 | disposition home or self-care (01) ==
LOC: RAD 15:00
PROVIDERS: PCP Family Medicine; Visit Provider Obstetrics & Gynecology
DX: N63.41 Unspecified lump in right breast, subareolar (principal); R92.321 Mammographic fibroglandular density, right breast
CPT/HCPCS: 76641; 77061; 77065; G0279

== ENCOUNTER 2025-02-06 10:24 | Outpatient (CLI) | payer MEDICAID, SELFPAY ==
--- OUTSIDE RECORDS SUMMARY | 2025-01-19 13:00 | XMS_ITS | Encounter Summary ---
Author Organization [facility] Address [address] [place] [address] Care Team Providers Care Band Saw Operator Name Role Phone Kat Figueroa PA-C Primary Care Provider +1- [phone] Reason for Referral * Behavorial Health/Psych (Urgent) - Closed Specialty Diagnoses / Procedures Referred By Nakita t Referred To Contact Behavioral Health Diagnoses Anxiety and depression Procedures NH OFFICE/OUTPATIENT NEW MODERATE MDM 45 MINUTES Kat Figueroa PA-C [address] [facility] [address] [place] [address] Phone: tel: fax: [facility] NOW [address] [place] [address] Phone: tel: fax: Referral ID Status Reason Start Date Expiration Date V isits Requested Visits Authorized [id number] Closed Specialty Services Required 01/19/2025 04/20/2026 1 1 Reason for Visit * Reason Comments Establish Care New patient establis h care, previous pcp doug hdz in [place] Migraine More frequent Migrai fany, some relief with Ubrevly, neurologist is in [place] Anxiety Ongoing anxiety and depression, seeing behavioral Judy Wallace in [place], did not do well with Wellbutrin and Buspar Encounter Details Date Type Department Care Team (Late st Contact Info) Description 01/19/2025 1:00 PM EDT Office Visit [facility] [address] [facility] [address] [place] [id number] Kat Figueroa PA-C [address] [facility] [address] [place] [address] Anxiety and depression (Primary Dx); Palpitations; Emotional tension headache; Primary hypertension; Frequent PVCs; Hypothyroidism (acquired) Social History Tobacco Use Types Packs/Day Years Used Date Smoking Tobacco: Every Day Cigarettes 1 20 Smokeless Tobacco: Never Tobacco Cessation:Ready to Q uit: Yes; Counseling Given: Yes Alcohol Use Standard Drinks/Week Comments Not Currently 0 (1 standard drink = 0.6 oz pur e alcohol) PHQ-2 Answer Date Recorded Patient Health Questionnaire-2 Score 0 01/19/2025 Comments Unknown Sex and Gender Information Value Date Recorded Sex Assigned at Not on file Legal Sex Female 4:15 PM EDT Gender Identity Not on file Sexual Orientation Not on file documented as of this encounter Last Filed Vital Signs Vital Sign Reading Time Taken Comments Blood Pressure 126/72 01/19/2025 1:18 PM EDT Pulse 69 01/19/2025 1:18 PM EDT Temperature 36.8 C (98.2 F) 01/19/2025 1:18 PM EDT Respiratory Rate - - Oxygen Saturation 99% 01/19/2025 1:18 PM EDT Inhaled Oxygen Concentration - - Weight 95.9 kg (211 lb 6.4 oz) 01/19/2025 1:18 P M EDT Height 162.6 cm (5' 4 ) 01/19/2025 1:18 PM EDT Body Mass Index 36.29 01/19/2025 1:18 PM EDT documented in this encounter Functional Status documented as of this encounter Progress Notes * Kat Figueroa PA-C - 01/19/2025 1:00 PM EDT Bree Perez is a 39 y.o. female Establish Care (New patient establish care, previous pcp doug hdz in [place] ), Migraine (More frequent Migraines, some relief with Ubrevly, neurologist is in [place] ), and Anxiety (Ongoing anxiety and depression, seeing behavioral Judy Wallace in [place], did not do well with Wellbutrin and Buspar ) History of Present Illness History of Present Illness The patient is a 39-year-old female who presents today as a new patient to establish care. She began experiencing significant anxiety, overthinking, and intermittent depression last year. InApril 2024, she experienced severe tension, which led to prolonged bed rest. This tension was accompanied by headaches and a sensation of blood rushing to her head. She also reported a recent episodeof an unusual sensation at the top of her head and pain in her temples, which was partially alleviated by her migraine medication. She is currently not on any medication for her anxiety and is seeking a new healthcare provider. She has tried various medications for her anxiety but often discontinues them due to fatigue. Her sleep pattern is inconsistent. She has been under the care of a behavioral health specialist for her anxiety, who prescribed BuSpar. While BuSpar was effective, it caused side effects such as lightheadedness and fatigue. She had previously taken Wellbutrin, which was beneficial, but she discontinued it due to increased anxiety. She has recently started taking tizanidine,which seems to be helping. She was previously on propranolol 80 mg daily and 20 mg as needed, whichshe found helpful. She has been experiencing migraines and tension-type headaches. She is under the care of a neurologist for her migraines. She is on bisoprolol for PVCs, prescribed by her family doctor. She occasionally experiences PVCs, which she believes are linked to her anxiety. She had a workup for PVCs in September 2024. She started taking lisinopril for high blood pressure in October 2024 when her stress levels increased.Initially, she was on 5 mg, but as her stress levels decreased, she reduced the dose to 2.5 mg. Shetakes this medication in the morning and bisoprolol at 3:00 PM daily. She has been experiencing hip pain since April 2024. She has an appointment with a cigarette carton sealer in January 2025. She is also on Synthroid, which was last checked in September 2024. 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 MEDICATIONS Current: Tizanidine, bisoprolol, lisinopril, Synthroid. Discontinued: BuSpar, Wellbutrin, propranolol. The following portions of the patient's history were reviewed and updated as appropriate: allergies, current medications, past social history and problem list Review of Systems Constitutional: Positive for activity change and fatigue. Negative for appetite change. Respiratory: Negative for chest tightness and shortness of breath. Cardiovascular: Positive for palpitations. Gastrointestinal: Negative for abdominal pain, diarrhea and nausea. Musculoskeletal: Positive for arthralgias. Neurological: Positive for headaches. Negative for dizziness, tremors, weakness and light-headedness. Psychiatric/Behavioral: Positive for dysphoric mood and sleep disturbance. Negative for agitation, behavioral problems, confusion, decreased concentration and suicidal ideas. The patient is nervous/anxious. Objective Vitals: 01/19/25 1318 BP: 126/72 Pulse: 69 Temp: 98.2 ??F (36.8 ??C) SpO2: 99% Physical Exam Vitals and nursing note reviewed. Constitutional: General: She is not in acute distress. Appearance: Normal appearance. She is well-developed. She is obese. She is not ill-appearing, toxic-appearing or diaphoretic. Comments: [id number] noted Neck: Thyroid: No thyromegaly. Cardiovascular: Rate and Rhythm: Normal rate and regular rhythm. Heart sounds: Normal heart sounds. No murmur heard. Pulmonary: Effort: Pulmonary effort is normal. No respiratory distress. Breath sounds: Normal breath sounds. Abdominal: Palpations: Abdomen is soft. There is no mass. Tenderness: There is no abdominal tenderness. Neurological: Mental Status: She is alert. Psychiatric: Mood and Affect: Mood is anxious. Behavior: Behavior normal. Thought Content: Thought content normal. Judgment: Judgment normal. Physical Exam Assessment & Plan Assessment & Plan 1. Anxiety. Her anxiety appears to be uncontrolled, potentially exacerbating her headaches. The possibility of using propranolol 10 mg as needed for panic or anxiety was discussed. An urgent referral to behavioral health has been made, with an expectation of contact within two business days. A prescription forpropranolol 20 mg immediate release has been provided for use as needed for anxiety. If no contact is made regarding the behavioral health appointment within a week, she is to inform us. 2. Depression. She reports experiencing depression on and off. The potential side effects of Wellbutrin, includingworsening anxiety, were discussed. An urgent referral to behavioral health has been made to addressher depression and find a suitable medication regimen. 3. Tension headaches. She reports experiencing tension headaches in addition to her migraines. A prescription for tizanidine has been renewed, with instructions to take it every 8 hours as needed for muscle spasms and tension headaches. She can reduce the dosage if it induces daytime drowsiness and take a full dose at night. 4. Migraines. She continues to experience migraines. She is advised to continue her current migraine medication and follow up with her neurologist as needed. 5. Premature ventricular contractions (PVCs). She is currently on bisoprolol for PVCs. She will continue with bisoprolol for PVCs. 6. Hypertension. She is on lisinopril 2.5 mg for hypertension. She will continue with lisinopril. 7. Hip pain. She reports experiencing hip pain since April of last year. She has an upcoming appointment witha cigarette carton sealer in January. Diagnoses and all orders for this visit: 1. Anxiety and depression (Primary) - Ambulatory Referral to Behavioral Health 2. Palpitations 3. Emotional tension headache 4. Primary hypertension 5. Frequent PVCs 6. Hypothyroidism (acquired) Other orders - tiZANidine (ZANAFLEX) 4 MG tablet; Take 1 tablet by mouth Every 8 (Eight) Hours As Needed for Muscle Spasms. Dispense: 90 tablet; Refill: 1 - propranolol (INDERAL) 20 MG tablet; Take 1 tablet by mouth 2 (Two) Times a Day As Needed (anxiety). Dispense: 60 tablet; Refill: 1 I spent 52 minutes in patient care: Reviewing records prior to the visit, examining the patient, entering orders and documentation and counseling Part of this note may be an electronic banking analyst/translation of spoken language to printed textusing the Milkation System. Patient or patient business office representative verbalized consent for the use of Ambient Listening during the visit with Kat Figueroa PA-C for chart documentation. 01/19/2025 13:52 EDT documented in this encounter Plan of Treatment Not on file documented as of this encounter Visit Diagnoses Diagnosis Anxiety and depression- Primary Palpitations Emotional tension headache Tension headache Primary hypertension Unspecified essential hypertension Frequent PVCs Hypothyroidism (acquired) Unspecified hypothyroidism documented in this encounter Care Teams Band Saw Operator Relationship Specialty Start Date End Date Kat Figueroa PA-C [address] [place] [address] PCP - General Family Medicine 01/19/25 documented as of this encounter
--- OUTSIDE RECORDS SUMMARY | 2025-02-09 10:27 | XMS_ITS | Clinical Summary ---
Author Organization [facility] Address [address] [place] [address] Care Team Providers Care Emergency Spill Response Technician Name Role Phone Kat Figueroa PA-C Primary Care Provider +1- [phone] Allergies No known active allergies Medications Synthroid [...] Team Description 01/22/2025 Patient rounding ([facility] only) [facility] [address] [facility] [address] [place] [address] Allegra Ho 01/21/2025 Telephone [facility] [address] [facility] [address] [place] [address] Kat Figueroa PA-C 01/19/2025 1:00 PM EDT Office Visit [facility] [address] [facility] [address] [place] [address] Kat Figueroa PA-C Anxiety and depression (Primary [...] 09/06/2005 Insurance [employer] MEDICAID [place] Care Teams Emergency Spill Response Technician Relationship Specialty Start Date End Date Kat Figueroa PA-C [address] [facility] [address] [place] [address] PCP - General Family Medicine 01/19/25
--- OUTSIDE RECORDS SUMMARY | 2025-02-09 10:27 | XMS_ITS | Encounter Summary ---
Author Organization [facility] Address [address] [id number] Care Team Providers Care Electromechanical Assembly Technician Name Role Phone Kat Figueroa PA-C Primary Care Provider +1- [phone] Encounter Details Date Type Department Care Team (Late st Contact Info) Description 01/21/2025 Telephone [facility] [address] [facility] [address] [place] [phone] Kat Figueroa PA-C [address] [id number] Social History Tobacco Use Types Packs/Day Years [...] the mammogram it was ordered through her shoe reconditioner so she needs to contact the ordering [...] and U/s I had done yesterday. My shoe reconditioner office called me today telling me they [...] on filedocumented in this encounter Care Teams Electromechanical Assembly Technician Relationship Specialty Start Date End Date Kat Figueroa PA-C [address] [facility] [address] PCP - General Family Medicine 01/19/25 documented as of this encounter
--- OUTSIDE RECORDS SUMMARY | 2025-02-09 10:27 | XMS_ITS | Encounter Summary ---
Author Organization [facility] Address [address] [place] [address] Care Team Providers Care Blanket Cutting Machine Operator Name Role Phone Kat Figueroa PA-C Primary Care Provider +1- [phone] Encounter Details Date Type Department Care Team (Late st Contact Info) Description 01/22/2025 Patient rounding ([facility] only) [facility] [address] [facility] [address] [place] [address] Allegra Ho Social History Tobacco [...] Allegra Ho - 01/22/2025 10:00 AM EDT [facility] a My-Chart message has been sent to the patient for PATIENT ROUNDING with a My chart message documented in this encounter Plan of Treatment Not on file documented as of this encounter Visit Diagnoses Not on filedocumented in this encounter Care Teams Blanket Cutting Machine Operator Relationship Specialty Start Date End Date Kat Figueroa PA-C [address] [facility] [address] [place] [id number] PCP - General Family Medicine 01/19/25 documented as of this encounter
--- OUTSIDE RECORDS SUMMARY | 2025-02-09 10:27 | XMS_ITS | Encounter Summary ---
Author Organization [facility] Address [address] [place] [address] Care Team Providers Care Inspector Wire Rope Name Role Phone Kat Figueroa PA-C Primary Care Provider +1- [phone] Encounter Details Date Type Department Care Team [...] on filedocumented in this encounter Care Teams Inspector Wire Rope Relationship Specialty Start Date End Date Kat Figueroa PA-C [address] [place] [address] [place] [address] PCP - General Family Medicine 01/19/25 documented as of this encounter
== END 2025-02-06 23:59 | disposition home or self-care (01) ==
LOC: LAB.DROPOF 02-09 10:25
PROVIDERS: PCP Family Medicine; Visit Provider Nurse Practitioner Family
DX: M54.9 Dorsalgia, unspecified (principal)
CPT/HCPCS: 87086

== ENCOUNTER 2025-02-06 12:59 | Emergency (ER) | payer MEDICAID, SELFPAY ==
--- OUTSIDE RECORDS SUMMARY | 2025-01-19 13:00 | XMS_ITS | Encounter Summary ---
Author Organization [facility] Address [address] [place] [address] Care Team Providers Care Human Resources Professional Name Role Phone Kat Figueroa PA-C Primary Care Provider +1- [phone] Reason for Referral * Behavorial Health/Psych (Urgent) - Closed Specialty Diagnoses / Procedures Referred By Nakita t Referred To Contact Behavioral Health Diagnoses Anxiety and depression Procedures [place] OFFICE/OUTPATIENT NEW MODERATE MDM 45 MINUTES Kat Figueroa PA-C [address] [facility] [address] [place] [address] Phone: tel: fax: [facility] [address] [place] [address] Phone: tel: fax: Referral ID Status Reason Start Date Expiration Date V isits Requested Visits Authorized [id number] Closed Specialty Services Required 01/19/2025 04/20/2026 1 1 Reason for Visit * Reason Comments Establish Care New patient establis h care, previous pcp doug hdz in [place] Migraine More frequent Migrai fany, some relief with Ubrevly, neurologist is in [place] Anxiety Ongoing anxiety and depression, seeing behavioral Judy Wallace in [place], did not do well with Wellbutrin and Buspar Encounter Details Date Type Department Care Team (Late st Contact Info) Description 01/19/2025 1:00 PM EDT Office Visit [facility] [address] [facility] [address] [place] [phone] Kat Figueroa PA-C [address] [facility] [address] [place] [address] Anxiety and depression (Primary Dx); Palpitations; Emotional [...] establish care, previous pcp doug hdz in [place] ), Migraine (More frequent Migraines, some relief with Ubrevly, neurologist is in [place] ), and Anxiety (Ongoing anxiety and depression, seeing behavioral Judy Wallace in [place], did not do well with Wellbutrin and [...] 2024. She has an appointment with a journalism instructor in January 2025. She is also on Synthroid, which was last checked in September 2024. 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 MEDICATIONS Current: Tizanidine, bisoprolol, lisinopril, Synthroid. Discontinued: [...] is not ill-appearing, toxic-appearing or diaphoretic. Comments: [id number] noted Neck: Thyroid: No thyromegaly. Cardiovascular: Rate [...] year. She has an upcoming appointment witha journalism instructor in January. Diagnoses and all orders for [...] of this note may be an electronic supervisor meter shop/translation of spoken language to printed textusing the iOTOS, Incation System. Patient or patient bottling equipment sales representative verbalized consent for the use of [...] hypothyroidism documented in this encounter Care Teams Human Resources Professional Relationship Specialty Start Date End Date Kat Figueroa PA-C [address] [facility] [address] [place] [address] PCP - General Family Medicine 01/19/25 documented as of this encounter
[2025-02-06] VITALS (7 sets, daily range): BP systolic 111–132; BP diastolic 63–72; PULSE 65–104; RESP 15–18; TEMP 36.6–36.7; O2SAT 94–99; BMI 36.2
--- OUTSIDE RECORDS SUMMARY | 2025-02-06 13:11 | XMS_ITS | Clinical Summary ---
Author Organization [facility] Address [address] [place] [address] Care Team Providers Care Prepared Foods Service Team Member Name Role Phone Kat Figueroa PA-C Primary Care Provider +1- [phone] Allergies No known active allergies Medications Synthroid 137 MCG tablet Take 1 tablet by mouth Every Morning. Active cetirizine (zyrTEC) 10 MG tablet Take 1 tablet by mouth Daily. 5 Active bisoprolol (ZEBeta) 5 MG tablet Take 1 tablet by mouth Daily. Active Suboxone 2-0.[address] 1 film under the tongue Daily. Active lisinopril (PRINIVIL,ZEST RIL) 5 MG tablet Take 1 tablet by mouth Daily. 5 Active Magnesium Glycinate 100 MG capsule Take 420 mg by mouth Daily. Active Vyzulta 0.024 % solution One drop in each eye at bedtime Active fluticasone (FLONASE) 50 MCG/ACT nasal spray Administer 2 sprays into the nostril(s) as directed by provider Daily. 5 Active Linzess 72 MCG capsule capsule Take 1 capsule by mouth As Needed. Active omeprazole (priLOSEC) 20 MG capsule Take 1 capsule by mouth Daily. 5 Active naproxen sodium (ANAPROX) 550 MG tablet Take 1 tablet by mouth Daily. 5 Active Ubrelvy 100 MG tablet Take 1 tablet by mouth 1 (One) Time As Needed. 5 Active tiZANidine (ZANAFLEX) 4 MG tablet Take 1 tablet by mouth Every 8 (Eight) Hours As Needed for Muscle Spasms. 90 tablet 1 5 Active propranolol (INDERAL) 20 MG tablet Take 1 tablet by mouth 2 (Two) Times a Day As Needed (anxiety). 60 tablet 1 5 Active tiZANidine (ZANAFLEX) 4 MG tablet Take 1 tablet by mouth 2 (Two) Times a Day As Needed for Muscle Spasms. 01/20/20 25 Discontinu ed(Reorder ) Active Problems Problem Noted Date Diagnosed Date Frequent PVCs 01/19/2025 Primary hypertension 01/19/2025 Emotional tension headache 01/19/2025 Anxiety and depression 01/19/2025 Encounters Date Type Department Care Team Description 01/22/2025 Patient rounding ([facility] only) [facility] [address] [facility] [address] [place] [address] Allegra Ho 01/21/2025 Telephone [facility] [address] [facility] [address] [place] [address] Kat Figueroa PA-C 01/19/2025 1:00 PM EDT Office Visit [facility] [address] [facility] [address] [place] [address] Kat Figueroa PA-C Anxiety and depression (Primary Dx); Palpitations; Emotional tension headache; Primary hypertension; Frequent PVCs; Hypothyroidism (acquired) 01/19/2025 Travel from Last 3 Months Immunizations Immunization Administration Dates Next Due DTaP, Unspecified 01/16/1990 Fluzone (or Fluarix & Flulav al for VFC) >6mos 05/15/2023,03/19/2020 Hepatitis B Adult/Adolescent IM 09/08/2020,03/07,01/21/2020 Influenza Injectable Mdck Pf Quad 03/31/2021 MMR 01/21/1996 Polio, Unspecified 01/16/1990 Tdap 01/21/2020,12/18/2015,09/06/2005 Family History Medical History Relation Name Comments Alcohol abuse Brother 1 Milad Drug abuse Brother 1 Milad Early Brother 1 Milad Alcohol abuse Brother 2 Milad Drug abuse Brother 2 Milad Early Brother 2 Milad Alcohol abuse Father Zeyad Heart disease Father Zeyad Hyperlipidemia Father Zeyad Hypertension Father Zeyad Liver disease Father Zeyad Alcohol abuse Mother Teri Anxiety disorder Mother Teri Arthritis Mother Teri COPD Mother Teri Depression Mother Teri Drug abuse Mother Teri Heart disease Mother Teri Hyperlipidemia Mother Teri Hypertension Mother Teri Liver disease Mother Teri Thyroid disease Mother Teri Arthritis Sister 1 Michelle Depression Sister 1 Michelle Drug abuse Sister 1 Michelle Arthritis Sister 2 Michelle Depression Sister 2 Michelle Drug abuse Sister 2 Michelle Relation Name Status Comments Brother 1 Milad Alive Brother 2 Milad Alive Father Zeyad Alive Mother Teri Alive Sister 1 Michelle Alive Sister 2 Michelle Alive Social History Tobacco Use Types Packs/Day Years [...] on file Sexual Orientation Not on file Last Filed Vital Signs Vital Sign Reading [...] Mass Index 36.29 01/19/2025 1:18 PM EDT Plan of Treatment Health Maintenance Due Date Last Done Comments Annual Gynecologic Pelvic an d Breast Exam 1984 Pneumococcal Vaccine 0-49 (1 of 2 - PCV) 2003 COVID-19 Vaccine ( season) 2024, 08/17/2021 ANNUAL PHYSICAL 01/19/2025 HEPATITIS C SCREENING 01/19/2025 INFLUENZA VACCINE 03/24/2025 05/15/2023, , 03/19/2020 MAMMOGRAM 01/18/2027 01/18/2025 PAP SMEAR 12/02/2027 12/01/2024 (Janet ent-Reported (Performed Externally)) TDAP/TD VACCINES (4 - Td or Tdap) 01/20/2030 01/21/2020, 12/18/2015, 09/06/2005 Insurance [employer] MEDICAID [place] Care Teams Prepared Foods Service Team Member Relationship Specialty Start Date End Date Kat Figueroa PA-C [address] [facility] [address] [place] [address] PCP - General Family Medicine 01/19/25
--- OUTSIDE RECORDS SUMMARY | 2025-02-06 13:11 | XMS_ITS | Encounter Summary ---
Author Organization [facility] Address [address] [place] [address] Care Team Providers Care Photographic Process Screen Maker Name Role Phone Kat Figueroa PA-C Primary Care Provider +1- [phone] Encounter Details Date Type Department Care Team (Latest Contact Info) Description 01/19/2025 Travel Social History Tobacco Use Types Packs/Day Years Used Date Smoking Tobacco: Every Day Cigarettes 1 20 Smokeless Tobacco: Never Alcohol Use Standard Drinks/Week Comments Not Currently 0 (1 standard drink = 0.6 oz pur e alcohol) PHQ-2 Answer Date Recorded Patient Health Questionnaire-2 Score 0 01/19/2025 Comments Unknown Sex and Gender Information Value Date Recorded Sex Assigned at Not on file Legal Sex Female 4:15 PM EDT Gender Identity Not on file Sexual Orientation Not on file documented as of this encounter Functional Status documented as of this encounter Plan of Treatment Not on file documented as of this encounter Visit Diagnoses Not on filedocumented in this encounter Care Teams Photographic Process Screen Maker Relationship Specialty Start Date End Date Kat Figueroa PA-C [address] [place] [address] [place] [address] PCP - General Family Medicine 01/19/25 documented as of this encounter
--- OUTSIDE RECORDS SUMMARY | 2025-02-06 13:11 | XMS_ITS | Encounter Summary ---
Author Organization [facility] Address [address] [place] [id number] Care Team Providers Care Raking Machine Operator Name Role Phone Kat Figueroa PA-C Primary Care Provider +1- [phone] Encounter Details Date Type Department Care Team (Late st Contact Info) Description 01/21/2025 Telephone [facility] [address] [facility] [address] [place] [phone] Kat Fgiueroa PA-C [address] [place] [id number] Social History Tobacco Use Types Packs/Day Years [...] on file documented as of this encounter Miscellaneous Notes * Telephone Encounter - Kat Figueroa PA-C - 01/21/2025 10:39 AM EDT It appears that our office did not order the mammogram it was ordered through her application services manager so she needs to contact the ordering provider who would be able to then discussed the timing of rescheduling this with radiology. * Telephone Encounter - Ashley Damon MA - 01/21/2025 8:31 AM EDT FABRICIO 01/19/2025 ( established care) * Telephone Encounter - Ashley Damon MA - 01/21/2025 8:30 AM EDT I???m reaching out to do to the diagnostic mammogram and U/s I had done yesterday. My application services manager office called me today telling me they did find a cyst in my right breast and want me to f/u in 6 months for another mammogram/ u/s to see if any changes have been made. I don???t feel comfortable with waiting 6 months. Is there anywhere I can be referred to for a second opinion? Thanks. documented in this encounter Plan of Treatment Not on file documented as of this encounter Visit Diagnoses Not on filedocumented in this encounter Care Teams Raking Machine Operator Relationship Specialty Start Date End Date Kat Figueroa PA-C [address] [facility] [address] PCP - General Family Medicine 01/19/25 documented as of this encounter
--- OUTSIDE RECORDS SUMMARY | 2025-02-06 13:11 | XMS_ITS | Encounter Summary ---
Author Organization [facility] Address [address] [place] [address] Care Team Providers Care Funnel Coater Name Role Phone Kat Figueroa PA-C Primary Care Provider +1- [phone] Encounter Details Date Type Department Care Team (Late st Contact Info) Description 01/22/2025 Patient rounding ([facility] only) [facility] [address] [facility] [address] [place] [address] Allegra Ho Social History Tobacco Use Types Packs/Day Years [...] on file documented as of this encounter Progress Notes * Allegra Ho - 01/22/2025 10:00 AM EDT [facility] a My-Chart message has been sent to the patient for PATIENT ROUNDING with a My chart message documented in this encounter Plan of Treatment Not on file documented as of this encounter Visit Diagnoses Not on filedocumented in this encounter Care Teams Funnel Coater Relationship Specialty Start Date End Date Kat Figueroa PA-C [address] [facility] [address] [place] [address] PCP - General Family Medicine 01/19/25 documented as of this encounter
--- NOTE | 2025-02-06 13:14 | CT_ITS ---
PROCEDURE INFORMATION: Exam: CT Abdomen And Pelvis With Contrast Exam date and time: 02/06/2025 2:00 PM Age: 39 years old Clinical indication: Abdominal pain; Additional info: Ruq R flank pain TECHNIQUE: Imaging protocol: Computed tomography of the abdomen and pelvis with contrast. Radiation optimization: All CT scans at this facility use at least one of these dose optimization techniques: automated exposure control; mA and/or kV adjustment per patient size (includes targeted exams where dose is matched to clinical indication); or iterative reconstruction. Contrast material: ISOVUE; Contrast volume: 75 ml; Contrast route: IV; COMPARISON: CT ABDOMEN PELVIS WO CON 12/18/2023 6:45 AM FINDINGS: Tubes, catheters and devices: None noted. Lungs: Lung bases appear clear. Heart: No significant coronary calcifications. No cardiomegaly. No significant pericardial effusion. Liver: Normal. No mass. Gallbladder and biliary ducts: Cholecystectomy. No ductal dilation. Pancreas: Normal. No ductal dilation. Spleen: Normal. No splenomegaly. Adrenal glands: Normal. No mass. Kidneys and ureters: Normal. No hydronephrosis. Stomach and bowel: Unremarkable. No obstruction. No mucosal thickening. Appendix: No evidence of appendicitis. Intraperitoneal space: Unremarkable. No free air. No significant fluid collection. Retroperitoneal space: No significant retroperitoneal inflammatory changes are noted. Vasculature: Unremarkable. No abdominal aortic aneurysm. Lymph nodes: Unremarkable. No enlarged lymph nodes. Urinary bladder: Unremarkable as visualized. Reproductive: Unremarkable as visualized. Tubal ligation. Bones/joints: Unremarkable. No acute fracture. Soft tissues: Unremarkable. IMPRESSION: No acute findings.
--- NOTE | 2025-02-06 13:16 | ED_ITS ---
<Statement entered by Deng Li DO - 02/07/25 17:32> I was consulted by the RAYSHAWN, and we discussed the complexity of problems being addressed. I approved the treatment and management plan for this patient's care in the emergency department, thus performing a substantive portion of the medical decision making. I did personally evaluate this patient and obtain history and physical exam. She states that she was at an urgent care treatment center for evaluation of right flank pain which she actually describes to be directly over the rib cage. At the urgent care treatment center they found that there was blood in her urine and sent her here for rule out of a kidney stone. On my examination of the patient she has tenderness to palpation over the lateral aspect of the rib cage near the bra line. She states that she noticed this pain began after taking off her bra last night which raises my suspicion that this could be musculoskeletal in nature. She has no overt CVA tenderness on exam, however with the blood in her urine we did proceed to get a CT scan of the abdomen and pelvis to workup urolithiasis. CT scan was ultimately normal. She did not have any evidence of acute kidney injury and has no evidence of petechia or purpura on exam to suggest vasculitis of the origin of her hematuria. She is also not experiencing amari hematuria. No viral symptoms to suggest hemorrhagic cystitis. Overall her exam is very reassuring and we recommended that she follow-up with her primary care physician to ensure resolution of her hematuria. Deng Li DO Discharge Plan Disposition Patient Disposition: Home, Self-Care Prescriptions Prescriptions: No Action buprenorphine-naloxone 2-0.5 mg film sublingual DAILY Ubrelvy 100 mg tablet 100 mg PO ONCE PRN (Reason: migraine headache) Qty: 10 11RF Vyzulta 0.024 % drops 0.024 drp Eye-Both Linzess 72 mcg capsule PO Patient Comments: TAKE 1 CAPSULE BY MOUTH EVERY MORNING FOR CONSTIPATION estradiol 0.05 mg/24 hr patch semiweekly 1 patch transdermal .twice weekly Qty: 8 1RF progesterone micronized 100 mg capsule 100 mg PO DAILY Qty: 30 1RF magnesium glycinate 100 mg magnesium capsule 300 mg PO QHS lisinopril 5 mg tablet 2.5 mg PO DAILY Qty: 30 2RF fluticasone propionate [Flonase Allergy Relief] 50 mcg/actuation spray,suspension 1 spray intranasal DAILY PRN (Reason: allergy symptoms) Qty: 16 1RF Rx Instructions: administer into each nostril omeprazole 20 mg capsule,delayed release(DR/EC) PO cetirizine [All Day Allergy (cetirizine)] 10 mg tablet 10 mg PO DAILY PRN levothyroxine [Synthroid] 137 mcg tablet 137 mcg PO DAILY Qty: 30 3RF bisoprolol fumarate 5 mg tablet See Rx Instructions .ROUTE .COMPLEX Qty: 90 3RF Dose Instruction: TAKE ONE TABLET BY MOUTH ONCE A DAY Rx Instructions: TAKE ONE TABLET BY MOUTH ONCE A DAY Referrals Follow up/Referrals: Adolfo Henriquez MD [Staff Physician, Urology] - See instructions Kristie Perez RNA [Registered Nurse, Nursing] - See instructions Activity Restrictions/Add. Instructions Additional Instructions/Restrictions: Today you were evaluated in the emergency department. Your lab workup is overall unremarkable, you have blood in your urine. Your CT scan of the abdomen and pelvis is unremarkable for any acute findings. As we discussed, please follow-up with Dr. Henriquez, call the office Saturday morning to make a follow-up appointment. Return to the ED for any worsening of your condition. Clinical Impressions Clinical Impression: Acute flank pain, Hematuria Instructions Patient Instructions: DI for Hematuria Print Language Print Language: Kinyarwanda Discharge ED Provider: Deng Li Adult HPI General Chief complaint: Urogenital-Female Stated complaint: rt flank pain, blood in urine Time Seen by Provider: 02/06/25 13:01 Mode of Arrival: Ambulatory Source of Information: Patient Description of Symptoms (Recalled from ER Triage Doc. by RN): pt complains of r flank pain. went to [facility] and was told she might have a kidney stone. History of Present Illness HPI narrative: patient is a 39 year-old female PMHx fatty liver, hypertension, mental health disorder who presents to the ED for complaints of right flank and right side pain, mild urinary frequency. She states this started last night, the pain has been mostly consistent and associated with nausea. She has not had any medication prior to arrival. Patient states she has had hematuria before and was evaluated by urology, they thought she had a kidney stone but was unable to confirm. Related Data Home Medications ?Medication ?Instructions ?Recorded ?Confirmed buprenorphine 2 mg-naloxone 0.5 mg sublingual DAILY 02/06/25 sublingual film latanoprostene bunod 0.024 % eye 0.024 drp Eye-Both 02/06/25 drops (Vyzulta) linaclotide 72 mcg capsule mcg PO 10/12/24 02/06/25 (Linzess) magnesium glycinate 300 mg PO QHS 10/28/2402/06 omeprazole 20 mg capsule,delayed mg PO 12/17/24 release cetirizine 10 mg tablet (All Day 10 mg PO DAILY PRN 02/06/25 Allergy (cetirizine)) Previous Rx's ?Medication ?Instructions ?Recorded ubrogepant 100 mg tablet (Ubrelvy) 100 mg PO ONCE PRN migraine 09/07/24 headache #10 tabs Synthroid 137 mcg tablet 137 mcg PO DAILY #30 tabs (levothyroxine) fluticasone propionate 50 1 spray intranasal DAILY PRN 10/01/24 mcg/actuation nasal allergy symptoms #16 grams spray,suspension (Flonase Allergy Relief) lisinopril 5 mg tablet 2.5 mg (1/2 x 5 mg) PO DAILY #30 10/01/24 tabs estradiol 0.05 mg/24 hr semiweekly 1 patch transdermal .twice weekly 11/12/24 transdermal patch #8 ea progesterone micronized 100 mg 100 mg PO DAILY #30 cap s 11/12/24 capsule bisoprolol fumarate 5 mg tablet See Rx Instructions .R oute 12/18/24 .COMPLEX #90 tabs Allergies Allergy/AdvReac Type Severity Reaction Status Date / [facility] Allergy Mild Rash Verified 02/06/25 12:11 [facility] Disclaimer: The information contained in this section may have been updated after the patient was seen, as this information can be updated by other users. Medical History Allergies Abnormal screening mammogram Mass of right breast CONNER (stress urinary incontinence, female) Dyspareunia Abnormal uterine bleeding Perimenopausal symptom Deviated nasal septum Chronic sinusitis Anxiety Anxiety Worsening headaches Family history of brain aneurysm Hypotension Eustachian tube dysfunction Right upper quadrant abdominal pain COVID-19 Fever Left upper quadrant abdominal pain Left lower quadrant abdominal pain Eustachian tube obstruction Acute fungal otitis externa Enlarged lymph node in neck Vitamin D deficiency Hyperlipidemia Hypothyroidism Hypertension Depression Surgical History Hx of cholecystectomy H/O tubal ligation Hx of tonsillectomy Family History Other Alcoholism Asthma Coronary artery disease Diabetes FHx: mental illness Heart attack Hyperlipidemia Hypertension Thyroid disorder Social History Smoking Status: Current every day smoker tobacco type: cigarettes packs per day: 1 second hand exposure: Yes alcohol intake: never substance use type: former substance user and opiates current occupational status: unemployed and student Travel in the last 8 weeks?: None household members: spouse and children housing: other number of children: 2 caffeine: Yes Have you lived/traveled outside [place] in past 30 days?: No Contact w/someone who lives/traveled outside US past 30 days?: No Exposure to someone with infectious disease in past 14 days?: No Do you have a fever (greater than 100.4 F or 38 C)?: No Have you tested positive for COVID-19?: No Exposed to someone with COVID-19 in past 14 days?: No Do you have a sore throat?: No Do you have a cough?: No Do you have any weakness?: No Do you have any diarrhea?: No Are you experiencing any unusual bleeding?: No Do you have any muscle aches/pain?: No Do you have any abdominal pain?: No Are you experiencing loss of taste or smell?: No Other Medical History Have you received the Flu Vaccine for this season: Yes Have you received the Pneumonia Vaccine: No ROS Obtained: Yes Systems reviewed as appropriate & no additional complaints except as documented Physical Exam General General appearance: alert Head Head exam: normocephalic Eye Eye exam: Present PERRL Neck Neck exam: Present full ROM Respiratory Respiratory exam: Present normal lung sounds bilaterally Cardiovascular Cardiovascular exam: Present regular rate Abdominal Exam Abdominal exam: Present soft; Absent tenderness Extremities Exam Extremities exam: Present full ROM Back Exam Back exam: Present CVA tenderness (R) Neurological Exam Neurological exam: Present alert and oriented X3 Skin Skin exam: Present warm and dry Medical Decision Making Medical Records Screening: Per USPSTF and CDC recommendations, given the prevalence of disease in our region, it is our hospital?s policy to screen for HIV and viral Hepatitis for all patients aged 18 and over and those with ongoing risk factors. Chavo Inquiry Pt receiving controlled substance: No Vital Signs: 02/06/25 13:12 02/06/25 13:30 02/06/25 14:30 Temperature 98.1 F Temperature Source Oral Pulse Rate 79 73 Pulse Rate [Right] 100 H Respiratory Rate 18 Blood Pressure 132/70 114/63 Blood Pressure [Right Arm] 129/72 Blood Pressure Mean [Right Arm] 91 02 Sat by Pulse Oximetry 98 94 L 98 Oxygen Delivery Method Room Air 02/06/25 15:00 02/06/25 15:32 02/06/25 16:00 Temperature Temperature Source Pulse Rate 69 104 H 65 Pulse Rate [Right] Respiratory Rate Blood Pressure 111/68 121/67 111/67 Blood Pressure [Right Arm] Blood Pressure Mean [Right Arm] 02 Sat by Pulse Oximetry 98 95 98 Oxygen Delivery Method Lab Data Lab Results 02/06/25 13:02: Urine Color Yellow, Urine Appearance Clear, Urine pH 6.0, Ur Specific [place] 1.020, Urine Protein Negative, Urine Glucose (UA) Negative, Urine Ketones Negative, Urine Blood 1+ A, Urine Nitrate Negative, Urine Bilirubin Negative, Urine Urobilinogen 0.2, Ur Leukocyte Esterase Negative, Urine RBC 3-5, Urine WBC None, Ur Squamous Epith Cells 3-5, Urine Bacteria Trace, Urine HCG, Qual Negative 02/06/25 13:20: WBC 9.9, RBC 5.30, Hgb 13.4, Hct 42.2, MCV 79.6 L, MCH 25.3 L, MCHC 31.8, RDW 15.8, Plt Count 267, MPV 12.0 H, Neut % (Auto) 66.4, Lymph % (Auto) 25.1, [place] % (Auto) 3.9, Eos % (Auto) 3.5, Baso % (Auto) 0.8, Neut # (Auto) 6.6, Lymph # (Auto) 2.5, [place] # (Auto) 0.4, Eos # (Auto) 0.3, Baso # (Auto) 0.1, Sodium 140, Potassium 4.0, Chloride 107, Carbon Dioxide 27, Anion Gap 10.0, BUN 10, Creatinine 0.70, Estimated Creat Clear 161, Estimated GFR 93, Est GFR ( Amer) 112, Glucose 109 H, Calcium 9.4, Total Bilirubin 1.3, AST 35, ALT 29, Alkaline Phosphatase 66, Total Protein 8.2, Albumin 4.6, Globulin 3.6 H, Albumin/Globulin Ratio 1.3, Lipase 80, HCV Ab ELIAS w/Rflx PCR Qn Negative, HIV Ag/Ab Combo Qual Negative 02/06/25 13:20 02/06/25 13:20 Orders (Tests/Meds): ED MEDICATIONS Discontinued Medications Generic Name Dose Route Start Last Admin Trade Name Freq PRN Reason Stop Dose Admin Sodium Chloride 1,000 mls @ 999 mls/hr 02/06/25 13:14 02/06/25 13:26 Sod Chlor 0.9% 1000ml Bag IV 02/06/25 14:14 999 mls/hr .Q1H1M ONE Administration Iopamidol 75 ml 02/06/25 13:58 02/06/25 13:59 Iopamidol-370 (76%);100ml Bottle IV 02/06/25 13:59 75 ml ONCE ONE Administration Ondansetron HCl 4 mg 02/06/25 13:14 02/06/25 13:27 Ondansetron 4mg/2ml Vial IV 02/06/25 13:15 4 mg ONCE ONE Administration Sodium Chloride 10 ml 02/06/25 13:58 02/06/25 13:59 Sodium Chloride 0.9% 10ml Syr (Rad Only) IV 02/06/25 13:59 10 ml ONCE ONE Administration ORDERS Category Date Time Status CT abdomen pelvis w con Stat Cat Scan 02/06/25 13:14 Completed CBC w/Auto Diff [Complete Blood Count Auto Diff] Stat Lab 02/06/25 13:20 Completed CMP [Comprehensive Metabolic Panel] Stat Lab 02/06/25 13:20 Completed HIV Combo Stat Lab 02/06/25 13:20 Completed Hepatitis C Ab Qual. W/ RFX Stat Lab 02/06/25 13:20 Completed Lipase Stat Lab 02/06/25 13:20 Completed Urinalysis and Microscopic Stat Lab 02/06/25 13:02 Completed Urine , HCG Qual. Stat Lab 02/06/25 13:02 Completed Medical Decision Narrative: In summary, patient is a 39 year-old female PMHx fatty liver, hypertension, mental health disorder who presents to the ED for complaints of right flank and right side pain, mild urinary frequency. She states this started last night, the pain has been mostly consistent and associated with nausea. She has not had any medication prior to arrival. Patient states she has had hematuria before and was evaluated by urology, they thought she had a kidney stone but was unable to confirm. Denies fever, chills, headache, visual disturbances, neck pain, chest pain, shortness of breath, vomiting, dysuria. Upon initial evaluation patient is alert, oriented and cooperative. She is hemodynamically stable. Her physical exam is remarkable for right flank pain. Differential diagnosis include cholelithiasis, cholecystitis, renal calculi, obstruction, pyelonephritis, cystitis, UTI, among others. Discussed with patient we will proceed with labs, scan and nausea medication. She is agreeable to plan of care at this time. CBC unremarkable for any leukocytosis, stable H&H. CMP overall unremarkable. Urinalysis remarkable for blood, no bacteria. CT scan of the abdomen and pelvis unremarkable for any acute findings. Upon reassessment, patient states her condition has improved. We discussed workup was overall unremarkable, advised her to follow-up with urology for hematuria. We also discussed that she may use Lidoderm patches over the area to see if this is musculoskeletal related. Patient verbalized understanding. I offered her a work note however she states she is off work for the next several days. We discussed return precautions to the ED, she remained hemodynamically stable and was ambulatory without difficulty from the ED. Critical Care Critical Care Time Critical Care Time: No
[2025-02-06 13:19] LABS: Microscopic, Urine URINE MICROSCOPIC (MICROSCOPIC)
[2025-02-06 13:20] LABS: Bilirubin,Urine Negative (Negative); Color,Urine YELLOW (Yellow); Glucose,Urine (UA) Negative (Negative); Ketones,Urine Negative (Negative); Leukocyte Esterase,Urine Negative (Negative); PH,Urine 6.0 (5.0-8.5); Protein,Urine Negative (Negative); Specific Gravity, Urine 1.020 (1.005-1.030); Urobilinogen,Urine 0.2 EU/dl (0.2)
[2025-02-06 13:22] LABS: Urine Pregnancy, HCG Qual. Negative (Negative)
[2025-02-06 13:26] LABS: Hematocrit 42.2 % (37.0-47.0); Hemoglobin 13.4 g/dL (12.2-16.2); Immature Granulocytes % 0.3 %; Mean Corpuscular HGB Conc 31.8 g/dL (31.8-35.4); Mean Corpuscular Hemoglobin 25.3 pg (27.0-31.2); Mean Corpuscular Volume 79.6 fl (81-99); Nucleated Red Blood Cells % 0 %; Platelet Count 267 K/mm3 (142-424); Red Blood Count 5.30 M/mm3 (4.20-5.40); Red Cell Distribution Width-SD 45.1 fL; White Blood Count 9.9 K/mm3 (4.8-10.8)
[2025-02-06] MEDS: 0.9 % SODIUM CHLORIDE 1000ML 1,000 ML 999 ML IV (13:26)
[2025-02-06 13:27] LABS: Bacteria,Urine Trace /lpf
[2025-02-06] MEDS: ONDANSETRON 4MG/2ML VIAL 4 MG IV (13:27)
[2025-02-06 13:32] LABS: Albumin Level 4.6 g/dl (3.5-5.0); Chloride 107 mmol/L (98-107); Potassium 4.0 mmoL/L (3.5-5.1); Sodium 140 mmol/L (136-145)
[2025-02-06 13:35] LABS: Alanine Aminotransferase 29 U/L (12-78); Albumin/Globulin Ratio 1.3 (1.1-1.8); Alkaline Phosphatase 66 U/L (38-126); Anion Gap 10.0 mEq/L (5-15); Aspartate Amino Transferase 35 U/L (14-36); Bilirubin,Total 1.3 mg/dl (0.2-1.3); Blood Urea Nitrogen 10 mg/dl (7-17); Carbon Dioxide 27 mmol/L (22.0-30.0); Creatinine Clearance Estimated 161 mL/min (50-200); Creatinine,Serum 0.70 mg/dl (0.52-1.04); Estimated Glomerular Filt Rate 93 ml/min (>60); GFR (African American) 112 ML/MIN (>60); Globulin 3.6 g/dL (1.3-3.2); Lipase 80 U/L (23-300); Total Protein,Serum 8.2 g/dl (6.3-8.2)
[2025-02-06 13:36] LABS: Calcium 9.4 mg/dl (8.4-10.2); Glucose 109 mg/dl (74-100)
[2025-02-06] MEDS: SODIUM CHLORIDE 0.9% 10ML SYR (RAD ONLY) 10 ML IV (13:59)
[2025-02-06] MEDS: IOPAMIDOL-370 (76%);100ML BOTTLE 75 ML IV (13:59)
[2025-02-06 14:46] LABS: Hepatitis C Ab Qual. W/ RFX NEGATIVE (Negative)
--- NOTE | 2025-02-06 15:06 | PC.NURSE ---
pt is resting in bed. no complaints @ this time
--- NOTE | 2025-02-06 15:54 | PC.NURSE ---
called radiology for update on reads
== END 2025-02-06 16:18 | disposition home or self-care (01) ==
PROVIDERS: Nurse Practitioner; Emergency Provider Student in an Organized Health Care Education/Training Program; PCP Family Medicine
DX: R10.31 Right lower quadrant pain (principal); R11.0 Nausea; R35.0 Frequency of micturition; F17.210 Nicotine dependence, cigarettes, uncomplicated
CPT/HCPCS: 74177; 80053; 81001; 81025; 83690; 85025; 86803; 87086; 87389; 96361; 96374; 99284; J2405; J7030; Q9967